=== PATIENT | female | born 1940 | race Caucasian/White ===

== ENCOUNTER → 2016-11-25 | Outpatient (CLI) | payer MEDICARE ==
--- NOTE | 2016-11-27 09:39 | MM ---
Reason for exam: screening (asymptomatic). Last mammogram was performed 2 years and 4 months ago. History: Patient is postmenopausal. Family history of breast cancer in aunt at age 72, premenopausal breast cancer in mother at age 48, and breast cancer in sister at age 67. Took hormonal contraceptives for 3 years beginning at age 22. Taking other hormone for 2 years. Physical Findings: A clinical breast exam by your physician is recommended on an annual basis and results should be correlated with mammographic findings. MG 3D Screening Mammo W/Cad Bilateral CC and MLO view(s) were taken. Prior study comparison: July 27, 2014, bilateral MG screening mammo w CAD. November 18, 2011, bilateral digital screening mammo w/CAD. There are scattered fibroglandular densities. There is no discrete abnormality. No significant changes when compared with prior studies. ASSESSMENT: Negative, BI-RAD 1 RECOMMENDATION: Routine screening mammogram of both breasts in 1 year.
== END | disposition home or self-care (01) ==
LOC: RADMAMWWP 15:08
PROVIDERS: ATTEND Internal Medicine
DX: Z12.31 Encounter for screening mammogram for malignant neoplasm of breast (principal)
CPT/HCPCS: 77063; G0202

== ENCOUNTER → 2018-04-30 | Outpatient (CLI) | payer MEDICARE ==
--- NOTE | 2018-05-04 09:00 | MM ---
Reason for exam: screening (asymptomatic). Last mammogram was performed 1 year and 5 months ago. History: Patient is postmenopausal and history of other cancer. Family history of breast cancer in aunt at age 72, premenopausal breast cancer in mother at age 48, and breast cancer in sister at age 67. Took hormonal contraceptives for 3 years beginning at age 22. Taking other hormone for 2 years. Physical Findings: A clinical breast exam by your physician is recommended on an annual basis and results should be correlated with mammographic findings. MG 3D Screening Mammo W/Cad Bilateral CC and MLO view(s) were taken. Prior study comparison: November 25, 2016, bilateral MG 3d screening mammo w/cad. July 27, 2014, bilateral MG screening mammo w CAD. There are scattered fibroglandular densities. No significant changes when compared with prior studies. ASSESSMENT: Negative, BI-RAD 1 RECOMMENDATION: Routine screening mammogram of both breasts in 1 year.
== END | disposition home or self-care (01) ==
LOC: RADMAMWWP 13:48
PROVIDERS: ATTEND Internal Medicine
DX: Z12.31 Encounter for screening mammogram for malignant neoplasm of breast (principal)
CPT/HCPCS: 77063; 77067

== ENCOUNTER 2018-05-03 08:42 | Emergency (ER) | payer MEDICARE ==
[2018-05-03 08:50] VITALS: RESP 18
[2018-05-03] MEDS ORDERED: SODIUM CHLORIDE 0.9% 1,000 ML IV STA (09:05)
--- NOTE | 2018-05-03 09:37 | ED ---
General Adult HPI <Javier Hobbs - Last Filed: 05/03/18 14:20> - General Source: patient, RN notes reviewed Mode of arrival: wheelchair Limitations: no limitations <Frank Casey - Last Filed: 05/03/18 14:34> - General Chief complaint: Weakness Stated complaint: Bladder infection Time Seen by Provider: 05/03/18 08:53 - History of Present Illness Initial comments: Patient 78-year-old female presents emergency room today with a chief complaint of urinary tract infection. She does admit that she's been battling a urinary tract infection for several months. States she was recently switched and started on antibiotics of ciprofloxacin for the past week. States symptoms have not improved. States she still having increased frequency and difficult time holding her urine. Patient doesn't that she's had symptoms similar in the past with urinary tract infections. She states she feels generally weak. She denies any other complaints. Patient denies any recent fever, chills, shortness of breath, chest pain, back pain, abdominal pain, nausea or vomiting, numbness or tingling, headaches or visual changes, or any other complaints. (Frank Casey) - Related Data Home Medications Medication Instructions Recorded Confirmed Atorvastatin [Lipitor] 20 mg PO HS 07/27/15 05/03/18 Gabapentin [Neurontin] 600 mg PO QAM 07/27/15 05/03/18 Lansoprazole [Prevacid] 30 mg PO BID 07/27/15 05/03/18 Meclizine [Antivert] 25 mg PO BID 07/27/15 05/03/18 Metoprolol Tartrate [Lopressor] 50 mg PO BID 07/27/15 05/03/18 Oxybutynin Chloride [Oxybutynin 10 mg PO DAILY 07/27/15 05/03/18 Chloride ER] RX: Biotin 5 mg PO DAILY 07/27/15 05/03/18 Venlafaxine HCl ER [Effexor Xr] 300 mg PO HS 07/27/15 05/03/18 Allopurinol [Zyloprim] 100 mg PO HS 05/03/18 05/03/18 Ciprofloxacin HCl [Cipro] 250 mg PO Q12HR 05/03/18 05/03/18 Cranberry Fruit Extract [Cranberry] 400 mg PO DAILY 05/03/18 05/03/18 Docusate [Colace] 300 mg PO HS 05/03/18 05/03/18 Ibuprofen [Motrin] 800 mg PO TID PRN 05/03/18 05/03/18 RX: Aspirin 81 mg PO DAILY 05/03/18 05/03/18 RX: Spironolactone 50 mg PO DAILY 05/03/18 05/03/18 buPROPion HCL [Wellbutrin SR] 150 mg PO BID 05/03/18 05/03/18 Previous Rx's Medication Instructions Recorded Hydrocodone/Acetaminophen [[place] 1 tab PO Q4HR PRN #30 tab 07/31/15 5-325] Allergies Allergy/AdvReac Type Severity Reaction Status Date / Time Sulfa (Sulfonamide Allergy Papo Verified 05/03/18 09:41 Antibiotics) syndrome Review of Systems ROS Other: All systems not noted in ROS Statement are negative. <Javier Hobbs - Last Filed: 05/03/18 14:20> ROS Other: All systems not noted in ROS Statement are negative. <Frank Casey - Last Filed: 05/03/18 14:34> ROS Statement: Those systems with pertinent positive or pertinent negative responses have been documented in the HPI. Past Medical History Past Medical History: Atrial Fibrillation, Heart Failure, CVA/TIA, Deep Vein Thrombosis (DVT), GERD/Reflux, Hyperlipidemia, Hypertension, Musculoskeletal Disorder, Sleep Apnea/CPAP/BIPAP, Thyroid Disorder Additional Past Medical History / Comment(s): pas hx. a-fib, has Lopez- Onel syndrome, post polio syndrome, hx. DVT years ago, not currently using CPAP, 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 left wrist earlier this week-currently in half cast, recently hospitalized for kidney/UTI infection? History of Any Multi-Drug Resistant Organisms: None Reported Past Surgical History: Cholecystectomy, Heart Catheterization With Stent, Hysterectomy Additional Past Surgical History / Comment(s): kidney surg. for malrotation Past Anesthesia/Blood Transfusion Reactions: No Reported Reaction Date of Last Stent Placement:: 2010 Past Psychological History: Anxiety, Depression Smoking Status: Former smoker - Past Family History Mother Sister(s) Family Medical History: Cancer <Frank Casey - Last Filed: 05/03/18 14:34> General Exam <Javier Hobbs - Last Filed: 05/03/18 14:20> Limitations: no limitations <Frank Casey - Last Filed: 05/03/18 14:34> - General Exam Comments Initial Comments: General: The patient is awake and alert, in no distress, and does not appear acutely ill. Eye: There is normal conjunctiva bilaterally. No signs of icterus. Ears, nose, mouth and throat: There are moist mucous membranes and no oral lesions. Neck: The neck is supple, there is no tenderness or JVD. Cardiovascular: There is a regular rate and rhythm. No murmur, rub or gallop is appreciated. Respiratory: Lungs are clear to auscultation, respirations are non-labored, breath sounds are equal. No wheezes, stridor, rales, or rhonchi. Gastrointestinal: Soft, non-distended, non-tender abdomen without masses or organomegaly noted. There is no rebound or guarding present. No CVA tenderness. Bowel sounds are unremarkable. Musculoskeletal: Normal ROM, no tenderness. Sensation intact. Strength 5/5. Pulses equal bilaterally 2+. Neurological: A&O x 3. CN II-XII intact, There are no obvious motor or sensory deficits. Coordination appears grossly intact. Speech is normal. Skin: Skin is warm and dry and no rashes or lesions are noted. Psychiatric: Cooperative, appropriate mood & affect, normal judgment. (Frank Casey) Vital Signs 05/03/18 05/03/18 08:44 09:04 Temperature 98.2 F Pulse Rate 65 Respiratory 18 Rate Blood Pressure 74/46 97/57 O2 Sat by Pulse 94 L Oximetry Medical Decision Making - Lab Data Result diagrams: 05/03/18 09:44 05/03/18 09:44 <Javier Hobbs - Last Filed: 05/03/18 14:20> - Lab Data Result diagrams: 05/03/18 09:44 05/03/18 09:44 <Frank Casey - Last Filed: 05/03/18 14:34> - Medical Decision Making Patient reevaluated by myself, Dr. Hobbs. Patient resting comfortably in bed. Patient does have bruising left posterior arm. Etiology of coagulopathy is unclear at this time. Case was discussed in detail with Dr. Gomez who is familiar with this patient. He does recommend vitamin K 5 mg by mouth 1 and will follow up with patient. (Javier Hobbs) - Lab Data Lab Results 05/03/18 05/03/18 05/03/18 Range/Units 09:44 09:44 09:44 WBC 8.1 (3.8-10.6) k/uL RBC 3.08 L (3.80-5.40) m/uL Hgb 9.6 L (11.4-16.0) gm/dL Hct 31.5 L (34.0-46.0) % MCV 102.3 H (80.0-100.0) fL MCH 31.2 (25.0-35.0) pg MCHC 30.5 L (31.0-37.0) g/dL RDW 15.4 (11.5-15.5) % Plt Count 262 (150-450) k/uL Neutrophils % 62 % Lymphocytes % 20 % Monocytes % 10 % Eosinophils % 3 % Basophils % 1 % Neutrophils # 5.0 (1.3-7.7) k/uL Lymphocytes # 1.6 (1.0-4.8) k/uL Monocytes # 0.8 (0-1.0) k/uL Eosinophils # 0.3 (0-0.7) k/uL Basophils # 0.1 (0-0.2) k/uL Hypochromasia Marked Macrocytosis Slight PT >130.0 H (9.0-12.0) sec INR >10.0 H* (<1.2) APTT 68.4 H (22.0-30.0) sec Sodium 139 (137-145) mmol/L Potassium 4.9 (3.5-5.1) mmol/L Chloride 110 H (98-107) mmol/L Carbon Dioxide 17 L (22-30) mmol/L Anion Gap 12 mmol/L BUN 31 H (7-17) mg/dL Creatinine 2.60 H (0.52-1.04) mg/dL Est GFR (CKD-EPI)AfAm 20 (>60 ml/min/1.73 sqM) Est GFR (CKD-EPI)NonAf 17 (>60 ml/min/1.73 sqM) Glucose 85 (74-99) mg/dL Plasma Lactic Acid Harshad (0.7-2.0) mmol/L Calcium 6.8 L (8.4-10.2) mg/dL Total Bilirubin 0.2 (0.2-1.3) mg/dL AST 22 (14-36) U/L ALT 20 (9-52) U/L Alkaline Phosphatase 230 H (38-126) U/L Total Creatine Kinase (30-135) U/L CK-MB (CK-2) (0.0-2.4) ng/mL CK-MB (CK-2) Rel Index Troponin I (0.000-0.034) ng/mL Total Protein 5.9 L (6.3-8.2) g/dL Albumin 3.1 L (3.5-5.0) g/dL Urine Color Urine Appearance (Clear) Urine pH (5.0-8.0) Ur Specific [place] (1.001-1.035) Urine Protein (Negative) Urine Glucose (UA) (Negative) Urine Ketones (Negative) Urine Blood (Negative) Urine Nitrite (Negative) Urine Bilirubin (Negative) Urine Urobilinogen (<2.0) mg/dL Ur Leukocyte Esterase (Negative) 05/03/18 05/03/18 05/03/18 Range/Units 09:44 09:44 10:15 WBC (3.8-10.6) k/uL RBC (3.80-5.40) m/uL Hgb (11.4-16.0) gm/dL Hct (34.0-46.0) % MCV (80.0-100.0) fL MCH (25.0-35.0) pg MCHC (31.0-37.0) g/dL RDW (11.5-15.5) % Plt Count (150-450) k/uL Neutrophils % % Lymphocytes % % Monocytes % % Eosinophils % % Basophils % % Neutrophils # (1.3-7.7) k/uL Lymphocytes # (1.0-4.8) k/uL Monocytes # (0-1.0) k/uL Eosinophils # (0-0.7) k/uL Basophils # (0-0.2) k/uL Hypochromasia Macrocytosis PT (9.0-12.0) sec INR (<1.2) APTT (22.0-30.0) sec Sodium (137-145) mmol/L Potassium (3.5-5.1) mmol/L Chloride (98-107) mmol/L Carbon Dioxide (22-30) mmol/L Anion Gap mmol/L BUN (7-17) mg/dL Creatinine (0.52-1.04) mg/dL Est GFR (CKD-EPI)AfAm (>60 ml/min/1.73 sqM) Est GFR (CKD-EPI)NonAf (>60 ml/min/1.73 sqM) Glucose (74-99) mg/dL Plasma Lactic Acid [place] 1.1 (0.7-2.0) mmol/L Calcium (8.4-10.2) mg/dL Total Bilirubin (0.2-1.3) mg/dL AST (14-36) U/L ALT (9-52) U/L Alkaline Phosphatase (38-126) U/L Total Creatine Kinase 224 H (30-135) U/L CK-MB (CK-2) 0.3 (0.0-2.4) ng/mL CK-MB (CK-2) Rel Index 0.1 Troponin I <0.012 (0.000-0.034) ng/mL Total Protein (6.3-8.2) g/dL Albumin (3.5-5.0) g/dL Urine Color Yellow Urine Appearance Clear (Clear) Urine pH 5.5 (5.0-8.0) Ur Specific [place] 1.012 (1.001-1.035) Urine Protein Negative (Negative) Urine Glucose (UA) Negative (Negative) Urine Ketones Negative (Negative) Urine Blood Negative (Negative) Urine Nitrite Negative (Negative) Urine Bilirubin Negative (Negative) Urine Urobilinogen <2.0 (<2.0) mg/dL Ur Leukocyte Esterase Negative (Negative) 05/03/18 Range/Units 11:34 WBC (3.8-10.6) k/uL RBC (3.80-5.40) m/uL Hgb (11.4-16.0) gm/dL Hct (34.0-46.0) % MCV (80.0-100.0) fL MCH (25.0-35.0) pg MCHC (31.0-37.0) g/dL RDW (11.5-15.5) % Plt Count (150-450) k/uL Neutrophils % % Lymphocytes % % Monocytes % % Eosinophils % % Basophils % % Neutrophils # (1.3-7.7) k/uL Lymphocytes # (1.0-4.8) k/uL Monocytes # (0-1.0) k/uL Eosinophils # (0-0.7) k/uL Basophils # (0-0.2) k/uL Hypochromasia Macrocytosis PT >130.0 H (9.0-12.0) sec INR >10.0 H* (<1.2) APTT 62.9 H (22.0-30.0) sec Sodium (137-145) mmol/L Potassium (3.5-5.1) mmol/L Chloride (98-107) mmol/L Carbon Dioxide (22-30) mmol/L Anion Gap mmol/L BUN (7-17) mg/dL Creatinine (0.52-1.04) mg/dL Est GFR (CKD-EPI)AfAm (>60 ml/min/1.73 sqM) Est GFR (CKD-EPI)NonAf (>60 ml/min/1.73 sqM) Glucose (74-99) mg/dL Plasma Lactic Acid [place] (0.7-2.0) mmol/L Calcium (8.4-10.2) mg/dL Total Bilirubin (0.2-1.3) mg/dL AST (14-36) U/L ALT (9-52) U/L Alkaline Phosphatase (38-126) U/L Total Creatine Kinase (30-135) U/L CK-MB (CK-2) (0.0-2.4) ng/mL CK-MB (CK-2) Rel Index Troponin I (0.000-0.034) ng/mL Total Protein (6.3-8.2) g/dL Albumin (3.5-5.0) g/dL Urine Color Urine Appearance (Clear) Urine pH (5.0-8.0) Ur Specific [place] (1.001-1.035) Urine Protein (Negative) Urine Glucose (UA) (Negative) Urine Ketones (Negative) Urine Blood (Negative) Urine Nitrite (Negative) Urine Bilirubin (Negative) Urine Urobilinogen (<2.0) mg/dL Ur Leukocyte Esterase (Negative) Disposition <Javier Hobbs - Last Filed: 05/03/18 14:20> Is patient prescribed a controlled substance at d/c from ED?: No Time of Disposition: 14:34 <JacintoFrank - Last Filed: 05/03/18 14:34> Clinical Impression: Elevated INR Disposition: HOME SELF-CARE Condition: Stable Instructions: Elevated INR (ED) Additional Instructions: Please follow-up with family physician tomorrow to have blood work rechecked. Please return to emergency room if the symptoms increase or worsen or for any other concerns. Referrals: Kenn Gomez MD [Primary Care Provider] - 1-2 days
[2018-05-03 10:22] LABS: Albumin 3.1 g/dL (3.5-5.0); Calcium 6.8 mg/dL (8.4-10.2); Potassium 4.9 mmol/L (3.5-5.1); Total Bilirubin 0.2 mg/dL (0.2-1.3); Total Protein 5.9 g/dL (6.3-8.2)
[2018-05-03 10:26] LABS: Basophils # (A) 0.1 k/uL (0-0.2); Basophils % (A) 1 %; Eosinophils # (A) 0.3 k/uL (0-0.7); Eosinophils % (A) 3 %; HCT 31.5 % (34.0-46.0); HGB 9.6 gm/dL (11.4-16.0); Hypochromasia Marked; Lymphocytes # (A) 1.6 k/uL (1.0-4.8); Lymphocytes % (A) 20 %; MCH 31.2 pg (25.0-35.0); MCHC 30.5 g/dL (31.0-37.0); MCV 102.3 fL (80.0-100.0); Macrocytosis Slight; Mean Platelet Volume 7.6; Monocytes # (A) 0.8 k/uL (0-1.0); Monocytes % (A) 10 %; Neutrophils % (A) 62 %; Platelet Count 262 k/uL (150-450); RBC 3.08 m/uL (3.80-5.40); RDW 15.4 % (11.5-15.5); WBC 8.1 k/uL (3.8-10.6)
[2018-05-03 10:33] LABS: Appearance,Urine Clear (Clear); Bilirubin,Urine Negative (Negative); Blood,Urine Negative (Negative); Color,Urine Yellow; Glucose,Urine (UA) Negative (Negative); Ketones,Urine Negative (Negative); Leukocyte Esterase,Urine Negative (Negative); Nitrite,Urine Negative (Negative); PH, Urine 5.5 (5.0-8.0); Protein,Urine Negative (Negative); Specific Gravity,Urine 1.012 (1.001-1.035); Urobilinogen,Urine <2.0 mg/dL (<2.0)
[2018-05-03 10:38] LABS: Creatine Kinase 224 U/L (30-135)
--- NOTE | 2018-05-03 10:43 | XR ---
EXAMINATION TYPE: XR chest 2V DATE OF EXAM: 05/03/2018 COMPARISON: NONE HISTORY: Shortness of breath TECHNIQUE: Frontal and lateral views of the chest are obtained. FINDINGS: Scattered senescent parenchymal changes noted. Hyperinflation compatible with COPD. No evidence for infiltrate. Right middle lobe linear atelectasis noted. Heart size is stable. Mediastinal structures are stable and grossly unremarkable. No evidence for hilar prominence. Degenerative changes dorsal spine. IMPRESSION: 1. Right middle lobe linear atelectasis noted.
[2018-05-03 10:50] LABS: Creatine Kinase MB 0.3 ng/mL (0.0-2.4); Troponin I <0.012 ng/mL (0.000-0.034)
[2018-05-03 11:03] LABS: Prothrombin Time >130.0 sec (9.0-12.0)
[2018-05-03 11:05] LABS: INR >10.0 (<1.2)
[2018-05-03 11:06] LABS: Partial Thromboplastin Time 68.4 sec (22.0-30.0)
[2018-05-03 12:34] LABS: Partial Thromboplastin Time 62.9 sec (22.0-30.0); Prothrombin Time >130.0 sec (9.0-12.0)
[2018-05-03 12:35] LABS: INR >10.0 (<1.2)
[2018-05-03] MEDS ORDERED: PHYTONADIONE ORAL 5 MG/5 ML ORAL.SYRG PO STA (14:24)
[2018-05-03 15:40] VITALS: BP 114/57; PULSE 69; TEMP 98
== END 2018-05-03 15:39 | disposition home or self-care (01) ==
LOC: EC 08:42
DX: R79.1 Abnormal coagulation profile (principal); S40.022A Contusion of left upper arm, initial encounter; R53.1 Weakness; R35.0 Frequency of micturition; R39.198 Other difficulties with micturition; I48.91 Unspecified atrial fibrillation; I11.0 Hypertensive heart disease with heart failure; I50.9 Heart failure, unspecified; K21.9 Gastro-esophageal reflux disease without esophagitis; E78.5 Hyperlipidemia, unspecified; F41.9 Anxiety disorder, unspecified; F32.9 Major depressive disorder, single episode, unspecified; G47.30 Sleep apnea, unspecified; Z99.89 Dependence on other enabling machines and devices; Z95.5 Presence of coronary angioplasty implant and graft; Z86.73 Personal history of transient ischemic attack (TIA), and cerebral infarction without residual deficits; Z98.890 Other specified postprocedural states; Z87.891 Personal history of nicotine dependence; Z79.82 Long term (current) use of aspirin; Z79.899 Other long term (current) drug therapy; Z88.2 Allergy status to sulfonamides; X58.XXXA Exposure to other specified factors, initial encounter
CPT/HCPCS: 36415; 71046; 80053; 81003; 82550; 82553; 83605; 84484; 85025; 85610; 85730; 87040; 87086; 93005; 96360; 99285

== ENCOUNTER 2018-05-24 08:29 | Day surgery (SDC) | payer MEDICARE ==
[2018-05-19 14:34] VITALS: BMI 25.2
[~2018-05-24 08:29] MED LIST: LACTATED RINGERS 1,000 ML IV SCH
[2018-05-24 09:09] VITALS: TEMP 97.3
[2018-05-24] MEDS ORDERED: LIDOCAINE 1% 20 ML VIAL (10MG/ML) FOR IV START INTRADERMA ONE (09:21)
[2018-05-24] MEDS ORDERED: LIDOCAINE 1% INJ 10MG/ML (20 ML MDV) ONE (10:04)
[2018-05-24] MEDS ORDERED: PROPOFOL 10 MG/ML 20 ML VIAL IV ONE (10:04)
[2018-05-24 10:29] VITALS: RESP 14
--- NOTE | 2018-05-24 10:30 | P.PCN ---
Date of Procedure: 05/24/18 Procedure(s) Performed: Procedure: Esophagogastroduodenoscopy and biopsy. Preoperative diagnosis: Dysphagia. Postoperative diagnosis: 1. Small sliding hiatal hernia with no obvious esophagitis or complicated reflux disease. 2. Mild antral gastritis. 3. Multiple biopsies obtained from the duodenum, antrum and esophagus. Preparation and sedation: Was provided by anesthesia. Brief clinical history: The patient is a 78-year-old female who is scheduled for this evaluation because of history of dysphagia for the last 4 years or so. Apparently, she was on life support around 4 years ago that went on for a month or so and since that time she has difficulty swallowing. There is no overt bleeding. She did lose weight last year. The patient, in addition, has chronic stomach issues. This evaluation is to assess for complicated reflux disease or other pathology. Procedure: With the patient on her left lateral decubitus position and after informed consent and adequate sedation the Olympus-GIF 160 video upper endoscope was used and was advanced under direct vision through the cricopharyngeus down the esophagus. GE junction was around 39 cm from the incisors and there was a small sliding hiatal hernia but no obvious esophagitis or complicated reflux disease. The endoscope was then passed into the stomach which was insufflated with air and inspected in detail including the retroflex view in the cardia. There was some mottling and erythema in the antrum but no ulcers or erosions. Pyloric channel did not show any ulcers. Duodenal bulb, post bulbar area and descending duodenum showed minimal erythema. I obtained multiple biopsies from the duodenum, antrum and esophagus then the endoscope was withdrawn. The patient tolerated the procedure well. Plan: The patient was reassured. She will follow-up with you as planned and I will be happy to see in the office if her symptoms persist, especially if there is nutritional compromise.
[2018-05-24 10:54] VITALS: BP 99/50; PULSE 66
== END 2018-05-24 10:54 | disposition home or self-care (01) ==
LOC: ORWHC2ENDO 08:29
DX: K20.0 Eosinophilic esophagitis (principal); K29.80 Duodenitis without bleeding; K29.50 Unspecified chronic gastritis without bleeding; R13.10 Dysphagia, unspecified; K44.9 Diaphragmatic hernia without obstruction or gangrene; E78.5 Hyperlipidemia, unspecified; G47.33 Obstructive sleep apnea (adult) (pediatric); I48.91 Unspecified atrial fibrillation; I25.10 Atherosclerotic heart disease of native coronary artery without angina pectoris; I11.0 Hypertensive heart disease with heart failure; I50.9 Heart failure, unspecified; Z87.891 Personal history of nicotine dependence; Z86.73 Personal history of transient ischemic attack (TIA), and cerebral infarction without residual deficits; Z86.718 Personal history of other venous thrombosis and embolism; K21.9 Gastro-esophageal reflux disease without esophagitis; E07.9 Disorder of thyroid, unspecified; H40.9 Unspecified glaucoma; G14 Postpolio syndrome; Z95.5 Presence of coronary angioplasty implant and graft; Z99.81 Dependence on supplemental oxygen; Z88.2 Allergy status to sulfonamides
CPT/HCPCS: 88305; 43239; J2001; J2704

== ENCOUNTER 2019-01-22 20:14 | Emergency (ER) | payer MEDICARE ==
[2019-01-22] MEDS ORDERED: KETOROLAC 30 MG/ML 1 ML VIAL IVP STA (21:20)
[2019-01-22] MEDS ORDERED: SODIUM CHLORIDE 0.9% 1,000 ML IV STA (21:20)
--- NOTE | 2019-01-22 21:36 | ED ---
Abdominal Pain HPI - General Chief Complaint: Abdominal Pain Stated Complaint: flank pain Time Seen by Provider: 01/22/19 20:52 Source: patient, family Mode of arrival: ambulatory Limitations: no limitations - History of Present Illness Initial Comments: Patient is a 78-year-old female presenting to the emergency Department with complaints of right-sided flank pain 3 days. Patient states the pain has been steadily increasing in severity. Patient states the pain does come and go but overall has been increasing in her pain medications are not helping. 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 Patient denies nausea, vomiting, fever, chills. Patient states she thought she felt a little feverish yesterday but did not have a thermometer. Patient states today she no longer feels that way. Patient does have a history of UTIs. Patient has history of cholecystectomy, left kidney malrotation surgery, and 2 hysterectomies. Patient has no other complaints at this time. - Related Data Home Medications Medication Instructions Recorded Confirmed Atorvastatin [Lipitor] 20 mg PO HS 07/27/15 05/19/18 Biotin 5 mg PO QAM 07/27/15 05/24/18 Gabapentin [Neurontin] 600 mg PO QAM 07/27/15 05/24/18 Lansoprazole [Prevacid] 30 mg PO BID 07/27/15 05/24/18 Meclizine [Antivert] 25 mg PO BID 07/27/15 05/19/18 Metoprolol Tartrate [Lopressor] 50 mg PO BID 07/27/15 05/19/18 Oxybutynin Chloride [Oxybutynin 10 mg PO QAM 07/27/15 05/24/18 Chloride ER] Venlafaxine HCl ER [Effexor Xr] 300 mg PO HS 07/27/15 05/19/18 Allopurinol [Zyloprim] 100 mg PO HS 05/03/18 05/19/18 Aspirin 81 mg PO QAM 05/03/18 05/19/18 Cranberry Fruit Extract [Cranberry] 400 mg PO DAILY 05/03/18 05/24/18 Docusate [Colace] 300 mg PO HS 05/03/18 05/19/18 Ibuprofen [Motrin] 800 mg PO TID PRN 05/03/18 05/24/18 Spironolactone 50 mg PO QAM 05/03/18 05/24/18 buPROPion HCL [Wellbutrin SR] 150 mg PO BID 05/03/18 05/19/18 Furosemide [Lasix] 40 mg PO DAILY PRN 05/19/18 05/24/18 Levothyroxine Sodium [Synthroid] 125 mcg PO QAM 05/19/18 05/19/18 Vitamin K 100 mcg PO DAILY 05/19/18 Previous Rx's Medication Instructions Recorded Hydrocodone/Acetaminophen [[place] 1 tab PO Q4HR PRN #30 tab 07/31/15 5-325] Allergies Allergy/AdvReac Type Severity Reaction Status Date / Time Sulfa (Sulfonamide Allergy Papo Verified 01/22/19 20:51 Antibiotics) syndrome Review of Systems ROS Statement: Those systems with pertinent positive or pertinent negative responses have been documented in the HPI. ROS Other: All systems not noted in ROS Statement are negative. 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 left wrist, hx of UTI's, hx of glaucoma, had several laser tx, states frequent headaches, uses walker, vertigo, hx of gout, History of Any Multi-Drug Resistant Organisms: None Reported Past Surgical History: Cholecystectomy, Heart Catheterization With Stent, Hysterectomy Additional Past Surgical History / Comment(s): kidney surg. for malrotation, chest tube, 2 stents Past Anesthesia/Blood Transfusion Reactions: No Reported Reaction Date of Last Stent Placement:: 2010 Past Psychological History: Anxiety, Depression Smoking Status: Former smoker Past Alcohol Use History: None Reported Past Drug Use History: None Reported - Past Family History Mother Sister(s) Family Medical History: Cancer General Exam - General Exam Comments Initial Comments: GENERAL: Well-appearing, well-nourished and in no acute distress. HEAD: Atraumatic, normocephalic. EYES: Pupils equal round and reactive to light, extraocular movements intact, sclera anicteric, conjunctiva are normal. ENT: TMs normal, nares patent, oropharynx clear without exudates. Moist mucous membranes. NECK: Normal range of motion, supple without lymphadenopathy or JVD. LUNGS: Breath sounds clear to auscultation bilaterally and equal. No wheezes rales or rhonchi. HEART: Regular rate and rhythm without murmurs, rubs or gallops. ABDOMEN: Tenderness of the right flank and right side. Soft, normoactive bowel sounds. No guarding, no rebound. No masses appreciated. : Deferred EXTREMITIES: Normal range of motion, no pitting or edema. No clubbing or cyanosis. NEUROLOGICAL: Cranial nerves II through XII grossly intact. Normal speech, normal gait. PSYCH: Normal mood, normal affect. SKIN: Warm, Dry, normal turgor, no rashes or lesions noted. Limitations: no limitations Course Vital Signs 01/22/19 20:45 Temperature 98.1 F Pulse Rate 70 Respiratory 20 Rate Blood Pressure 103/62 O2 Sat by Pulse 96 Oximetry Medical Decision Making - Medical Decision Making Patient is a 78-year-old female who presents with right flank pain 3 days. She states the pain has been steadily increasing over the 3 days and has been waxing and waning. Patient denies fever, chills, nausea, vomiting. Patient has history of cholecystectomy, 2 hysterectomies, and a surgery on the left kidney. On exam patient has tenderness of the right flank area and right side. Rest of exam is unremarkable. CBC, CMP, UA shows no signs of infection. CT of the abdomen reveals a nonobstructing renal calculi 1 mm in size. Everything else is unremarkable. There is some atelectasis of the right middle lobe. 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 Patient received Toradol and states she feels improvement in her pain and is wanting to go home. Vital signs remained stable throughout stay. Patient will continue with Motrin as needed for pain relief. Return parameters were discussed with the patient and her and they both verbalize understanding. Case discussed with Dr. Damon. - Lab Data Result diagrams: 01/22/19 21:41 01/22/19 21:41 Lab Results 01/22/19 01/22/19 01/22/19 Range/Units 21:41 21:41 21:41 WBC 7.2 (3.8-10.6) k/uL RBC 3.08 L (3.80-5.40) m/uL Hgb 9.6 L (11.4-16.0) gm/dL Hct 31.6 L (34.0-46.0) % MCV 102.5 H (80.0-100.0) fL MCH 31.2 (25.0-35.0) pg MCHC 30.4 L (31.0-37.0) g/dL RDW 15.8 H (11.5-15.5) % Plt Count 334 (150-450) k/uL Neutrophils % 53 % Lymphocytes % 28 % Monocytes % 8 % Eosinophils % 6 % Basophils % 1 % Neutrophils # 3.8 (1.3-7.7) k/uL Lymphocytes # 2.0 (1.0-4.8) k/uL Monocytes # 0.6 (0-1.0) k/uL Eosinophils # 0.4 (0-0.7) k/uL Basophils # 0.0 (0-0.2) k/uL Hypochromasia Marked Macrocytosis Slight Sodium 138 (137-145) mmol/L Potassium 5.2 H (3.5-5.1) mmol/L Chloride 113 H (98-107) mmol/L Carbon Dioxide 18 L (22-30) mmol/L Anion Gap 7 mmol/L BUN 28 H (7-17) mg/dL Creatinine 1.92 H (0.52-1.04) mg/dL Est GFR (CKD-EPI)AfAm 29 (>60 ml/min/1.73 sqM) Est GFR (CKD-EPI)NonAf 25 (>60 ml/min/1.73 sqM) Glucose 109 H (74-99) mg/dL Calcium 7.8 L (8.4-10.2) mg/dL Total Bilirubin 0.2 (0.2-1.3) mg/dL AST 15 (14-36) U/L ALT 14 (9-52) U/L Alkaline Phosphatase 244 H (38-126) U/L Total Protein 5.8 L (6.3-8.2) g/dL Albumin 3.3 L (3.5-5.0) g/dL Lipase 55 (23-300) U/L Urine Color Yellow Urine Appearance Clear (Clear) Urine pH 5.5 (5.0-8.0) Ur Specific [place] 1.014 (1.001-1.035) Urine Protein Negative (Negative) Urine Glucose (UA) Negative (Negative) Urine Ketones Negative (Negative) Urine Blood Negative (Negative) Urine Nitrite Negative (Negative) Urine Bilirubin Negative (Negative) Urine Urobilinogen <2.0 (<2.0) mg/dL Ur Leukocyte Esterase Trace H (Negative) Urine RBC 1 (0-5) /hpf Urine WBC 2 (0-5) /hpf Ur Squamous Epith Cells 1 (0-4) /hpf Hyaline Casts 16 H (0-2) /lpf Urine Mucus Rare H (None) /hpf Disposition Clinical Impression: Abdominal pain Disposition: HOME SELF-CARE Condition: Stable Instructions (If sedation given, give patient instructions): Abdominal Pain (ED) Additional Instructions: Please return to the Emergency Department if symptoms worsen or any other concerns. Follow-up with PCP in 2-3 days. Is patient prescribed a controlled substance at d/c from ED?: No Referrals: Kenn Gomez MD [Primary Care Provider] - 1-2 days
[2019-01-22 21:53] LABS: Basophils % (A) 1 %; Eosinophils # (A) 0.4 k/uL (0-0.7); Eosinophils % (A) 6 %; HCT 31.6 % (34.0-46.0); HGB 9.6 gm/dL (11.4-16.0); Hypochromasia Marked; Lymphocytes % (A) 28 %; MCH 31.2 pg (25.0-35.0); MCHC 30.4 g/dL (31.0-37.0); MCV 102.5 fL (80.0-100.0); Macrocytosis Slight; Mean Platelet Volume 8.7; Monocytes # (A) 0.6 k/uL (0-1.0); Monocytes % (A) 8 %; Neutrophils # (A) 3.8 k/uL (1.3-7.7); Neutrophils % (A) 53 %; Platelet Count 334 k/uL (150-450); RBC 3.08 m/uL (3.80-5.40); RDW 15.8 % (11.5-15.5); WBC 7.2 k/uL (3.8-10.6)
[2019-01-22 22:04] LABS: Albumin 3.3 g/dL (3.5-5.0); Calcium 7.8 mg/dL (8.4-10.2); Potassium 5.2 mmol/L (3.5-5.1); Total Bilirubin 0.2 mg/dL (0.2-1.3); Total Protein 5.8 g/dL (6.3-8.2)
[2019-01-22 22:08] LABS: Appearance,Urine Clear (Clear); Bilirubin,Urine Negative (Negative); Blood,Urine Negative (Negative); Color,Urine Yellow; Glucose,Urine (UA) Negative (Negative); Hyaline Casts,Urine 16 /lpf (0-2); Ketones,Urine Negative (Negative); Leukocyte Esterase,Urine Trace (Negative); Mucus,Urine Rare /hpf; Nitrite,Urine Negative (Negative); PH, Urine 5.5 (5.0-8.0); Protein,Urine Negative (Negative); RBC,Urine 1 /hpf (0-5); Specific Gravity,Urine 1.014 (1.001-1.035); Squamous Epithelial Cell,Urine 1 /hpf (0-4); Urobilinogen,Urine <2.0 mg/dL (<2.0)
--- NOTE | 2019-01-22 22:09 | CT ---
EXAMINATION TYPE: CT abdomen pelvis wo con DATE OF EXAM: 01/22/2019 COMPARISON: None HISTORY: Right flank pain. CT DLP: 453.3 mGycm Automated exposure control for dose reduction was used. TECHNIQUE: Helical acquisition of images was performed from the lung bases through the pelvis. FINDINGS: Multiple axial sections were obtained from the diaphragm to the floor the pelvis with no contrast. Lung bases are clear of consolidation. There is some atelectasis right middle lobe.. There is small h iatal hernia. There is no pericardial effusion. There is coronary artery calcification. There are cli ps from cholecystectomy. Bile ducts are not dilated. Spleen appears normal. There is no evidence of p ancreatic mass. There is no adrenal mass. There are tiny 1 mm calculi in the right kidney. There is no hydronephrosis . Ureters are not dilated. Bladder distends smoothly. There is no inguinal hernia. There is no eviden ce of a pelvic mass. There is no mesenteric edema. There is no sign of ascites or free air. There is no evidence of a bowel obstruction. There is multilevel spondylotic changes in the thoracic and lumbar spine. Abdominal aorta is atheroma tous. Appendix is not seen. There is no evidence of thickened appendix. IMPRESSION: NONOBSTRUCTING TINY RIGHT RENAL CALCULI. Atherosclerotic vascular disease. I do not see a cause for r ight flank pain. Patchy atelectasis right middle lobe.
[2019-01-22 22:45] VITALS: BP 108/60; PULSE 69; RESP 18; TEMP 97.4
== END 2019-01-22 22:45 | disposition home or self-care (01) ==
LOC: EC 20:14
DX: R10.9 Unspecified abdominal pain (principal); I48.91 Unspecified atrial fibrillation; I11.0 Hypertensive heart disease with heart failure; I50.9 Heart failure, unspecified; E78.5 Hyperlipidemia, unspecified; K21.9 Gastro-esophageal reflux disease without esophagitis; M10.9 Gout, unspecified; E07.9 Disorder of thyroid, unspecified; G47.30 Sleep apnea, unspecified; Z99.89 Dependence on other enabling machines and devices; F32.9 Major depressive disorder, single episode, unspecified; F41.9 Anxiety disorder, unspecified; Z86.73 Personal history of transient ischemic attack (TIA), and cerebral infarction without residual deficits; Z86.718 Personal history of other venous thrombosis and embolism; Z87.891 Personal history of nicotine dependence; Z79.82 Long term (current) use of aspirin; Z79.890 Hormone replacement therapy; Z79.899 Other long term (current) drug therapy; Z88.2 Allergy status to sulfonamides; Z90.49 Acquired absence of other specified parts of digestive tract; Z95.1 Presence of aortocoronary bypass graft
CPT/HCPCS: 36415; 80053; 83690; 85025; 81001; 74176; 99284; 96374; 96361; J1885

== ENCOUNTER → 2019-05-27 | Outpatient (CLI) | payer MEDICARE ==
--- NOTE | 2019-05-30 11:15 | MM ---
Reason for exam: screening (asymptomatic). Last mammogram was performed 1 year and 1 month ago. History: Patient is postmenopausal and has history of other cancer at age 72. Family history of breast cancer in aunt at age 72, premenopausal breast cancer in mother at age 48, and breast cancer in sister at age 67. Took hormonal contraceptives for 3 years beginning at age 22. Taking other hormone for 2 years. Physical Findings: A clinical breast exam by your physician is recommended on an annual basis and results should be correlated with mammographic findings. MG 3D Screening Mammo W/Cad Bilateral CC and MLO view(s) were taken. Prior study comparison: April 30, 2018, bilateral MG 3d screening mammo w/cad. November 25, 2016, bilateral MG 3d screening mammo w/cad. The breast tissue is heterogeneously dense. This may lower the sensitivity of mammography. There is no discrete abnormality. No significant changes when compared with prior studies. ASSESSMENT: Negative, BI-RAD 1 RECOMMENDATION: Routine screening mammogram of both breasts in 1 year.
== END | disposition home or self-care (01) ==
LOC: RADMAMWWP 16:26
PROVIDERS: ATTEND Nurse Practitioner Family
DX: Z12.31 Encounter for screening mammogram for malignant neoplasm of breast (principal)
CPT/HCPCS: 77063; 77067

== ENCOUNTER → 2019-08-04 | Outpatient (CLI) | payer MEDICARE ==
--- NOTE | 2019-08-04 14:31 | US ---
EXAMINATION TYPE: US kidneys/renal and bladder DATE OF EXAM: 08/04/2019 COMPARISON: CT 01/22/2019 CLINICAL HISTORY: N18.4 Chronic kidney disease stage 4. Patient states surgery to left kidney years a go for malrotation EXAM MEASUREMENTS: Right Kidney: 8.5 x 4.4 x 4.2 cm Left Kidney: 6.3 x 2.7 x 3.2 cm Right Kidney: No hydronephrosis. Cyst laterally measuring 0.7 cm Left Kidney: Mild hydronephrosis. Cyst laterally measuring 0.8 cm Bladder: wnl as visualized Bilateral Jets seen: Only right jet visualized No nephrolithiasis is seen. The urinary bladder is anechoic. Right ureteral jet seen. IMPRESSION: Small cortical renal cysts. No hydronephrosis or nephrolithiasis of either kidney. Urinary bladder is anechoic.
== END | disposition home or self-care (01) ==
LOC: RADUSWWP 12:36
PROVIDERS: ATTEND Family Medicine
DX: N28.1 Cyst of kidney, acquired (principal); N18.4 Chronic kidney disease, stage 4 (severe)
CPT/HCPCS: 76770

== ENCOUNTER → 2020-01-05 | Outpatient (CLI) | payer MEDICARE ==
--- NOTE | 2020-01-05 19:26 | US ---
EXAMINATION TYPE: US venous doppler duplex LE BI DATE OF EXAM: 01/05/2020 7:15 PM COMPARISON: NONE CLINICAL HISTORY: M79.662 R2242, M79.661 R2241. Pain and swelling bilateral lower extremities x coupl e months. Hx DVT left leg. Patient not taking blood thinners. SIDE PERFORMED: Bilateral TECHNIQUE: The lower extremity deep venous system is examined utilizing real time linear array sonog dax with graded compression, doppler sonography and color-flow sonography. VESSELS IMAGED: External Iliac Vein (EIV) Common Femoral Vein Deep Femoral Vein Greater Saphenous Vein * Femoral Vein Popliteal Vein Small Saphenous Vein * Proximal Calf Veins (* superficial vessels) Right Leg: No evidence of DVT in veins imaged at this time from prox calf veins to EIV. Left Leg: No evidence of DVT in veins imaged at this time from prox calf veins to EIV. IMPRESSION: No evidence for DVT.
== END | disposition home or self-care (01) ==
LOC: RADUSWWP 18:35
PROVIDERS: ATTEND Family Medicine
DX: M79.662 Pain in left lower leg (principal); M79.661 Pain in right lower leg
CPT/HCPCS: 93970

== ENCOUNTER → 2020-01-11 | Outpatient (CLI) | payer MEDICARE ==
--- NOTE | 2020-01-11 12:55 | FL ---
EXAMINATION TYPE: FL barium swallow w video DATE OF EXAM: 01/11/2020 COMPARISON: NONE HISTORY: Dysphasia TECHNIQUE: Fluoroscopy. FINDINGS: Fluoroscopic guidance was provided for the procedure performed in conjunction with the [facility] pathology department. Please see complete report forthcoming from the Speech Pathology departmen t. Various consistencies from thin liquid to solids were administered. Fluoroscopy time 1 minute 28 seconds. Number of images: 0. No aspiration or penetration was evident. No significant pooling was observed in the vallecula. There was normal propulsion of the bolus. IMPRESSION: 1. Normal modified barium swallow.
== END | disposition home or self-care (01) ==
LOC: RADFLMAIN 12:37
PROVIDERS: ATTEND Family Medicine
DX: R13.10 Dysphagia, unspecified (principal); Z86.12 Personal history of poliomyelitis
CPT/HCPCS: 74230

== ENCOUNTER → 2020-01-20 | Outpatient (CLI) | payer MEDICARE ==
--- NOTE | 2020-01-20 10:32 | FL ---
EXAMINATION TYPE: FL UGI air DATE OF EXAM: 01/20/2020 9:38 AM COMPARISON: NONE CLINICAL HISTORY: Dysphagia Preliminary view of the abdomen reveals a normal bowel gas pattern. Severe degenerative changes are n oted of the thoracolumbar spine. Upper GI examination was performed according to the single contrast technique. Barium was swallowed w ithout difficulty or delay. Tertiary contractions are noted compatible with presbyesophagus. There is no evidence for esophagitis, intraluminal mass, hiatal hernia or gastroesophageal reflux. The stoma ch has a normal appearance in terms of its size, shape and location. No gastric filling defects or u lcer craters are seen. The duodenal bulb and sweep are also free of intraluminal lesion or ulcer heat and vent aircraft mechanic ter. IMPRESSION: Presbyesophagus. Otherwise unremarkable study.
== END | disposition home or self-care (01) ==
LOC: RADUSWWP 08:39
PROVIDERS: ATTEND Family Medicine
DX: K22.8 Other specified diseases of esophagus (principal); Z86.12 Personal history of poliomyelitis
CPT/HCPCS: 74246

== ENCOUNTER 2023-02-27 15:24 | Inpatient (IN) | payer MEDICARE ==
[2023-02-27 16:39] LABS: Basophils % (A) 0 %; Eosinophils # (A) 0.2 k/uL (0-0.7); Eosinophils % (A) 2 %; HCT 30.7 % (34.0-46.0); HGB 9.9 gm/dL (11.4-16.0); Lymphocytes # (A) 0.8 k/uL (1.0-4.8); Lymphocytes % (A) 9 %; MCH 33.5 pg (25.0-35.0); MCHC 32.3 g/dL (31.0-37.0); MCV 103.7 fL (80.0-100.0); Macrocytosis Slight; Mean Platelet Volume 8.1; Monocytes # (A) 0.5 k/uL (0-1.0); Monocytes % (A) 6 %; Neutrophils % (A) 80 %; Platelet Count 335 k/uL (150-450); RBC 2.96 m/uL (3.80-5.40); RDW 13.2 % (11.5-15.5); WBC 8.8 k/uL (3.8-10.6)
[2023-02-27 16:55] LABS: ALT 24 U/L (4-34); AST 30 U/L (14-36); African American GFR (CKD) 34 (>60 ml/min/1.73 sqM); Albumin 3.4 g/dL (3.5-5.0); Alkaline Phosphatase 70 U/L (38-126); Anion Gap 6 mmol/L; Blood Urea Nitrogen 16 mg/dL (7-17); Calcium 8.7 mg/dL (8.4-10.2); Carbon Dioxide 26 mmol/L (22-30); Chloride 101 mmol/L (98-107); Glucose 100 mg/dL (74-99); Magnesium 2.2 mg/dL (1.6-2.3); Non-African American GFR(CKD) 30 (>60 ml/min/1.73 sqM); Potassium 5.4 mmol/L (3.5-5.1); Sodium 133 mmol/L (137-145); Total Bilirubin 0.4 mg/dL (0.2-1.3); Total Protein 6.3 g/dL (6.3-8.2)
--- NOTE | 2023-02-27 17:20 | XR ---
EXAMINATION TYPE: XR chest 2V DATE OF EXAM: 02/27/2023 5:11 PM COMPARISON: Chest radiographs from 08/12/2019 TECHNIQUE: XR chest 2V Frontal and lateral views of the chest. CLINICAL INDICATION:Female, 82 years old with history of shortness of breath; FINDINGS: Lungs/Pleura: No evidence of focal consolidation or pneumothorax. Blunting of the costophrenic angles is present. Pulmonary vascularity: Mild pulmonary vascular congestion. Heart/mediastinum: Cardiomediastinal silhouette is enlarged and stable. Musculoskeletal: No acute osseous pathology. IMPRESSION: Cardiomegaly, pulmonary vascular congestion and bilateral pleural effusions. Correlate with BNP for c ongestive heart failure.
[2023-02-27] MEDS ORDERED: IPRATROPIUM-ALBUTEROL 3 ML NEB INHALATION STA (17:59)
[2023-02-27] MEDS ORDERED: FUROSEMIDE 10 MG/ML 4 ML VIAL IV STA (18:00)
[2023-02-27] MEDS ORDERED: NALOXONE 0.4 MG/ML 1 ML VIAL IV PRN (19:08)
--- NOTE | 2023-02-27 19:36 | ED ---
General Adult HPI - General Chief complaint: Shortness of Breath Stated complaint: SOB AFIB Time Seen by Provider: 02/27/23 16:58 Source: patient, RN notes reviewed, old records reviewed Mode of arrival: ambulatory Limitations: no limitations, physical limitation - History of Present Illness Initial comments: Patient is an 82-year-old female who presents emergency Department playing shortness of breath. Was admitted to the outside hospital last week and since that time as he had worsening exertional shortness of breath at home. Also endorsing worsening exertional dyspnea, orthopnea, PND. Has a history of CHF, COPD, atrial fibrillation. Is chronically on oxygen 2-1/2-3 L at home. Presents for further evaluation. Does endorse worsening lower extremity edema. Denies abdominal pain, nausea, vomiting, chest pain. No fevers, chills, cough. Presents for further evaluation at this time. - Related Data Home Medications Medication Instructions Recorded Confirmed Gabapentin [Neurontin] 600 mg PO TID 07/27/15 02/27/23 Meclizine [Antivert] 25 mg PO BID 07/27/15 02/27/23 Metoprolol Tartrate [Lopressor] 50 mg PO BID 07/27/15 02/27/23 Venlafaxine HCl ER [Effexor XR] 300 mg PO HS 07/27/15 02/27/23 allopurinoL [Zyloprim] 200 mg PO DAILY 05/03/18 02/27/23 buPROPion HCL [Wellbutrin SR] 150 mg PO BID 05/03/18 02/27/23 Baclofen 10 mg PO BID PRN 08/12/19 02/27/23 HYDROcodone/APAP 10-325MG [[place] 1 tab PO QID PRN 08/12/19 02/27/23 10-325] Acetaminophen Tab [Tylenol Tab] 1,000 mg PO Q6HR PRN 02/27/23 02/27/23 Albuterol Inhaler [Ventolin Hfa 2 puff INHALATION RT-QID PRN 02/27/23 02/27/23 Inhaler] Apixaban [Eliquis] 2.5 mg PO BID 02/27/23 02/27/23 Atorvastatin [Lipitor] 40 mg PO DAILY 02/27/23 02/27/23 Budesonide/Formoterol Fumarate 2 puff INHALATION RT-BID 02/27/23 02/27/23 [Symbicort 160-4.5 Mcg Inhaler] Calcium Acetate [Phoslo] 667 mg PO DAILY 02/27/23 02/27/23 Cyanocobalamin [Vitamin B-12] 500 mcg PO DAILY 02/27/23 02/27/23 Ergocalciferol [Vitamin D2 (1250 1,250 mcg PO Q30D 02/27/23 02/27/23 Mcg = 72093 Iu)] Folic Acid 0.4 mg PO DAILY 02/27/23 02/27/23 Furosemide [Lasix] 20 mg PO Q48H 02/27/23 02/27/23 Levothyroxine Sodium 200 mcg PO DAILY 02/27/23 02/27/23 Magnesium Oxide [Mag-Ox] 400 mg PO BID 02/27/23 02/27/23 Melatonin [Melatonin ER] 10 mg PO HS 02/27/23 02/27/23 Mupirocin 2% Oint [Bactroban 2% 1 applic TOPICAL DAILY PRN 02/27/23 02/27/23 Oint] Ondansetron [Zofran] 4 mg PO TID PRN 02/27/23 02/27/23 Primidone 25 mg PO HS 02/27/23 02/27/23 Sennosides/Docusate Sodium [Senna 1 tab PO DAILY 02/27/23 02/27/23 Plus 8.6-50 mg Tablet] calcitrioL [Calcitriol] 0.25 mcg PO DAILY 02/27/23 02/27/23 Allergies Allergy/AdvReac Type Severity Reaction Status Date / Time nitrofurantoin Allergy Unknown Verified 02/27/23 22:01 [From Macrobid] Sulfa (Sulfonamide Allergy StevensJohnson Verified 02/27/23 22:01 Antibiotics) syndrome Review of Systems ROS Statement: Those systems with pertinent positive or pertinent negative responses have been documented in the HPI. Review of Systems: CONST: Denies fever EYES: Denies blurry vision ENT: Denies nasal congestion C/V: Denies Chest pain RESP: Endorses Shortness of breath GI: Denies abdominal pain : Denies dysuria SKIN: Denies rash. MSK: Denies joint pain. NEURO: Denies headache ROS Other: All systems not noted in ROS Statement are negative. 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 left wrist, hx of UTI's, hx of glaucoma, had several laser tx, states frequent headaches, uses walker, vertigo, hx of gout, History of Any Multi-Drug Resistant Organisms: None Reported Past Surgical History: Cholecystectomy, Heart Catheterization With Stent, Hysterectomy Additional Past Surgical History / Comment(s): kidney surg. for malrotation, chest tube, 2 stents Past Anesthesia/Blood Transfusion Reactions: No Reported Reaction Date of Last Stent Placement:: 2010 Past Psychological History: Anxiety, Depression Smoking Status: Former smoker Past Alcohol Use History: None Reported Past Drug Use History: None Reported - Past Family History Mother Sister(s) Family Medical History: Cancer General Exam - General Exam Comments Initial Comments: General: Appears in no acute distress. HEAD: Normal with no signs of head trauma. EYES: PERRLA, EOMI, conjunctiva normal, no discharge. ENT: Hearing grossly intact, normal oropharynx. RESPIRATORY: Mild bilateral end expiratory wheezing. No significant increased work of breathing. No hypoxia on baseline 2.5-3 L nasal cannula. C/V: Regular rate and rhythm. S1 and S2 auscultated, mild bilateral symmetrical pitting edema, peripheral pulses 2+ and intact throughout ABD: Abd is soft, nontender, nondistended EXT: Normal range of motion, no obvious deformity SKIN: No rashes or lesions observed on exposed skin. NEURO: Alert and oriented 4. Limitations: no limitations, physical limitation Course Vital Signs 02/27/23 02/27/23 02/27/23 15:55 17:02 17:13 Temperature 98.9 F 98.2 F Pulse Rate 79 74 Respiratory 24 26 H 26 H Rate Blood Pressure 126/81 140/77 O2 Sat by Pulse 92 L 94 L Oximetry 02/27/23 02/27/23 02/27/23 18:38 18:43 18:51 Temperature 98.4 F Pulse Rate 73 74 76 Respiratory 24 Rate Blood Pressure 157/96 O2 Sat by Pulse Oximetry 02/27/23 02/27/23 19:35 21:00 Temperature Pulse Rate 77 83 Respiratory 22 22 Rate Blood Pressure 155/88 146/91 O2 Sat by Pulse 95 96 Oximetry Medical Decision Making - Medical Decision Making Was pt. sent in by a medical professional or institution (, PA, SENIOR PRODUCER, urgent care, hospital, or senior care...) When possible be specific @ -No Did you speak to anyone other than the patient for history (EMS, parent, family, police, friend...)? What history was obtained from this source @ -No Did you review nursing and triage notes (agree or disagree)? Why? @ -I reviewed and agree with nursing and triage notes Were old charts reviewed (outside hosp., previous admission, EMS record, old EKG, old radiological studies, urgent care reports/EKG's, senior care records)? Report findings @ -Old charts reviewed Differential Diagnosis (chest pain, altered mental status, abdominal pain women, abdominal pain men, vaginal bleeding, weakness, fever, dyspnea, syncope, headache, dizziness, GI bleed, back pain, seizure, CVA, palpatations, mental health, musculoskeletal)? @ -Differential Dyspnea: Coronary syndrome, arrhythmia, tamponade, asthma, COPD, pulmonary embolism, pneumonia, pneumothorax, pulmonary effusion, anaphylaxis, diabetic ketoacidosis, flailed chest, pulmonary contusion, diaphragmatic rupture, anemia, neuromuscular, this is not meant to be an all-inclusive list. EKG interpreted by me (3pts min.). @ -As above X-rays interpreted by me (1pt min.). @ -Chest x-ray Reveals bilateral pulmonary vascular congestion. Also has bilateral pleural effusions. Suspect CHF. CT interpreted by me (1pt min.). @ -None done U/S interpreted by me (1pt. min.). @ -None done What testing was considered but not performed or refused? (CT, X-rays, U/S, labs)? Why? @ -None What meds were considered but not given or refused? Why? @ -None Did you discuss the management of the patient with other professionals (professionals i.e. , NATALIA, SENIOR PRODUCER, lab, RT, psych nurse, clinical social worker, j2ee application developer, teacher, bank compliance officer, family service caseworker)? Give summary @ -No Was smoking cessation discussed for >3mins.? @ -No Was critical care preformed (if so, how long)? @ -No Were there social determinants of health that impacted care today? How? (Homelessness, low income, unemployed, alcoholism, drug addiction, transportation, low edu. Level, literacy, decrease access to med. care, skilled nursing, rehab)? @ -No Was there de-escalation of care discussed even if they declined (Discuss DNR or withdrawal of care, Hospice)? DNR status @ -No What co-morbidities impacted this encounter? (DM, HTN, Smoking, COPD, CAD, Cancer, CVA, ARF, Chemo, Hep., AIDS, mental health diagnosis, sleep apnea, morbid obesity)? @ -None Was patient admitted / discharged? Hospital course, mention meds given and route, prescriptions, significant lab abnormalities, going to OR and other pertinent info. @ -Based on the patient's presentation and physical exam, I'm concerned for CHF exacerbation. Patient is requiring baseline oxygen at this time but appears to be having significant exertional dyspnea at home. We will obtain cardiopulmonary labs. She was in agreement this plan. She'll be given a DuoNeb breathing treatment at this time. Vital signs within acceptable limits. Chest x-ray shows findings concerning for CHF. EKG shows no signs of acute ischemia. Labs show a chronic anemia with a hemoglobin of 9.9 which is stable. Patient also has mild hyper kalemia 5.4 with no EKG changes. BNP is 7400. Troponin is undetectable. I discussed the workup with the patient. I believe she is likely experiencing a CHF exacerbation. She'll be admitted to the hospital for IV diuresis and evaluation by cardiology. She was in agreement this plan. She states she believe she had a recent echo and therefore I will not order one at this time. Cardiology consult. I spoke with the admitting team, SHANON Young of [facility] ac cepted the admission. Patient sees Dr. Simon who admits Dr. Crenshaw who admits to [facility]. Undiagnosed new problem with uncertain prognosis? @ -No Drug Therapy requiring intensive monitoring for toxicity (Heparin, Nitro, Insulin, Cardizem)? @ -No Were any procedures done? @ -No Diagnosis/symptom? @ -CHF exacerbation Acute, or Chronic, or Acute on Chronic? @ -Acute Uncomplicated (without systemic symptoms) or Complicated (systemic symptoms)? @ -Complicated Side effects of treatment? @ -No Exacerbation, Progression, or Severe Exacerbation? @ -Exacerbation Poses a threat to life or bodily function? How? (Chest pain, [place], [place], pneumonia, PE, COPD, DKA, ARF, appy, cholecystitis, CVA, Diverticulitis, Homicidal, Suicidal, threat to staff... and all critical care pts) @ -Potentially, yes - Lab Data Result diagrams: 02/27/23 16:17 02/27/23 16:17 Lab Results 02/27/23 02/27/23 02/27/23 Range/Units 16:17 16:17 16:17 WBC 8.8 (3.8-10.6) k/uL RBC 2.96 L (3.80-5.40) m/uL Hgb 9.9 L (11.4-16.0) gm/dL Hct 30.7 L (34.0-46.0) % MCV 103.7 H (80.0-100.0) fL MCH 33.5 (25.0-35.0) pg MCHC 32.3 (31.0-37.0) g/dL RDW 13.2 (11.5-15.5) % Plt Count 335 (150-450) k/uL MPV 8.1 Neutrophils % 80 % Lymphocytes % 9 % Monocytes % 6 % Eosinophils % 2 % Basophils % 0 % Neutrophils # 7.0 (1.3-7.7) k/uL Lymphocytes # 0.8 L (1.0-4.8) k/uL Monocytes # 0.5 (0-1.0) k/uL Eosinophils # 0.2 (0-0.7) k/uL Basophils # 0.0 (0-0.2) k/uL Macrocytosis Slight Sodium 133 L (137-145) mmol/L Potassium 5.4 H (3.5-5.1) mmol/L Chloride 101 (98-107) mmol/L Carbon Dioxide 26 (22-30) mmol/L Anion Gap 6 mmol/L BUN 16 (7-17) mg/dL Creatinine 1.62 H (0.52-1.04) mg/dL Est GFR (CKD-EPI)AfAm 34 (>60 ml/min/1.73 sqM) Est GFR (CKD-EPI)NonAf 30 (>60 ml/min/1.73 sqM) Glucose 100 H (74-99) mg/dL Plasma Lactic Acid Harshad 0.9 (0.7-2.0) mmol/L Calcium 8.7 (8.4-10.2) mg/dL Magnesium 2.2 (1.6-2.3) mg/dL Total Bilirubin 0.4 (0.2-1.3) mg/dL AST 30 (14-36) U/L ALT 24 (4-34) U/L Alkaline Phosphatase 70 (38-126) U/L Troponin I (0.000-0.034) ng/mL NT-Pro-B Natriuret Pep pg/mL Total Protein 6.3 (6.3-8.2) g/dL Albumin 3.4 L (3.5-5.0) g/dL Influenza Type A (PCR) (Not Detectd) Influenza Type B (PCR) (Not Detectd) RSV (PCR) (Not Detectd) SARS-CoV-2 (PCR) (Not Detectd) 02/27/23 02/27/23 02/27/23 Range/Units 16:17 16:17 17:49 WBC (3.8-10.6) k/uL RBC (3.80-5.40) m/uL Hgb (11.4-16.0) gm/dL Hct (34.0-46.0) % MCV (80.0-100.0) fL MCH (25.0-35.0) pg MCHC (31.0-37.0) g/dL RDW (11.5-15.5) % Plt Count (150-450) k/uL MPV Neutrophils % % Lymphocytes % % Monocytes % % Eosinophils % % Basophils % % Neutrophils # (1.3-7.7) k/uL Lymphocytes # (1.0-4.8) k/uL Monocytes # (0-1.0) k/uL Eosinophils # (0-0.7) k/uL Basophils # (0-0.2) k/uL Macrocytosis Sodium (137-145) mmol/L Potassium (3.5-5.1) mmol/L Chloride (98-107) mmol/L Carbon Dioxide (22-30) mmol/L Anion Gap mmol/L BUN (7-17) mg/dL Creatinine (0.52-1.04) mg/dL Est GFR (CKD-EPI)AfAm (>60 ml/min/1.73 sqM) Est GFR (CKD-EPI)NonAf (>60 ml/min/1.73 sqM) Glucose (74-99) mg/dL Plasma Lactic Acid Harhsad (0.7-2.0) mmol/L Calcium (8.4-10.2) mg/dL Magnesium (1.6-2.3) mg/dL Total Bilirubin (0.2-1.3) mg/dL AST (14-36) U/L ALT (4-34) U/L Alkaline Phosphatase (38-126) U/L Troponin I 0.013 (0.000-0.034) ng/mL NT-Pro-B Natriuret Pep 7470 pg/mL Total Protein (6.3-8.2) g/dL Albumin (3.5-5.0) g/dL Influenza Type A (PCR) Not Detected (Not Detectd) Influenza Type B (PCR) Not Detected (Not Detectd) RSV (PCR) Not Detected (Not Detectd) SARS-CoV-2 (PCR) Not Detected (Not Detectd) - EKG Data -: EKG Interpreted by Me EKG Comments: 12-lead Electrocardiogram Interpretation Note EKG was reviewed and interpreted by myself. 12-lead ECG performed at 1610 is interpreted by me as revealing normal sinus rhythm at a rate of 78 beats per minute. Taberg is normal. SD interval is 191 ms, QRS duration 78 ms, QTc is 393 ms.. There were no ST or T wave abnormalities to suggest myocardial ischemia or injury. R wave progression across the precordium was satisfactory. By my int erpretation this EKG is non-diagnostic for acute ischemia. Disposition Clinical Impression: Congestive heart failure Disposition: ADMITTED IP TO THIS HOSP Condition: Stable Time of Disposition: 18:59
[2023-02-27] MEDS: HYDROcodone/APAP 10-325MG 1 EACH TAB PO PRN (21:02)
[2023-02-27] MEDS ORDERED: BACLOFEN 10 MG TAB PO PRN (22:22)
[2023-02-27] MEDS ORDERED: PRIMIDONE 50 MG TAB PO SCH (22:30)
[2023-02-27] MEDS ORDERED: VENLAFAXINE HCL ER 150 MG CAP PO SCH (22:30)
[2023-02-27] MEDS: MAGNESIUM OXIDE 400 MG TAB PO SCH (23:38)
[2023-02-27] MEDS: METOPROLOL TARTRATE 50 MG TAB PO SCH (23:38)
[2023-02-27] MEDS: buPROPion SR 150 MG TABLET.ER PO SCH (23:38)
[2023-02-27] MEDS: APIXABAN 2.5 MG TABLET PO SCH (23:38)
[2023-02-28] MEDS: LEVOTHYROXINE 100 MCG TAB PO SCH (06:10)
[2023-02-28 06:55] LABS: African American GFR (CKD) 34 (>60 ml/min/1.73 sqM); Anion Gap 5 mmol/L; Blood Urea Nitrogen 15 mg/dL (7-17); Calcium 8.6 mg/dL (8.4-10.2); Carbon Dioxide 28 mmol/L (22-30); Chloride 100 mmol/L (98-107); Glucose 77 mg/dL (74-99); Magnesium 2.1 mg/dL (1.6-2.3); Non-African American GFR(CKD) 30 (>60 ml/min/1.73 sqM); Potassium 4.6 mmol/L (3.5-5.1); Sodium 133 mmol/L (137-145)
[2023-02-28] MEDS: APIXABAN 2.5 MG TABLET PO SCH ×2 (08:12→20:18)
[2023-02-28] MEDS: buPROPion SR 150 MG TABLET.ER PO SCH ×2 (08:12→20:18)
[2023-02-28] MEDS: MAGNESIUM OXIDE 400 MG TAB PO SCH ×2 (08:12→20:18)
[2023-02-28] MEDS: CALCIUM ACETATE 667 MG TAB PO SCH (08:12)
[2023-02-28] MEDS: MECLIZINE 25 MG TAB PO SCH ×2 (08:12→20:18)
[2023-02-28] MEDS: ATORVASTATIN 40 MG TAB PO SCH (08:12)
[2023-02-28] MEDS: CYANOCOBALAMIN 500 MCG TAB PO SCH (08:13)
[2023-02-28] MEDS: allopurinoL 100 MG TAB PO SCH (08:13)
[2023-02-28] MEDS: METOPROLOL TARTRATE 50 MG TAB PO SCH ×2 (08:13→20:18)
[2023-02-28] MEDS: FUROSEMIDE 10 MG/ML 4 ML VIAL IV SCH ×2 (08:14→20:27)
[2023-02-28] MEDS ORDERED: GABAPENTIN 300 MG CAP PO SCH (09:00)
[2023-02-28] MEDS: ALBUTEROL NEBULIZED 2.5 MG/3 ML INHALATION PRN ×3 (09:07→21:50)
[2023-02-28] MEDS: SYMBICORT 160-4.5 MCG INHALER INHALATION SCH ×2 (09:07→21:51)
--- NOTE | 2023-02-28 10:12 | P.CRDCN ---
History of Present Illness Consult date: 02/28/23 History of present illness: HISTORY OF PRESENTING ILLNESS 82-year-old female with past medical history of coronary artery disease status post PCI [place] [address] Jordan at [facility]. She is known to Dr. Che. She also has history of afib, congestive heart failure. Ejection fraction is unknown as I'm not able to obtain prior medical records. She also has history of hypertension, CKD. Patient was recently leak the [facility] last week for abdominal discomfort and nausea and vomiting. She was discharged there 5 days ago and thereafter presented to the hospital with worsening shortness of breath. Patient reported that she has not necessarily being compliant to low-salt diet and is not watching her blood pressure and fluid intake. On admission to the ER she was noticed to be mildly fluid overloaded with her chest x-ray showing pulmonary congestion in bilateral lung mckeon. Her EKG shows sinus rhythm with no significant ST-T wave changes. Her troponins are negative, her BNP is elevated at 7000. I don't have any prior baseline to compare with. Her creatinine is 1.6. I don't have prior baseline to compare with Hemoglobin is 9.9. Home cardiac medications include Eliquis atorvastatin metoprolol and Lasix every other day. REVIEW OF SYSTEMS 14 point review of system is negative except what is mentioned above in HPI. PHYSICAL EXAMINATION Vital signs reviewed. Head: Normocephalic. Basically Eyes: Sclerae nonicteric. Neck: Brisk carotid upstroke, JVP is difficult to assess due to thick neck Lungs: Poor inspiratory effort with crackles in bilateral lower lung mckeon Heart: Regular rate and rhythm, S1-S2, no S3, no murmur or rub. Abdomen: Soft nontender, positive bowel sounds no organomegaly. Extremities: No edema, intact distal pulses. Neurological exam is nonfocal ASSESSMENT [id number] congestive heart failure. EF unknown. 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 Once okay to transition to by mouth, I would recommend daily by mouth Bumex 1 mg daily instead of every other day Continue metoprolol 50 mg twice a day, atorvastatin and Eliquis 92.5 mg twice a day Obtain medical records from [facility] including recent echocardiogram Past Medical History Past Medical History: Atrial Fibrillation, Heart Failure, COPD, CVA/TIA, Deep Vein Thrombosis (DVT), GERD/Reflux, Hyperlipidemia, Hypertension, Musculoskeletal Disorder, Pneumonia, Sleep Apnea/CPAP/BIPAP, Thyroid Disorder Additional Past Medical History / Comment(s): difficulty swallowing, choking, "feels like things get stuck in throat" was on "life support 11/2013-12/2013, past hx.a-fib, had Lopez-Onel syndrome, post polio syndrome, 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 left wrist, hx of UTI's, hx of glaucoma, had several laser tx, states frequent headaches, uses walker, vertigo, hx of gout, History of Any Multi-Drug Resistant Organisms: None Reported Past Surgical History: Cholecystectomy, Heart Catheterization With Stent, Hys terectomy Additional Past Surgical History / Comment(s): kidney surg. for malrotation, chest tube, 2 stents Past Anesthesia/Blood Transfusion Reactions: No Reported Reaction Date of Last Stent Placement:: 2010 Past Psychological History: Anxiety, Depression Smoking Status: Former smoker Past Alcohol Use History: None Reported Past Drug Use History: None Reported - Past Family History Mother Sister(s) Family Medical History: Cancer Medications and Allergies Home Medications Medication Instructions Recorded Confirmed Type Gabapentin [Neurontin] 600 mg PO TID 07/27/15 02/27/23 History Meclizine [Antivert] 25 mg PO BID 07/27/15 02/27/23 History Metoprolol Tartrate [Lopressor] 50 mg PO BID 07/27/15 02/27/23 History Venlafaxine HCl ER [Effexor XR] 300 mg PO HS 07/27/15 02/27/23 History allopurinoL [Zyloprim] 200 mg PO DAILY 05/03/18 02/27/23 History buPROPion HCL [Wellbutrin SR] 150 mg PO BID 05/03/18 02/27/23 History Baclofen 10 mg PO BID PRN 08/12/19 02/27/23 History HYDROcodone/APAP 10-325MG [[place] 1 tab PO QID PRN 08/12/19 02/27/23 History 10-325] Acetaminophen Tab [Tylenol Tab] 1,000 mg PO Q6HR PRN 02/27/23 02/27/23 History Albuterol Inhaler [Ventolin Hfa 2 puff INHALATION RT-QID PRN 02/27/23 02/27/23 History Inhaler] Apixaban [Eliquis] 2.5 mg PO BID 02/27/23 02/27/23 History Atorvastatin [Lipitor] 40 mg PO DAILY 02/27/23 02/27/23 History Budesonide/Formoterol Fumarate 2 puff INHALATION RT-BID 02/27/23 02/27/23 History [Symbicort 160-4.5 Mcg Inhaler] Calcium Acetate [Phoslo] 667 mg PO DAILY 02/27/23 02/27/23 History Cyanocobalamin [Vitamin B-12] 500 mcg PO DAILY 02/27/23 02/27/23 History Ergocalciferol [Vitamin D2 (1250 1,250 mcg PO Q30D 02/27/23 02/27/23 History Mcg = 14635 Iu)] Folic Acid 0.4 mg PO DAILY 02/27/23 02/27/23 History Furosemide [Lasix] 20 mg PO Q48H 02/27/23 02/27/23 History Levothyroxine Sodium 200 mcg PO DAILY 02/27/23 02/27/23 History Magnesium Oxide [Mag-Ox] 400 mg PO BID 02/27/23 02/27/23 History Melatonin [Melatonin ER] 10 mg PO HS 02/27/23 02/27/23 History Mupirocin 2% Oint [Bactroban 2% 1 applic TOPICAL DAILY PRN 02/27/23 02/27/23 History Oint] Ondansetron [Zofran] 4 mg PO TID PRN 02/27/23 02/27/23 History Primidone 25 mg PO HS 02/27/23 02/27/23 History Sennosides/Docusate Sodium [Senna 1 tab PO DAILY 02/27/23 02/27/23 History Plus 8.6-50 mg Tablet] calcitrioL [Calcitriol] 0.25 mcg PO DAILY 02/27/23 02/27/23 History Allergies Allergy/AdvReac Type Severity Reaction Status Date / Time nitrofurantoin Allergy Unknown Verified 02/27/23 22:01 [From Macrobid] Sulfa (Sulfonamide Allergy StevensJohnson Verified 02/27/23 22:01 Antibiotics) syndrome Physical Exam Vitals: Vital Signs Temp Pulse Pulse Resp BP BP Pulse Ox 02/28/23 09:23 82 02/28/23 09:08 82 02/28/23 08:12 16 02/28/23 07:00 98.0 F 83 16 149/71 95 02/28/23 02:18 98.4 F 82 15 134/66 96 02/27/23 22:30 98.0 F 84 18 156/82 96 02/27/23 22:00 98.3 F 78 22 154/80 95 02/27/23 21:00 83 22 146/91 96 02/27/23 19:35 77 22 155/88 95 02/27/23 18:51 76 02/27/23 18:43 74 02/27/23 18:38 98.4 F 73 24 157/96 02/27/23 17:13 98.2 F 74 26 H 140/77 94 L 02/27/23 17:02 26 H 02/27/23 15:55 98.9 F 79 24 126/81 92 L Intake and Output 02/27/23 02/28/23 02/28/23 22:59 06:59 14:59 Other: Voiding Method Bedside Commode # Voids 2 5 Weight 90.718 kg Results 02/27/23 16:17 02/28/23 06:19 Cardiac Enzymes 02/27/23 02/27/23 Range/Units 16:17 16:17 AST 30 (14-36) U/L Troponin I 0.013 (0.000-0.034) ng/mL CBC 02/27/23 Range/Units 16:17 WBC 8.8 (3.8-10.6) k/uL RBC 2.96 L (3.80-5.40) m/uL Hgb 9.9 L (11.4-16.0) gm/dL Hct 30.7 L (34.0-46.0) % Plt Count 335 (150-450) k/uL Comprehensive Metabolic Panel 02/27/23 02/28/23 Range/Units 16:17 06:19 Sodium 133 L 133 L (137-145) mmol/L Potassium 5.4 H 4.6 (3.5-5.1) mmol/L Chloride 101 100 (98-107) mmol/L Carbon Dioxide 26 28 (22-30) mmol/L BUN 16 15 (7-17) mg/dL Creatinine 1.62 H 1.63 H (0.52-1.04) mg/dL Glucose 100 H 77 (74-99) mg/dL Calcium 8.7 8.6 (8.4-10.2) mg/dL AST 30 (14-36) U/L ALT 24 (4-34) U/L Alkaline Phosphatase 70 (38-126) U/L Total Protein 6.3 (6.3-8.2) g/dL Albumin 3.4 L (3.5-5.0) g/dL Current Medications Generic Name Dose Route Start Last Admin Trade Name Freq PRN Reason Stop Dose Admin Hydrocodone Bitart/Acetaminophen 1 each 02/27/23 20:44 02/27/23 21:02 Hydrocodone/Apap 10-325mg 1 Each Tab PO 1 each TID PRN Administration Pain Albuterol Sulfate 2.5 mg 02/27/23 22:22 02/28/23 09:07 Albuterol Nebulized 2.5 Mg/3 Ml INHALATION 2.5 mg RT-QID PRN Administration Shortness Of Breath Allopurinol 200 mg 02/28/23 09:00 02/28/23 08:13 Allopurinol 100 Mg Tab PO 200 mg DAILY MIAN Administration Apixaban 2.5 mg 02/27/23 22:30 02/28/23 08:12 Apixaban 2.5 Mg Tablet PO 2.5 mg BID MIAN Administration Protocol Atorvastatin Calcium 40 mg 02/28/23 09:00 02/28/23 08:12 Atorvastatin 40 Mg Tab PO 40 mg DAILY MIAN Administration Budesonide/Formoterol Fumarate 2 puff 02/28/23 08:00 02/28/23 09:07 Symbicort 160-4.5 Mcg Inhaler INHALATION 2 puff RT-BID MIAN Administration Bupropion HCl 150 mg 02/27/23 22:30 02/28/23 08:12 Bupropion Sr 150 Mg Tablet.Er PO 150 mg BID MIAN Administration Calcitriol 0.25 mcg 02/28/23 09:00 02/28/23 08:12 Calcitriol 0.25 Mcg Cap PO 0.25 mcg DAILY MIAN Administration Calcium Acetate 667 mg 02/28/23 09:00 02/28/23 08:12 Calcium Acetate 667 Mg Tab PO 667 mg DAILY MIAN Administration Cyanocobalamin 500 mcg 02/28/23 09:00 02/28/23 08:13 Cyanocobalamin 500 Mcg Tab PO 500 mcg DAILY MIAN Administration Furosemide 40 mg 02/28/23 09:00 02/28/23 08:14 Furosemide 10 Mg/Ml 4 Ml Vial IV 40 mg Q12HR MIAN Administration Levothyroxine Sodium 200 mcg 02/28/23 06:30 02/28/23 06:10 Levothyroxine 100 Mcg Tab PO 200 mcg DAILY@0630 MIAN Administration Magnesium Oxide 400 mg 02/27/23 22:30 02/28/23 08:12 Magnesium Oxide 400 Mg Tab PO 400 mg BID MIAN Administration Meclizine HCl 25 mg 02/28/23 09:00 02/28/23 08:12 Meclizine 25 Mg Tab PO 25 mg BID MIAN Administration Metoprolol Tartrate 50 mg 02/27/23 22:30 02/28/23 08:13 Metoprolol Tartrate 50 Mg Tab PO 50 mg BID MIAN Administration Naloxone HCl 0.2 mg 02/27/23 19:08 Naloxone 0.4 Mg/Ml 1 Ml Vial IV Q2M PRN Opioid Reversal Intake and Output 02/27/23 02/28/23 02/28/23 22:59 06:59 14:59 Other: Voiding Method Bedside Commode # Voids 2 5 Weight 90.718 kg 02/27/23 16:17 02/28/23 06:19
--- NOTE | 2023-02-28 12:11 | P.HPIM ---
History of Present Illness 82-year-old pleasant female came in with compensative shortness of breath, paroxysmal nocturnal dyspnea and orthopnea going on for about the 3-4 days. Patient had history of coronary artery disease with the stenting in 2010. Patient does have history of heart failure unknown whether systolic or diastolic. Patient does take Bumex an alternate day basis. Patient denied any fever chills. Patient was also comparing of increased swelling in bilateral lower extremities and able to walk. Patient as follows up with his progressive. Patient is found to have BNP of around 7000 with pulmonary edema changes on the chest x-ray was started on IV Lasix 40 mg twice a day. Patient is feeling much better able to urinate patient was also weaned hyponatremic patient's serum creatinine is around 1.63 with baseline around 1.2. Patient does have history of the atrial fibrillation for which patient is on anticoagulation. REVIEW OF SYSTEMS: CONSTITUTIONAL: No fever, no malaise, no fatigue. HEENT: No recent visual problems or hearing problems. Denied any sore throat. CARDIOVASCULAR: No chest pain, no palpitations, no syncope. PULMONARY: no hemoptysis. GASTROINTESTINAL: No diarrhea, no nausea, no vomiting, no abdominal pain. NEUROLOGICAL: No headaches, no weakness, no numbness. HEMATOLOGICAL: Denies any bleeding or petechiae. GENITOURINARY: Denies any burning micturition, frequency, or urgency. MUSCULOSKELETAL/RHEUMATOLOGICAL: Denies any joint pain, swelling, or any muscle pain. ENDOCRINE: Denies any polyuria or polydipsia. The rest of the 14-point review of systems is negative. PHYSICAL EXAMINATION: GENERAL: The patient is alert and oriented x3, not in any acute distress. Well developed, well nourished. Obese HEENT: Pupils are round and equally reacting to light. EOMI. No scleral icterus. No conjunctival pallor. Normocephalic, atraumatic. No pharyngeal erythema. No thyromegaly. CARDIOVASCULAR: S1 and S2 present. No murmurs, patient does have elevated JVD PULMONARY: Chest is clear to auscultation, no wheezing or crackles. ABDOMEN: Soft, nontender, nondistended, normoactive bowel sounds. No palpable organomegaly. MUSCULOSKELETAL: No joint swelling or deformity. EXTREMITIES: No cyanosis, clubbing, does have bilateral lower extremity pedal edema extending up to bilateral knee area NEUROLOGICAL: Gross neurological examination did not reveal any focal deficits. SKIN: No rashes. Assessment and plan -Congestive heart failure unknown whether patient is started dysfunction or diastolic dysfunction, patient is in heart failure exacerbation patient will be started on IV Lasix with the input and output monitoring. Obtain medical records from [facility] -History of proximal atrial fibrillation presently sinus rhythm rate controlled patient was resumed on her rate control medications anticoagulation -Acute renal failure prerenal azotemia due to congestive heart failure exace rbation expected to improve with IV Lasix -Hypovolemic hyponatremia: IV Lasix -History of DVT in the past on anticoagulation which will be continued -COPD without any acute exacerbation -Chronic kidney disease stage IIIB, possibly secondary to hypertensive nephrosclerosis Essential hypertension -Obesity DVT prophylaxis: On anti-correlation as mentioned above Past Medical History Past Medical History: Atrial Fibrillation, Heart Failure, COPD, CVA/TIA, Deep Vein Thrombosis (DVT), GERD/Reflux, Hyperlipidemia, Hypertension, Musculoskeletal Disorder, Pneumonia, Sleep Apnea/CPAP/BIPAP, Thyroid Disorder Additional Past Medical History / Comment(s): difficulty swallowing, choking, "feels like things get stuck in throat" was on "life support 11/2013-12/2013, past hx.a-fib, had Lopez-Onel syndrome, post polio syndrome, 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 left wrist, hx of UTI's, hx of glaucoma, had several laser tx, states frequent headaches, uses walker, vertigo, hx of gout, History of Any Multi-Drug Resistant Organisms: None Reported Past Surgical History: Cholecystectomy, Heart Catheterization With Stent, Hysterectomy Additional Past Surgical History / Comment(s): kidney surg. for malrotation, chest tube, 2 stents Past Anesthesia/Blood Transfusion Reactions: No Reported Reaction Date of Last Stent Placement:: 2010 Past Psychological History: Anxiety, Depression Smoking Status: Former smoker Past Alcohol Use History: None Reported Past Drug Use History: None Reported - Past Family History Mother Sister(s) Family Medical History: Cancer Medications and Allergies Home Medications Medication Instructions Recorded Confirmed Type Gabapentin [Neurontin] 600 mg PO TID 07/27/15 02/27/23 History Meclizine [Antivert] 25 mg PO BID 07/27/15 02/27/23 History Metoprolol Tartrate [Lopressor] 50 mg PO BID 07/27/15 02/27/23 History Venlafaxine HCl ER [Effexor XR] 300 mg PO HS 07/27/15 02/27/23 History allopurinoL [Zyloprim] 200 mg PO DAILY 05/03/18 02/27/23 History buPROPion HCL [Wellbutrin SR] 150 mg PO BID 05/03/18 02/27/23 History Baclofen 10 mg PO BID PRN 08/12/19 02/27/23 History HYDROcodone/APAP 10-325MG [[place] 1 tab PO QID PRN 08/12/19 02/27/23 History 10-325] Acetaminophen Tab [Tylenol Tab] 1,000 mg PO Q6HR PRN 02/27/23 02/27/23 History Albuterol Inhaler [Ventolin Hfa 2 puff INHALATION RT-QID PRN 02/27/23 02/27/23 History Inhaler] Apixaban [Eliquis] 2.5 mg PO BID 02/27/23 02/27/23 History Atorvastatin [Lipitor] 40 mg PO DAILY 02/27/23 02/27/23 History Budesonide/Formoterol Fumarate 2 puff INHALATION RT-BID 02/27/23 02/27/23 History [Symbicort 160-4.5 Mcg Inhaler] Calcium Acetate [Phoslo] 667 mg PO DAILY 02/27/23 02/27/23 History Cyanocobalamin [Vitamin B-12] 500 mcg PO DAILY 02/27/23 02/27/23 History Ergocalciferol [Vitamin D2 (1250 1,250 mcg PO Q30D 02/27/23 02/27/23 History Mcg = 26286 Iu)] Folic Acid 0.4 mg PO DAILY 02/27/23 02/27/23 History Furosemide [Lasix] 20 mg PO Q48H 02/27/23 02/27/23 History Levothyroxine Sodium 200 mcg PO DAILY 02/27/23 02/27/23 History Magnesium Oxide [Mag-Ox] 400 mg PO BID 02/27/23 02/27/23 History Melatonin [Melatonin ER] 10 mg PO HS 02/27/23 02/27/23 History Mupirocin 2% Oint [Bactroban 2% 1 applic TOPICAL DAILY PRN 02/27/23 02/27/23 History Oint] Ondansetron [Zofran] 4 mg PO TID PRN 02/27/23 02/27/23 History Primidone 25 mg PO HS 02/27/23 02/27/23 History Sennosides/Docusate Sodium [Senna 1 tab PO DAILY 02/27/23 02/27/23 History Plus 8.6-50 mg Tablet] calcitrioL [Calcitriol] 0.25 mcg PO DAILY 02/27/23 02/27/23 History Allergies Allergy/AdvReac Type Severity Reaction Status Date / Time nitrofurantoin Allergy Unknown Verified 02/27/23 22:01 [From Macrobid] Sulfa (Sulfonamide Allergy StevensJohnson Verified 02/27/23 22:01 Antibiotics) syndrome Physical Exam Vitals: Vital Signs Temp Pulse Pulse Resp BP BP Pulse Ox 02/28/23 09:23 82 02/28/23 09:08 82 02/28/23 08:12 16 02/28/23 07:00 98.0 F 83 16 149/71 95 02/28/23 02:18 98.4 F 82 15 134/66 96 02/27/23 22:30 98.0 F 84 18 156/82 96 02/27/23 22:00 98.3 F 78 22 154/80 95 02/27/23 21:00 83 22 146/91 96 02/27/23 19:35 77 22 155/88 95 02/27/23 18:51 76 02/27/23 18:43 74 02/27/23 18:38 98.4 F 73 24 157/96 02/27/23 17:13 98.2 F 74 26 H 140/77 94 L 02/27/23 17:02 26 H 02/27/23 15:55 98.9 F 79 24 126/81 92 L Intake and Output 02/27/23 02/28/23 02/28/23 22:59 06:59 14:59 Other: Voiding Method Bedside Commode # Voids 2 5 Weight 90.718 kg Results CBC & Chem 7: 02/27/23 16:17 02/28/23 06:19 Labs: Abnormal Lab Results - Last 24 Hours (Table) 02/27/23 02/27/23 02/28/23 Range/Units 16:17 16:17 06:19 RBC 2.96 L (3.80-5.40) m/uL Hgb 9.9 L (11.4-16.0) gm/dL Hct 30.7 L (34.0-46.0) % MCV 103.7 H (80.0-100.0) fL Lymphocytes # 0.8 L (1.0-4.8) k/uL Sodium 133 L 133 L (137-145) mmol/L Potassium 5.4 H (3.5-5.1) mmol/L Creatinine 1.62 H 1.63 H (0.52-1.04) mg/dL Glucose 100 H (74-99) mg/dL Albumin 3.4 L (3.5-5.0) g/dL Thrombosis Risk Factor Assmnt - Choose All That Apply Each Factor Represents 1 point: Abnormal pulmonary function (COPD), Obesity (BMI >25), Swollen legs (current) Other Risk Factors: Yes Each Risk Factor Represents 3 Points: Age 75 years or older, History of DVT/PE Other congenital or acquired thrombophilia - If yes, enter type in comment: No Thrombosis Risk Factor Assessment Total Risk Factor Score: 9 Thrombosis Risk Factor Assessment Level: High Risk
[2023-02-28] MEDS: HYDROcodone/APAP 10-325MG 1 EACH TAB PO PRN ×2 (12:38→20:17)
[2023-02-28] MEDS ORDERED: ACETAMINOPHEN IV (For NPO) 1,000 MG in EMPTY BAG 1 BAG IVPB STA (17:45)
[2023-03-01] MEDS: LEVOTHYROXINE 100 MCG TAB PO SCH (05:51)
[2023-03-01 06:08] LABS: HGB 10.8 gm/dL (11.4-16.0); MCH 33.9 pg (25.0-35.0); MCHC 32.7 g/dL (31.0-37.0); MCV 103.7 fL (80.0-100.0); Macrocytosis Slight; Mean Platelet Volume 8.2; Platelet Count 383 k/uL (150-450); RBC 3.18 m/uL (3.80-5.40); RDW 13.2 % (11.5-15.5); WBC 7.3 k/uL (3.8-10.6)
[2023-03-01 06:10] LABS: African American GFR (CKD) 36 (>60 ml/min/1.73 sqM); Anion Gap 8 mmol/L; Blood Urea Nitrogen 13 mg/dL (7-17); Calcium 8.9 mg/dL (8.4-10.2); Carbon Dioxide 29 mmol/L (22-30); Chloride 98 mmol/L (98-107); Glucose 92 mg/dL (74-99); Magnesium 1.8 mg/dL (1.6-2.3); Non-African American GFR(CKD) 32 (>60 ml/min/1.73 sqM); Potassium 4.2 mmol/L (3.5-5.1); Sodium 135 mmol/L (137-145)
[2023-03-01] MEDS: HYDROcodone/APAP 10-325MG 1 EACH TAB PO PRN ×3 (08:23→20:57)
[2023-03-01] MEDS: ATORVASTATIN 40 MG TAB PO SCH (08:24)
[2023-03-01] MEDS: MAGNESIUM OXIDE 400 MG TAB PO SCH ×2 (08:24→20:56)
[2023-03-01] MEDS: APIXABAN 2.5 MG TABLET PO SCH ×2 (08:24→20:57)
[2023-03-01] MEDS: MECLIZINE 25 MG TAB PO SCH ×2 (08:24→20:56)
[2023-03-01] MEDS: METOPROLOL TARTRATE 50 MG TAB PO SCH ×2 (08:24→20:57)
[2023-03-01] MEDS: CYANOCOBALAMIN 500 MCG TAB PO SCH (08:24)
[2023-03-01] MEDS: buPROPion SR 150 MG TABLET.ER PO SCH ×2 (08:25→22:07)
[2023-03-01] MEDS: CALCIUM ACETATE 667 MG TAB PO SCH (08:25)
[2023-03-01] MEDS: allopurinoL 100 MG TAB PO SCH (08:25)
[2023-03-01] MEDS: SYMBICORT 160-4.5 MCG INHALER INHALATION SCH ×2 (08:26→21:17)
[2023-03-01] MEDS ORDERED: BUMETANIDE 1 MG TAB PO SCH ×3 (09:00→16:00)
--- NOTE | 2023-03-01 09:41 | P.PN ---
Subjective Progress Note Date: 03/01/23 Subjective: Patient is doing much better as compared to yesterday in terms of her shortness of breath. Her lower extremities are still swollen but less as compared to yesterday. She has responded appropriately to IV diuretics. Her blood pressure is slightly elevated with systolic blood pressure around 140s to 160s. Heart heart rate is around 75 to 80s. PHYSICAL EXAMINATION Vital signs reviewed. Head: Normocephalic. Basically Eyes: Sclerae nonicteric. Neck: Brisk carotid upstroke, JVP is elevated Lungs: Poor inspiratory effort with crackles in bilateral lower lung mckeon Heart: Regular rate and rhythm, S1-S2, no S3, no murmur or rub. Abdomen: Soft nontender, positive bowel sounds no organomegaly. Extremities: No edema, intact distal pulses. Neurological exam is nonfocal ASSESSMENT [id number] congestive heart failure. EF unknown. History of proximal atrial fibrillation, currently in sinus rhythm Essential hypertension History of DVT COPD Obesity CKD states IIIB, baseline creatinine unknown PLAN Continue IV Lasix 40 mg 2 times a day today. Transition to Bumex 1 mg daily tomorrow Continue metoprolol 50 mg twice a day, atorvastatin and Eliquis 2.5 mg twice a day (AGE, [employer]) Obtain medical records from [facility] including recent echocardiogram If not able to obtain medical records, obtain an echocardiogram in our hospital I anticipate patient should be related to go home tomorrow HISTORY OF PRESENTING ILLNESS 82-year-old female with past medical history of coronary artery disease status post PCI in [address] Jordan at [facility]. She is known to Dr. Che. She also has history of afib, congestive heart failure. Ejection fraction is unknown as I'm not able to obtain prior medical records. She also has history of hypertension, CKD. Patient was recently leak [facility] last week for abdominal discomfort and nausea and vomiting. She was discharged there 5 days ago and thereafter presented to the hospital with worsening shortness of breath. Patient reported that she has not necessarily being compliant to low-salt diet and is not watching her blood pressure and fluid intake. On admission to the ER she was noticed to be mildly fluid overloaded with her chest x-ray showing pulmonary congestion in bilateral lung mckeon. Her EKG shows sinus rhythm with no significant ST-T wave changes. Her troponins are negative, her BNP is elevated at 7000. I don't have any prior baseline to compare with. Her creatinine is 1.6. I don't have prior baseline to compare with Hemoglobin is 9.9. Home cardiac medications include Eliquis atorvastatin metoprolol and Lasix every other day. REVIEW OF SYSTEMS 14 point review of system is negative except what is mentioned above in HPI. Objective - Vital Signs Vital signs: Vital Signs Temp 98.2 F 03/01/23 07:00 Pulse 79 03/01/23 07:00 Resp 16 03/01/23 07:00 BP 165/81 03/01/23 07:00 Pulse Ox 96 03/01/23 07:00 FiO2 Intake & Output 02/28/23 03/01/23 03/01/23 18:59 06:59 18:59 Intake Total 118 Balance 118 Intake: Oral 118 Other: Voiding Method Bedside Commode Bedside Commode # Voids 1 2 1 # Bowel Movements 2 1 - Labs CBC & Chem 7: 03/01/23 05:17 03/01/23 05:17 Labs: Abnormal Lab Results - Last 24 Hours (Table) 03/01/23 03/01/23 Range/Units 05:17 05:17 RBC 3.18 L (3.80-5.40) m/uL Hgb 10.8 L (11.4-16.0) gm/dL Hct 33.0 L (34.0-46.0) % MCV 103.7 H (80.0-100.0) fL Sodium 135 L (137-145) mmol/L Creatinine 1.54 H (0.52-1.04) mg/dL
[2023-03-01] MEDS: ONDANSETRON 4 MG/2 ML VIAL IVP PRN ×2 (11:18→18:37)
[2023-03-01] MEDS ORDERED: DILTIAZEM 125 MG in SODIUM CHLORIDE 0.9% 100 ML IV SCH (13:00)
[2023-03-01] MEDS: DILTIAZEM 125 MG in SODIUM CHLORIDE 0.9% 100 ML IV SCH (13:50)
--- NOTE | 2023-03-01 15:05 | P.PN ---
Subjective Progress Note Date: 03/01/23 82-year-old pleasant female came in with compensative shortness of breath, paroxysmal nocturnal dyspnea and orthopnea going on for about the 3-4 days. Patient had history of coronary artery disease with the stenting in 2010. Patient does have history of heart failure unknown whether systolic or diastolic . Patient does take Bumex an alternate day basis. Patient denied any fever chills. Patient was also comparing of increased swelling in bilateral lower extremities and able to walk. Patient as follows up with his progressive. Patient is found to have BNP of around 7000 with pulmonary edema changes on the chest x-ray was started on IV Lasix 40 mg twice a day. Patient is feeling much better able to urinate patient was also weaned hyponatremic patient's serum creatinine is around 1.63 with baseline around 1.2. Patient does have history of the atrial fibrillation for which patient is on anticoagulation. 03/01/2023 Was evaluated in the medical floor. She is not quite back to baseline yet and reports increased weakness and will like to be evaluated by physical therapy and this will need to be completed tomorrow on Thursday. 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 Additionally she remains on a 2000 mgs sodium restricted diet. She does her oxygen chronically outpatient and she is on her home oxygen at 2 L nasal cannula. Review of Systems Constitutional: Denied any fatigue denied any fever. Cardio vascular: denied any chest pain, palpitations Gastrointestinal: denied any nausea, vomiting, diarrhea Pulmonary: Denied any shortness of breath cough Neurologic denied any new focal deficits All inpatient medications were reviewed and appropriate changes in these medications as dictated in the interval history and assessment and plan. PHYSICAL EXAMINATION: GENERAL: The patient is alert and oriented x3, not in any acute distress. Well developed, well nourished. Obese HEENT: Pupils are round and equally reacting to light. EOMI. No scleral icterus. No conjunctival pallor. Normocephalic, atraumatic. No pharyngeal erythema. No thyromegaly. CARDIOVASCULAR: S1 and S2 present. No murmurs, patient does have elevated JVD PULMONARY: Chest is clear to auscultation, no wheezing or crackles. ABDOMEN: Soft, nontender, nondistended, normoactive bowel sounds. No palpable organomegaly. MUSCULOSKELETAL: No joint swelling or deformity. EXTREMITIES: No cyanosis, clubbing, does have bilateral lower extremity pedal edema extending up to bilateral knee area NEUROLOGICAL: Gross neurological examination did not reveal any focal deficits. SKIN: No rashes. Assessment and plan -Congestive heart failure unknown whether patient is started dysfunction or diastolic dysfunction, patient is in heart failure exacerbation patient will be started on IV Lasix with the input and output monitoring. Obtain medical records from [facility] -History of paroxysmal atrial fibrillation currently normal sinus rhythm. -Acute renal failure prerenal azotemia due to congestive heart failure exacerbation expected to improve with IV Lasix -Hypovolemic hyponatremia: IV Lasix -History of DVT in the past on anticoagulation which will be continued -COPD without any acute exacerbation -Chronic kidney disease stage IIIB, possibly secondary to hypertensive nephrosclerosis -Essential hypertension -Obesity- DVT prophylaxis: On anti-coagulation GI prophylaxis Full Code Plan Echocardiogram pending continue on IV lasix and patient will be evaluated by PT/OT tomorrow. The impression and plan of care has been dictated by Malini Vang, Nurse Practitioner as directed. Dr. Ryan MD I have performed a history and physical examination and medical decision making of this patient, discussed the same with the dictator, and agree with the dictators assessment and plan as written, documented as a scribe. Based on total visit time, I have performed more than 50% of this visit. Objective - Vital Signs Vital signs: Vital Signs Temp 98.2 F 03/01/23 07:00 Pulse 79 03/01/23 07:00 Resp 16 03/01/23 07:00 BP 165/81 03/01/23 07:00 Pulse Ox 96 03/01/23 07:00 FiO2 Intake & Output 02/28/23 03/01/23 03/01/23 18:59 06:59 18:59 Intake Total 118 Balance 118 Intake: Oral 118 Other: Voiding Method Bedside Commode Bedside Commode # Voids 1 2 1 # Bowel Movements 2 1 - Labs CBC & Chem 7: 03/01/23 05:17 03/01/23 05:17 Labs: Abnormal Lab Results - Last 24 Hours (Table) 03/01/23 03/01/23 Range/Units 05:17 05:17 RBC 3.18 L (3.80-5.40) m/uL Hgb 10.8 L (11.4-16.0) gm/dL Hct 33.0 L (34.0-46.0) % MCV 103.7 H (80.0-100.0) fL Sodium 135 L (137-145) mmol/L Creatinine 1.54 H (0.52-1.04) mg/dL Assessment and Plan Time with Patient: Less than 30
[2023-03-02] MEDS: DILTIAZEM 125 MG in SODIUM CHLORIDE 0.9% 100 ML IV SCH (02:06)
[2023-03-02] MEDS: LEVOTHYROXINE 100 MCG TAB PO SCH (06:43)
[2023-03-02] MEDS: HYDROcodone/APAP 10-325MG 1 EACH TAB PO PRN ×3 (06:47→18:56)
[2023-03-02] MEDS: MAGNESIUM OXIDE 400 MG TAB PO SCH ×2 (08:47→21:07)
[2023-03-02] MEDS: buPROPion SR 150 MG TABLET.ER PO SCH ×2 (08:47→21:06)
[2023-03-02] MEDS: allopurinoL 100 MG TAB PO SCH (08:47)
[2023-03-02] MEDS: METOPROLOL TARTRATE 50 MG TAB PO SCH ×2 (08:48→21:06)
[2023-03-02] MEDS: CYANOCOBALAMIN 500 MCG TAB PO SCH (08:48)
[2023-03-02] MEDS: BUMETANIDE 1 MG TAB PO SCH (08:48)
[2023-03-02] MEDS: APIXABAN 2.5 MG TABLET PO SCH ×2 (08:48→21:07)
[2023-03-02] MEDS: CALCIUM ACETATE 667 MG TAB PO SCH (08:48)
[2023-03-02] MEDS: ATORVASTATIN 40 MG TAB PO SCH (08:49)
[2023-03-02] MEDS: MECLIZINE 25 MG TAB PO SCH ×2 (08:49→21:07)
[2023-03-02] MEDS: SYMBICORT 160-4.5 MCG INHALER INHALATION SCH ×2 (09:24→21:40)
[2023-03-02 09:58] LABS: African American GFR (CKD) 42 (>60 ml/min/1.73 sqM); Anion Gap 9 mmol/L; Blood Urea Nitrogen 13 mg/dL (7-17); Calcium 9.3 mg/dL (8.4-10.2); Carbon Dioxide 26 mmol/L (22-30); Chloride 102 mmol/L (98-107); Glucose 116 mg/dL (74-99); Non-African American GFR(CKD) 37 (>60 ml/min/1.73 sqM); Potassium 4.2 mmol/L (3.5-5.1); Sodium 137 mmol/L (137-145)
--- NOTE | 2023-03-02 10:41 | P.PN ---
Subjective Progress Note Date: 03/02/23 PROGRESS NOTE The patient is an 82-year-old female with a known history of paroxysmal atrial fibrillation, CAD who presented with worsening dyspnea. She had paroxysmal atrial fibrillation and peripheral edema. She is feeling better, her breathing is better and her edema has improved. She denies any chest discomfort, dizziness or palpitations. She is in atrial fibrillation with controlled ventricular response. She was admitted at [facility] recently and had an echocardiogram Medications: Lipitor 40 mg daily, Bumex 1 mg daily, IV Cardizem, levothyroxine, meclizine, metoprolol 50 mg twice a day, levothyroxine, Eliquis 2.5 mg twice a day PHYSICAL EXAMINATION: Blood pressure 120/70 heart rate 90 LUNGS: Clear to auscultation HEART: Irregular rate and rhythm, S1, S2. No S3. No systolic murmur ABDOMEN: Soft, nontender, no organomegaly, obese EXTREMETIES: No edema, chronic skin changes LAB: Potassium 4.2, creatinine 1.37, BUN 13. IMPRESSION: 1. Paroxysmal atrial fibrillation, anticoagulated 2. CHF with probable preserved systolic function 3. History of CAD 4. History of hyperlipidemia PLAN: 1. Stop IV Cardizem and change to oral 2. Add Farxiga 10 mg daily 3. Obtain the echocardiogram done during her last admission 4. Increase physical activity and if stable probable discharge in 24-48 hours Objective - Vital Signs Vital signs: Vital Signs Temp 98.3 F 03/02/23 08:41 Pulse 102 H 03/02/23 08:41 Resp 16 03/02/23 08:41 BP 121/73 03/02/23 08:41 Pulse Ox 97 03/02/23 09:24 FiO2 Intake & Output 03/01/23 03/02/23 03/02/23 18:59 06:59 18:59 Intake Total 122.667 180 Balance 122.667 180 Weight 92 kg Intake: Intake, IV Titration 122.667 Amount Diltiazem 125 mg In 122.667 Sodium Chloride 0.9% 100 ml @ 10 MG/HR 10 mls/hr IV .[id number] MIAN Rx#: [id number] Oral 180 Other: Voiding Method Bedside Commode Bedside Commode # Voids 2 1 # Bowel Movements 1 - Labs CBC & Chem 7: 03/01/23 05:17 03/02/23 08:35 Labs: Abnormal Lab Results - Last 24 Hours (Table) 03/02/23 Range/Units 08:35 Creatinine 1.37 H (0.52-1.04) mg/dL Glucose 116 H (74-99) mg/dL
[2023-03-02] MEDS: ONDANSETRON 4 MG/2 ML VIAL IVP PRN ×2 (10:52→17:19)
[2023-03-02] MEDS: DILTIAZEM ORAL 30 MG TAB PO SCH ×3 (10:59→21:08)
[2023-03-02] MEDS: DAPAGLIFLOZIN PROPANEDIOL 10 MG TABLET PO SCH (12:08)
--- NOTE | 2023-03-02 15:25 | P.PN ---
Subjective Progress Note Date: 03/02/23 82-year-old pleasant female came in with compensative shortness of breath, paroxysmal nocturnal dyspnea and orthopnea going on for about the 3-4 days. Patient had history of coronary artery disease with the stenting in 2010. Patient does have history of heart failure unknown whether systolic or diastolic . Patient does take Bumex an alternate day basis. Patient denied any fever chills. Patient was also comparing of increased swelling in bilateral lower extremities and able to walk. Patient as follows up with his progressive. Patient is found to have BNP of around 7000 with pulmonary edema changes on the chest x-ray was started on IV Lasix 40 mg twice a day. Patient is feeling much better able to urinate patient was also weaned hyponatremic patient's serum creatinine is around 1.63 with baseline around 1.2. Patient does have history of the atrial fibrillation for which patient is on anticoagulation. 03/01/2023 Was evaluated in the medical floor. She is not quite back to baseline yet and reports increased weakness and will like to be evaluated by physical therapy and this will need to be completed tomorrow on Thursday. 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 Additionally she remains on a 2000 mgs sodium restricted diet. She does her oxygen chronically outpatient and she is on her home oxygen at 2 L nasal cannula. 03/02/2023 Patient is evaluated today on the cardiac stepdown unit. Patient went into atrial fibrillation with rapid ventricular rate yesterday evening and was transferred to the cardiac floor on an IV Cardizem drip. Patient will be transitioned to PO cardizem today. Remains on oral bumex daily. Sodium improved to 137 and creatinine to 1.37. Remains on 3L of oxygen with saturation of 95% patient does wear oxygen at home. Review of Systems Constitutional: Denied any fatigue denied any fever. Cardio vascular: denied any chest pain, palpitations Gastrointestinal: denied any nausea, vomiting, diarrhea Pulmonary: Denied any shortness of breath cough Neurologic denied any new focal deficits All inpatient medications were reviewed and appropriate changes in these medications as dictated in the interval history and assessment and plan. PHYSICAL EXAMINATION: GENERAL: The patient is alert and oriented x3, not in any acute distress. Well developed, well nourished. Obese HEENT: Pupils are round and equally reacting to light. EOMI. No scleral icterus. No conjunctival pallor. Normocephalic, atraumatic. No pharyngeal erythema. No thyromegaly. CARDIOVASCULAR: S1 and S2 present. No murmurs, patient does have elevated JVD PULMONARY: Chest is clear to auscultation, no wheezing or crackles. ABDOMEN: Soft, nontender, nondistended, normoactive bowel sounds. No palpable organomegaly. MUSCULOSKELETAL: No joint swelling or deformity. EXTREMITIES: No cyanosis, clubbing, does have bilateral lower extremity pedal edema extending up to bilateral knee area improving and nonpitting. NEUROLOGICAL: Gross neurological examination did not reveal any focal deficits. SKIN: No rashes. Assessment and plan -Congestive heart failure diastolic dysfunction with preserved EF. -History of paroxysmal atrial fibrillation currently afib with rapid ventricular rate no transitioned to oral cardizem. -Acute renal failure prerenal azotemia due to congestive heart failure exacerbation, improved with lasix. -Hypervolemic hyponatremia normalized with diuretics. -History of DVT in the past on anticoagulation which will be continued -COPD without any acute exacerbation -Chronic hypoxemic respiratory failure on home oxygen due to advanced COPD -Chronic kidney disease stage IIIB, possibly secondary to hypertensive nephros clerosis -Essential hypertension -Obesity- DVT prophylaxis: On anti-coagulation GI prophylaxis Full Code Plan Echocardiogram report from [facility] reviewed. Patient has been transitioned to oral bumex. Remains on oxygen nasal cannula at 2-3L which patient wears at home. Cardiology has transitioned patient to oral cardizem. PT/OT consulted for DC planning. The impression and plan of care has been dictated by Malini Vang, Nurse Practitioner as directed. Dr. Ryan MD I have performed a history and physical examination and medical decision making of this patient, discussed the same with the dictator, and agree with the dictators assessment and plan as written, documented as a scribe. Based on total visit time, I have performed more than 50% of this visit. Objective - Vital Signs Vital signs: Vital Signs Temp 98.3 F 03/02/23 08:41 Pulse 100 03/02/23 12:00 Resp 16 03/02/23 12:00 BP 124/78 03/02/23 12:00 Pulse Ox 95 03/02/23 12:00 FiO2 Intake & Output 03/01/23 03/02/23 03/02/23 18:59 06:59 18:59 Intake Total 122.667 360 Balance 122.667 360 Weight 92 kg Intake: Intake, IV Titration 122.667 Amount Diltiazem 125 mg In 122.667 Sodium Chloride 0.9% 100 ml @ 10 MG/HR 10 mls/hr IV .[id number] [facility] Rx#: [id number] Oral 360 Other: Voiding Method Bedside Commode Bedside Commode # Voids 2 1 # Bowel Movements 1 - Labs CBC & Chem 7: 03/01/23 05:17 03/02/23 08:35 Labs: Abnormal Lab Results - Last 24 Hours (Table) 03/02/23 Range/Units 08:35 Creatinine 1.37 H (0.52-1.04) mg/dL Glucose 116 H (74-99) mg/dL Assessment and Plan Time with Patient: Less than 30
[2023-03-03] MEDS: HYDROcodone/APAP 10-325MG 1 EACH TAB PO PRN ×2 (06:25→16:24)
[2023-03-03] MEDS: LEVOTHYROXINE 100 MCG TAB PO SCH (06:26)
[2023-03-03 08:45] LABS: Basophils % (A) 0 %; Eosinophils # (A) 0.7 k/uL (0-0.7); Eosinophils % (A) 7 %; HCT 38.1 % (34.0-46.0); Lymphocytes # (A) 1.7 k/uL (1.0-4.8); Lymphocytes % (A) 16 %; MCH 33.1 pg (25.0-35.0); MCHC 31.6 g/dL (31.0-37.0); MCV 104.8 fL (80.0-100.0); Macrocytosis Slight; Mean Platelet Volume 7.9; Monocytes % (A) 9 %; Neutrophils # (A) 6.8 k/uL (1.3-7.7); Neutrophils % (A) 64 %; Platelet Count 426 k/uL (150-450); RBC 3.64 m/uL (3.80-5.40); RDW 13.6 % (11.5-15.5); WBC 10.7 k/uL (3.8-10.6)
[2023-03-03] MEDS: buPROPion SR 150 MG TABLET.ER PO SCH ×2 (08:53→20:46)
[2023-03-03 08:54] LABS: African American GFR (CKD) 37 (>60 ml/min/1.73 sqM); Blood Urea Nitrogen 15 mg/dL (7-17); Calcium 9.6 mg/dL (8.4-10.2); Carbon Dioxide 26 mmol/L (22-30); Glucose 132 mg/dL (74-99); Non-African American GFR(CKD) 32 (>60 ml/min/1.73 sqM)
[2023-03-03] MEDS: APIXABAN 2.5 MG TABLET PO SCH ×2 (08:54→20:46)
[2023-03-03] MEDS: CYANOCOBALAMIN 500 MCG TAB PO SCH (08:54)
[2023-03-03] MEDS: METOPROLOL TARTRATE 50 MG TAB PO SCH ×3 (08:54→20:47)
[2023-03-03] MEDS: BUMETANIDE 1 MG TAB PO SCH (08:54)
[2023-03-03] MEDS: MECLIZINE 25 MG TAB PO SCH ×2 (08:54→20:47)
[2023-03-03] MEDS: allopurinoL 100 MG TAB PO SCH (08:54)
[2023-03-03] MEDS: CALCIUM ACETATE 667 MG TAB PO SCH (08:54)
[2023-03-03] MEDS: ATORVASTATIN 40 MG TAB PO SCH (08:54)
[2023-03-03] MEDS: diphenhydrAMINE 25 MG CAP PO PRN ×3 (09:00→20:46)
[2023-03-03] MEDS: SYMBICORT 160-4.5 MCG INHALER INHALATION SCH ×2 (09:07→20:47)
[2023-03-03] MEDS ORDERED: FUROSEMIDE 10 MG/ML 4 ML VIAL IV STA (09:21)
[2023-03-03 09:42] LABS: Anion Gap 8 mmol/L; Chloride 103 mmol/L (98-107); Potassium 4.3 mmol/L (3.5-5.1); Sodium 137 mmol/L (137-145)
[2023-03-03] MEDS: ONDANSETRON 4 MG/2 ML VIAL IVP PRN ×2 (11:42→20:47)
--- NOTE | 2023-03-03 12:25 | P.PN ---
Subjective Progress Note Date: 03/03/23 PROGRESS NOTE The patient is an 82-year-old female with a known history of paroxysmal atrial fibrillation, CAD who presented with worsening dyspnea. She had paroxysmal atrial fibrillation and peripheral edema. She is feeling better, her breathing is better and her edema has improved. She denies any chest discomfort, dizziness or palpitations. She is in atrial fibrillation with controlled ventricular response. She was admitted at [facility] recently and had an echocardiogram Medications: Lipitor 40 mg daily, Bumex 1 mg daily, IV Cardizem, levothyroxine, meclizine, metoprolol 50 mg twice a day, levothyroxine, Eliquis 2.5 mg twice a day LAB: Potassium 4.2, creatinine 1.37, BUN 13. 03/03 Patient is seen today in follow-up. Yesterday she was transitioned from IV Cardizem to oral and Farxiga was added. Patient had developed a rash and refusing to take both of these for now. After discussion with Dr. Parra, patient is agreeable to continue for CPAP. Cardizem will be discontinued and metoprolol increased. She does complain of some nausea this morning intermittently. No chest pain, no palpitations. Echocardiogram performed on 02/16 at [facility] revealed EF 55-60%, mild MR and TR, RVSP 41. Echocardiogram has been obtained and report is pending. PHYSICAL EXAMINATION: Blood pressure 143/84 heart rate 102 LUNGS: Clear to auscultation HEART: Irregular rate and rhythm, S1, S2. No S3. No systolic murmur ABDOMEN: Soft, nontender, no organomegaly, obese EXTREMETIES: No edema, chronic skin changes IMPRESSION: 1. Paroxysmal atrial fibrillation, anticoagulated 2. Acute on chronic heart failure with preserved systolic function 3. History of CAD 4. History of hyperlipidemia 5. Possible ALLERGIC reaction to Cardizem PLAN: 1. Stop Cardizem, increase metoprolol to 50 mg 3 times daily 2. Continue Farxiga 10 mg daily 3. Obtain the echocardiogram report 4. Increase physical activity and if stable probable discharge in 24-48 hours Nurse practitioner note has been reviewed, I agree with the documented findings and plan of care. Patient was seen and examined. Objective - Vital Signs Vital signs: Vital Signs Temp 98.2 F 03/03/23 08:00 Pulse 102 H 03/03/23 08:00 Resp 18 08/29/23 08:00 BP 143/84 03/03/23 08:00 Pulse Ox 98 03/03/23 09:07 FiO2 Intake & Output 03/02/23 03/03/23 03/03/23 18:59 06:59 18:59 Intake Total 360 300 Output Total 800 Balance 360 -500 Weight 92.6 kg Intake: Oral 360 300 Output: Urine 800 Other: Voiding Method Bedside Commode Bedside Commode # Voids 3 - Labs CBC & Chem 7: 03/03/23 08:21 03/03/23 08:21 Labs: Abnormal Lab Results - Last 24 Hours (Table) 03/03/23 03/03/23 Range/Units 08:21 08:21 WBC 10.7 H (3.8-10.6) k/uL RBC 3.64 L (3.80-5.40) m/uL MCV 104.8 H (80.0-100.0) fL Creatinine 1.53 H (0.52-1.04) mg/dL Glucose 132 H (74-99) mg/dL
[2023-03-03] MEDS: MAGNESIUM OXIDE 400 MG TAB PO SCH ×2 (13:05→20:47)
[2023-03-03] MEDS: DAPAGLIFLOZIN PROPANEDIOL 10 MG TABLET PO SCH (13:06)
--- NOTE | 2023-03-03 15:11 | P.PN ---
Subjective Progress Note Date: 03/03/23 82-year-old pleasant female came in with compensative shortness of breath, paroxysmal nocturnal dyspnea and orthopnea going on for about the 3-4 days. Patient had history of coronary artery disease with the stenting in 2010. Patient does have history of heart failure unknown whether systolic or diastolic . Patient does take Bumex an alternate day basis. Patient denied any fever chills. Patient was also comparing of increased swelling in bilateral lower extremities and able to walk. Patient as follows up with his progressive. Patient is found to have BNP of around 7000 with pulmonary edema changes on the chest x-ray was started on IV Lasix 40 mg twice a day. Patient is feeling much better able to urinate patient was also weaned hyponatremic patient's serum creatinine is around 1.63 with baseline around 1.2. Patient does have history of the atrial fibrillation for which patient is on anticoagulation. 03/01/2023 Was evaluated in the medical floor. She is not quite back to baseline yet and reports increased weakness and will like to be evaluated by physical therapy and this will need to be completed tomorrow on Thursday. She has been transitioned to oral Bumex mother baby rn creatinine today was 1.54. Additionally she remains on a 2000 mgs sodium restricted diet. She does her oxygen chronically outpatient and she is on her home oxygen at 2 L nasal cannula. 03/02/2023 Patient is evaluated today on the cardiac stepdown unit. Patient went into atrial fibrillation with rapid ventricular rate yesterday evening and was transferred to the cardiac floor on an IV Cardizem drip. Patient will be transitioned to PO cardizem today. Remains on oral bumex daily. Sodium improved to 137 and creatinine to 1.37. Remains on 3L of oxygen with saturation of 95% patient does wear oxygen at home. 03/03/2023 Patient is evaluated today in the cardiac stepdown unit patient remains nature fibrillation rate is now controlled in the 90s to 100. Patient was having increased itchiness with a rash across her back. Patient felt this was related to either the Farxiga or the Cardizem and was refusing both medications this morning. Will reevaluate oxygen at 2 L nasal cannula patient worsens at home. Creatinine was increased back up to 153 today and a proBNP level of 7650. Because of this to oral Bumex was discontinued and patient was resumed back on IV Lasix every 12. Patient will remain on Lasix overnight and possibly be discharged home tomorrow. Additionally patient continues with some nausea she did have a food poisoning last week and has been on Zofran outpatient as well. Review of Systems Constitutional: Denied any fatigue denied any fever. Cardio vascular: denied any chest pain, palpitations Gastrointestinal: denied any diarrhea does report nausea. Pulmonary: Denied any shortness of breath cough Neurologic denied any new focal deficits All inpatient medications were reviewed and appropriate changes in these medications as dictated in the interval history and assessment and plan. PHYSICAL EXAMINATION: GENERAL: The patient is alert and oriented x3, not in any acute distress. Well developed, well nourished. Obese HEENT: Pupils are round and equally reacting to light. EOMI. No scleral icterus. No conjunctival pallor. Normocephalic, atraumatic. No pharyngeal erythema. No thyromegaly. CARDIOVASCULAR: S1 and S2 present. No murmurs, patient does have elevated JVD PULMONARY: Chest is clear to auscultation, no wheezing or crackles. ABDOMEN: Soft, nontender, nondistended, normoactive bowel sounds. No palpable organomegaly. MUSCULOSKELETAL: No joint swelling or deformity. EXTREMITIES: No cyanosis, clubbing, does have bilateral lower extremity pedal edema extending up to bilateral knee area improving and nonpitting. NEUROLOGICAL: Gross neurological examination did not reveal any focal deficits. SKIN: No rashes. Assessment and plan -Congestive heart failure diastolic dysfunction with preserved EF. -History of paroxysmal atrial fibrillation currently afib with controlled rate transitioned to oral Cardizem -Acute renal failure prerenal azotemia due to congestive heart failure exacerbation, improved with lasix. -Hypervolemic hyponatremia normalized with diuretics. -History of DVT in the past on anticoagulation which will be continued -COPD without any acute exacerbation -Chronic hypoxemic respiratory failure on home oxygen due to advanced COPD -Chronic kidney disease stage IIIB, possibly secondary to hypertensive nephrosclerosis -Essential hypertension -Obesity- DVT prophylaxis: On anti-coagulation GI prophylaxis Full Code Plan Echocardiogram report from [facility] reviewed. F/U echocardiogram pending. Patient has been transitioned to IV lasix Q12 and will remain on lasix overnight. If patient clinically improves possible DC home in the next 24 hours. Remains on oxygen nasal cannula at 2-3L which patient wears at home. Cardiology has transitioned patient to oral cardizem. PT/OT consulted for DC planning. The impression and plan of care has been dictated by Malini Vang, Nurse Practitioner as directed. Dr. Ryan MD I have performed a history and physical examination and medical decision making of this patient, discussed the same with the dictator, and agree with the dictators assessment and plan as written, documented as a scribe. Based on total visit time, I have performed more than 50% of this visit. Objective - Vital Signs Vital signs: Vital Signs Temp 98.2 F 03/03/23 08:00 Pulse 100 03/03/23 14:00 Resp 18 03/03/23 14:00 BP 128/85 03/03/23 12:00 Pulse Ox 96 03/03/23 12:00 FiO2 Intake & Output 03/02/23 03/03/23 03/03/23 18:59 06:59 18:59 Intake Total 360 300 Output Total 800 Balance 360 -500 Weight 92.6 kg Intake: Oral 360 300 Output: Urine 800 Other: Voiding Method Bedside Commode Bedside Commode # Voids 3 2 - Labs CBC & Chem 7: 03/03/23 08:21 03/03/23 08:21 Labs: Abnormal Lab Results - Last 24 Hours (Table) 03/03/23 03/03/23 Range/Units 08:21 08:21 WBC 10.7 H (3.8-10.6) k/uL RBC 3.64 L (3.80-5.40) m/uL MCV 104.8 H (80.0-100.0) fL Creatinine 1.53 H (0.52-1.04) mg/dL Glucose 132 H (74-99) mg/dL Assessment and Plan Time with Patient: Less than 30
[2023-03-03] MEDS: DILTIAZEM ORAL 30 MG TAB PO SCH (16:56)
[2023-03-03] MEDS: FUROSEMIDE 10 MG/ML 4 ML VIAL IV SCH (20:47)
[2023-03-04] MEDS: ONDANSETRON 4 MG/2 ML VIAL IVP PRN ×3 (01:05→12:48)
[2023-03-04] MEDS: diphenhydrAMINE 25 MG CAP PO PRN ×4 (01:06→23:22)
[2023-03-04] MEDS: HYDROcodone/APAP 10-325MG 1 EACH TAB PO PRN ×4 (04:48→23:22)
[2023-03-04] MEDS: LEVOTHYROXINE 100 MCG TAB PO SCH (06:43)
--- NOTE | 2023-03-04 06:51 | CA ---
Transthoracic Echo Report Name: Denise Kumar Age: 82 Gender: F : 1940 Exam Date: 03/03/2023 07:41 Exam Location: [facility] Ht (in): 61 Wt (lb): 200 Ordering Physician: Stan Sims MD ([id number]) Attending/Referring Phys: Inbound Ingredient Logistics Specialist Iraida Austin [facility] Procedure CPT: Indications: chf Cardiac Hx: Technical Quality: Fair Contrast 1: Total Dose (mL): Contrast 2: Total Dose (mL): MEASUREMENTS (Male / Female) Normal Values 2D ECHO LV Diastolic Diameter PLAX 3.9 cm 4.2 - 5.9 / 3.9 - 5.3 cm LV Systolic Diameter PLAX 2.8 cm IVS Diastolic Thickness 1.3 cm 0.6 - 1.0 / 0.6 - 0.9 cm LVPW Diastolic Thickness 1.3 cm 0.6 - 1.0 / 0.6 - 0.9 cm LV Relative Wall Thickness 0.7 LVOT Diameter 2.0 cm Ascending Aorta Diameter 3.4 cm M-MODE Aortic Root Diameter MM 2.5 cm LA Systolic Diameter MM 4.3 cm LA Ao Ratio MM 1.7 AV Cusp Separation MM 2.1 cm DOPPLER AV Peak Velocity 111.6 cm/s AV Peak Gradient 5.0 mmHg AV Mean Velocity 80.1 cm/s AV Mean Gradient 2.8 mmHg AV Velocity Time Integral 18.4 cm LVOT Peak Velocity 90.7 cm/s LVOT Peak Gradient 3.3 mmHg LVOT Velocity Time Integral 14.9 cm LVOT Stroke Volume 47.5 cm??? LVOT Stroke Volume Index 25.2 ml/m??? LVOT Cardiac Index 2537.2 cm???/min???m??? AV Area Cont Eq vti 2.6 cm??? AV Area Cont Eq pk 2.6 cm??? Mitral E Point Velocity 108.7 cm/s MV Deceleration Time 177.4 ms LV E' Lateral Velocity 6.0 cm/s Mitral E to LV E' Lateral Ratio 18.0 LV E' Septal Velocity 7.7 cm/s Mitral E to LV E' Septal Ratio 14.1 TR Peak Velocity 230.7 cm/s TR Peak Gradient 21.3 mmHg Right Atrial Pressure 3.0 mmHg Pulmonary Artery Systolic Pressu 24.3 mmHg Right Ventricular Systolic Press 24.3 mmHg FINDINGS Left Ventricle Moderately increased septal wall thickness. Moderately increased posterior wall thickness. Left ventricular cavity size normal. Low normal left ventricular systolic function with no obvious regional wall motion abnormalities. Left ventricular ejection fraction is estimated at 50-55%. Right Ventricle Mild right ventricular dilatation. Right Atrium Mild right atrial dilatation. Left Atrium Moderate left atrial dilatation. Mitral Valve Structurally normal mitral valve. Trace mitral regurgitation. Aortic Valve Trileaflet aortic valve. Aortic valve sclerosis. No aortic regurgitation. Tricuspid Valve Structurally normal tricuspid valve. Trace tricuspid regurgitation. Pulmonic Valve Pulmonic valve not well visualized. Mild pulmonic regurgitation. Pericardium Minimal pericardial effusion (normal variant). Echo free space anterior to the right ventricle likely represents a fat pad. Aorta Normal size aortic root and proximal ascending aorta. CONCLUSIONS Technically difficult study Normal LV systolic function Poorly visualized intracardiac valves but no significant abnormalities seen No evidence of pericardial effusion Previewed by: Dr. Mumtaz Haider MD (Electronically Signed) Final Date: 04 March 2023 06:50
[2023-03-04 08:26] LABS: African American GFR (CKD) 26 (>60 ml/min/1.73 sqM); Anion Gap 10 mmol/L; Blood Urea Nitrogen 23 mg/dL (7-17); Calcium 10.7 mg/dL (8.4-10.2); Carbon Dioxide 32 mmol/L (22-30); Chloride 96 mmol/L (98-107); Glucose 147 mg/dL (74-99); Non-African American GFR(CKD) 22 (>60 ml/min/1.73 sqM); Potassium 3.9 mmol/L (3.5-5.1); Sodium 138 mmol/L (137-145)
[2023-03-04] MEDS: MAGNESIUM OXIDE 400 MG TAB PO SCH ×2 (09:08→20:32)
[2023-03-04] MEDS: buPROPion SR 150 MG TABLET.ER PO SCH ×2 (09:08→20:33)
[2023-03-04] MEDS: CYANOCOBALAMIN 500 MCG TAB PO SCH (09:08)
[2023-03-04] MEDS: METOPROLOL TARTRATE 50 MG TAB PO SCH (09:08)
[2023-03-04] MEDS: APIXABAN 2.5 MG TABLET PO SCH ×2 (09:08→20:33)
[2023-03-04] MEDS: ATORVASTATIN 40 MG TAB PO SCH (09:09)
[2023-03-04] MEDS: DAPAGLIFLOZIN PROPANEDIOL 10 MG TABLET PO SCH ×2 (09:09→14:32)
[2023-03-04] MEDS: FUROSEMIDE 10 MG/ML 4 ML VIAL IV SCH (09:09)
[2023-03-04] MEDS: allopurinoL 100 MG TAB PO SCH (09:09)
[2023-03-04] MEDS: MECLIZINE 25 MG TAB PO SCH ×2 (09:09→20:33)
[2023-03-04] MEDS: CALCIUM ACETATE 667 MG TAB PO SCH (09:09)
[2023-03-04] MEDS: SYMBICORT 160-4.5 MCG INHALER INHALATION SCH ×2 (09:11→21:47)
[2023-03-04] MEDS ORDERED: METOPROLOL TARTRATE 25 MG TAB PO STA (09:30)
--- NOTE | 2023-03-04 12:55 | P.PN ---
Subjective Progress Note Date: 03/04/23 PROGRESS NOTE The patient is an 82-year-old female with a known history of paroxysmal atrial fibrillation, CAD who presented with worsening dyspnea. She had paroxysmal atrial fibrillation and peripheral edema. She is feeling better, her breathing is better and her edema has improved. She denies any chest discomfort, dizziness or palpitations. She is in atrial fibrillation with controlled ventricular response. She was admitted at [facility] recently and had an echocardiogram Medications: Lipitor 40 mg daily, Bumex 1 mg daily, IV Cardizem, levothyroxine, meclizine, metoprolol 50 mg twice a day, levothyroxine, Eliquis 2.5 mg twice a day LAB: Potassium 4.2, creatinine 1.37, BUN 13. 03/03 Patient is seen today in follow-up. Yesterday she was transitioned from IV Cardizem to oral and Farxiga was added. Patient had developed a rash and refusing to take both of these for now. After discussion with Dr. Parra, patient is agreeable to continue for CPAP. Cardizem will be discontinued and metoprolol increased. She does complain of some nausea this morning intermittently. No chest pain, no palpitations. Echocardiogram performed on 02/16 at [facility] revealed EF 55-60%, mild MR and TR, RVSP 41. Echocardiogram has been obtained and report is pending. 03/04 Yesterday, Cardizem was discontinued and metoprolol was increased as patient was concern that Cardizem was causing an ALLERGIC reaction and she was complaining of itching to her face and back. She has been on Benadryl [id number] for this. Today, she feels that she still has itching sensation and that she is having ALLERGIC reaction to Farxiga versus Cardizem. Yesterday she was placed back on IV Lasix as IV access was obtained. She states she has been urinating well overnight. She has continued dyspnea with exertion but none at rest. Her dyspnea on exertion has been chronic. Her heart rate today is a 114 1220, blood pressure 103/69. Echocardiogram reveals Normal LV systolic function. Poorly v isualized valves but no significant abnormalities seen. No pericardial effusion. PHYSICAL EXAMINATION: Blood pressure 103/69 heart rate 115 pulse ox 90% on 2 L nasal cannula LUNGS: Clear to auscultation HEART: Irregular rate and rhythm, S1, S2. No S3. No systolic murmur ABDOMEN: Soft, nontender, no organomegaly, obese EXTREMETIES: No edema, chronic skin changes IMPRESSION: 1. Paroxysmal atrial fibrillation, anticoagulated with eliquis 2. Acute on chronic heart failure with preserved systolic function 3. History of CAD 4. History of hyperlipidemia 5. Possible ALLERGIC reaction to Cardizem PLAN: 1. Increase metoprolol to 75 mg 3 times daily 2. Continue Farxiga 10 mg daily 3. Increase physical activity and if stable probable discharge in 24hours. Nurse practitioner note has been reviewed, I agree with the documented findings and plan of care. Patient was seen and examined. Objective - Vital Signs Vital signs: Vital Signs Temp 97.5 F L 03/04/23 04:00 Pulse 115 H 03/04/23 04:00 Resp 17 03/04/23 04:00 BP 103/69 03/04/23 04:00 Pulse Ox 98 03/04/23 04:00 FiO2 Intake & Output 03/03/23 03/04/23 03/04/23 18:59 06:59 18:59 Output Total 300 1900 Balance -300 -1900 Weight 89.8 kg Output: Urine 300 1900 Other: Voiding Method Bedside Commode Bedside Commode # Voids 2 1 - Labs CBC & Chem 7: 03/03/23 08:21 03/04/23 07:28 Labs: Abnormal Lab Results - Last 24 Hours (Table) 03/04/23 Range/Units 07:28 Chloride 96 L (98-107) mmol/L Carbon Dioxide 32 H (22-30) mmol/L BUN 23 H (7-17) mg/dL Creatinine 2.05 H (0.52-1.04) mg/dL Glucose 147 H (74-99) mg/dL Calcium 10.7 H (8.4-10.2) mg/dL
--- NOTE | 2023-03-04 15:13 | P.PN ---
Subjective Progress Note Date: 03/04/23 82-year-old pleasant female came in with compensative shortness of breath, paroxysmal nocturnal dyspnea and orthopnea going on for about the 3-4 days. Patient had history of coronary artery disease with the stenting in 2010. Patient does have history of heart failure unknown whether systolic or diastolic . Patient does take Bumex an alternate day basis. Patient denied any fever chills. Patient was also comparing of increased swelling in bilateral lower extremities and able to walk. Patient as follows up with his progressive. Patient is found to have BNP of around 7000 with pulmonary edema changes on the chest x-ray was started on IV Lasix 40 mg twice a day. Patient is feeling much better able to urinate patient was also weaned hyponatremic patient's serum creatinine is around 1.63 with baseline around 1.2. Patient does have history of the atrial fibrillation for which patient is on anticoagulation. 03/01/2023 Was evaluated in the medical floor. She is not quite back to baseline yet and reports increased weakness and will like to be evaluated by physical therapy and this will need to be completed tomorrow on Thursday. She has been transitioned to oral Bumex visual and stock associate creatinine today was 1.54. Additionally she remains on a 2000 mgs sodium restricted diet. She does her oxygen chronically outpatient and she is on her home oxygen at 2 L nasal cannula. 03/02/2023 Patient is evaluated today on the cardiac stepdown unit. Patient went into atrial fibrillation with rapid ventricular rate yesterday evening and was transferred to the cardiac floor on an IV Cardizem drip. Patient will be transitioned to PO cardizem today. Remains on oral bumex daily. Sodium improved to 137 and creatinine to 1.37. Remains on 3L of oxygen with saturation of 95% patient does wear oxygen at home. 03/03/2023 Patient is evaluated today in the cardiac stepdown unit patient remains nature fibrillation rate is now controlled in the 90s to 100. Patient was having increased itchiness with a rash across her back. Patient felt this was related to either the Farxiga or the Cardizem and was refusing both medications this morning. Will reevaluate oxygen at 2 L nasal cannula patient worsens at home. Creatinine was increased back up to 153 today and a proBNP level of 7650. Because of this to oral Bumex was discontinued and patient was resumed back on IV Lasix every 12. Patient will remain on Lasix overnight and possibly be discharged home tomorrow. Additionally patient continues with some nausea she did have a food poisoning last week and has been on Zofran outpatient as well. 03/04/2023 Patient is evaluated today in the medical floor. She remains on 2 L nasal cannula with oxygen saturations of 96%. She denies shortness of breath and her lungs are clear. She does have some chronic changes in the right base related to a bleb per the patient. Creatinine is up to 2.0 today recommending to hold lasix for a day and f/u labs in the AM. Patient remains having intermittent epis odes of nausea but tolerating diet. She had small BM a few days ago. portable abdominal xray has been ordered. Heart rate 115 this AM and metoprolol has been increased cardiology would like to continue cardiac monitoring for another 24 hours and possible DC home tomorrow. Review of Systems Constitutional: Denied any fatigue denied any fever. Cardio vascular: denied any chest pain, palpitations Gastrointestinal: denied any diarrhea does report nausea. Pulmonary: Denied any shortness of breath cough Neurologic: denied any new focal deficits All inpatient medications were reviewed and appropriate changes in these medications as dictated in the interval history and assessment and plan. PHYSICAL EXAMINATION: GENERAL: The patient is alert and oriented x3, not in any acute distress. Well d eveloped, well nourished. Obese HEENT: Pupils are round and equally reacting to light. EOMI. No scleral icterus. No conjunctival pallor. Normocephalic, atraumatic. No pharyngeal erythema. No thyromegaly. CARDIOVASCULAR: S1 and S2 present. No murmurs, patient does have elevated JVD PULMONARY: Chest is clear to auscultation, no wheezing or crackles. ABDOMEN: Soft, nontender, nondistended, normoactive bowel sounds. No palpable organomegaly. MUSCULOSKELETAL: No joint swelling or deformity. EXTREMITIES: No cyanosis, clubbing, nonpitting peripheral edema, improved. NEUROLOGICAL: Gross neurological examination did not reveal any focal deficits. SKIN: No rashes. Assessment and plan -Congestive heart failure diastolic dysfunction with preserved EF. -History of paroxysmal atrial fibrillation currently afib with controlled rate transitioned to oral Cardizem -Acute renal failure prerenal azotemia due to congestive heart failure exacerbation, improved with lasix and worsened again due to diuresis -Hypervolemic hyponatremia normalized with diuretics -Nausea, had food poisening last week, this is improving -History of DVT in the past on anticoagulation which will be continued -COPD without any acute exacerbation -Chronic hypoxemic respiratory failure on home oxygen due to advanced COPD -Chronic kidney disease stage IIIB, possibly secondary to hypertensive nephrosclerosis -Essential hypertension -Obesity- DVT prophylaxis: On anti-coagulation GI prophylaxis Full Code Plan Patient evaluated today and creatinine is up to 2.0 would recommend to hold IV Lasix today and tomorrow. Would recommend repeating labs outpatient. Metoprolol has been increased up to 75 twice a day from cardiology and patient was monitored overnight on the lunchroom monitor. If heart rate has improved pat ient be considered stable for discharge home tomorrow. Portable abdominal x-ray has been ordered for complaints of nausea and no bowel movement last 3 days. Repeat labs in the morning. The impression and plan of care has been dictated by Malini Vang, Nurse Practitioner as directed. Dr. Ryan MD I have performed a history and physical examination and medical decision making of this patient, discussed the same with the dictator, and agree with the d ictators assessment and plan as written, documented as a scribe. Based on total visit time, I have performed more than 50% of this visit. Objective - Vital Signs Vital signs: Vital Signs Temp 98.4 F 03/04/23 08:00 Pulse 72 03/04/23 14:00 Resp 16 03/04/23 14:00 BP 114/66 03/04/23 12:00 Pulse Ox 93 L 03/04/23 12:00 FiO2 Intake & Output 03/03/23 03/04/23 03/04/23 18:59 06:59 18:59 Intake Total 600 Output Total 300 1900 Balance -300 -1900 600 Weight 89.8 kg Intake: Oral 600 Output: Urine 300 1900 Other: Voiding Method Bedside Commode Bedside Commode Bedside Commode # Voids 2 1 - Labs CBC & Chem 7: 03/03/23 08:21 03/04/23 07:28 Labs: Abnormal Lab Results - Last 24 Hours (Table) 03/04/23 Range/Units 07:28 Chloride 96 L (98-107) mmol/L Carbon Dioxide 32 H (22-30) mmol/L BUN 23 H (7-17) mg/dL Creatinine 2.05 H (0.52-1.04) mg/dL Glucose 147 H (74-99) mg/dL Calcium 10.7 H (8.4-10.2) mg/dL Assessment and Plan Time with Patient: Less than 30
--- NOTE | 2023-03-04 15:43 | XR ---
EXAMINATION TYPE: XR abdomen 1V DATE OF EXAM: 03/04/2023 COMPARISON: NONE HISTORY: Pain TECHNIQUE: One view abdominal series FINDINGS: The osseous structures are intact. The bowel gas pattern is nonspecific. Severe degenerative disc di sease. Surgical clips are noted right upper quadrant. Gastric bubble is distended and there are a few prominent small bowel loops. Air is seen to the level of the rectum in a nonspecific pattern. Diffuse osteopenia throughout the hips. No definite suspicious calcifications. IMPRESSION: 1. Gastric bubble is distended and there are air-filled small and large bowel loops to the level of t he rectum. Ileus would BE favored over an obstruction. Correlate clinically
[2023-03-04] MEDS: METOPROLOL TARTRATE 25 MG TAB PO SCH ×2 (16:21→20:32)
[2023-03-05] MEDS: LEVOTHYROXINE 100 MCG TAB PO SCH (05:43)
[2023-03-05] MEDS: HYDROcodone/APAP 10-325MG 1 EACH TAB PO PRN ×4 (05:48→23:57)
[2023-03-05] MEDS: METOPROLOL TARTRATE 25 MG TAB PO SCH ×3 (08:18→20:55)
[2023-03-05] MEDS: MAGNESIUM OXIDE 400 MG TAB PO SCH ×2 (08:18→20:55)
[2023-03-05] MEDS: buPROPion SR 150 MG TABLET.ER PO SCH ×2 (08:18→20:56)
[2023-03-05] MEDS: CALCIUM ACETATE 667 MG TAB PO SCH (08:18)
[2023-03-05] MEDS: APIXABAN 2.5 MG TABLET PO SCH ×2 (08:18→20:55)
[2023-03-05] MEDS: MECLIZINE 25 MG TAB PO SCH ×2 (08:19→20:55)
[2023-03-05] MEDS: CYANOCOBALAMIN 500 MCG TAB PO SCH (08:19)
[2023-03-05] MEDS: DAPAGLIFLOZIN PROPANEDIOL 10 MG TABLET PO SCH (08:19)
[2023-03-05] MEDS: allopurinoL 100 MG TAB PO SCH (08:19)
[2023-03-05] MEDS: ATORVASTATIN 40 MG TAB PO SCH (08:19)
[2023-03-05] MEDS: SYMBICORT 160-4.5 MCG INHALER INHALATION SCH ×2 (09:05→20:32)
[2023-03-05] MEDS: ONDANSETRON 4 MG/2 ML VIAL IVP PRN ×2 (09:08→20:55)
[2023-03-05] MEDS: diphenhydrAMINE 25 MG CAP PO PRN ×2 (09:08→20:55)
[2023-03-05] MEDS ORDERED: bisacodyL 10 MG SUPP RECTAL STA (09:25)
[2023-03-05 11:57] LABS: African American GFR (CKD) 16 (>60 ml/min/1.73 sqM); Anion Gap 15 mmol/L; Blood Urea Nitrogen 34 mg/dL (7-17); Calcium 10.7 mg/dL (8.4-10.2); Carbon Dioxide 24 mmol/L (22-30); Chloride 99 mmol/L (98-107); Glucose 157 mg/dL (74-99); Non-African American GFR(CKD) 14 (>60 ml/min/1.73 sqM); Potassium 4.5 mmol/L (3.5-5.1); Sodium 138 mmol/L (137-145)
--- NOTE | 2023-03-05 11:57 | P.PN ---
Subjective Progress Note Date: 03/05/23 PROGRESS NOTE The patient is an 82-year-old female with a known history of paroxysmal atrial fibrillation, CAD who presented with worsening dyspnea. She had paroxysmal atrial fibrillation and peripheral edema. She is feeling better, her breathing is better and her edema has improved. She denies any chest discomfort, dizziness or palpitations. She is in atrial fibrillation with controlled ventricular response. She was admitted at [facility] recently and had an echocardiogram Medications: Lipitor 40 mg daily, Bumex 1 mg daily, IV Cardizem, levothyroxine, meclizine, metoprolol 50 mg twice a day, levothyroxine, Eliquis 2.5 mg twice a day LAB: Potassium 4.2, creatinine 1.37, BUN 13. 03/03 Patient is seen today in follow-up. Yesterday she was transitioned from IV Cardizem to oral and Farxiga was added. Patient had developed a rash and refusing to take both of these for now. After discussion with Dr. Parra, patient is agreeable to continue for CPAP. Cardizem will be discontinued and metoprolol increased. She does complain of some nausea this morning intermittently. No chest pain, no palpitations. Echocardiogram performed on 02/16 at [facility] revealed EF 55-60%, mild MR and TR, RVSP 41. Echocardiogram has been obtained and report is pending. 03/04 Yesterday, Cardizem was discontinued and metoprolol was increased as patient was concern that Cardizem was causing an ALLERGIC reaction and she was complaining of itching to her face and back. She has been on Benadryl [id number] for this. Today, she feels that she still has itching sensation and that she is having ALLERGIC reaction to Farxiga versus Cardizem. Yesterday she was placed back on IV Lasix as IV access was obtained. She states she has been urinating well overnight. She has continued dyspnea with exertion but none at rest. Her dyspnea on exertion has been chronic. Her heart rate today is a 114 1220, blood pressure 103/69. Echocardiogram reveals Normal LV systolic function. Poorly v isualized valves but no significant abnormalities seen. No pericardial effusion. 03/05 Patient's breathing status is improved and she has no lower extremity edema. She has been continued on IV Lasix and transitioned to oral tomorrow. She is continues to be concerned about itching thought to be related to Farxiga itching started prior to her being initiated on Farxiga so this does not appear to be the culprit. Blood pressure 112/64, heart rate 85, pulse ox 92% on 2 L nasal cannula PHYSICAL EXAMINATION: Blood pressure 103/69 heart rate 115 pulse ox 90% on 2 L nasal cannula LUNGS: Clear to auscultation HEART: Irregular rate and rhythm, S1, S2. No S3. No systolic murmur ABDOMEN: Soft, nontender, no organomegaly, obese EXTREMETIES: No edema, chronic skin changes IMPRESSION: 1. Paroxysmal atrial fibrillation, anticoagulated with eliquis 2. Acute on chronic heart failure with preserved systolic function 3. History of CAD 4. History of hyperlipidemia 5. Possible ALLERGIC reaction to Cardizem PLAN: 1. Continue patient's current cardiac medications 2. Continue Farxiga 10 mg daily 3. Patient is clear from cardiology for discharge home and may follow up with Dr. Che in 1-2 weeks. Nurse practitioner note has been reviewed, I agree with the documented findings and plan of care. Patient was seen and examined. Objective - Vital Signs Vital signs: Vital Signs Temp 97.7 F 03/05/23 08:16 Pulse 85 03/05/23 08:16 Resp 16 03/05/23 08:16 BP 112/64 03/05/23 08:16 Pulse Ox 92 L 03/05/23 08:16 FiO2 Intake & Output 03/04/23 03/05/23 03/05/23 18:59 06:59 18:59 Intake Total 840 320 Output Total 200 Balance 640 320 Weight 90 kg Intake: Oral 840 320 Output: Urine 200 Other: Voiding Method Bedside Commode Bedside Commode - Labs CBC & Chem 7: 03/03/23 08:21 03/04/23 07:28
--- NOTE | 2023-03-05 14:26 | P.PN ---
Subjective Progress Note Date: 03/05/23 82-year-old pleasant female came in with compensative shortness of breath, paroxysmal nocturnal dyspnea and orthopnea going on for about the 3-4 days. Patient had history of coronary artery disease with the stenting in 2010. Patient does have history of heart failure unknown whether systolic or diastolic . Patient does take Bumex an alternate day basis. Patient denied any fever chills. Patient was also comparing of increased swelling in bilateral lower extremities and able to walk. Patient as follows up with his progressive. Patient is found to have BNP of around 7000 with pulmonary edema changes on the chest x-ray was started on IV Lasix 40 mg twice a day. Patient is feeling much better able to urinate patient was also weaned hyponatremic patient's serum creatinine is around 1.63 with baseline around 1.2. Patient does have history of the atrial fibrillation for which patient is on anticoagulation. 03/01/2023 Was evaluated in the medical floor. She is not quite back to baseline yet and reports increased weakness and will like to be evaluated by physical therapy and this will need to be completed tomorrow on Thursday. She has been transitioned to oral Bumex engine assembler creatinine today was 1.54. Additionally she remains on a 2000 mgs sodium restricted diet. She does her oxygen chronically outpatient and she is on her home oxygen at 2 L nasal cannula. 03/02/2023 Patient is evaluated today on the cardiac stepdown unit. Patient went into atrial fibrillation with rapid ventricular rate yesterday evening and was transferred to the cardiac floor on an IV Cardizem drip. Patient will be transitioned to PO cardizem today. Remains on oral bumex daily. Sodium improved to 137 and creatinine to 1.37. Remains on 3L of oxygen with saturation of 95% patient does wear oxygen at home. 03/03/2023 Patient is evaluated today in the cardiac stepdown unit patient remains nature fibrillation rate is now controlled in the 90s to 100. Patient was having increased itchiness with a rash across her back. Patient felt this was related to either the Farxiga or the Cardizem and was refusing both medications this morning. Will reevaluate oxygen at 2 L nasal cannula patient worsens at home. Creatinine was increased back up to 153 today and a proBNP level of 7650. Because of this to oral Bumex was discontinued and patient was resumed back on IV Lasix every 12. Patient will remain on Lasix overnight and possibly be discharged home tomorrow. Additionally patient continues with some nausea she did have a food poisoning last week and has been on Zofran outpatient as well. 03/04/2023 Patient is evaluated today in the medical floor. She remains on 2 L nasal cannula with oxygen saturations of 96%. She denies shortness of breath and her lungs are clear. She does have some chronic changes in the right base related to a bleb per the patient. Creatinine is up to 2.0 today recommending to hold lasix for a day and f/u labs in the AM. Patient remains having intermittent epis odes of nausea but tolerating diet. She had small BM a few days ago. portable abdominal xray has been ordered. Heart rate 115 this AM and metoprolol has been increased cardiology would like to continue cardiac monitoring for another 24 hours and possible DC home tomorrow. 03/05/2023 Patient evaluated today wanting to discharge home. Per cardiology she is cleared for DC on oral lasix 40 BID additionally patient is on oral lopressor and heart rate is now controlled in the 80s. Transitioned off the IV lasix and resumed on oral today however creatinine is now up to 3.06. Would recommend renal ul trasound and nephrology consultation. Patient continues to report nausea, has been tolerating diet. Has not had bowel movement. Abdominal xray completed shows gastric bubble is distended and there is air filled small and large bowel loops to the level of the rectum. Ileus would be favored over bowel obstruction. Review of Systems Constitutional: Denied any fatigue denied any fever. Cardio vascular: denied any chest pain, palpitations Gastrointestinal: denied any diarrhea does report nausea. Pulmonary: Denied any shortness of breath cough Neurologic: denied any new focal deficits All inpatient medications were reviewed and appropriate changes in these medications as dictated in the interval history and assessment and plan. PHYSICAL EXAMINATION: GENERAL: The patient is alert and oriented x3, not in any acute distress. Well developed, well nourished. Obese HEENT: Pupils are round and equally reacting to light. EOMI. No scleral icterus. No conjunctival pallor. Normocephalic, atraumatic. No pharyngeal erythema. No thyromegaly. CARDIOVASCULAR: S1 and S2 present. No murmurs, patient does have elevated JVD PULMONARY: Chest is clear to auscultation, no wheezing or crackles. ABDOMEN: Soft, nontender, nondistended, Hypoactive bowel sounds. No palpable organomegaly. MUSCULOSKELETAL: No joint swelling or deformity. EXTREMITIES: No cyanosis, clubbing, nonpitting peripheral edema, improved. NEUROLOGICAL: Gross neurological examination did not reveal any focal deficits. SKIN: No rashes. Assessment and plan -Congestive heart failure diastolic dysfunction with preserved EF. -History of paroxysmal atrial fibrillation currently afib with controlled rate transitioned to oral Cardizem -Acute renal failure prerenal azotemia due to congestive heart failure exacerbation, improved with lasix and worsened again due to diuresis rule out urinary retention -Hypervolemic hyponatremia normalized with diuretics -Nausea, had food poisening last week, -Constipation abdominal xray showing ileus vs. bowel obstruction -History of DVT in the past on anticoagulation -COPD without any acute exacerbation -Chronic hypoxemic respiratory failure on home oxygen due to advanced COPD -Chronic kidney disease stage IIIB, possibly secondary to hypertensive nephrosclerosis -Essential hypertension -Obesity DVT prophylaxis: On anti-coagulation GI prophylaxis Full Code Plan Patient has worsening kidney function today, for this nephrology is consulted for evaluation and renal ultrasound has been ordered. Abdominal xray showing likely ileus patient will be NPO and given dulcolax has not had BM. Did have food poisening last week will some residual nausea. Patient was transitioned to oral lasix and cardiology has cleared the patient for outpatient f/u. Recommend bladder scan screening for urinary retention monitor I and O. Repeat labs in AM. The impression and plan of care has been dictated by Malini Vang, Nurse Practitioner as directed. Dr. Ryan MD I have performed a history and physical examination and medical decision making of this patient, discussed the same with the dictator, and agree with the dictators assessment and plan as written, documented as a scribe. Based on total visit time, I have performed more than 50% of this visit. Objective - Vital Signs Vital signs: Vital Signs Temp 97.7 F 03/05/23 08:16 Pulse 85 03/05/23 08:16 Resp 16 03/05/23 08:16 BP 112/64 03/05/23 08:16 Pulse Ox 92 L 03/05/23 08:16 FiO2 Intake & Output 03/04/23 03/05/23 03/05/23 18:59 06:59 18:59 Intake Total 840 320 830 Output Total 200 Balance 640 320 830 Weight 90 kg Intake: IV 10 Invasive Line 3 10 Oral 840 320 820 Output: Urine 200 Other: Voiding Method Bedside Commode Bedside Commode Bedside Commode # Bowel Movements 1 - Labs CBC & Chem 7: 03/03/23 08:21 03/05/23 07:42 Labs: Abnormal Lab Results - Last 24 Hours (Table) 03/05/23 Range/Units 07:42 BUN 34 H (7-17) mg/dL Creatinine 3.06 H (0.52-1.04) mg/dL Glucose 157 H (74-99) mg/dL Calcium 10.7 H (8.4-10.2) mg/dL Assessment and Plan Time with Patient: Less than 30
[2023-03-05 14:43] VITALS: RESP 18
[2023-03-05] MEDS ORDERED: LACTULOSE 20 GM/30 ML CUP PO ONE (14:52)
--- NOTE | 2023-03-05 16:36 | US ---
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 EXAM MEASUREMENTS: Right Kidney: 6.7 x 4.6 x 4.0 cm Left Kidney: 9.3. x 3.5 x 3.4 cm Right Kidney: No hydronephrosis or masses seen atrophic Left Kidney: No hydronephrosis or masses seen Bladder: not fully distended. Bilateral Jets seen: no There is no evidence for hydronephrosis at this point in time. Atrophy of the right kidney. No nephro lithiasis is seen. Left renal cyst identified measuring up to 1 cm. The urinary bladder is underdiste nded limiting evaluation. Both ureteral jets are not identified. IMPRESSION: No hydronephrosis or nephrolithiasis.
[2023-03-06 05:41] VITALS: PULSE 90
[2023-03-06] MEDS: HYDROcodone/APAP 10-325MG 1 EACH TAB PO PRN (06:27)
[2023-03-06] MEDS: LEVOTHYROXINE 100 MCG TAB PO SCH (06:27)
[2023-03-06 08:39] VITALS: BP 108/56; TEMP 97.8
[2023-03-06] MEDS: APIXABAN 2.5 MG TABLET PO SCH (08:39)
[2023-03-06] MEDS: CYANOCOBALAMIN 500 MCG TAB PO SCH (08:39)
[2023-03-06] MEDS: diphenhydrAMINE 25 MG CAP PO PRN (08:39)
[2023-03-06] MEDS: ATORVASTATIN 40 MG TAB PO SCH (08:39)
[2023-03-06] MEDS: CALCIUM ACETATE 667 MG TAB PO SCH (08:40)
[2023-03-06] MEDS: MAGNESIUM OXIDE 400 MG TAB PO SCH (08:40)
[2023-03-06] MEDS: MECLIZINE 25 MG TAB PO SCH (08:40)
[2023-03-06] MEDS: METOPROLOL TARTRATE 25 MG TAB PO SCH (08:40)
[2023-03-06] MEDS: DAPAGLIFLOZIN PROPANEDIOL 10 MG TABLET PO SCH (08:42)
[2023-03-06 08:57] LABS: Basophils # (A) 0.1 k/uL (0-0.2); Basophils % (A) 1 %; Eosinophils # (A) 0.8 k/uL (0-0.7); Eosinophils % (A) 8 %; HCT 40.7 % (34.0-46.0); Hypochromasia Slight; Lymphocytes # (A) 2.2 k/uL (1.0-4.8); Lymphocytes % (A) 22 %; MCH 33.9 pg (25.0-35.0); MCHC 31.9 g/dL (31.0-37.0); MCV 106.3 fL (80.0-100.0); Macrocytosis Moderate; Mean Platelet Volume 8.3; Monocytes # (A) 1.6 k/uL (0-1.0); Monocytes % (A) 17 %; Neutrophils # (A) 4.7 k/uL (1.3-7.7); Neutrophils % (A) 49 %; Platelet Count 387 k/uL (150-450); RBC 3.83 m/uL (3.80-5.40); RDW 13.2 % (11.5-15.5); WBC 9.7 k/uL (3.8-10.6)
[2023-03-06] MEDS ORDERED: FUROSEMIDE 40 MG TAB PO SCH (09:00)
[2023-03-06 09:18] LABS: African American GFR (CKD) 16 (>60 ml/min/1.73 sqM); Anion Gap 9 mmol/L; Blood Urea Nitrogen 39 mg/dL (7-17); Carbon Dioxide 29 mmol/L (22-30); Chloride 97 mmol/L (98-107); Glucose 125 mg/dL (74-99); Non-African American GFR(CKD) 14 (>60 ml/min/1.73 sqM); Potassium 4.5 mmol/L (3.5-5.1); Sodium 135 mmol/L (137-145)
[2023-03-06] MEDS: SYMBICORT 160-4.5 MCG INHALER INHALATION SCH (09:31)
--- NOTE | 2023-03-06 11:03 | P.NPCON ---
History of Present Illness - Reason for Consult acute renal failure - History of Present Illness Patient is an 82-year-old female with history of coronary artery disease and CHF, diastolic with EF of 50-55% who was admitted to the hospital with complaints of shortness of breath and increased lower extremity swelling. Patient has underlying CK D NKF stage IIIB with baseline creatinine around 1.5- 1.7 mg/dL Patient has been diuresed. Patient developed A. fib with RVR which is now controlled. Episodes of hypotension noted with systolic at 99 mmHg on 03/04/2023. Patient has been voiding on her own. Ultrasound shows no evidence of obstruction Serum creatinine was 1.6 on admission and decreased to 1.37 on 03/02/2023. Subsequently it increased again to 3.0 and it is at 3.1 today. Lasix has been changed to oral. Patient states she feels well and wants to go home. Review of Systems As per HPI Past Medical History Past Medical History: Atrial Fibrillation, Heart Failure, COPD, CVA/TIA, Deep Vein Thrombosis (DVT), GERD/Reflux, Hyperlipidemia, Hypertension, Musculoskeletal Disorder, Pneumonia, Sleep Apnea/CPAP/BIPAP, Thyroid Disorder Additional Past Medical History / Comment(s): difficulty swallowing, choking, "feels like things get stuck in throat" was on "life support 11/2013-12/2013, past hx.a-fib, had Lopez-Onel syndrome, post polio syndrome, 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 left wrist, hx of UTI's, hx of glaucoma, had several laser tx, states frequent headaches, uses walker, vertigo, hx of gout, History of Any Multi-Drug Resistant Organisms: None Reported Past Surgical History: Cholecystectomy, Heart Catheterization With Stent, Hysterectomy Additional Past Surgical History / Comment(s): kidney surg. for malrotation, chest tube, 2 stents Past Anesthesia/Blood Transfusion Reactions: No Reported Reaction Date of Last Stent Placement:: 2010 Past Psychological History: Anxiety, Depression Smoking Status: Former smoker Past Alcohol Use History: None Reported Past Drug Use History: None Reported - Past Family History Mother Sister(s) Family Medical History: Cancer Medications and Allergies Home Medications Medication Instructions Recorded Confirmed Type Gabapentin [Neurontin] 600 mg PO TID 07/27/15 02/27/23 History Meclizine [Antivert] 25 mg PO BID 07/27/15 02/27/23 History Metoprolol Tartrate [Lopressor] 50 mg PO BID 07/27/15 02/27/23 History Venlafaxine HCl ER [Effexor XR] 300 mg PO HS 07/27/15 02/27/23 History allopurinoL [Zyloprim] 200 mg PO DAILY 05/03/18 02/27/23 History buPROPion HCL [Wellbutrin SR] 150 mg PO BID 05/03/18 02/27/23 History Baclofen 10 mg PO BID PRN 08/12/19 02/27/23 History HYDROcodone/APAP 10-325MG [[place] 1 tab PO QID PRN 08/12/19 02/27/23 History 10-325] Acetaminophen Tab [Tylenol Tab] 1,000 mg PO Q6HR PRN 02/27/23 02/27/23 History Albuterol Inhaler [Ventolin Hfa 2 puff INHALATION RT-QID PRN 02/27/23 02/27/23 History Inhaler] Apixaban [Eliquis] 2.5 mg PO BID 02/27/23 02/27/23 History Atorvastatin [Lipitor] 40 mg PO DAILY 02/27/23 02/27/23 History Budesonide/Formoterol Fumarate 2 puff INHALATION RT-BID 02/27/23 02/27/23 History [Symbicort 160-4.5 Mcg Inhaler] Calcium Acetate [Phoslo] 667 mg PO DAILY 02/27/23 02/27/23 History Cyanocobalamin [Vitamin B-12] 500 mcg PO DAILY 02/27/23 02/27/23 History Ergocalciferol [Vitamin D2 (1250 1,250 mcg PO Q30D 02/27/23 02/27/23 History Mcg = 68631 Iu)] Folic Acid 0.4 mg PO DAILY 02/27/23 02/27/23 History Furosemide [Lasix] 20 mg PO Q48H 02/27/23 02/27/23 History Levothyroxine Sodium 200 mcg PO DAILY 02/27/23 02/27/23 History Magnesium Oxide [Mag-Ox] 400 mg PO BID 02/27/23 02/27/23 History Melatonin [Melatonin ER] 10 mg PO HS 02/27/23 02/27/23 History Mupirocin 2% Oint [Bactroban 2% 1 applic TOPICAL DAILY PRN 02/27/23 02/27/23 History Oint] Ondansetron [Zofran] 4 mg PO TID PRN 02/27/23 02/27/23 History Primidone 25 mg PO HS 02/27/23 02/27/23 History Sennosides/Docusate Sodium [Senna 1 tab PO DAILY 02/27/23 02/27/23 History Plus 8.6-50 mg Tablet] calcitrioL [Calcitriol] 0.25 mcg PO DAILY 02/27/23 02/27/23 History Allergies Allergy/AdvReac Type Severity Reaction Status Date / Time nitrofurantoin Allergy Unknown Verified 02/27/23 22:01 [From Macrobid] Sulfa (Sulfonamide Allergy StevensJohnson Verified 02/27/23 22:01 Antibiotics) syndrome Physical Exam Vitals: Vital Signs Temp Pulse Resp BP Pulse Ox 03/06/23 09:37 99 03/06/23 08:38 97.8 F 90 18 108/56 95 03/06/23 04:00 90 18 100/70 90 L 03/06/23 00:00 108 H 18 104/67 94 L 03/05/23 20:00 97.7 F 99 18 130/70 97 03/05/23 16:39 68 18 125/68 94 L 03/05/23 12:00 74 18 116/66 95 Intake and Output 03/05/23 03/06/23 03/06/23 22:59 06:59 14:59 Other: Voiding Method Bedside Commode Bedside Commode Bedside Commode # Voids 1 # Bowel Movements 2 1 Weight 87 kg Patient is awake, comfortable, no acute distress Examination of the heart S1 and S2 Examination of the lungs bilateral breath sounds are heard Abdomen is soft nontender Examination of lower extremities shows 1+ edema [employer] exam grossly intact Results - Lab Results Most recent lab results Calcium 10.0 mg/dL (8.4-10.2) 03/06/23 08:00 Magnesium 1.8 mg/dL (1.6-2.3) 03/01/23 05:17 03/06/23 08:00 03/06/23 08:00 Assessment and Plan Assessment: 1. Acute kidney injury, nonoliguric secondary to hemodynamic instability with A. fib with RVR and recent diuresis. Serum creatinine seems to have stabilized. Diuretics have been changed to oral. Patient appears hemodynamically stable. There is no evidence of obstruction on ultrasound. UA will be ordered. 2. Chronic kidney disease NKF stage IIIB with baseline creatinine 1.5-1.7 mg/dL secondary to nephrosclerosis 3. 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 Volume overload currently improved 5. Acute on chronic diastolic CHF Plan: Okay to continue with current dose of oral Lasix Avoid hypotension Patient can be likely discharged tomorrow if there is no further increase in the creatinine. Check post void residual Consider holding SGL T2 inhibitors temporarily if serum creatinine is further increased tomorrow Hold Rocaltrol as calcium was slightly elevated. Thank you for the consultation. We will continue to follow the patient with you during her hospitalization.
--- NOTE | 2023-03-06 14:07 | P.PN ---
Subjective Progress Note Date: 03/06/23 PROGRESS NOTE The patient is an 82-year-old female with a known history of paroxysmal atrial fibrillation, CAD who presented with worsening dyspnea. She had paroxysmal atrial fibrillation and peripheral edema. She is feeling better, her breathing is better and her edema has improved. She denies any chest discomfort, dizziness or palpitations. She is in atrial fibrillation with controlled ventricular response. She was admitted at [facility] recently and had an echocardiogram Medications: Lipitor 40 mg daily, Bumex 1 mg daily, IV Cardizem, levothyroxine, meclizine, metoprolol 50 mg twice a day, levothyroxine, Eliquis 2.5 mg twice a day LAB: Potassium 4.2, creatinine 1.37, BUN 13. 03/03 Patient is seen today in follow-up. Yesterday she was transitioned from IV Cardizem to oral and Farxiga was added. Patient had developed a rash and refusing to take both of these for now. After discussion with Dr. Parra, patient is agreeable to continue for CPAP. Cardizem will be discontinued and metoprolol increased. She does complain of some nausea this morning intermittently. No chest pain, no palpitations. Echocardiogram performed on 02/16 at [facility] revealed EF 55-60%, mild MR and TR, RVSP 41. Echocardiogram has been obtained and report is pending. 03/04 Yesterday, Cardizem was discontinued and metoprolol was increased as patient was concern that Cardizem was causing an ALLERGIC reaction and she was complaining of itching to her face and back. She has been on Benadryl [id number] for this. Today, she feels that she still has itching sensation and that she is having ALLERGIC reaction to Farxiga versus Cardizem. Yesterday she was placed back on IV Lasix as IV access was obtained. She states she has been urinating well overnight. She has continued dyspnea with exertion but none at rest. Her dyspnea on exertion has been chronic. Her heart rate today is a 114 1220, blood pressure 103/69. Echocardiogram reveals Normal LV systolic function. Poorly v isualized valves but no significant abnormalities seen. No pericardial effusion. 03/05 Patient's breathing status is improved and she has no lower extremity edema. She has been continued on IV Lasix and transitioned to oral tomorrow. She is continues to be concerned about itching thought to be related to Farxiga itching started prior to her being initiated on Farxiga so this does not appear to be the culprit. Blood pressure 112/64, heart rate 85, pulse ox 92% on 2 L nasal cannula 03/06 Patient's discharge was held yesterday due to acute kidney injury and possible ileus on x-ray. Patient is currently on oral diuretics. Heart rate is 90, blood pressure 108/56, pulse ox 95% on 2 L. Repeat blood work reveals potassium 4.5, BUN 39 creatinine 3.1. PHYSICAL EXAMINATION: LUNGS: Clear to auscultation HEART: Irregular rate and rhythm, S1, S2. No S3. No systolic murmur ABDOMEN: Soft, nontender, no organomegaly, obese EXTREMETIES: No edema, chronic skin changes IMPRESSION: 1. Paroxysmal atrial fibrillation, anticoagulated with eliquis 2. Acute on chronic heart failure with preserved systolic function 3. History of CAD 4. History of hyperlipidemia 5. Possible ALLERGIC reaction to Cardizem PLAN: 1. Continue patient's current cardiac medications 2. Continue Farxiga 10 mg daily 3. Patient is clear from cardiology for discharge home and may follow up with Dr. Che in 1-2 weeks. Cardiology will sign off and follow on an as-needed basis. Nurse practitioner note has been reviewed, I agree with the documented findings and plan of care. Patient was seen and examined. Objective - Vital Signs Vital signs: Vital Signs Temp 97.8 F 03/06/23 08:38 Pulse 90 03/06/23 08:38 Resp 18 03/06/23 08:38 BP 108/56 03/06/23 08:38 Pulse Ox 99 03/06/23 09:37 FiO2 Intake & Output 03/05/23 03/06/23 03/06/23 18:59 06:59 18:59 Intake Total 840 Balance 840 Weight 87 kg Intake: IV 20 Invasive Line 3 20 Oral 820 Other: Voiding Method Bedside Commode Bedside Commode Bedside Commode # Voids 1 # Bowel Movements 1 1 - Labs CBC & Chem 7: 03/06/23 08:00 03/06/23 08:00 Labs: Abnormal Lab Results - Last 24 Hours (Table) 08/31/23 09/01/23 09/01/23 Range/Units 07:42 08:00 08:00 MCV 106.3 H (80.0-100.0) fL Monocytes # 1.6 H (0-1.0) k/uL Eosinophils # 0.8 H (0-0.7) k/uL Sodium 135 L (137-145) mmol/L Chloride 97 L (98-107) mmol/L BUN 34 H 39 H (7-17) mg/dL Creatinine 3.06 H 3.10 H (0.52-1.04) mg/dL Glucose 157 H 125 H (74-99) mg/dL Calcium 10.7 H (8.4-10.2) mg/dL
[2023-03-06] MEDS: allopurinoL 100 MG TAB PO SCH (14:14)
[2023-03-06] MEDS: buPROPion SR 150 MG TABLET.ER PO SCH (14:15)
[2023-03-06 15:43] VITALS: BMI 36.2
--- NOTE | 2023-03-08 10:31 | P.DS ---
Providers Date of admission: 02/28/23 12:06 Expected date of discharge: 03/06/23 Attending physician: Edward Reyes MD Consults: 02/27/23 19:16 Consult Physician Routine Consulting Provider: [facility] Consult Reason/Comments: chf exac Do you want consulting provider notified?: Yes 03/05/23 14:17 Consult Physician Routine Consulting Provider: Nimco Melton Consult Reason/Comments: VAN Do you want consulting provider notified?: Yes Primary care physician: Melecio Santoro Hospital Course: Final diagnosis -Congestive heart failure diastolic dysfunction with preserved EF. -History of paroxysmal atrial fibrillation currently afib with controlled rate transitioned to oral Cardizem -Acute renal failure prerenal azotemia due to congestive heart failure exace rbation, improved with lasix and worsened again due to diuresis rule out urinary retention -Hypervolemic hyponatremia normalized with diuretics -Nausea, had food poisening last week, resolved -Constipation abdominal xray showing ileus vs. bowel obstruction, improving patient having multiple bowel movements and denies abdominal pain -History of DVT in the past on anticoagulation -COPD without any acute exacerbation -Chronic hypoxemic respiratory failure on home oxygen due to advanced COPD -Chronic kidney disease stage IIIB, possibly secondary to hypertensive nephrosclerosis -Essential hypertension -Obesity DVT prophylaxis: On anti-coagulation GI prophylaxis Full Code Discharge disposition Patient is being discharged in a stable condition with guarded prognosis to home. Patient will follow-up with Dr. santoro in the outpatient setting upon discharge. Patient is to continue with current medications as prescribed below and close outpatient follow-up with cardiology along with nephrology as scheduled. Prescription provided for repeat labs in the next few days to monitor kidney functions. While Total time taken is greater than 35 minutes. Hospital course This is a 82-year-old female who was recently admitted with shortness of breath CHF exacerbation being closely monitored. Patient had also developed some nausea and abdominal pain having food poisoning one week prior. Patient started developing constipation and had not had bowel movements with concerns of possible ileus noted on x-ray and patient was given a dose of lactulose and having multiple bowel movements and reports feeling much better with no further abdominal pain requesting food and would like to go home. Patient has been cleared by cardiology and will maintain on medications as mentioned below. Patient evaluated by nephrology as patient's kidney functions elevated to 3 creatinine which is multifactorial. Patient continues to have voiding with no difficulties and underwent renal ultrasound which was within normal limits. Patient to follow-up with repeat labs next few days and close outpatient follow- up with nephrology and cardiology. Patient extremely anxious and adamant about going home and has been cleared by consultations today. Guarded prognosis and risk for readmission given her significant comorbidities. Currently no reports of chest pain, shortness of breath, or palpitations. Patient is afebrile. Please refer to other consultation notes for further HPI. No reports of nausea or vomiting and patient is tolerating diet. Patient will be discharged home today. Physical exam: Gen: This is a 82-year-old female who is awake, alert and oriented 3, well- developed, well-nourished, obese. HEENT: Head is atraumatic, normocephalic. Pupils equal, round. Sclerae is anicteric. NECK: Supple. No JVD. No lymphadenopathy. No thyromegaly. LUNGS: Clear to auscultation. No wheezes or rhonchi. No intercostal retractions. HEART: Regular rate and rhythm. No murmur. ABDOMEN: Soft. Obese Bowel sounds are present. No masses. No tenderness. EXTREMITIES: No pedal edema. No calf tenderness. NEUROLOGICAL: Patient is awake, alert and oriented x3. Cranial nerves 2 through 12 are grossly intact. Please refer to medication reconciliation sheet for a list of medications. The impression and plan of care has been dictated by Hannah Hyman, Nurse Practitioner as directed. Dr. Prateek MD I have performed a history and examination and MDM of this patient, discussed the same with the dictator, and agree with the dictator's assessment and plan as written ,documented as a scribe. Based on total visit time, I have performed more than 50% of the visit. Patient Condition at Discharge: Fair Plan - Discharge Summary Discharge Rx Participant: No New Discharge Prescriptions: New Dapagliflozin Propanediol [Farxiga] 10 mg PO DAILY #30 tab Furosemide [Lasix] 40 mg PO BID@0900,1600 #60 tab Continue Gabapentin [Neurontin] 600 mg PO TID Meclizine [Antivert] 25 mg PO BID Metoprolol Tartrate [Lopressor] 50 mg PO BID buPROPion HCL [Wellbutrin SR] 150 mg PO BID allopurinoL [Zyloprim] 200 mg PO DAILY HYDROcodone/APAP 10-325MG [[place] 10-325] 1 tab PO QID PRN PRN Reason: Pain Baclofen 10 mg PO BID PRN PRN Reason: Muscle SPASMS Albuterol Inhaler [Ventolin Hfa Inhaler] 2 puff INHALATION RT-QID PRN PRN Reason: Shortness Of Breath Ondansetron [Zofran] 4 mg PO TID PRN PRN Reason: Nausea Acetaminophen Tab [Tylenol] 1,000 mg PO Q6HR PRN PRN Reason: Fever And/ Or Pain calcitrioL [Calcitriol] 0.25 mcg PO DAILY Mupirocin 2% Oint [Bactroban 2% Oint] 1 applic TOPICAL DAILY PRN PRN Reason: abdominal folds Ergocalciferol [Vitamin D2 (1250 Mcg = 22984 Iu)] 1,250 mcg PO Q30D Folic Acid 0.4 mg PO DAILY Cyanocobalamin [Vitamin B-12] 500 mcg PO DAILY Calcium Acetate [PhosLo] 667 mg PO DAILY Melatonin [Melatonin ER] 10 mg PO HS Magnesium Oxide [Mag-Ox] 400 mg PO BID Levothyroxine Sodium 200 mcg PO DAILY Atorvastatin [Lipitor] 40 mg PO DAILY Sennosides/Docusate Sodium [Senna Plus 8.6-50 mg Tablet] 1 tab PO DAILY Budesonide/Formoterol Fumarate [Symbicort 160-4.5 Mcg Inhaler] 2 puff INHALATION RT-BID Apixaban [Eliquis] 2.5 mg PO BID Discontinued Venlafaxine HCl ER [Effexor XR] 300 mg PO HS Primidone 25 mg PO HS Furosemide [Lasix] 20 mg PO Q48H Discharge Medication List Gabapentin [Neurontin] 600 mg PO TID 07/27/15 [History] Meclizine [Antivert] 25 mg PO BID 07/27/15 [History] Metoprolol Tartrate [Lopressor] 50 mg PO BID 07/27/15 [History] allopurinoL [Zyloprim] 200 mg PO DAILY 05/03/18 [History] buPROPion HCL [Wellbutrin SR] 150 mg PO BID 05/03/18 [History] Baclofen 10 mg PO BID PRN 08/12/19 [History] HYDROcodone/APAP 10-325MG [[place] 10-325] 1 tab PO QID PRN 08/12/19 [History] Acetaminophen Tab [Tylenol] 1,000 mg PO Q6HR PRN 02/27/23 [History] Albuterol Inhaler [Ventolin Hfa Inhaler] 2 puff INHALATION RT-QID PRN 02/27/23 [History] Apixaban [Eliquis] 2.5 mg PO BID 02/27/23 [History] Atorvastatin [Lipitor] 40 mg PO DAILY 02/27/23 [History] Budesonide/Formoterol Fumarate [Symbicort 160-4.5 Mcg Inhaler] 2 puff INHALATION RT-BID 02/27/23 [History] Calcium Acetate [PhosLo] 667 mg PO DAILY 02/27/23 [History] Cyanocobalamin [Vitamin B-12] 500 mcg PO DAILY 02/27/23 [History] Ergocalciferol [Vitamin D2 (1250 Mcg = 82679 Iu)] 1,250 mcg PO Q30D 02/27/23 [History] Folic Acid 0.4 mg PO DAILY 02/27/23 [History] Levothyroxine Sodium 200 mcg PO DAILY 02/27/23 [History] Magnesium Oxide [Mag-Ox] 400 mg PO BID 02/27/23 [History] Melatonin [Melatonin ER] 10 mg PO HS 02/27/23 [History] Mupirocin 2% Oint [Bactroban 2% Oint] 1 applic TOPICAL DAILY PRN 02/27/23 [History] Ondansetron [Zofran] 4 mg PO TID PRN 02/27/23 [History] Sennosides/Docusate Sodium [Senna Plus 8.6-50 mg Tablet] 1 tab PO DAILY 02/27/23 [History] calcitrioL [Calcitriol] 0.25 mcg PO DAILY 02/27/23 [History] Dapagliflozin Propanediol [Farxiga] 10 mg PO DAILY #30 tab 03/06/23 [Rx] Furosemide [Lasix] 40 mg PO BID@0900,1600 #60 tab 03/06/23 [Rx] Follow up Appointment(s)/Referral(s): Nimco Melton MD [STAFF PHYSICIAN] - 04/08/23 9:20 am [facility] [NON-STAFF] - As Needed (Please call [facility] for housekeeping services) Du Che DO [STAFF PHYSICIAN] - 03/13/23 10:00 am Melecio Santoro [Primary Care Provider] - 1-2 days (Office is closed. Please call Thursday to schedule follow up.) [facility] Visiting Nurse, [NON-STAFF] - Ambulatory/Diagnostic Orders: Basic Metabolic Panel [LAB.AMB] Time Frame: 3 Days, Location: None Selected Patient Instructions/Handouts: Heart Failure (IP), Seasoning Without Salt (GEN), Low-Sodium Diet (GEN) Activity/Diet/Wound Care/Special Instructions: Activity Limited until follow-up Follow-up primary care provider on discharge Follow-up with cardiology outpatient Follow-up nephrology in 1-2 weeks Repeat labs in the next 2-3 days Discharge/Stand Alone Forms: Who Do I Call? Discharge Disposition: HOME WITH HOME HEALTH SERVICES
== END 2023-03-06 15:54 | disposition home health service (06) | DRG 291 ==
LOC: EC 15:24 → 6NMEDSUR 19:10 → OBSVTOIN 02-28 12:06 → 3SCARD 03-01 13:57
PROVIDERS: ADMIT Internal Medicine; ATTEND Internal Medicine
DX: I13.0 Hypertensive heart and chronic kidney disease with heart failure and stage 1 through stage 4 chronic kidney disease, or unspecified chronic kidney disease (principal); I50.33 Acute on chronic diastolic (congestive) heart failure; N17.9 Acute kidney failure, unspecified; E87.1 Hypo-osmolality and hyponatremia; Z20.822 Contact with and (suspected) exposure to COVID-19; J96.11 Chronic respiratory failure with hypoxia; K56.7 Ileus, unspecified; J44.9 Chronic obstructive pulmonary disease, unspecified; N18.32 Chronic kidney disease, stage 3b; R79.89 Other specified abnormal findings of blood chemistry; E66.9 Obesity, unspecified; Z68.38 Body mass index [BMI] 38.0-38.9, adult; Z99.81 Dependence on supplemental oxygen; I48.0 Paroxysmal atrial fibrillation; Z79.01 Long term (current) use of anticoagulants; E11.22 Type 2 diabetes mellitus with diabetic chronic kidney disease; E78.5 Hyperlipidemia, unspecified; E86.1 Hypovolemia; E87.5 Hyperkalemia; F32.A Depression, unspecified; F41.9 Anxiety disorder, unspecified; I25.10 Atherosclerotic heart disease of native coronary artery without angina pectoris; Z87.01 Personal history of pneumonia (recurrent); M89.8X9 Other specified disorders of bone, unspecified site; I08.1 Rheumatic disorders of both mitral and tricuspid valves; T50.2X5A Adverse effect of carbonic-anhydrase inhibitors, benzothiadiazides and other diuretics, initial encounter; X58.XXXA Exposure to other specified factors, initial encounter; Z79.899 Other long term (current) drug therapy; Z79.890 Hormone replacement therapy; Z79.51 Long term (current) use of inhaled steroids; Z86.718 Personal history of other venous thrombosis and embolism; Z87.891 Personal history of nicotine dependence; Z90.710 Acquired absence of both cervix and uterus; Z95.5 Presence of coronary angioplasty implant and graft; Z88.8 Allergy status to other drugs, medicaments and biological substances; Z88.2 Allergy status to sulfonamides; Z90.49 Acquired absence of other specified parts of digestive tract; Z87.440 Personal history of urinary (tract) infections
CPT/HCPCS: 36415; 71046; 74018; 76770; 80048; 80053; 83605; 83735; 83880; 84484; 85025; 85027; 87636; 93005; 93306; 94640; 94760; 96374; 99285

== ENCOUNTER → 2023-05-14 | Outpatient (CLI) | payer MEDICARE ==
--- NOTE | 2023-05-14 21:17 | CT ---
EXAMINATION TYPE: CT chest wo con DATE OF EXAM: 05/14/2023 COMPARISON: 11/26/2011 HISTORY: COPD and heart failure CT DLP: 495.90 mGycm, Automated exposure control for dose reduction was used. CONTRAST: Performed injected with 0 mL of Isovue 300. TECHNIQUE: Axial images were obtained at 5 mm thick sections. Reconstructed images are reviewed on [employer] computer in the coronal plane. FINDINGS: Portion of the thyroid visualized is normal. There is some mild thickening along the superior portion major fissure on the right. Right middle lobe infiltrate is present with multiple air bronchograms. There is some shift to the ma nannette fissure suggesting atelectasis. Follow-up is recommended. There is a 1.4 cm irregular nodule posterior right costophrenic angle. Series 4 image 49 Atelectasis and mass are within the differential. Consider PET CT for additional evaluation. This is a new findin g from 2011. There is a new 0.6 cm nodule right lateral costophrenic angle, series 4 image 38. No enlarged mediastinal or hilar adenopathy is evident. The ascending aorta diameter at the level o f the main pulmonary artery is 3.6 cm. The main pulmonary artery diameter at the bifurcation is 2.9 cm. Mild coronary artery calcification is present. Limited CT sections are obtained through the upper abdomen. Abdomen is essentially unremarkable. IMPRESSION: 1. Couple of small nodules right costophrenic angles discussed above. Consider PET CT for additional evaluation.
== END | disposition home or self-care (01) ==
LOC: RADCTMAIN 12:42
PROVIDERS: ATTEND Internal Medicine Critical Care Medicine
DX: J44.9 Chronic obstructive pulmonary disease, unspecified (principal); I50.9 Heart failure, unspecified; R91.8 Other nonspecific abnormal finding of lung field
CPT/HCPCS: 71250

== ENCOUNTER 2023-07-16 11:55 | Observation (INO) | payer MEDICARE, BC ==
--- NOTE | 2023-07-16 13:14 | ED ---
General Adult HPI - General Source: patient, family, RN notes reviewed, old records reviewed Mode of arrival: wheelchair Limitations: no limitations <Phi Muñoz - Last Filed: 07/16/23 15:10> <Jerrod Alberts - Last Filed: 07/16/23 16:33> - General Chief complaint: Fall Stated complaint: TIA/Fall Time Seen by Provider: 07/16/23 12:25 - History of Present Illness Initial comments: This is an 83-year-old female presents to the emergency room complaining of hitting her head after a fall yesterday. Patient states she tripped and fell back and hit her back and then hit her head. Patient states she did not lose consciousness patient complains of a little right sided neck pain. Patient denies any chest pain. Patient does have bruising all over her back according to family. Patient denies any chest pain palpitations or shortness of breath. Family states that she was a little confused earlier today and seemed to be weak all over there. Patient had no focal deficits. (Phi Muñoz) Upon further discussion, patient does relate that she's been more short of breath over the last several days. She denies any actual cough. She does have a history of congestive heart failure as well as COPD and atrial fibrillation. She follows up with Dr. Che from cardiology. There is no leg pain or swelling. (Jerrod Alberts) - Related Data Home Medications Medication Instructions Recorded Confirmed Gabapentin [Neurontin] 600 mg PO BID 07/27/15 07/16/23 allopurinoL [Zyloprim] 200 mg PO HS 05/03/18 07/16/23 buPROPion HCL [Wellbutrin SR] 150 mg PO BID 05/03/18 07/16/23 HYDROcodone/APAP 10-325MG [[place] 1 tab PO QID PRN 08/12/19 07/16/23 10-325] Albuterol Inhaler [Ventolin Hfa 2 puff INHALATION RT-QID PRN 02/27/23 07/16/23 Inhaler] Apixaban [Eliquis] 2.5 mg PO BID 02/27/23 07/16/23 Budesonide/Formoterol Fumarate 2 puff INHALATION RT-BID 02/27/23 07/16/23 [Symbicort 160-4.5 Mcg Inhaler] Calcium Acetate [PhosLo] 667 mg PO DAILY 02/27/23 07/16/23 Cyanocobalamin [Vitamin B-12] 1,000 mcg PO DAILY 02/27/23 07/16/23 Ergocalciferol [Vitamin D2 (1250 1,250 mcg PO Q30D 02/27/23 07/16/23 Mcg = 63253 Iu)] Levothyroxine Sodium 200 mcg PO DAILY 02/27/23 07/16/23 Magnesium Oxide [Mag-Ox] 400 mg PO BID 02/27/23 07/16/23 Sennosides/Docusate Sodium [[place]enna 3 tab PO HS 02/27/23 07/16/23 Plus 8.6-50 mg Tablet] Atorvastatin [Lipitor] 20 mg PO HS 07/16/23 07/16/23 Empagliflozin [Jardiance] 10 mg PO DAILY 07/16/23 07/16/23 Folic Acid 0.8 mg PO DAILY 07/16/23 07/16/23 Furosemide [Lasix] 20 mg PO BID@0900,1400 07/16/23 07/16/23 Meclizine [Antivert] 12.5 mg PO TID PRN 07/16/23 07/16/23 Metoprolol Tartrate [Lopressor] 100 mg PO BID 07/16/23 07/16/23 Venlafaxine HCl [Effexor XR] 300 mg PO HS 07/16/23 07/16/23 calcitrioL [Calcitriol] 0.5 mcg PO DAILY 07/16/23 07/16/23 Allergies Allergy/AdvReac Type Severity Reaction Status Date / Time nitrofurantoin Allergy Unknown Verified 07/16/23 15:14 [From Macrobid] Sulfa (Sulfonamide Allergy CjensAbrahanson Verified 07/16/23 15:14 Antibiotics) syndrome Review of Systems ROS Other: All systems not noted in ROS Statement are negative. <Phi Muñoz - Last Filed: 07/16/23 15:10> ROS Other: All systems not noted in ROS Statement are negative. <Jerrod Alberts - Last Filed: 07/16/23 16:33> ROS Statement: Those systems with pertinent positive or pertinent negative responses have been documented in the HPI. 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 left wrist, hx of UTI's, hx of glaucoma, had several laser tx, states frequent headaches, uses walker, vertigo, hx of gout, History of Any Multi-Drug Resistant Organisms: None Reported Past Surgical History: Cholecystectomy, Heart Catheterization With Stent, Hysterectomy Additional Past Surgical History / Comment(s): kidney surg. for malrotation, chest tube, 2 stents Past Anesthesia/Blood Transfusion Reactions: No Reported Reaction Date of Last Stent Placement:: 2010 Past Psychological History: Anxiety, Depression Smoking Status: Former smoker Past Alcohol Use History: None Reported Past Drug Use History: None Reported - Past Family History Mother Sister(s) Family Medical History: Cancer <Phi Muñoz - Last Filed: 07/16/23 15:10> General Exam Limitations: no limitations <Phi Muñoz - Last Filed: 07/16/23 15:10> Course Vital Signs 07/16/23 07/16/23 07/16/23 12:10 13:10 15:14 Temperature 98 F 97.8 F Pulse Rate 120 H 98 76 Respiratory 20 18 18 Rate Blood Pressure 101/63 116/81 117/77 O2 Sat by Pulse 96 95 97 Oximetry Medical Decision Making - Lab Data Result diagrams: 07/16/23 14:05 07/16/23 14:05 <Phi Muñoz - Last Filed: 07/16/23 15:10> - Lab Data Result diagrams: 07/16/23 14:05 07/16/23 14:05 <Jerrod Alberts - Last Filed: 07/16/23 16:33> - Medical Decision Making EKG is interpreted by myself. EKG shows A. fib with rapid ventricular response at 116 bpm QRS is 97 QT interval 310 QTC is 379. Patient's EKG shows no ST segment elevation or depression. Was pt. sent in by a medical professional or institution ([facility], [facility], urgent care, hospital, or shelter...) When possible be specific @ -No Did you speak to anyone other than the patient for history (EMS, parent, family, police, friend...)? What history was obtained from this source @ -No Did you review nursing and triage notes (agree or disagree)? Why? @ -I reviewed and agree with nursing and triage notes Were old charts reviewed (outside hosp., previous admission, EMS record, old EKG, old radiological studies, urgent care reports/EKG's, shelter records)? Report findings @ -Review prior charts in prior laboratory comes patient Differential Diagnosis (chest pain, altered mental status, abdominal pain women, abdominal pain men, vaginal bleeding, weakness, fever, dyspnea, syncope, headache, dizziness, GI bleed, back pain, seizure, CVA, palpatations, mental health, musculoskeletal)? @ -Differential Dyspnea: Coronary syndrome, arrhythmia, tamponade, asthma, COPD, pulmonary embolism, pneumonia, pneumothorax, pulmonary effusion, anaphylaxis, diabetic ketoacidosis, flailed chest, pulmonary contusion, diaphragmatic rupture, anemia, neuromuscular, this is not meant to be an all-inclusive list. Cervical spine fracture, intraparenchymal bleed, skull fracture, subdural, subarachnoid bleed this is not all inclusive list EKG interpreted by me (3pts min.). @ -As above X-rays interpreted by me (1pt min.). @ -None done CT interpreted by me (1pt min.). @ -None done U/S interpreted by me (1pt. min.). @ -None done What testing was considered but not performed or refused? (CT, X-rays, U/S, labs)? Why? @ -None What meds were considered but not given or refused? Why? @ -None Did you discuss the management of the patient with other professionals (professionals i.e. NATAL[facility] Ryan, [facility] [employer], lab, RT, psych nurse, pediatric social worker, cut pressman, teacher, loan workout officer, porter sample case)? Give summary @ -No Was smoking cessation discussed for >3mins.? @ -No Was critical care preformed (if so, how long)? @ -No Were there social determinants of health that impacted care today? How? (Homelessness, low income, unemployed, alcoholism, drug addiction, transportation, low edu. Level, literacy, decrease access to med. care, intermediate, rehab)? @ -No Was there de-escalation of care discussed even if they declined (Discuss DNR or withdrawal of care, Hospice)? DNR status @ -No What co-morbidities impacted this encounter? (DM, HTN, Smoking, COPD, CAD, Cancer, CVA, ARF, Chemo, Hep., AIDS, mental health diagnosis, sleep apnea, morbid obesity)? @ -None Was patient admitted / discharged? Hospital course, mention meds given and route, prescriptions, significant lab abnormalities, going to OR and other pertinent info. @ -Patient had lab work and radiological studies ordered Dr. Alberts taking over the care of this patient at 3 PM (Phi Muñoz) The patient was seen and examined and all diagnostics are reviewed. The x-rays of the back do not show any acute processes per my interpretation. Computed tomography scan of the brain as well as cervical spine also does not show any acute processes per my interpretation. The EKG does show atrial fibrillation with some mild rapid ventricular response. The patient also had a chest x-ray which does show evidence of congestive heart failure. The laboratory does show significant elevation of the BNP at 7910. Patient has a transaminitis. She has chronic renal disease which appears to be stable. She receives aspirin, Nitropaste, and Lasix intravenously. It is felt as though she would benefit from addition to the hospital for further workup and treatment of her congestive heart failure as well as atrial fibrillation. The patient is agreeable with this plan. Case is discussed with internal medicine and they're agreeable as well. Cardiology will be consulted. (Jerrod Alberts) - Lab Data Lab Results 07/16/23 07/16/23 07/16/23 Range/Units 14:05 14:05 14:05 WBC 7.5 (3.8-10.6) k/uL RBC 3.62 L (3.80-5.40) m/uL Hgb 12.4 (11.4-16.0) gm/dL Hct 38.2 (34.0-46.0) % MCV 105.6 H (80.0-100.0) fL MCH 34.2 (25.0-35.0) pg MCHC 32.4 (31.0-37.0) g/dL RDW 14.3 (11.5-15.5) % Plt Count 259 (150-450) k/uL MPV 9.0 Neutrophils % 73 % Lymphocytes % 15 % Monocytes % 8 % Eosinophils % 2 % Basophils % 0 % Neutrophils # 5.5 (1.3-7.7) k/uL Lymphocytes # 1.1 (1.0-4.8) k/uL Monocytes # 0.6 (0-1.0) k/uL Eosinophils # 0.2 (0-0.7) k/uL Basophils # 0.0 (0-0.2) k/uL Hypochromasia Slight Macrocytosis Moderate PT 16.5 H (10.0-12.5) sec INR 1.6 H (<1.2) APTT 24.7 (22.0-30.0) sec Sodium 134 L (137-145) mmol/L Potassium 4.2 (3.5-5.1) mmol/L Chloride 99 (98-107) mmol/L Carbon Dioxide 24 (22-30) mmol/L Anion Gap 11 mmol/L BUN 29 H (7-17) mg/dL Creatinine 1.91 H (0.52-1.04) mg/dL Est GFR (CKD-EPI)AfAm 28 (>60 ml/min/1.73 sqM) Est GFR (CKD-EPI)NonAf 24 (>60 ml/min/1.73 sqM) Glucose 102 H (74-99) mg/dL Calcium 8.7 (8.4-10.2) mg/dL Total Bilirubin 0.8 (0.2-1.3) mg/dL AST 425 H (14-36) U/L ALT 286 H (4-34) U/L Alkaline Phosphatase 121 (38-126) U/L Creatine Kinase 83 (30-135) U/L Troponin I (0.000-0.034) ng/mL NT-Pro-B Natriuret Pep pg/mL Total Protein 6.5 (6.3-8.2) g/dL Albumin 3.5 (3.5-5.0) g/dL 07/16/23 07/16/23 Range/Units 14:05 14:56 WBC (3.8-10.6) k/uL RBC (3.80-5.40) m/uL Hgb (11.4-16.0) gm/dL Hct (34.0-46.0) % MCV (80.0-100.0) fL MCH (25.0-35.0) pg MCHC (31.0-37.0) g/dL RDW (11.5-15.5) % Plt Count (150-450) k/uL MPV Neutrophils % % Lymphocytes % % Monocytes % % Eosinophils % % Basophils % % Neutrophils # (1.3-7.7) k/uL Lymphocytes # (1.0-4.8) k/uL Monocytes # (0-1.0) k/uL Eosinophils # (0-0.7) k/uL Basophils # (0-0.2) k/uL Hypochromasia Macrocytosis PT (10.0-12.5) sec INR (<1.2) APTT (22.0-30.0) sec Sodium (137-145) mmol/L Potassium (3.5-5.1) mmol/L Chloride (98-107) mmol/L Carbon Dioxide (22-30) mmol/L Anion Gap mmol/L BUN (7-17) mg/dL Creatinine (0.52-1.04) mg/dL Est GFR (CKD-EPI)AfAm (>60 ml/min/1.73 sqM) Est GFR (CKD-EPI)NonAf (>60 ml/min/1.73 sqM) Glucose (74-99) mg/dL Calcium (8.4-10.2) mg/dL Total Bilirubin (0.2-1.3) mg/dL AST (14-36) U/L ALT (4-34) U/L Alkaline Phosphatase (38-126) U/L Creatine Kinase (30-135) U/L Troponin I 0.032 (0.000-0.034) ng/mL NT-Pro-B Natriuret Pep 7910 pg/mL Total Protein (6.3-8.2) g/dL Albumin (3.5-5.0) g/dL Disposition <Phi Muñoz - Last Filed: 07/16/23 15:10> Is patient prescribed a controlled substance at d/c from ED?: No Time of Disposition: 16:32 Decision Date: 07/16/23 Decision Time: 16:32 <Jerrod Alberts - Last Filed: 07/16/23 16:33> Clinical Impression: Fall, CHF (congestive heart failure), Chronic renal disease, Head injury, Back contusion, Dyspnea, Transaminitis, Weakness, Atrial fibrillation with rapid ventricular response Disposition: ADMITTED IP TO THIS [facility] Condition: Fair Referrals: Melecio Simon [Primary Care Provider] - 1-2 days
[2023-07-16 13:27] VITALS: TEMP 97.8
[2023-07-16 14:33] LABS: Basophils % (A) 0 %; Eosinophils # (A) 0.2 k/uL (0-0.7); Eosinophils % (A) 2 %; HCT 38.2 % (34.0-46.0); HGB 12.4 gm/dL (11.4-16.0); Hypochromasia Slight; Lymphocytes # (A) 1.1 k/uL (1.0-4.8); Lymphocytes % (A) 15 %; MCH 34.2 pg (25.0-35.0); MCHC 32.4 g/dL (31.0-37.0); MCV 105.6 fL (80.0-100.0); Macrocytosis Moderate; Monocytes # (A) 0.6 k/uL (0-1.0); Monocytes % (A) 8 %; Neutrophils # (A) 5.5 k/uL (1.3-7.7); Neutrophils % (A) 73 %; Platelet Count 259 k/uL (150-450); RBC 3.62 m/uL (3.80-5.40); RDW 14.3 % (11.5-15.5); WBC 7.5 k/uL (3.8-10.6)
--- NOTE | 2023-07-16 14:37 | XR ---
EXAMINATION TYPE: XR chest 2V DATE OF EXAM: 07/16/2023 COMPARISON: 02/27/2023 HISTORY: 83-year-old female confusion, altered mental status, shortness of breath TECHNIQUE: AP and lateral views FINDINGS: Heart borderline to mildly enlarged. Mild interstitial density. Some patchy opacity is present at the right base. No significant pleural effusion on the lateral view. IMPRESSION: Borderline to mild cardiomegaly with interstitial density. Consider mild CHF. There is some patchy op acity at the right base that could represent some developing patchy pulmonary edema, scarring/atelect asis, or developing infiltrate.
--- NOTE | 2023-07-16 14:38 | XR ---
EXAMINATION TYPE: XR thoraco lumbar junction DATE OF EXAM: 07/16/2023 COMPARISON: NONE HISTORY: 83-year-old female fall, pain TECHNIQUE: AP and lateral views FINDINGS: Moderate distention by degenerative change throughout the visualized mid to lower thoracic spine and right upper to mid lumbar spine. Vertebral body heights are preserved and alignment is maintained. Th ere is a degenerated dextroconvex scoliosis of the lumbar spine. Cholecystectomy clips. IMPRESSION: Moderate spondylotic change around the thoracolumbar junction. No vertebral compression collapse or m alalignment seen.
[2023-07-16 14:50] LABS: ALT 286 U/L (4-34); AST 425 U/L (14-36); African American GFR (CKD) 28 (>60 ml/min/1.73 sqM); Albumin 3.5 g/dL (3.5-5.0); Alkaline Phosphatase 121 U/L (38-126); Anion Gap 11 mmol/L; Blood Urea Nitrogen 29 mg/dL (7-17); Calcium 8.7 mg/dL (8.4-10.2); Carbon Dioxide 24 mmol/L (22-30); Chloride 99 mmol/L (98-107); Creatine Kinase 83 U/L (30-135); Glucose 102 mg/dL (74-99); INR 1.6 (<1.2); Non-African American GFR(CKD) 24 (>60 ml/min/1.73 sqM); Partial Thromboplastin Time 24.7 sec (22.0-30.0); Prothrombin Time 16.5 sec (10.0-12.5); Sodium 134 mmol/L (137-145); Total Bilirubin 0.8 mg/dL (0.2-1.3); Total Protein 6.5 g/dL (6.3-8.2)
[2023-07-16 14:55] LABS: Potassium 4.2 mmol/L (3.5-5.1)
--- NOTE | 2023-07-16 15:36 | CT ---
EXAMINATION TYPE: CT brain cspine wo con CT DLP: 1556.7 mGycm, Automated exposure control for dose reduction was used. DATE OF EXAM: 07/16/2023 2:03 PM COMPARISON: None. CLINICAL INDICATION:Female, 83 years old with history of Trauma; fall TECHNIQUE: Brain: Multiple axial CT images of the brain were obtained without IV contrast. Cspine: Axial CT images from the skull base to the inferior aspect of T2 we obtained without intraven ous contrast. Coronal and sagittal reformatted images were also reviewed. FINDINGS: Brain: Extra-axial spaces: No abnormal extra-axial fluid collections. Ventricular system: Appear dilated in proportion to the degree of cerebral atrophy. Cerebral parenchyma: No increased attenuation to suggest acute intraparenchymal hemorrhage. The gra y-white matter interface appears maintained. Moderate to severe generalized brain atrophy. Scattere d hypoattenuating areas are seen within the cerebral white matter, nonspecific but most often seen wi th chronic microvascular ischemic changes; moderate in degree. Cerebellum: No acute abnormality. Mass effect: No evidence of mass effect or midline shift. Intracranial vasculature: Atherosclerotic calcifications of the larger arteries near the skull base. Soft tissues: No acute abnormality. Radiodensity seen along the skin surface of the right forehead co uld relate to foreign body or calcification, correlate clinically. Visualized orbits: Appear intact. Calvarium/osseous structures: No evidence of calvarial fracture. Paranasal sinuses and mastoid air cells: Clear mild nasal septal deviation to the right. MRI is more sensitive for detecting acute processes such as infarct, and may be considered if clinica lly warranted. Cervical spine: Fracture: None seen. Osseous structures, spinal canal/neural foramina: Mild generalized osteopenia. The craniocervical varsha ction appears intact with mild degenerative changes. Mild degenerative changes of anterior C1-C2 gerda culation without predental widening. There is generally mild to moderate degenerative disc changes an d facet arthrosis throughout the cervical spine with mild to moderate stenoses at several levels but no critical canal stenosis suggested. Vertebral alignment: No traumatic malalignment. Preserved normal cervical lordosis. There is about 3 mm degenerative anterolisthesis of C6 on C7. Slight degenerative anterolisthesis C7 on T1. Neck soft tissues: No acute finding.. Other: Lung apices show mild chronic changes without evidence of acute infiltrate or pneumothorax. IMPRESSION: CT head: 1. No acute intracranial CT abnormality. 2. Moderate to severe generalized brain atrophy and moderate chronic microvascular ischemic changes. CT cervical spine: 1. No evidence of cervical spine fracture or traumatic malalignment. 2. Mild/moderate cervical spondylosis.
[2023-07-16] MEDS ORDERED: NITROGLYCERIN OINT 1 INCH/GM PACKET TOPICAL STA (16:22)
[2023-07-16] MEDS ORDERED: ASPIRIN 81 MG PO STA (16:22)
[2023-07-16] MEDS ORDERED: FUROSEMIDE 10 MG/ML 10 ML VIAL IV STA (16:24)
[2023-07-16] MEDS ORDERED: ALBUTEROL NEBULIZED 2.5 MG/3 ML INHALATION PRN (16:36)
[2023-07-16] MEDS ORDERED: MECLIZINE 12.5 MG TAB PO PRN (16:36)
[2023-07-16] MEDS ORDERED: HYDROcodone/APAP 10-325MG 1 EACH TAB PO PRN (16:36)
[2023-07-16] MEDS: NITROGLYCERIN OINT 1 INCH/GM PACKET TOPICAL SCH ×2 (18:48→23:51)
[2023-07-16] MEDS: SYMBICORT 160-4.5 MCG INHALER INHALATION SCH (20:26)
[2023-07-16] MEDS: METOPROLOL TARTRATE 50 MG TAB PO SCH (20:56)
[2023-07-16] MEDS: buPROPion SR 150 MG TABLET.ER PO SCH (20:57)
[2023-07-16] MEDS: MAGNESIUM OXIDE 400 MG TAB PO SCH (20:57)
[2023-07-16] MEDS: APIXABAN 2.5 MG TABLET PO SCH (20:57)
[2023-07-16] MEDS ORDERED: allopurinoL 100 MG TAB PO SCH (21:00)
[2023-07-16] MEDS ORDERED: SENNOSIDES-DOCUSATE SODIUM 1 EACH TAB PO SCH (21:00)
[2023-07-16] MEDS ORDERED: VENLAFAXINE HCL ER 150 MG CAP PO SCH (21:00)
[2023-07-16] MEDS ORDERED: ATORVASTATIN 20 MG TAB PO SCH (21:00)
[2023-07-16] MEDS: GABAPENTIN 300 MG CAP PO SCH (21:06)
[2023-07-16] MEDS ORDERED: MELATONIN 5 MG TABLET PO SCH (21:45)
[2023-07-17] MEDS ORDERED: FUROSEMIDE 10 MG/ML 4 ML VIAL IV SCH (06:00)
[2023-07-17] MEDS ORDERED: LEVOTHYROXINE 100 MCG TAB PO SCH (06:30)
[2023-07-17] MEDS: SYMBICORT 160-4.5 MCG INHALER INHALATION SCH (08:00)
[2023-07-17] MEDS: NITROGLYCERIN OINT 1 INCH/GM PACKET TOPICAL SCH (08:55)
[2023-07-17] MEDS: MAGNESIUM OXIDE 400 MG TAB PO SCH (08:57)
[2023-07-17] MEDS: buPROPion SR 150 MG TABLET.ER PO SCH (08:57)
[2023-07-17] MEDS: METOPROLOL TARTRATE 50 MG TAB PO SCH (08:58)
[2023-07-17] MEDS: APIXABAN 2.5 MG TABLET PO SCH (08:59)
[2023-07-17] MEDS ORDERED: CALCIUM ACETATE 667 MG TAB PO SCH (09:00)
[2023-07-17] MEDS ORDERED: DAPAGLIFLOZIN PROPANEDIOL 5 MG TABLET PO SCH (09:00)
[2023-07-17] MEDS ORDERED: FOLIC ACID 1 MG TAB PO SCH (09:00)
[2023-07-17] MEDS ORDERED: CYANOCOBALAMIN 500 MCG TAB PO SCH (09:00)
[2023-07-17 09:27] VITALS: PULSE 102
[2023-07-17] MEDS: GABAPENTIN 300 MG CAP PO SCH (10:06)
--- NOTE | 2023-07-17 10:25 | P.HPIM ---
History of Present Illness 83-year-old pleasant female came in after a mechanical fall and hit her head patient says she slipped and fell. Patient is a nulliparous for atrial fibrillation patient does have history of congestive heart failure chronic diastolic dysfunction presently in mild acute exacerbation chest x-ray showing mild pulmonary edema. Patient was started on IV Lasix subsequently admitted will obtain physical therapy and patient to be constipation patient had a CT of the head which showed some chronic microvascular ischemic changes without any evidence of acute bleed. Patient has chronic atrial fibrillation presently in A. fib. Thoracolumbar spine x-ray didn't show any significant abnormality. Patient is chronic kidney disease patient's serum creatinine is always of both children presently around 1.9. REVIEW OF SYSTEMS: CONSTITUTIONAL: No fever, no malaise, no fatigue. HEENT: No recent visual problems or hearing problems. Denied any sore throat. CARDIOVASCULAR: No chest pain, orthopnea, PND, no palpitations, no syncope. PULMONARY: No shortness of breath, no cough, no hemoptysis. GASTROINTESTINAL: No diarrhea, no nausea, no vomiting, no abdominal pain. NEUROLOGICAL: No headaches, no weakness, no numbness. HEMATOLOGICAL: Denies any bleeding or petechiae. GENITOURINARY: Denies any burning micturition, frequency, or urgency. MUSCULOSKELETAL/RHEUMATOLOGICAL: Denies any joint pain, swelling, or any muscle pain. ENDOCRINE: Denies any polyuria or polydipsia. The rest of the 14-point review of systems is negative. PHYSICAL EXAMINATION: GENERAL: The patient is alert and oriented x3, not in any acute distress. Well developed, well nourished. HEENT: Pupils are round and equally reacting to light. EOMI. No scleral icterus. No conjunctival pallor. Normocephalic, atraumatic. No pharyngeal erythema. No thyromegaly. CARDIOVASCULAR: S1 and S2 present. No murmurs, rubs, or gallops. Very minimally elevated JVD and irregularly irregular rhythm PULMONARY: Chest is clear to auscultation, no wheezing or crackles. ABDOMEN: Soft, nontender, nondistended, normoactive bowel sounds. No palpable organomegaly. MUSCULOSKELETAL: No joint swelling or deformity. EXTREMITIES: No cyanosis, clubbing, mild bilateral pedal edema NEUROLOGICAL: Gross neurological examination did not reveal any focal deficits. SKIN: No rashes. Assessment and plan -Mechanical fall: Physical therapy and outpatient therapy evaluation home station evaluation and if cleared by physical therapy patient will be discharged today. Congestive heart failure chronic diastolic dysfunction with acute exacerbation: Continue with IV Lasix today. Will repeat basic metabolic profile today patient is closely equally me at this time patient can be discharged today -Chronic atrial fibrillation patient is was later controlled continue with ant icoagulation -Chronic kidney disease stage IV secondary to diabetic nephropathy -COPD and chronic respiratory failure is a student dysfunction at home. -Essential hypertension -Obesity -Hypervolemic hyponatremia expected to improve with the Lasix. DVT prophylaxis: On anti-correlation as mentioned above Past Medical History Past Medical History: Atrial Fibrillation, Heart Failure, COPD, CVA/TIA, Deep Vein Thrombosis (DVT), GERD/Reflux, Hyperlipidemia, Hypertension, Musculoskeletal Disorder, Pneumonia, Sleep Apnea/CPAP/BIPAP, Thyroid Disorder Additional Past Medical History / Comment(s): difficulty swallowing, choking, "feels like things get stuck in throat" was on "life support 11/2013-12/2013, past hx.a-fib, had Lopez-Onel syndrome, post polio syndrome, 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 left wrist, hx of UTI's, hx of glaucoma, had several laser tx, states frequent headaches, uses walker, vertigo, hx of gout, History of Any Multi-Drug Resistant Organisms: None Reported Past Surgical History: Cholecystectomy, Heart Catheterization With Stent, Hysterectomy Additional Past Surgical History / Comment(s): kidney surg. for malrotation, chest tube, 2 stents Past Anesthesia/Blood Transfusion Reactions: No Reported Reaction Date of Last Stent Placement:: 2010 Past Psychological History: Anxiety, Depression Smoking Status: Former smoker Past Alcohol Use History: None Reported Past Drug Use History: None Reported - Past Family History Mother Sister(s) Family Medical History: Cancer Medications and Allergies Home Medications Medication Instructions Recorded Confirmed Type Gabapentin [Neurontin] 600 mg PO BID 07/27/15 07/16/23 History allopurinoL [Zyloprim] 200 mg PO HS 05/03/18 07/16/23 History buPROPion HCL [Wellbutrin SR] 150 mg PO BID 05/03/18 07/16/23 History HYDROcodone/APAP 10-325MG [[place] 1 tab PO QID PRN 08/12/19 07/16/23 History 10-325] Albuterol Inhaler [Ventolin Hfa 2 puff INHALATION RT-QID PRN 02/27/23 07/16/23 History Inhaler] Apixaban [Eliquis] 2.5 mg PO BID 02/27/23 07/16/23 History Budesonide/Formoterol Fumarate 2 puff INHALATION RT-BID 02/27/23 07/16/23 History [Symbicort 160-4.5 Mcg Inhaler] Calcium Acetate [PhosLo] 667 mg PO DAILY 02/27/23 07/16/23 History Cyanocobalamin [Vitamin B-12] 1,000 mcg PO DAILY 02/27/23 07/16/23 History Ergocalciferol [Vitamin D2 (1250 1,250 mcg PO Q30D 02/27/23 07/16/23 History Mcg = 19940 Iu)] Levothyroxine Sodium 200 mcg PO DAILY 02/27/23 07/16/23 History Magnesium Oxide [Mag-Ox] 400 mg PO BID 02/27/23 07/16/23 History Sennosides/Docusate Sodium [[place] 3 tab PO HS 02/27/23 07/16/23 History Plus 8.6-50 mg Tablet] Atorvastatin [Lipitor] 20 mg PO HS 07/16/23 07/16/23 History Empagliflozin [Jardiance] 10 mg PO DAILY 07/16/23 07/16/23 History Folic Acid 0.8 mg PO DAILY 07/16/23 07/16/23 History Meclizine [Antivert] 12.5 mg PO TID PRN 07/16/23 07/16/23 History Metoprolol Tartrate [Lopressor] 100 mg PO BID 07/16/23 07/16/23 History Venlafaxine HCl [Effexor XR] 300 mg PO HS 07/16/23 07/16/23 History calcitrioL [Calcitriol] 0.5 mcg PO DAILY 07/16/23 07/16/23 History Furosemide [Lasix] 20 mg PO DAILY #30 tab 07/17/23 Rx Furosemide [Lasix] 40 mg PO DAILY #0 07/17/23 07/16/23 Rx Allergies Allergy/AdvReac Type Severity Reaction Status Date / Time nitrofurantoin Allergy Unknown Verified 07/16/23 15:14 [From Macrobid] Sulfa (Sulfonamide Allergy StevensJohnson Verified 07/16/23 15:14 Antibiotics) syndrome Physical Exam Vitals: Vital Signs Temp Pulse Resp BP Pulse Ox 07/17/23 09:03 102 H 22 114/75 100 07/17/23 08:08 98 07/17/23 07:00 91 20 126/100 100 07/17/23 06:00 105 H 10 L 126/100 100 07/17/23 01:00 86 20 127/90 98 07/17/23 00:00 103 H 20 115/68 98 07/16/23 23:00 112 H 20 113/82 100 07/16/23 22:41 102 H 20 107/75 100 07/16/23 22:22 81/69 07/16/23 22:11 103 H 20 107/75 100 07/16/23 21:26 103 H 18 121/85 100 07/16/23 19:45 97.8 F 98 22 117/82 95 07/16/23 19:44 89 L 07/16/23 15:14 76 18 117/77 97 07/16/23 13:10 97.8 F 98 18 116/81 95 07/16/23 12:10 98 F 120 H 20 101/63 96 Results CBC & Chem 7: 07/16/23 14:05 07/16/23 14:05 Labs: Abnormal Lab Results - Last 24 Hours (Table) 07/16/23 07/16/23 07/16/23 Range/Units 14:05 14:05 14:05 RBC 3.62 L (3.80-5.40) m/uL MCV 105.6 H (80.0-100.0) fL PT 16.5 H (10.0-12.5) sec INR 1.6 H (<1.2) Sodium 134 L (137-145) mmol/L BUN 29 H (7-17) mg/dL Creatinine 1.91 H (0.52-1.04) mg/dL Glucose 102 H (74-99) mg/dL AST 425 H (14-36) U/L ALT 286 H (4-34) U/L
--- NOTE | 2023-07-17 10:41 | P.CRDCN ---
History of Present Illness History of present illness: HISTORY OF PRESENT ILLNESS: This is a 83-year-old female with a past medical history significant for chronic hypoxic respiratory failure on oxygen, congestive heart failure, coronary artery disease, hypertension, hyperlipidemia, chronic kidney disease, persistent atrial fibrillation, and former nicotine dependence. Patient follows in the office with Dr. Che. We have been asked to see the patient in consultation for congestive heart failure and atrial fibrillation. Patient examined at the bedside in the emergency room. Patient states she presented to the hospital after sustaining a fall at home. She believes that the fall was caused because she tripped. She is unsure if she lost consciousness. However she states that there is a possibility she does not remember exactly what happened after she fell. The patient currently denies chest pain or pressure. She denies shortness of breath. Bedside telemetry reveals atrial fibrillation with a heart rate around 110. * EKG reveals atrial fibrillation with mild RVR * Chest xray borderline to mild cardiomegaly with interstitial density. Consider mild CHF. There is some patchy opacity at the right base that could represent some developing patchy pulmonary edema, scarring/atelectasis, or developing infiltrate * Laboratory data: Troponin negative 3. ProBNP 7910. BUN 29. Creatinine 1.91. * Most recent echocardiogram obtained in February 2023 revealing ejection fraction 50-55% with no significant valvular abnormalities noted REVIEW OF SYSTEMS: At the time of my exam: CONSTITUTIONAL: Denies fever or chills. HEENT: Denies blurred vision, vision changes, or eye pain. Denies hemoptysis CARDIOVASCULAR: Denies chest pain. Denies orthopnea. Denies PND. Denies palpi tations RESPIRATORY: Denies shortness of breath. GASTROINTESTINAL: Denies abdominal pain. Denies nausea or vomiting. HEMATOLOGIC: Denies bleeding disorders. GENITOURINARY: Denies any blood in urine. SKIN: Denies pruitis. Denies rash. PHYSICAL EXAM: VITAL SIGNS: Reviewed. GENERAL: Well-developed in no acute distress. HEENT: Head is normocephalic. Pupils are equal, round. Sclerae anicteric. Mucous membranes of the mouth are moist. Neck supple. No JVD or thyromegaly LUNGS: Respirations even and unlabored. Lungs essentially clear to auscultation bilaterally. HEART: Mildly tachycardic. Irregular rate and rhythm. S1 and S2 heard. ABDOMEN: Soft. Nondistended. Nontender. EXTREMITIES: Normal range of motion. No clubbing or cyanosis. Peripheral pulses intact. Trace bilateral lower extremity edema NEUROLOGIC: Awake and alert. Oriented x 3. ASSESSMENT: Status post fall, unknown if loss of consciousness, possible syncope Persistent atrial fibrillation with mild RVR Mild exacerbation of congestive heart failure with preserved EF, 50-55% Coronary artery disease with previous PCI, most recently in 2013 Hypertension Hyperlipidemia Chronic kidney disease Chronic hypoxic respiratory failure on home oxygen Former nicotine dependence PLAN: Obtain 2-D echo to assess cardiac structure and function Continue telemetry monitoring. Continue with current rate controlling medications Continue IV Lasix 40 mg every 12 hours. Anticipate transition to oral dosing tomorrow Daily weights, daily weights, and monitoring of kidney function Further recommendations pending patient's course Nurse practitioner note has been reviewed by physician. Signing provider agrees with the documented findings, assessment, and plan of care. 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 left wrist, hx of UTI's, hx of glaucoma, had several laser tx, states frequent headaches, uses walker, vertigo, hx of gout, History of Any Multi-Drug Resistant Organisms: None Reported Past Surgical History: Cholecystectomy, Heart Catheterization With Stent, Hysterectomy Additional Past Surgical History / Comment(s): kidney surg. for malrotation, chest tube, 2 stents Past Anesthesia/Blood Transfusion Reactions: No Reported Reaction Date of Last Stent Placement:: 2010 Past Psychological History: Anxiety, Depression Smoking Status: Former smoker Past Alcohol Use History: None Reported Past Drug Use History: None Reported - Past Family History Mother Sister(s) Family Medical History: Cancer Medications and Allergies Home Medications Medication Instructions Recorded Confirmed Type Gabapentin [Neurontin] 600 mg PO BID 07/27/15 07/16/23 History allopurinoL [Zyloprim] 200 mg PO HS 05/03/18 07/16/23 History buPROPion HCL [Wellbutrin SR] 150 mg PO BID 05/03/18 07/16/23 History HYDROcodone/APAP 10-325MG [[place] 1 tab PO QID PRN 08/12/19 07/16/23 History 10-325] Albuterol Inhaler [Ventolin Hfa 2 puff INHALATION RT-QID PRN 02/27/23 07/16/23 History Inhaler] Apixaban [Eliquis] 2.5 mg PO BID 02/27/23 07/16/23 History Budesonide/Formoterol Fumarate 2 puff INHALATION RT-BID 02/27/23 07/16/23 History [Symbicort 160-4.5 Mcg Inhaler] Calcium Acetate [PhosLo] 667 mg PO DAILY 02/27/23 07/16/23 History Cyanocobalamin [Vitamin B-12] 1,000 mcg PO DAILY 02/27/23 07/16/23 History Ergocalciferol [Vitamin D2 (1250 1,250 mcg PO Q30D 02/27/23 07/16/23 History Mcg = 98937 Iu)] Levothyroxine Sodium 200 mcg PO DAILY 02/27/23 07/16/23 History Magnesium Oxide [Mag-Ox] 400 mg PO BID 02/27/23 07/16/23 History Sennosides/Docusate Sodium [Senna 3 tab PO HS 02/27/23 07/16/23 History Plus 8.6-50 mg Tablet] Atorvastatin [Lipitor] 20 mg PO HS 07/16/23 07/16/23 History Empagliflozin [Jardiance] 10 mg PO DAILY 07/16/23 07/16/23 History Folic Acid 0.8 mg PO DAILY 07/16/23 07/16/23 History Meclizine [Antivert] 12.5 mg PO TID PRN 07/16/23 07/16/23 History Metoprolol Tartrate [Lopressor] 100 mg PO BID 07/16/23 07/16/23 History Venlafaxine HCl [Effexor XR] 300 mg PO HS 07/16/23 07/16/23 History calcitrioL [Calcitriol] 0.5 mcg PO DAILY 07/16/23 07/16/23 History Furosemide [Lasix] 20 mg PO DAILY #30 tab 07/17/23 Rx Furosemide [Lasix] 40 mg PO DAILY #0 07/17/23 07/16/23 Rx Allergies Allergy/AdvReac Type Severity Reaction Status Date / Time nitrofurantoin Allergy Unknown Verified 07/16/23 15:14 [From Macrobid] Sulfa (Sulfonamide Allergy Theason Verified 07/16/23 15:14 Antibiotics) syndrome Physical Exam Vitals: Vital Signs Temp Pulse Resp BP Pulse Ox 07/17/23 09:03 102 H 22 114/75 100 07/17/23 08:08 98 07/17/23 07:00 91 20 126/100 100 07/17/23 06:00 105 H 10 L 126/100 100 07/17/23 01:00 86 20 127/90 98 07/17/23 00:00 103 H 20 115/68 98 07/16/23 23:00 112 H 20 113/82 100 07/16/23 22:41 102 H 20 107/75 100 07/16/23 22:22 81/69 07/16/23 22:11 103 H 20 107/75 100 07/16/23 21:26 103 H 18 121/85 100 07/16/23 19:45 97.8 F 98 22 117/82 95 07/16/23 19:44 89 L 07/16/23 15:14 76 18 117/77 97 07/16/23 13:10 97.8 F 98 18 116/81 95 07/16/23 12:10 98 F 120 H 20 101/63 96 Results 07/16/23 14:05 07/16/23 14:05 Cardiac Enzymes 07/16/23 07/16/23 07/16/23 Range/Units 14:05 14:05 17:02 AST 425 H (14-36) U/L Troponin I 0.032 0.030 (0.000-0.034) ng/mL 07/16/23 Range/Units 19:28 AST (14-36) U/L Troponin I 0.028 (0.000-0.034) ng/mL Coagulation 07/16/23 Range/Units 14:05 PT 16.5 H (10.0-12.5) sec APTT 24.7 (22.0-30.0) sec CBC 07/16/23 Range/Units 14:05 WBC 7.5 (3.8-10.6) k/uL RBC 3.62 L (3.80-5.40) m/uL Hgb 12.4 (11.4-16.0) gm/dL Hct 38.2 (34.0-46.0) % Plt Count 259 (150-450) k/uL Comprehensive Metabolic Panel 07/16/23 Range/Units 14:05 Sodium 134 L (137-145) mmol/L Potassium 4.2 (3.5-5.1) mmol/L Chloride 99 (98-107) mmol/L Carbon Dioxide 24 (22-30) mmol/L BUN 29 H (7-17) mg/dL Creatinine 1.91 H (0.52-1.04) mg/dL Glucose 102 H (74-99) mg/dL Calcium 8.7 (8.4-10.2) mg/dL AST 425 H (14-36) U/L ALT 286 H (4-34) U/L Alkaline Phosphatase 121 (38-126) U/L Total Protein 6.5 (6.3-8.2) g/dL Albumin 3.5 (3.5-5.0) g/dL Current Medications Generic Name Dose Route Start Last Admin Trade Name Freq PRN Reason Stop Dose Admin Hydrocodone Bitart/Acetaminophen 1 each 07/16/23 16:36 Hydrocodone/Apap 10-325mg 1 Each Tab PO QID PRN Pain Albuterol Sulfate 2.5 mg 07/16/23 16:36 Albuterol Nebulized 2.5 Mg/3 Ml INHALATION RT-QID PRN Shortness Of Breath Allopurinol 200 mg 07/16/23 21:00 07/16/23 21:06 Allopurinol 100 Mg Tab PO 200 mg HS MIAN Administration Apixaban 2.5 mg 07/16/23 21:00 07/17/23 08:59 Apixaban 2.5 Mg Tablet PO 2.5 mg BID MIAN Administration Protocol Atorvastatin Calcium 20 mg 07/16/23 21:00 07/16/23 20:57 Atorvastatin 20 Mg Tab PO 20 mg HS MIAN Administration Budesonide/Formoterol Fumarate 2 puff 07/16/23 20:00 07/17/23 08:00 Symbicort 160-4.5 Mcg Inhaler INHALATION 2 puff RT-BID MIAN Administration Bupropion HCl 150 mg 07/16/23 21:00 07/17/23 08:57 Bupropion Sr 150 Mg Tablet.Er PO 150 mg BID MIAN Administration Calcitriol 0.5 mcg 07/17/23 09:00 07/17/23 08:58 Calcitriol 0.25 Mcg Cap PO 0.5 mcg DAILY MIAN Administration Calcium Acetate 667 mg 07/17/23 09:00 07/17/23 08:58 Calcium Acetate 667 Mg Tab PO 667 mg DAILY MIAN Administration Cyanocobalamin 1,000 mcg 07/17/23 09:00 07/17/23 08:57 Cyanocobalamin 500 Mcg Tab PO 1,000 mcg DAILY MIAN Administration Dapagliflozin 5 mg 07/17/23 09:00 07/17/23 10:06 Dapagliflozin Propanediol 5 Mg Tablet PO 5 mg DAILY MIAN Administration Ergocalciferol 1,250 mcg 07/23/23 09:00 Ergocalciferol 1,250 Mcg (50,000 Iu) Capsule PO Q30D MIAN Folic Acid 1 mg 07/17/23 09:00 07/17/23 08:59 Folic Acid 1 Mg Tab PO 1 mg DAILY MIAN Administration Furosemide 40 mg 07/17/23 06:00 07/17/23 08:54 Furosemide 10 Mg/Ml 4 Ml Vial IV 40 mg Q12H MIAN Administration Gabapentin 600 mg 07/16/23 21:00 07/17/23 10:06 Gabapentin 300 Mg Cap PO 600 mg BID MIAN Administration Levothyroxine Sodium 200 mcg 07/17/23 06:30 07/17/23 08:58 Levothyroxine 100 Mcg Tab PO 200 mcg 0630 MIAN Administration Magnesium Oxide 400 mg 07/16/23 21:00 07/17/23 08:57 Magnesium Oxide 400 Mg Tab PO 400 mg BID MIAN Administration Meclizine HCl 12.5 mg 07/16/23 16:36 Meclizine 12.5 Mg Tab PO TID PRN Vertigo Melatonin 5 mg 07/16/23 21:45 07/16/23 22:43 Melatonin 5 Mg Tablet PO 5 mg HS MIAN Administration Metoprolol Tartrate 100 mg 07/16/23 21:00 07/17/23 08:58 Metoprolol Tartrate 50 Mg Tab PO 100 mg BID MIAN Administration Senna/Docusate Sodium 3 each 07/16/23 21:00 07/16/23 21:06 Sennosides-Docusate Sodium 1 Each Tab PO 3 each HS MIAN Administration Venlafaxine HCl 300 mg 07/16/23 21:00 07/16/23 20:58 Venlafaxine Hcl Er 150 Mg Cap PO 300 mg HS MIAN Administration 07/16/23 14:05 07/16/23 14:05
--- NOTE | 2023-07-17 11:39 | CT ---
EXAMINATION TYPE: CT brain wo con DATE OF EXAM: 07/17/2023 COMPARISON: 07/16/2023 HISTORY: 83-year-old female Intracranial bleed TECHNIQUE: Examination was done in axial plane without intravenous contrast. Coronal and sagittal r econstructions performed. CT DLP: 1144.3 mGycm Automated exposure control for dose reduction was used. FINDINGS: There is no evidence of acute intracranial hemorrhage, acute ischemic changes, mass, mass-effect, or extra-axial fluid collection. There is no effacement of cerebral sulci or basal subarachnoid cister ns. There is no hydrocephalus. There is no midline shift. Hartmann-white matter distinction is preserv ed. There is marked generalized supratentorial volume loss especially along the cerebral convexities. Ath erosclerotic calcifications in the carotid siphons.. Mild patchy white matter hypodensities both cere bral hemispheres especially in the subinsular regions. Mild mucosal thickening ethmoid air cells. Mastoid air cells well pneumatized. Orbits and globes are intact. IMPRESSION: Similar moderate to severe generalized cerebral atrophy. No acute intracranial abnormality seen.
[2023-07-17 11:44] LABS: African American GFR (CKD) 27 (>60 ml/min/1.73 sqM); Anion Gap 10 mmol/L; Blood Urea Nitrogen 27 mg/dL (7-17); Calcium 8.7 mg/dL (8.4-10.2); Carbon Dioxide 29 mmol/L (22-30); Chloride 97 mmol/L (98-107); Glucose 78 mg/dL (74-99); Non-African American GFR(CKD) 24 (>60 ml/min/1.73 sqM); Potassium 3.8 mmol/L (3.5-5.1); Sodium 136 mmol/L (137-145)
[2023-07-17 15:29] VITALS: BP 134/84; RESP 18
--- NOTE | 2023-07-17 16:54 | CA ---
Transthoracic Echo Report Name: Denise Kumar Age: 83 Gender: F : 1940 Exam Date: 07/17/2023 15:01 Exam Location: [facility] Ht (in): 61 Wt (lb): 185 Ordering Physician: Jerrod Alberts DO Attending/Referring Phys: [id number], Aristeo Strainer Tender Jose A Brito Procedure CPT: Indications: Heart failure Cardiac Hx: Technical Quality: Technically difficult study Contrast 1: Definity Total Dose (mL): 2 Contrast 2: Total Dose (mL): MEASUREMENTS (Male / Female) Normal Values 2D ECHO LV Diastolic Diameter PLAX 3.8 cm 4.2 - 5.9 / 3.9 - 5.3 cm LV Systolic Diameter PLAX 2.9 cm IVS Diastolic Thickness 1.0 cm 0.6 - 1.0 / 0.6 - 0.9 cm LVPW Diastolic Thickness 1.1 cm 0.6 - 1.0 / 0.6 - 0.9 cm LV Relative Wall Thickness 0.6 RV Internal Dim ED PLAX 2.9 cm LVOT Diameter 1.9 cm Aortic Root Diameter 2.7 cm LA Systolic Diameter LX 3.3 cm 3.0 - 4.0 / 2.7 - 3.8 cm LV Diastolic Volume MOD 4C 28.7 cm??? LV Systolic Volume MOD 4C 21.2 cm??? LV Ejection Fraction MOD 4C 26.0 % LV Cardiac Index MOD 4C 388.4 cm???/min???m??? LV Diastolic Length 4C 6.0 cm LV Systolic Length 4C 5.3 cm LA Volume 45.6 cm??? 18 - 58 / 22 - 52 cm??? LA Volume Index 23.5 cm???/m??? 16 - 28 cm???/m??? DOPPLER AV Peak Velocity 78.4 cm/s AV Peak Gradient 2.5 mmHg LVOT Peak Velocity 64.5 cm/s LVOT Peak Gradient 1.7 mmHg LVOT Velocity Time Integral 10.8 cm LVOT Stroke Volume 30.5 cm??? LVOT Stroke Volume Index 16.7 ml/m??? LVOT Cardiac Index 1588.5 cm???/min???m??? AV Area Cont Eq pk 2.3 cm??? MV Peak Velocity 130.7 cm/s MV Peak Gradient 6.8 mmHg MV Mean Velocity 61.2 cm/s MV Mean Gradient 2.0 mmHg MV Velocity Time Integral 21.6 cm MR Peak Velocity 251.4 cm/s MR Peak Gradient 25.3 mmHg TR Peak Velocity 283.4 cm/s TR Peak Gradient 32.1 mmHg Right Ventricular Systolic Press 37.1 mmHg PV Peak Velocity 78.8 cm/s PV Peak Gradient 2.5 mmHg FINDINGS Left Ventricle Normal LV size. Mild concentric LVH. Left ventricular ejection fraction is estimated at 35 %. Right Ventricle Mild to moderate right ventricular dilatation. RVSP= 37mmHg. Right Atrium Normal right atrial size. Left Atrium Mild left atrial dilatation. LA volume index= 25ml/m2 Mitral Valve Structurally normal mitral valve. No mitral stenosis. No mitral regurgitation. Aortic Valve Trileaflet aortic valve. No aortic stenosis. No aortic regurgitation. Tricuspid Valve Structurally normal tricuspid valve. Moderate to severe TR. Pulmonic Valve Structurally normal pulmonic valve. No pulmonic regurgitation. Pericardium Normal pericardium. Aorta Normal size aortic root. CONCLUSIONS Technically very difficult and limited views. Moderate LV dysfunction with an ejection fraction of 35% RV dilated dictation Moderate to severe tricuspid regurgitation Previewed by: Dr. Ron Reece MD (Electronically Signed) Final Date: 17 July 2023 16:53
--- NOTE | 2023-07-20 06:10 | P.DS ---
Providers Date of admission: 07/16/23 16:37 Expected date of discharge: 07/17/23 Attending physician: Teresita Martinez Consults: 07/16/23 16:34 Consult Physician Routine Consulting Provider: Du Che Consult Reason/Comments: chf Do you want consulting provider notified?: Yes Primary care physician: Melecio Simon Hospital Course: Final diagnosis -Mechanical fall with no LOC. CT brain negative -Congestive heart failure chronic diastolic dysfunction with acute exacerbation -Chronic atrial fibrillation -Chronic kidney disease stage IV secondary to diabetic nephropathy -COPD and chronic respiratory failure, not in exacerbation -Essential hypertension -Obesity -Hypervolemic hyponatremia -Obesity with a bmi of 35 -GI prophylaxis -DVT prophylaxis Discharge disposition Patient is being discharged in a stable condition with guarded prognosis to home. Patient will follow-up with Dr. Simon in the outpatient setting upon discharge. Patient is to continue with current medications and outpatient labs to monitor kidney functions. Total time taken is greater than 35 minutes. Hospital course This is a 83-year-old female who was recently admitted with fall and CHF ex acerbation. Patient was continued on IV lasix and improved and will continue oral lasix 40mg daily and 20 mg in the evening with repeat labs in the next few days. Patient was seen by PT/OT therapy and at her baseline and will be going home today. Patient would like to go home. Patient instructed to follow up with pcp this week. Currently no reports of chest pain, shortness of breath, or palpitations. Patient is afebrile. No reports of nausea or vomiting and patient is tolerating diet. Patient will be discharged home today. Physical exam: Gen: This is a 83 year old female who is awake, alert and oriented x3. well developed, well nourished, obese HEENT: Head is atraumatic, normocephalic. Pupils equal, round. Sclerae is anicteric. NECK: Supple. No JVD. No lymphadenopathy. No thyromegaly. LUNGS: Clear to auscultation. No wheezes or rhonchi. No intercostal retractions. HEART: S1, S2 muffled ABDOMEN: Soft. Bowel sounds are present. No masses. No tenderness. EXTREMITIES: No pedal edema. No calf tenderness. NEUROLOGICAL: Patient is awake, alert and oriented x3. Cranial nerves 2 through 12 are grossly intact. diffusely weak Please refer to medication reconciliation sheet for a list of medications. The impression and plan of care has been dictated by Hannah Hyman, Nurse Practitioner as directed. Dr. Ryan MD I have performed a history and examination and MDM of this patient, discussed the same with the dictator, and agree with the dictator's assessment and plan as written ,documented as a scribe. Based on total visit time, I have performed more than 50% of the visit. Patient Condition at Discharge: Fair Plan - Discharge Summary New Discharge Prescriptions: New Furosemide [Lasix] 20 mg PO DAILY #30 tab Continue Gabapentin [Neurontin] 600 mg PO BID buPROPion HCL [Wellbutrin SR] 150 mg PO BID allopurinoL [Zyloprim] 200 mg PO HS HYDROcodone/APAP 10-325MG [[place] 10-325] 1 tab PO QID PRN PRN Reason: Pain Albuterol Inhaler [Ventolin Hfa Inhaler] 2 puff INHALATION RT-QID PRN PRN Reason: Shortness Of Breath Empagliflozin [Jardiance] 10 mg PO DAILY Folic Acid 0.8 mg PO DAILY Meclizine [Antivert] 12.5 mg PO TID PRN PRN Reason: Vertigo Ergocalciferol [Vitamin D2 (1250 Mcg = 79960 Iu)] 1,250 mcg PO Q30D Cyanocobalamin [Vitamin B-12] 1,000 mcg PO DAILY Calcium Acetate [PhosLo] 667 mg PO DAILY Magnesium Oxide [Mag-Ox] 400 mg PO BID Levothyroxine Sodium 200 mcg PO DAILY Sennosides/Docusate Sodium [Senna Plus 8.6-50 mg Tablet] 3 tab PO HS Budesonide/Formoterol Fumarate [Symbicort 160-4.5 Mcg Inhaler] 2 puff INHALATION RT-BID Apixaban [Eliquis] 2.5 mg PO BID Atorvastatin [Lipitor] 20 mg PO HS calcitrioL [Calcitriol] 0.5 mcg PO DAILY Metoprolol Tartrate [Lopressor] 100 mg PO BID Venlafaxine HCl [Effexor XR] 300 mg PO HS Changed Furosemide [Lasix] 40 mg PO DAILY #0 Discharge Medication List Gabapentin [Neurontin] 600 mg PO BID 07/27/15 [History] allopurinoL [Zyloprim] 200 mg PO HS 05/03/18 [History] buPROPion HCL [Wellbutrin SR] 150 mg PO BID 05/03/18 [History] HYDROcodone/APAP 10-325MG [[place] 10-325] 1 tab PO QID PRN 08/12/19 [History] Albuterol Inhaler [Ventolin Hfa Inhaler] 2 puff INHALATION RT-QID PRN 02/27/23 [History] Apixaban [Eliquis] 2.5 mg PO BID 02/27/23 [History] Budesonide/Formoterol Fumarate [Symbicort 160-4.5 Mcg Inhaler] 2 puff INHALATION RT-BID 02/27/23 [History] Calcium Acetate [PhosLo] 667 mg PO DAILY 02/27/23 [History] Cyanocobalamin [Vitamin B-12] 1,000 mcg PO DAILY 02/27/23 [History] Ergocalciferol [Vitamin D2 (1250 Mcg = 12277 Iu)] 1,250 mcg PO Q30D 02/27/23 [History] Levothyroxine Sodium 200 mcg PO DAILY 02/27/23 [History] Magnesium Oxide [Mag-Ox] 400 mg PO BID 02/27/23 [History] Sennosides/Docusate Sodium [Senna Plus 8.6-50 mg Tablet] 3 tab PO HS 02/27/23 [History] Atorvastatin [Lipitor] 20 mg PO HS 07/16/23 [History] Empagliflozin [Jardiance] 10 mg PO DAILY 07/16/23 [History] Folic Acid 0.8 mg PO DAILY 07/16/23 [History] Meclizine [Antivert] 12.5 mg PO TID PRN 07/16/23 [History] Metoprolol Tartrate [Lopressor] 100 mg PO BID 07/16/23 [History] Venlafaxine HCl [Effexor XR] 300 mg PO HS 07/16/23 [History] calcitrioL [Calcitriol] 0.5 mcg PO DAILY 07/16/23 [History] Furosemide [Lasix] 20 mg PO DAILY #30 tab 07/17/23 [Rx] Furosemide [Lasix] 40 mg PO DAILY #0 07/17/23 [Rx] Follow up Appointment(s)/Referral(s): Melecio Simon [Primary Care Provider] - 3 Days Ambulatory/Diagnostic Orders: Basic Metabolic Panel [LAB.AMB] Time Frame: 3 Days, Location: None Selected Activity/Diet/Wound Care/Special Instructions: Activity Limited until follow-up Follow-up with primary care provider on discharge patient to continue taking 40 mg of Lasix during the day and 20 mg in the evening Repeat labs in 2-3 days to monitor kidney functions and electrolytes Discharge Disposition: HOME SELF-CARE
[2023-07-23] MEDS ORDERED: ERGOCALCIFEROL 1,250 MCG (50,000 IU) CAPSULE PO SCH (09:00)
== END 2023-07-17 15:22 | disposition home or self-care (01) ==
LOC: EC 11:55 → 3SCARD 16:37
PROVIDERS: ADMIT Hospitalist; ATTEND Hospitalist
DX: S20.229A Contusion of unspecified back wall of thorax, initial encounter (principal); S09.90XA Unspecified injury of head, initial encounter; W01.0XXA Fall on same level from slipping, tripping and stumbling without subsequent striking against object, initial encounter; Y92.009 Unspecified place in unspecified non-institutional (private) residence as the place of occurrence of the external cause; I13.0 Hypertensive heart and chronic kidney disease with heart failure and stage 1 through stage 4 chronic kidney disease, or unspecified chronic kidney disease; N18.4 Chronic kidney disease, stage 4 (severe); I50.32 Chronic diastolic (congestive) heart failure; I48.19 Other persistent atrial fibrillation; J44.9 Chronic obstructive pulmonary disease, unspecified; K21.9 Gastro-esophageal reflux disease without esophagitis; E78.5 Hyperlipidemia, unspecified; G47.30 Sleep apnea, unspecified; F41.9 Anxiety disorder, unspecified; F32.A Depression, unspecified; R74.01 Elevation of levels of liver transaminase levels; J96.11 Chronic respiratory failure with hypoxia; I25.10 Atherosclerotic heart disease of native coronary artery without angina pectoris; E87.1 Hypo-osmolality and hyponatremia; E11.22 Type 2 diabetes mellitus with diabetic chronic kidney disease; E66.9 Obesity, unspecified; Z68.35 Body mass index [BMI] 35.0-35.9, adult; Z86.718 Personal history of other venous thrombosis and embolism; Z86.73 Personal history of transient ischemic attack (TIA), and cerebral infarction without residual deficits; Z87.891 Personal history of nicotine dependence; Z95.5 Presence of coronary angioplasty implant and graft; Z99.81 Dependence on supplemental oxygen; Z79.01 Long term (current) use of anticoagulants; Z79.51 Long term (current) use of inhaled steroids; Z79.890 Hormone replacement therapy; Z79.84 Long term (current) use of oral hypoglycemic drugs; Z79.899 Other long term (current) drug therapy; Z88.2 Allergy status to sulfonamides; Z88.3 Allergy status to other anti-infective agents
CPT/HCPCS: 96376; 96374; 99285; 36415; 94640 ×2; 94760; 93005; 97162; 83880; 80053; 80048; 82550; 84484; 85025; 85610; 85730; 72080; 71046; 72125; 70450 ×2; G0378 ×2; C8929; J1940 ×2; S0106 ×2; Q9957; 93306

== ENCOUNTER 2023-09-11 22:57 | Inpatient (IN) | payer MEDICARE, BC ==
--- NOTE | 2023-09-11 23:36 | ED ---
Head Injury HPI - General Chief complaint: Head Injury Stated complaint: Follow up on blood thinners Time Seen by Provider: 09/11/23 23:10 Source: EMS Mode of arrival: EMS - History of Present Illness Initial comments: Denise is an 83-year-old female brought to the ER today for evaluation of head injury. Patient has a history of polio as a child has some weakness in her legs, she states that before dinner tonight she tripped over her 's shoe but did not sustain an injury. After dinner they were walking to the bathroom when patient's legs just got weak and gave out below her and she fell striking the right forehead. She did not lose consciousness however she is on blood thinners so she came to the ER for evaluation. Patient does note she has not been feeling well today she had a nonproductive cough she took some Robitussin this morning she been running a low-grade fever and just feeling general malaise. Family member at bedside states that she recently had a viral URI was not tested for influenza or COVID but was around the patient with symptoms. - Related Data Home Medications Medication Instructions Recorded Confirmed Gabapentin [Neurontin] 600 mg PO BID 07/27/15 07/16/23 allopurinoL [Zyloprim] 200 mg PO HS 05/03/18 07/16/23 buPROPion HCL [Wellbutrin SR] 150 mg PO BID 05/03/18 07/16/23 HYDROcodone/APAP 10-325MG [[place] 1 tab PO QID PRN 08/12/19 07/16/23 10-325] Albuterol Inhaler [Ventolin Hfa 2 puff INHALATION RT-QID PRN 02/27/23 07/16/23 Inhaler] Apixaban [Eliquis] 2.5 mg PO BID 02/27/23 07/16/23 Budesonide/Formoterol Fumarate 2 puff INHALATION RT-BID 02/27/23 07/16/23 [Symbicort 160-4.5 Mcg Inhaler] Calcium Acetate [PhosLo] 667 mg PO DAILY 02/27/23 07/16/23 Cyanocobalamin [Vitamin B-12] 1,000 mcg PO DAILY 02/27/23 07/16/23 Ergocalciferol [Vitamin D2 (1250 1,250 mcg PO Q30D 02/27/23 07/16/23 Mcg = 88900 Iu)] Levothyroxine Sodium 200 mcg PO DAILY 02/27/23 07/16/23 Magnesium Oxide [Mag-Ox] 400 mg PO BID 02/27/23 07/16/23 Sennosides/Docusate Sodium [Senna 3 tab PO HS 02/27/23 07/16/23 Plus 8.6-50 mg Tablet] Atorvastatin [Lipitor] 20 mg PO HS 07/16/23 07/16/23 Empagliflozin [Jardiance] 10 mg PO DAILY 07/16/23 07/16/23 Folic Acid 0.8 mg PO DAILY 07/16/23 07/16/23 Meclizine [Antivert] 12.5 mg PO TID PRN 07/16/23 07/16/23 Metoprolol Tartrate [Lopressor] 100 mg PO BID 07/16/23 07/16/23 Venlafaxine HCl [Effexor XR] 300 mg PO HS 07/16/23 07/16/23 calcitrioL 0.5 mcg PO DAILY 07/16/23 07/16/23 Previous Rx's Medication Instructions Recorded Furosemide [Lasix] 20 mg PO DAILY #30 tab 07/17/23 Furosemide [Lasix] 40 mg PO DAILY #0 07/17/23 Allergies/Adverse reactions: Allergies Allergy/AdvReac Type Severity Reaction Status Date / Time nitrofurantoin Allergy Unknown Verified 09/11/23 23:04 [From Macrobid] Sulfa (Sulfonamide Allergy [place] Verified 09/11/23 23:04 Antibiotics) syndrome Review of Systems ROS Statement: Those systems with pertinent positive or pertinent negative responses have been documented in the HPI. ROS Other: All systems not noted in ROS Statement are negative. 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 left wrist, hx of UTI's, hx of glaucoma, had several laser tx, states frequent headaches, uses walker, vertigo, hx of gout, History of Any Multi-Drug Resistant Organisms: None Reported Past Surgical History: Cholecystectomy, Heart Catheterization With Stent, Hysterectomy Additional Past Surgical History / Comment(s): kidney surg. for malrotation, chest tube, 2 stents Past Anesthesia/Blood Transfusion Reactions: No Reported Reaction Date of Last Stent Placement:: 2010 Past Psychological History: Anxiety, Depression Smoking Status: Former smoker Past Alcohol Use History: None Reported Past Drug Use History: None Reported - Past Family History Mother Sister(s) Family Medical History: Cancer General Exam - General Exam Comments Initial Comments: Physical Exam GENERAL: Patient is well-developed and well-nourished. Patient is nontoxic and well-hydrated and is in no distress. HENT: Contusion and hematoma over the right forehead EYES: PERRL, EOMI PULMONARY: Unlabored respirations. CARDIOVASCULAR: RRR Warm and well perfused extremities ABDOMEN: Non-distended SKIN: No rashes or bruising : Deferred NEUROLOGIC: Alert and oriented Normal speech Normal gait MUSCULOSKELETAL: Bilateral lower extremity edema PSYCHIATRIC: No SI/HI Course Vital Signs 09/11/23 09/12/23 22:58 00:57 Temperature 99.7 F H Pulse Rate 130 H 114 H Respiratory 20 18 Rate Blood Pressure 121/90 141/96 O2 Sat by Pulse 95 96 Oximetry Medical Decision Making - Medical Decision Making Was pt. sent in by a medical professional or institution (, PA, CIVIL ESTIMATOR, urgent care, hospital, or jail...) When possible be specific @ -No Did you speak to anyone other than the patient for history (EMS, parent, family, police, friend...)? What history was obtained from this source @ -Yes family at bedside Did you review nursing and triage notes (agree or disagree)? Why? @ -I reviewed and agree with nursing and triage notes Were old charts reviewed (outside hosp., previous admission, EMS record, old EKG, old radiological studies, urgent care reports/EKG's, jail records)? Report findings @ -Previous admissions were reviewed, patient has multiple previous admissions for falls, COPD and A-fib RVR Differential Diagnosis (chest pain, altered mental status, abdominal pain women, abdominal pain men, vaginal bleeding, weakness, fever, dyspnea, syncope, hea dache, dizziness, GI bleed, back pain, seizure, CVA, palpatations, mental health)? @ -Not applicable EKG interpreted by me (3pts min.). @ -As above X-rays interpreted by me (1pt min.). @ -CHF CT interpreted by me (1pt min.). @ -No skull fractures no intracranial bleeding U/S interpreted by me (1pt. min.). @ -None done What testing was considered but not performed or refused? (CT, X-rays, U/S, labs)? Why? @ -None What meds were considered but not given or refused? Why? @ -None Did you discuss the management of the patient with other professionals (professionals i.e. , PA, CIVIL ESTIMATOR, lab, RT, psych nurse, social science instructor, cooker casing, teacher, police officer booking, case therapist)? Give summary @ -[facility] hospitalist group Was smoking cessation discussed for >3mins.? @ -No Was critical care preformed (if so, how long)? @ -No Were there social determinants of health that impacted care today? How? (Homelessness, low income, unemployed, alcoholism, drug addiction, transportation, low edu. Level, literacy, decrease access to med. care, [place] [facility], rehab)? @ -No Was there de-escalation of care discussed even if they declined (Discuss DNR or withdrawal of care, Hospice)? DNR status @ -No What co-morbidities impacted this encounter? (DM, HTN, Smoking, COPD, CAD, Cancer, CVA, ARF, Chemo, Hep., AIDS, mental health diagnosis, sleep apnea, morbid obesity)? @ -CHF, COPD, A-fib Was patient admitted / discharged? Hospital course, mention meds given and route, prescriptions, significant lab abnormalities, going to OR and other pertinent info. @ -Admit Patient was noted to be tachycardic on arrival A-fib with RVR Patient was seen and evaluated history is obtained from patient and family at bedside. Trauma workup was unremarkable however patient remained tachycardic with little bit of shortness of breath and generalized weakness. Family did not feel she was stable for discharge home. Chest x-ray shows some CHF - lasix ordered, patients home meds for afib ordered Patient will be admitted for afib with RVR, CHF, fall at home Undiagnosed new problem with uncertain prognosis? @ -No Drug Therapy requiring intensive monitoring for toxicity (Heparin, Nitro, Insulin, Cardizem)? @ -No Were any procedures done? @ -No Diagnosis/symptom? @ -Fall at home, A-fib RVR, CHF Acute, or Chronic, or Acute on Chronic? @ -Chronic Uncomplicated (without systemic symptoms) or Complicated (systemic symptoms)? @ -Complicated Side effects of treatment? @ -No Exacerbation, Progression, or Severe Exacerbation? @ -No Poses a threat to life or bodily function? How? (Chest pain, [place], SD, pneumonia, PE, COPD, DKA, ARF, appy, cholecystitis, CVA, Diverticulitis, Homicidal, Suicidal, threat to staff... and all critical care pts) @ -No - Lab Data Result diagrams: 09/11/23 23:03 09/11/23 23:03 Lab Results 09/11/23 09/11/23 09/11/23 Range/Units 23:03 23:03 23:40 WBC 7.8 (3.8-10.6) k/uL RBC 3.43 L (3.80-5.40) m/uL Hgb 11.8 (11.4-16.0) gm/dL Hct 36.7 (34.0-46.0) % MCV 107.0 H (80.0-100.0) fL MCH 34.4 (25.0-35.0) pg MCHC 32.2 (31.0-37.0) g/dL RDW 13.2 (11.5-15.5) % Plt Count 240 (150-450) k/uL MPV 8.7 Neutrophils % 80 % Lymphocytes % 8 % Monocytes % 8 % Eosinophils % 2 % Basophils % 1 % Neutrophils # 6.3 (1.3-7.7) k/uL Lymphocytes # 0.6 L (1.0-4.8) k/uL Monocytes # 0.6 (0-1.0) k/uL Eosinophils # 0.1 (0-0.7) k/uL Basophils # 0.1 (0-0.2) k/uL Hypochromasia Slight Macrocytosis Moderate Sodium 133 L (137-145) mmol/L Potassium 4.3 (3.5-5.1) mmol/L Chloride 99 (98-107) mmol/L Carbon Dioxide 28 (22-30) mmol/L Anion Gap 6 mmol/L BUN 21 H (7-17) mg/dL Creatinine 1.44 H (0.52-1.04) mg/dL Est GFR (CKD-EPI)AfAm 39 (>60 ml/min/1.73 sqM) Est GFR (CKD-EPI)NonAf 34 (>60 ml/min/1.73 sqM) Glucose 128 H (74-99) mg/dL Calcium 8.6 (8.4-10.2) mg/dL Total Bilirubin 0.5 (0.2-1.3) mg/dL AST 35 (14-36) U/L ALT 22 (4-34) U/L Alkaline Phosphatase 112 (38-126) U/L Total Protein 6.1 L (6.3-8.2) g/dL Albumin 3.3 L (3.5-5.0) g/dL Influenza Type A (PCR) Not Detected (Not Detectd) Influenza Type B (PCR) Not Detected (Not Detectd) RSV (PCR) Not Detected (Not Detectd) SARS-CoV-2 (PCR) Not Detected (Not Detectd) - EKG Data -: EKG Interpreted by Me EKG Comments: EKG obtained due to fall and tachycardia, EKG obtained at 2309, rate is 127 rhythm is a narrow complex irregularly irregular rhythm consistent with A-fib with RVR there are no acute ST elevations no evidence of acute infarction. Atrial fibrillation is not a new rhythm for this patient. Disposition Clinical Impression: Atrial fibrillation with rapid ventricular response, Fall Disposition: ADMITTED IP TO THIS HOSP Condition: Serious Is patient prescribed a controlled substance at d/c from ED?: No
[2023-09-11 23:46] LABS: Basophils # (A) 0.1 k/uL (0-0.2); Basophils % (A) 1 %; Eosinophils # (A) 0.1 k/uL (0-0.7); Eosinophils % (A) 2 %; HCT 36.7 % (34.0-46.0); HGB 11.8 gm/dL (11.4-16.0); Hypochromasia Slight; Lymphocytes # (A) 0.6 k/uL (1.0-4.8); Lymphocytes % (A) 8 %; MCH 34.4 pg (25.0-35.0); MCHC 32.2 g/dL (31.0-37.0); Macrocytosis Moderate; Mean Platelet Volume 8.7; Monocytes # (A) 0.6 k/uL (0-1.0); Monocytes % (A) 8 %; Neutrophils # (A) 6.3 k/uL (1.3-7.7); Neutrophils % (A) 80 %; Platelet Count 240 k/uL (150-450); RBC 3.43 m/uL (3.80-5.40); RDW 13.2 % (11.5-15.5); WBC 7.8 k/uL (3.8-10.6)
[2023-09-11 23:51] LABS: ALT 22 U/L (4-34); AST 35 U/L (14-36); African American GFR (CKD) 39 (>60 ml/min/1.73 sqM); Albumin 3.3 g/dL (3.5-5.0); Alkaline Phosphatase 112 U/L (38-126); Anion Gap 6 mmol/L; Blood Urea Nitrogen 21 mg/dL (7-17); Calcium 8.6 mg/dL (8.4-10.2); Carbon Dioxide 28 mmol/L (22-30); Chloride 99 mmol/L (98-107); Glucose 128 mg/dL (74-99); Non-African American GFR(CKD) 34 (>60 ml/min/1.73 sqM); Potassium 4.3 mmol/L (3.5-5.1); Sodium 133 mmol/L (137-145); Total Bilirubin 0.5 mg/dL (0.2-1.3); Total Protein 6.1 g/dL (6.3-8.2)
--- NOTE | 2023-09-12 00:42 | CT ---
EXAM: CT Head Without Intravenous Contrast CLINICAL HISTORY: ITS.REASON CT Reason: fall TECHNIQUE: Axial computed tomography images of the head/brain without intravenous contrast. CTDI is 45.2 mGy and DLP is 1115.5 mGy-cm. This CT exam was performed using one or more of the following dose reduction techniques: automated exposure control, adjustment of the mA and/or kV according to patient size, and/or use of iterative reconstruction technique. COMPARISON: No relevant prior studies available. FINDINGS: No acute intracranial hemorrhage. No midline shift or mass effect. The [place]-white matter differentiation is maintained throughout. Age-related cerebral volume loss. Periventricular and subcortical white matter hypoattenuation, consistent with chronic microangiopathy. The visualized orbits appear grossly unremarkable. The calvarium is intact. RIGHT frontal scalp soft tissue swelling. The visualized paranasal sinuses and mastoid air cells are grossly clear. IMPRESSION: No acute intracranial hemorrhage, midline shift, or mass effect. RIGHT frontal scalp soft tissue swelling. EXAM: CT Cervical Spine Without Intravenous Contrast CLINICAL HISTORY: ITS.REASON CT Reason: fall TECHNIQUE: Axial computed tomography images of the cervical spine without intravenous contrast. CTDI is 16.1 mGy and DLP is 471.6 mGy-cm. This CT exam was performed using one or more of the following dose reduction techniques: automated exposure control, adjustment of the mA and/or kV according to patient size, and/or use of iterative reconstruction technique. COMPARISON: No relevant prior studies available. FINDINGS: The vertebral body heights are maintained. The craniocervical junction is intact. The atlanto-dens interval is maintained. The dens is intact. There is no spondylolisthesis. Multilevel cervical spondylosis and degenerative disc disease. Straightening of the cervical lordosis. The unenhanced neck soft tissues are grossly unremarkable. The visualized lung apices are grossly clear. IMPRESSION: No acute fracture or subluxation of the cervical spine.
[2023-09-12] MEDS ORDERED: NALOXONE 0.4 MG/ML 1 ML VIAL IV PRN (01:27)
[2023-09-12] MEDS: ACETAMINOPHEN TAB 500 MG TAB PO STA (01:46)
[2023-09-12] MEDS: ACETAMINOPHEN TAB 325 MG TAB PO PRN (01:46)
--- NOTE | 2023-09-12 02:13 | XR ---
EXAM: XR Chest, 1 View CLINICAL HISTORY: ITS.REASON XR Reason: cough TECHNIQUE: Frontal view of the chest. COMPARISON: No relevant prior studies available. IMPRESSION: Cardiomegaly. Mild vascular congestion
[2023-09-12] MEDS: FUROSEMIDE 10 MG/ML 2 ML VIAL IV SCH (02:59)
[2023-09-12] MEDS: LEVOTHYROXINE 100 MCG TAB PO SCH (06:20)
[2023-09-12] MEDS: APIXABAN 2.5 MG TABLET PO SCH (10:39)
[2023-09-12] MEDS: METOPROLOL TARTRATE 50 MG TAB PO SCH (10:39)
--- NOTE | 2023-09-12 11:22 | P.HPIM ---
History of Present Illness Patient pleasant 83-year-old female came in after mechanical fall and injury to the head CT of the head did not show any intracranial bleed patient tripped and fell. Patient was complaining of generalized weakness. Patient has good family support at home usually her grandkids takes care of her patient is complaining of nonproductive cough at this time patient has occasional productive cough of whitish sputum production patient does have history of congestive heart failure EF of around 35%. Chest x-ray showing pulm edema I do not have any BNP available. Patient takes 20 mg of Lasix at home 3 times a day. Patient any fever chills there is no evidence of pneumonia on the x-ray. Patient baseline creatinine is around 1.94. Patient denies any significant shortness of breath orthopnea proximal nocturnal dyspnea REVIEW OF SYSTEMS: CONSTITUTIONAL: No fever, no malaise, no fatigue. HEENT: No recent visual problems or hearing problems. Denied any sore throat. CARDIOVASCULAR: No chest pain, no palpitations, no syncope. PULMONARY: No shortness of breath, no cough, no hemoptysis. GASTROINTESTINAL: No diarrhea, no nausea, no vomiting, no abdominal pain. NEUROLOGICAL: No headaches, no weakness, no numbness. HEMATOLOGICAL: Denies any bleeding or petechiae. GENITOURINARY: Denies any burning micturition, frequency, or urgency. MUSCULOSKELETAL/RHEUMATOLOGICAL: Denies any joint pain, swelling, or any muscle pain. ENDOCRINE: Denies any polyuria or polydipsia. The rest of the 14-point review of systems is negative. PHYSICAL EXAMINATION: GENERAL: The patient is alert and oriented x3, not in any acute distress. Well developed, well nourished. Obesity HEENT: Pupils are round and equally reacting to light. EOMI. No scleral icterus. No conjunctival pallor. Normocephalic, atraumatic. No pharyngeal erythema. No thyromegaly. CARDIOVASCULAR: S1 and S2 present. No murmurs, rubs, or gallops. PULMONARY: Chest is clear to auscultation, no wheezing or crackles. ABDOMEN: Soft, nontender, nondistended, normoactive bowel sounds. No palpable organomegaly. MUSCULOSKELETAL: No joint swelling or deformity. EXTREMITIES: No cyanosis, clubbing, or pedal edema. NEUROLOGICAL: Gross neurological examination did not reveal any focal deficits. SKIN: No rashes. Assessment and plan -Generalized weakness and mechanical fall: Physical therapy occupational therapy evaluation secondary to age-related muscle atrophy and her chronic medical problems -Congestive heart failure chronic systolic dysfunction with mild acute exacerbation patient will be started on IV Lasix today monitor kidney function input and output will order BNP. Possibly can be switched to oral diuretics tomorrow. Patient had EF of around 35% -Paroxysmal atrial fibrillation patient will be resumed on anticoagulation and her home rate control medications -Chronic kidney disease stage IV patient serum creatinine is actually better than her baseline but expected to slightly get worse. -History of DVT in the past -Hyperlipidemia -Hypertension -Obesity/sleep apnea uses CPAP machine -Hypothyroidism -Depression For above-mentioned chronic medical problems patient to be resumed on appropriate home medications DVT prophylaxis: On anticoagulation with Eliquis Past Medical History Past Medical History: Atrial Fibrillation, Heart Failure, COPD, CVA/TIA, Deep Vein Thrombosis (DVT), GERD/Reflux, Hyperlipidemia, Hypertension, Musculoskeletal Disorder, Pneumonia, Sleep Apnea/CPAP/BIPAP, Thyroid Disorder Additional Past Medical History / Comment(s): difficulty swallowing, choking, "feels like things get stuck in throat" was on "life support 11/2013-12/2013, past hx.a-fib, had Lopez-Onel syndrome, post polio syndrome, 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 left wrist, hx of UTI's, hx of glaucoma, had several laser tx, states frequent headaches, uses walker, vertigo, hx of gout, History of Any Multi-Drug Resistant Organisms: None Reported Past Surgical History: Cholecystectomy, Heart Catheterization With Stent, Hysterectomy Additional Past Surgical History / Comment(s): kidney surg. for malrotation, chest tube, 2 stents Past Anesthesia/Blood Transfusion Reactions: No Reported Reaction Date of Last Stent Placement:: 2010 Past Psychological History: Anxiety, Depression Smoking Status: Former smoker Past Alcohol Use History: None Reported Past Drug Use History: None Reported - Past Family History Mother Sister(s) Family Medical History: Cancer Medications and Allergies Home Medications Medication Instructions Recorded Confirmed Type Gabapentin [Neurontin] 600 mg PO BID 07/27/15 07/16/23 History allopurinoL [Zyloprim] 200 mg PO HS 05/03/18 07/16/23 History buPROPion HCL [Wellbutrin SR] 150 mg PO BID 05/03/18 07/16/23 History HYDROcodone/APAP 10-325MG [[place] 1 tab PO QID PRN 08/12/19 07/16/23 History 10-325] Albuterol Inhaler [Ventolin Hfa 2 puff INHALATION RT-QID PRN 02/27/23 07/16/23 History Inhaler] Apixaban [Eliquis] 2.5 mg PO BID 02/27/23 07/16/23 History Budesonide/Formoterol Fumarate 2 puff INHALATION RT-BID 02/27/23 07/16/23 History [Symbicort 160-4.5 Mcg Inhaler] Calcium Acetate [PhosLo] 667 mg PO DAILY 02/27/23 07/16/23 History Cyanocobalamin [Vitamin B-12] 1,000 mcg PO DAILY 02/27/23 07/16/23 History Ergocalciferol [Vitamin D2 (1250 1,250 mcg PO Q30D 02/27/23 07/16/23 History Mcg = 20050 Iu)] Levothyroxine Sodium 200 mcg PO DAILY 02/27/23 07/16/23 History Magnesium Oxide [Mag-Ox] 400 mg PO BID 02/27/23 07/16/23 History Sennosides/Docusate Sodium [Senna 3 tab PO HS 02/27/23 07/16/23 History Plus 8.6-50 mg Tablet] Atorvastatin [Lipitor] 20 mg PO HS 07/16/23 07/16/23 History Empagliflozin [Jardiance] 10 mg PO DAILY 07/16/23 07/16/23 History Folic Acid 0.8 mg PO DAILY 07/16/23 07/16/23 History Meclizine [Antivert] 12.5 mg PO TID PRN 07/16/23 07/16/23 History Metoprolol Tartrate [Lopressor] 100 mg PO BID 07/16/23 07/16/23 History Venlafaxine HCl [Effexor XR] 300 mg PO HS 07/16/23 07/16/23 History calcitrioL 0.5 mcg PO DAILY 07/16/23 07/16/23 History Furosemide [Lasix] 20 mg PO DAILY #30 tab 07/17/23 Rx Furosemide [Lasix] 40 mg PO DAILY #0 07/17/23 07/16/23 Rx Allergies Allergy/AdvReac Type Severity Reaction Status Date / Time nitrofurantoin Allergy Unknown Verified 09/11/23 23:04 [From Macrobid] Sulfa (Sulfonamide Allergy [place] Verified 09/11/23 23:04 Antibiotics) syndrome Physical Exam Vitals: Vital Signs Temp Pulse Pulse Resp BP BP Pulse Ox 09/12/23 07:00 97.8 F 54 L 18 126/69 100 09/12/23 02:55 98.7 F 87 16 130/86 99 09/12/23 00:57 114 H 18 141/96 96 09/11/23 22:58 99.7 F H 130 H 20 121/90 95 Intake and Output 09/11/23 09/12/23 09/12/23 22:59 06:59 14:59 Output Total 1100 Balance -1100 Output: Urine 1100 Other: Voiding Method External Catheter Weight 77.111 kg 77.111 kg Results CBC & Chem 7: 09/11/23 23:03 09/11/23 23:03 Labs: Abnormal Lab Results - Last 24 Hours (Table) 09/11/23 09/11/23 Range/Units 23:03 23:03 RBC 3.43 L (3.80-5.40) m/uL MCV 107.0 H (80.0-100.0) fL Lymphocytes # 0.6 L (1.0-4.8) k/uL Sodium 133 L (137-145) mmol/L BUN 21 H (7-17) mg/dL Creatinine 1.44 H (0.52-1.04) mg/dL Glucose 128 H (74-99) mg/dL Total Protein 6.1 L (6.3-8.2) g/dL Albumin 3.3 L (3.5-5.0) g/dL
[2023-09-12] MEDS: HYDROcodone/APAP 10-325MG 1 EACH TAB PO PRN (17:23)
[2023-09-12] MEDS: FUROSEMIDE 10 MG/ML 4 ML VIAL IV SCH (20:35)
[2023-09-13 11:21] LABS: BUN/Creat Ratio 11.92 Ratio (12.00-20.00); Blood Urea Nitrogen 15.5 mg/dL (9.0-27.0); Calcium 9.3 mg/dL (8.7-10.3); Carbon Dioxide 28.7 mmol/L (21.6-31.8); Chloride 97 mmol/L (96-109); Glucose 113 mg/dL (70-110); Magnesium 1.9 mg/dL (1.5-2.4); Potassium 3.7 mmol/L (3.5-5.5); Sodium 139 mmol/L (135-145)
[2023-09-13] MEDS ORDERED: MECLIZINE 12.5 MG TAB PO PRN (12:14)
[2023-09-13] MEDS: CALCIUM ACETATE 667 MG TAB PO SCH (13:31)
[2023-09-13] MEDS: DIGOXIN 125 MCG TAB PO SCH (13:31)
[2023-09-13] MEDS: DAPAGLIFLOZIN PROPANEDIOL 5 MG TABLET PO SCH (13:31)
[2023-09-13] MEDS: AMIODARONE 200 MG TAB PO SCH (13:31)
[2023-09-13] MEDS: PRIMIDONE 50 MG TAB PO SCH (13:31)
[2023-09-13] MEDS: FOLIC ACID 1 MG TAB PO SCH (13:32)
[2023-09-13] MEDS: CYANOCOBALAMIN 500 MCG TAB PO SCH (13:32)
[2023-09-13] MEDS: ALBUTEROL NEBULIZED 2.5 MG/3 ML INHALATION PRN (14:16)
[2023-09-13] MEDS: SYMBICORT 160-4.5 MCG INHALER INHALATION SCH (19:37)
[2023-09-13] MEDS: buPROPion SR 150 MG TABLET.ER PO SCH (21:21)
[2023-09-13] MEDS: GABAPENTIN 300 MG CAP PO SCH (21:21)
[2023-09-13] MEDS: ATORVASTATIN 20 MG TAB PO SCH (21:21)
[2023-09-13] MEDS: VENLAFAXINE HCL ER 150 MG CAP PO SCH (21:21)
--- NOTE | 2023-09-13 21:36 | P.PN ---
Subjective Progress Note Date: 09/13/23 Patient pleasant 83-year-old female came in after mechanical fall and injury to the head CT of the head did not show any intracranial bleed patient tripped and fell. Patient was complaining of generalized weakness. Patient has good family support at home usually her grandkids takes care of her patient is complaining of nonproductive cough at this time patient has occasional productive cough of whitish sputum production patient does have history of congestive heart failure EF of around 35%. Chest x-ray showing pulm edema I do not have any BNP available. Patient takes 20 mg of Lasix at home 3 times a day. Patient any fever chills there is no evidence of pneumonia on the x-ray. Patient baseline creatinine is around 1.94. Patient denies any significant shortness of breath orthopnea proximal nocturnal dyspnea 03/15/2024 Patient is evaluated today resting in bed. Patient continues on IV Lasix 40 mg every 12 hours. BNP was elevated at 9280. Creatinine down to 1.3. Review of Systems Constitutional: Denied any fatigue denied any fever. Cardio vascular: denied any chest pain, palpitations Gastrointestinal: denied any nausea, vomiting, diarrhea Pulmonary: Denied any shortness of breath cough Neurologic denied any new focal deficits All inpatient medications were reviewed and appropriate changes in these medications as dictated in the interval history and assessment and plan. PHYSICAL EXAMINATION: GENERAL: The patient is alert and oriented x3, not in any acute distress. Well developed, well nourished. Obesity HEENT: Pupils are round and equally reacting to light. EOMI. No scleral icterus. No conjunctival pallor. Normocephalic, atraumatic. No pharyngeal erythema. No thyromegaly. CARDIOVASCULAR: S1 and S2 present. No murmurs, rubs, or gallops. PULMONARY: Chest is clear to auscultation, no wheezing or crackles. ABDOMEN: Soft, nontender, nondistended, normoactive bowel sounds. No palpable organomegaly. MUSCULOSKELETAL: No joint swelling or deformity. EXTREMITIES: No cyanosis, clubbing, or pedal edema. NEUROLOGICAL: Gross neurological examination did not reveal any focal deficits. SKIN: No rashes. Assessment and plan -Generalized weakness and mechanical fall: Physical therapy occupational therapy evaluation secondary to age-related muscle atrophy and her chronic medical problems -Congestive heart failure chronic systolic dysfunction with mild acute exacerba tion, EF 35% in the past, patient will be transitioned to oral lasix. -Paroxysmal atrial fibrillation patient will be resumed on anticoagulation and her home rate control medications -Chronic kidney disease stage IV patient serum creatinine 1.3 improving with IV lasix. -History of DVT in the past -Hyperlipidemia -Hypertension -Obesity/sleep apnea uses CPAP machine -Hypothyroidism -Depression For above-mentioned chronic medical problems patient to be resumed on appropriate home medications DVT prophylaxis: On anticoagulation with Eliquis The impression and plan of care has been dictated by Malini Vang, Nurse Practitioner as directed. Dr. Ryan MD I have performed a history and physical examination and medical decision making of this patient, discussed the same with the dictator, and agree with the dictators assessment and plan as written, documented as a scribe. Based on total visit time, I have performed more than 50% of this visit. Objective - Vital Signs Vital signs: Vital Signs Temp 98.0 F 09/13/23 14:13 Pulse 103 H 09/13/23 14:30 Resp 17 09/13/23 14:13 BP 122/81 09/13/23 14:13 Pulse Ox 98 09/13/23 14:13 FiO2 Intake & Output 09/13/23 09/13/23 09/14/23 06:59 18:59 06:59 Intake Total 118 Output Total Balance 118 Intake: Oral 118 Output: Urine Other: Voiding Method External Catheter - Labs CBC & Chem 7: 09/11/23 23:03 09/13/23 05:54 Labs: Abnormal Lab Results - Last 24 Hours (Table) 09/13/23 Range/Units 05:54 Anion Gap 13.30 H (4.00-12.00) mmol/L Est GFR (CKD-EPI) 41 L (>=60) BUN/Creatinine Ratio 11.92 L (12.00-20.00) Ratio Glucose 113 H (70-110) mg/dL Assessment and Plan Time with Patient: Less than 30
[2023-09-14] MEDS: LEVOTHYROXINE 125 MCG TAB PO SCH (06:31)
[2023-09-14] MEDS: FUROSEMIDE 40 MG TAB PO SCH (10:09)
[2023-09-14 10:54] LABS: African American GFR (CKD) 38 (>60 ml/min/1.73 sqM); Anion Gap 9 mmol/L; Blood Urea Nitrogen 24 mg/dL (7-17); Calcium 8.9 mg/dL (8.4-10.2); Carbon Dioxide 31 mmol/L (22-30); Chloride 96 mmol/L (98-107); Glucose 110 mg/dL (74-99); Magnesium 1.7 mg/dL (1.6-2.3); Non-African American GFR(CKD) 33 (>60 ml/min/1.73 sqM); Potassium 3.9 mmol/L (3.5-5.1); Sodium 136 mmol/L (137-145)
[2023-09-14 15:15] VITALS: TEMP 98.1
[2023-09-14 16:21] VITALS: BP 119/70; PULSE 90; RESP 16
--- NOTE | 2023-09-16 22:15 | P.DS ---
Providers Date of admission: 09/12/23 01:27 Attending physician: Teresita Martinez Primary care physician: Melecio Simon Hospital Course: Final Diagnosis -Generalized weakness and mechanical fall: Physical therapy occupational therapy evaluation secondary to age-related muscle atrophy and her chronic medical problems -Congestive heart failure chronic systolic dysfunction with mild acute exacerbation, EF 35% in the past -Paroxysmal atrial fibrillation patient will be resumed on anticoagulation and her home rate control medications -Chronic kidney disease stage IV patient serum creatinine 1.3 improving with IV lasix. -History of DVT in the past -Hyperlipidemia -Hypertension -Obesity/sleep apnea uses CPAP machine -Hypothyroidism -Depression Discharge Disposition. Patient is stable for discharge home. Patient states that she does not take digoxin any longer this has been discontinued on discharge. Patient is recommended to discharge on Lasix 40 mg twice a day for the next week and then will continue on 40 mg daily. Patient to continue 3 more days of oral azithromycin at 5 mg daily. Patient to continue all of her same home medications.recommended to follow-up with her PCP Dr. Melecio Simon 1 to 2 days. Additionally patient to follow-up with cardiology and pulmonary services and has an appointment scheduled for both of these. patient will be discharged home with [facility]. Patient is given information for [facility] for follow-up for additional resources. Hospital Course Patient pleasant 83-year-old female came in after mechanical fall and injury to the head CT of the head did not show any intracranial bleed patient tripped and fell. Patient was complaining of generalized weakness. Patient has good family support at home usually her grandkids takes care of her patient is complaining of nonproductive cough at this time patient has occasional productive cough of whitish sputum production patient does have history of congestive heart failure EF of around 35%. Chest x-ray showing pulmonary edema and proBNP elevated to 9280. Patient takes 20 mg of Lasix at home 3 times a day. Patient any fever chills there is no evidence of pneumonia on the x-ray. Patient baseline creatinine is around 1.94. Patient denies any significant shortness of breath orthopnea proximal nocturnal dyspnea. Was admitted to the hospital under medicine. Patient was started on IV Lasix 40 mg every 12 hours and continued overnight. She had improvement in the symptoms and was transition back to oral Lasix. Creatinine stable at 1.3. Viral panel was negative for COVID influenza and RSV. Hemodynamically she is stable. Her lungs are clear. She will be discharged home. Please see medication reconciliation for a list of current medications. Thank you for allowing us to participate in the care of this patient. The impression and plan of care has been dictated by Malini Vang, Nurse Practitioner as directed. Dr. Ryan MD I have performed a history and physical examination and medical decision making of this patient, discussed the same with the dictator, and agree with the dictators assessment and plan as written, documented as a scribe. Based on total visit time, I have performed more than 50% of this visit. Patient Condition at Discharge: Stable Plan - Discharge Summary New Discharge Prescriptions: New Azithromycin [Zithromax] 500 mg PO DAILY 3 Days #3 tab Continue Gabapentin [Neurontin] 600 mg PO BID buPROPion HCL [Wellbutrin SR] 150 mg PO BID HYDROcodone/APAP 10-325MG [[place] 10-325] 1 tab PO QID PRN PRN Reason: Pain Albuterol Inhaler [Ventolin Hfa Inhaler] 2 puff INHALATION RT-QID PRN PRN Reason: Shortness Of Breath Empagliflozin [Jardiance] 10 mg PO DAILY Folic Acid 0.8 mg PO DAILY Meclizine [Antivert] 12.5 mg PO TID PRN PRN Reason: Vertigo Budesonide/Formoterol Fumarate [Breyna 160-4.5 Mcg Inhaler] 2 puff INHALATION RT-BID Levothyroxine Sodium [Synthroid] 250 mcg PO DAILY Amiodarone [Cordarone] 200 mg PO DAILY Cyanocobalamin [Vitamin B-12] 1,000 mcg PO DAILY Calcium Acetate [PhosLo] 667 mg PO DAILY Magnesium Oxide [Mag-Ox] 400 mg PO BID Sennosides/Docusate Sodium [Senna Plus 8.6-50 mg Tablet] 3 tab PO HS Apixaban [Eliquis] 2.5 mg PO BID Atorvastatin [Lipitor] 20 mg PO HS calcitrioL 0.5 mcg PO DAILY Metoprolol Tartrate [Lopressor] 100 mg PO BID Venlafaxine HCl [Effexor XR] 300 mg PO HS Primidone [Mysoline] 50 mg PO DAILY Changed Furosemide [Lasix] 40 mg PO DIRECTED #90 tab Discontinued Digoxin [Lanoxin] 125 mcg PO DAILY Discharge Medication List Gabapentin [Neurontin] 600 mg PO BID 01/22/16 [History] buPROPion HCL [Wellbutrin SR] 150 mg PO BID 05/03/18 [History] HYDROcodone/APAP 10-325MG [[place] 10-325] 1 tab PO QID PRN 08/12/19 [History] Albuterol Inhaler [Ventolin Hfa Inhaler] 2 puff INHALATION RT-QID PRN 02/27/23 [History] Apixaban [Eliquis] 2.5 mg PO BID 02/27/23 [History] Calcium Acetate [PhosLo] 667 mg PO DAILY 02/27/23 [History] Cyanocobalamin [Vitamin B-12] 1,000 mcg PO DAILY 02/27/23 [History] Magnesium Oxide [Mag-Ox] 400 mg PO BID 02/27/23 [History] Sennosides/Docusate Sodium [Senna Plus 8.6-50 mg Tablet] 3 tab PO HS 02/27/23 [History] Atorvastatin [Lipitor] 20 mg PO HS 07/16/23 [History] Empagliflozin [Jardiance] 10 mg PO DAILY 07/16/23 [History] Folic Acid 0.8 mg PO DAILY 07/16/23 [History] Meclizine [Antivert] 12.5 mg PO TID PRN 07/16/23 [History] Metoprolol Tartrate [Lopressor] 100 mg PO BID 07/16/23 [History] Venlafaxine HCl [Effexor XR] 300 mg PO HS 07/16/23 [History] calcitrioL 0.5 mcg PO DAILY 07/16/23 [History] Amiodarone [Cordarone] 200 mg PO DAILY 09/12/23 [History] Budesonide/Formoterol Fumarate [Breyna 160-4.5 Mcg Inhaler] 2 puff INHALATION RT-BID 09/12/23 [History] Levothyroxine Sodium [Synthroid] 250 mcg PO DAILY 09/12/23 [History] Primidone [Mysoline] 50 mg PO DAILY 09/12/23 [History] Azithromycin [Zithromax] 500 mg PO DAILY 3 Days #3 tab 09/14/23 [Rx] Furosemide [Lasix] 40 mg PO DIRECTED #90 tab 09/14/23 [Rx] Follow up Appointment(s)/Referral(s): Du Che DO [STAFF PHYSICIAN] - 09/23/23 3:00 pm Melecio Simon [Primary Care Provider] - 1-2 days (Please call and make follow up appt.) Sue Sanders MD [STAFF PHYSICIAN] - 09/30/23 2:15 pm () [facility] Vis[facility] Nurse, [NON-STAFF] - 1-2 Days Ambulatory/Diagnostic Orders: Basic Metabolic Panel [LAB.AMB] Time Frame: 3 Days, Location: None Selected Patient Instructions/Handouts: Heart Failure (DC), COPD (Chronic Obstructive Pulmonary Disease) (DC) Activity/Diet/Wound Care/Special Instructions: [facility] [phone] [facility] will call you to set up initial visit and follow ups. Repeat labs in 2 to 3 days. Discharge/Stand Alone Forms: Who Do I Call?, Community Resources Discharge Disposition: HOME SELF-CARE
== END 2023-09-14 16:57 | disposition home or self-care (01) | DRG 291 ==
LOC: EC 22:57 → 6NMEDSUR 09-12 01:27 → OBSVTOIN 09-13 11:58
PROVIDERS: ADMIT Hospitalist; ATTEND Hospitalist
DX: I13.0 Hypertensive heart and chronic kidney disease with heart failure and stage 1 through stage 4 chronic kidney disease, or unspecified chronic kidney disease (principal); I50.23 Acute on chronic systolic (congestive) heart failure; N18.4 Chronic kidney disease, stage 4 (severe); I48.0 Paroxysmal atrial fibrillation; E03.9 Hypothyroidism, unspecified; E11.22 Type 2 diabetes mellitus with diabetic chronic kidney disease; G14 Postpolio syndrome; E66.9 Obesity, unspecified; Z68.29 Body mass index [BMI] 29.0-29.9, adult; F32.A Depression, unspecified; F41.9 Anxiety disorder, unspecified; G47.30 Sleep apnea, unspecified; M62.50 Muscle wasting and atrophy, not elsewhere classified, unspecified site; E78.5 Hyperlipidemia, unspecified; W18.30XA Fall on same level, unspecified, initial encounter; R40.2142 Coma scale, eyes open, spontaneous, at arrival to emergency department; R40.2252 Coma scale, best verbal response, oriented, at arrival to emergency department; Y92.009 Unspecified place in unspecified non-institutional (private) residence as the place of occurrence of the external cause; S09.90XA Unspecified injury of head, initial encounter; Z86.718 Personal history of other venous thrombosis and embolism; Z79.01 Long term (current) use of anticoagulants; Z79.51 Long term (current) use of inhaled steroids; Z79.84 Long term (current) use of oral hypoglycemic drugs; Z79.890 Hormone replacement therapy; Z79.899 Other long term (current) drug therapy; Z90.710 Acquired absence of both cervix and uterus
CPT/HCPCS: 36415; 70450; 71045; 72125; 80048; 80053; 83735; 83880; 85025; 87636; 94640; 94760; 99285

== ENCOUNTER 2023-10-22 10:21 | Inpatient (IN) | payer MEDICARE, BC ==
--- NOTE | 2023-10-22 10:48 | ED ---
General Adult HPI - General Chief complaint: Altered Mental Status Stated complaint: AMS Time Seen by Provider: 10/22/23 10:35 Source: patient, EMS, RN notes reviewed, old records reviewed Mode of arrival: EMS Limitations: no limitations - History of Present Illness Initial comments: This is an 83-year-old female who presents [facility] emergency department [facility] for altered mental status patient is also weaker and was unable to stand today which she normally can do. Patient is getting over a urinary tract infection recently. Patient self denies any pain she denies headache she denies chest pain she denies any shortness of breath or difficulty breathing. Patient denies any abdominal pain. Patient states she does have dysuria when she urinates. Patient denies any back pain. Patient denies any recent fall. No history of any fever chills or cough - Related Data Home Medications Medication Instructions Recorded Confirmed Gabapentin [Neurontin] 600 mg PO BID 07/27/15 10/22/23 buPROPion HCL [Wellbutrin SR] 150 mg PO BID 05/03/18 10/22/23 HYDROcodone/APAP 10-325MG [[place] 1 tab PO QID PRN 08/12/19 10/22/23 10-325] Albuterol Inhaler [Ventolin Hfa 2 puff INHALATION RT-QID PRN 02/27/23 10/22/23 Inhaler] Apixaban [Eliquis] 2.5 mg PO BID 02/27/23 10/22/23 Calcium Acetate [PhosLo] 667 mg PO DAILY 02/27/23 10/22/23 Cyanocobalamin [Vitamin B-12] 1,000 mcg PO DAILY 02/27/23 10/22/23 Magnesium Oxide [Mag-Ox] 400 mg PO BID 02/27/23 10/22/23 Sennosides/Docusate Sodium [Senna 3 tab PO HS 02/27/23 10/22/23 Plus 8.6-50 mg Tablet] Atorvastatin [Lipitor] 20 mg PO HS 07/16/23 10/22/23 Empagliflozin [Jardiance] 10 mg PO DAILY 07/16/23 10/22/23 Folic Acid 0.8 mg PO DAILY 07/16/23 10/22/23 Meclizine [Antivert] 12.5 mg PO TID PRN 07/16/23 10/22/23 Metoprolol Tartrate [Lopressor] 200 mg PO BID 07/16/23 10/22/23 Venlafaxine HCl [Effexor XR] 300 mg PO HS 07/16/23 10/22/23 calcitrioL 0.5 mcg PO DAILY 07/16/23 10/22/23 Amiodarone [Cordarone] 200 mg PO DAILY 09/12/23 10/22/23 Budesonide/Formoterol Fumarate 2 puff INHALATION RT-BID 09/12/23 10/22/23 [Breyna 160-4.5 Mcg Inhaler] Levothyroxine Sodium [Synthroid] 250 mcg PO DAILY 09/12/23 10/22/23 Primidone [Mysoline] 50 mg PO DAILY 09/12/23 10/22/23 Furosemide [Lasix] 20 mg PO DAILY@1600 10/22/23 10/22/23 Furosemide [Lasix] 40 mg PO DAILY@0900 10/22/23 10/22/23 Allergies Allergy/AdvReac Type Severity Reaction Status Date / Time nitrofurantoin Allergy Unknown Verified 10/22/23 12:13 [From Macrobid] Sulfa (Sulfonamide Allergy StevensJohnson Verified 10/22/23 12:13 Antibiotics) syndrome Review of Systems ROS Statement: Those systems with pertinent positive or pertinent negative responses have been documented in the HPI. ROS Other: All systems not noted in ROS Statement are negative. 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 left wrist, hx of UTI's, hx of glaucoma, had several laser tx, states frequent headaches, uses walker, vertigo, hx of gout, History of Any Multi-Drug Resistant Organisms: None Reported Past Surgical History: Cholecystectomy, Heart Catheterization With Stent, Hysterectomy Additional Past Surgical History / Comment(s): kidney surg. for malrotation, chest tube, 2 stents Past Anesthesia/Blood Transfusion Reactions: No Reported Reaction Date of Last Stent Placement:: 2010 Past Psychological History: Anxiety, Depression Smoking Status: Former smoker Past Alcohol Use History: None Reported Past Drug Use History: None Reported - Past Family History Mother Sister(s) Family Medical History: Cancer General Exam - General Exam Comments Initial Comments: GENERAL: Patient is well-developed and well-nourished. Patient is nontoxic and well- hydrated and is in mild distress. ENT: Neck is soft and supple. No significant lymphadenopathy is noted. Oropharynx is clear. Moist mucous membranes. Neck has full range of motion without eliciting any pain. EYES: The sclera were anicteric and conjunctiva were pink and moist. Extraocular movements were intact and pupils were equal round and reactive to light. Eyelids were unremarkable. PULMONARY: Unlabored respirations. Good breath sounds bilaterally. No audible rales rhonchi or wheezing was noted. CARDIOVASCULAR: There is a regular rate and rhythm without any murmurs gallops or rubs. ABDOMEN: Soft and nontender with normal bowel sounds. SKIN: Skin is clear with no lesions or rashes and otherwise unremarkable. NEUROLOGIC: Patient is alert and oriented x 2. Cranial nerves II through XII are grossly intact. Motor and sensory are also intact. Normal speech, volume and content. Symmetrical smile. MUSCULOSKELETAL: Normal extremities with adequate strength and full range of motion. LYMPHATICS: No significant lymphadenopathy is noted PSYCHIATRIC: Normal psychiatric evaluation. Limitations: no limitations Course Vital Signs 10/22/23 10/22/23 10:32 12:47 Temperature 97.7 F Pulse Rate 120 H 106 H Respiratory 16 18 Rate Blood Pressure 110/90 141/119 O2 Sat by Pulse 99 98 Oximetry Medical Decision Making - Medical Decision Making EKG is interpreted by myself but EKG shows atrial fibrillation with rapid ventricular response at 115 bpm QRS is 105 QT interval 341 QTc is 409. Patient's EKG shows no ST segment ovation or depression. Was pt. sent in by a medical professional or institution (, PA, CAUSTIC LOADER, urgent care, hospital, or [facility]...) When possible be specific @ -long term sent the patient in for altered mental status Did you speak to anyone other than the patient for history (EMS, parent, family, police, friend...)? What history was obtained from this source @ -No Did you review nursing and triage notes (agree or disagree)? Why? @ -I reviewed and agree with nursing and triage notes Were old charts reviewed (outside hosp., previous admission, EMS record, old EKG, old radiological studies, urgent care reports/EKG's, [facility] records)? Report findings @ -I compared today's lab work with previous lab work she did show a urinary tract infection today. Patient's chest x-ray showed no abnormality when compared to the previous chest x-ray. Differential Diagnosis (chest pain, altered mental status, abdominal pain women, abdominal pain men, vaginal bleeding, weakness, fever, dyspnea, syncope, headache, dizziness, GI bleed, back pain, seizure, CVA, palpatations, mental health, musculoskeletal)? @ -Differential Altered Mental Status: Hypoglycemia, DKA, hypercapnia, ETOH, overdose, CO poisoning, trauma, myxedema c johana, HTN encephalopathy, infection, encephalitis, psychosis, intercranial hemorrhage, hepatic encephalopathy, meningitis, CVA, this is not meant to be an all-inclusive list EKG interpreted by me (3pts min.). @ -As above X-rays interpreted by me (1pt min.). @ -Chest x-ray shows no acute abnormality CT interpreted by me (1pt min.). @ -None done U/S interpreted by me (1pt. min.). @ -None done What testing was considered but not performed or refused? (CT, X-rays, U/S, labs)? Why? @ -None What meds were considered but not given or refused? Why? @ -None Did you discuss the management of the patient with other professionals (professionals i.e. , PA, CAUSTIC LOADER, lab, RT, psych nurse, social welfare administrator, centrifuge separator operator, teacher, electronic warfare officer, case finisher)? Give summary @ -I spoke with Dr. Mason he agreed to admit the patient admitted the patient Was smoking cessation discussed for >3mins.? @ -No Was critical care preformed (if so, how long)? @ -No Were there social determinants of health that impacted care today? How? (Homelessness, low income, unemployed, alcoholism, drug addiction, transportation, low edu. Level, literacy, decrease access to med. care, long-term, rehab)? @ -No Was there de-escalation of care discussed even if they declined (Discuss DNR or withdrawal of care, Hospice)? DNR status @ -No What co-morbidities impacted this encounter? (DM, HTN, Smoking, COPD, CAD, Cancer, CVA, ARF, Chemo, Hep., AIDS, mental health diagnosis, sleep apnea, morbid obesity)? @ -None Was patient admitted / discharged? Hospital course, mention meds given and route, prescriptions, significant lab abnormalities, going to OR and other pertinent info. @ -Patient had a urinary tract infection so I gave the patient 2 g of Rocephin I did blood cultures and I ordered lactic acid. I spoke with Dr. Pittman he agreed to admit the patient admit the patient wrote admitting orders Undiagnosed new problem with uncertain prognosis? @ -No Drug Therapy requiring intensive monitoring for toxicity (Heparin, Nitro, Insulin, Cardizem)? @ -No Were any procedures done? @ -No Diagnosis/symptom? @ -Urinary tract infection Acute, or Chronic, or Acute on Chronic? @ -Acute Uncomplicated (without systemic symptoms) or Complicated (systemic symptoms)? @ -Complicated Side effects of treatment? @ -No Exacerbation, Progression, or Severe Exacerbation? @ -No Poses a threat to life or bodily function? How? (Chest pain, USA, MS, pneumonia, PE, COPD, DKA, ARF, appy, cholecystitis, CVA, Diverticulitis, Homicidal, Suicidal, threat to staff... and all critical care pts) @ -Yes this can lead to sepsis and endorgan dysfunction Diagnosis/symptom? @ -Altered mental status Acute, or Chronic, or Acute on Chronic? @ -Acute Uncomplicated (without systemic symptoms) or Complicated (systemic symptoms)? @ -Complicated Side effects of treatment? @ -None Exacerbation, Progression, or Severe Exacerbation] @ -No Poses a threat to life or bodily function? @ -No - Lab Data Result diagrams: 10/22/23 10:55 10/22/23 10:55 Lab Results 10/22/23 10/22/23 10/22/23 Range/Units 10:51 10:55 10:55 WBC 8.4 (3.8-10.6) k/uL RBC 3.14 L (3.80-5.40) m/uL Hgb 10.8 L (11.4-16.0) gm/dL Hct 33.8 L (34.0-46.0) % MCV 107.5 H (80.0-100.0) fL MCH 34.4 (25.0-35.0) pg MCHC 32.0 (31.0-37.0) g/dL RDW 14.8 (11.5-15.5) % Plt Count 228 (150-450) k/uL MPV 9.1 Neutrophils % 73 % Lymphocytes % 14 % Monocytes % 10 % Eosinophils % 2 % Basophils % 0 % Neutrophils # 6.1 (1.3-7.7) k/uL Lymphocytes # 1.2 (1.0-4.8) k/uL Monocytes # 0.8 (0-1.0) k/uL Eosinophils # 0.1 (0-0.7) k/uL Basophils # 0.0 (0-0.2) k/uL Manual Slide Review Performed Macrocytosis Marked A PT 12.7 H (10.0-12.5) sec INR 1.2 H (<1.2) APTT 25.8 (22.0-30.0) sec Sodium (137-145) mmol/L Potassium (3.5-5.1) mmol/L Chloride (98-107) mmol/L Carbon Dioxide (22-30) mmol/L Anion Gap mmol/L BUN (7-17) mg/dL Creatinine (0.52-1.04) mg/dL Est GFR (CKD-EPI)AfAm (>60 ml/min/1.73 sqM) Est GFR (CKD-EPI)NonAf (>60 ml/min/1.73 sqM) Glucose (74-99) mg/dL POC Glucose (mg/dL) 87 (70-110) mg/dL POC Glu [employer] ID Dandre Holman Calcium (8.4-10.2) mg/dL Total Bilirubin (0.2-1.3) mg/dL AST (14-36) U/L ALT (4-34) U/L Alkaline Phosphatase (38-126) U/L Troponin I (0.000-0.034) ng/mL Total Protein (6.3-8.2) g/dL Albumin (3.5-5.0) g/dL Urine Color Urine Appearance (Clear) Urine pH (5.0-8.0) Ur Specific [place] (1.001-1.035) Urine Protein (Negative) Urine Glucose (UA) (Negative) Urine Ketones (Negative) Urine Blood (Negative) Urine Nitrite (Negative) Urine Bilirubin (Negative) Urine Urobilinogen (<2.0) mg/dL Ur Leukocyte Esterase (Negative) Urine RBC (0-5) /hpf Urine WBC (0-5) /hpf Urine WBC Clumps (None) /hpf Ur Squamous Epith Cells (0-4) /hpf Urine Bacteria (None) /hpf Urine Mucus (None) /hpf Urine Opiates Screen (NotDetected) Ur Oxycodone Screen (NotDetected) Urine Methadone Screen (NotDetected) Ur Barbiturates Screen (NotDetected) U Tricyclic Antidepress (NotDetected) Ur Phencyclidine Scrn (NotDetected) Ur Amphetamines Screen (NotDetected) U Methamphetamines Scrn (NotDetected) U Benzodiazepines Scrn (NotDetected) Urine Cocaine Screen (NotDetected) U Marijuana (THC) Screen (NotDetected) Influenza Type A (PCR) (Not Detectd) Influenza Type B (PCR) (Not Detectd) RSV (PCR) (Not Detectd) SARS-CoV-2 (PCR) (Not Detectd) 10/22/23 10/22/23 10/22/23 Range/Units 10:55 10:55 11:13 WBC (3.8-10.6) k/uL RBC (3.80-5.40) m/uL Hgb (11.4-16.0) gm/dL Hct (34.0-46.0) % MCV (80.0-100.0) fL MCH (25.0-35.0) pg MCHC (31.0-37.0) g/dL RDW (11.5-15.5) % Plt Count (150-450) k/uL MPV Neutrophils % % Lymphocytes % % Monocytes % % Eosinophils % % Basophils % % Neutrophils # (1.3-7.7) k/uL Lymphocytes # (1.0-4.8) k/uL Monocytes # (0-1.0) k/uL Eosinophils # (0-0.7) k/uL Basophils # (0-0.2) k/uL Manual Slide Review Macrocytosis PT (10.0-12.5) sec INR (<1.2) APTT (22.0-30.0) sec Sodium 133 L (137-145) mmol/L Potassium 3.9 (3.5-5.1) mmol/L Chloride 98 (98-107) mmol/L Carbon Dioxide 28 (22-30) mmol/L Anion Gap 7 mmol/L BUN 33 H (7-17) mg/dL Creatinine 1.56 H (0.52-1.04) mg/dL Est GFR (CKD-EPI)AfAm 36 (>60 ml/min/1.73 sqM) Est GFR (CKD-EPI)NonAf 31 (>60 ml/min/1.73 sqM) Glucose 79 (74-99) mg/dL POC Glucose (mg/dL) (70-110) mg/dL POC Glu [employer] ID Calcium 8.9 (8.4-10.2) mg/dL Total Bilirubin 0.7 (0.2-1.3) mg/dL AST 106 H (14-36) U/L ALT 132 H (4-34) U/L Alkaline Phosphatase 106 (38-126) U/L Troponin I 0.018 (0.000-0.034) ng/mL Total Protein 6.1 L (6.3-8.2) g/dL Albumin 3.3 L (3.5-5.0) g/dL Urine Color Yellow Urine Appearance Cloudy H (Clear) Urine pH 6.5 (5.0-8.0) Ur Specific [place] 1.019 (1.001-1.035) Urine Protein 1+ H (Negative) Urine Glucose (UA) 2+ H (Negative) Urine Ketones Negative (Negative) Urine Blood Small H (Negative) Urine Nitrite Negative (Negative) Urine Bilirubin Negative (Negative) Urine Urobilinogen <2.0 (<2.0) mg/dL Ur Leukocyte Esterase Large H (Negative) Urine RBC 7 H (0-5) /hpf Urine WBC >182 H (0-5) /hpf Urine WBC Clumps Many H (None) /hpf Ur Squamous Epith Cells <1 (0-4) /hpf Urine Bacteria Many H (None) /hpf Urine Mucus Rare H (None) /hpf Urine Opiates Screen Detected H (NotDetected) Ur Oxycodone Screen Not Detected (NotDetected) Urine Methadone Screen Not Detected (NotDetected) Ur Barbiturates Screen Detected H (NotDetected) U Tricyclic Antidepress Not Detected (NotDetected) Ur Phencyclidine Scrn Not Detected (NotDetected) Ur Amphetamines Screen Not Detected (NotDetected) U Methamphetamines Scrn Not Detected (NotDetected) U Benzodiazepines Scrn Not Detected (NotDetected) Urine Cocaine Screen Not Detected (NotDetected) U Marijuana (THC) Screen Not Detected (NotDetected) Influenza Type A (PCR) (Not Detectd) Influenza Type B (PCR) (Not Detectd) RSV (PCR) (Not Detectd) SARS-CoV-2 (PCR) (Not Detectd) 10/22/23 Range/Units 11:43 WBC (3.8-10.6) k/uL RBC (3.80-5.40) m/uL Hgb (11.4-16.0) gm/dL Hct (34.0-46.0) % MCV (80.0-100.0) fL MCH (25.0-35.0) pg MCHC (31.0-37.0) g/dL RDW (11.5-15.5) % Plt Count (150-450) k/uL MPV Neutrophils % % Lymphocytes % % Monocytes % % Eosinophils % % Basophils % % Neutrophils # (1.3-7.7) k/uL Lymphocytes # (1.0-4.8) k/uL Monocytes # (0-1.0) k/uL Eosinophils # (0-0.7) k/uL Basophils # (0-0.2) k/uL Manual Slide Review Macrocytosis PT (10.0-12.5) sec INR (<1.2) APTT (22.0-30.0) sec Sodium (137-145) mmol/L Potassium (3.5-5.1) mmol/L Chloride (98-107) mmol/L Carbon Dioxide (22-30) mmol/L Anion Gap mmol/L BUN (7-17) mg/dL Creatinine (0.52-1.04) mg/dL Est GFR (CKD-EPI)AfAm (>60 ml/min/1.73 sqM) Est GFR (CKD-EPI)NonAf (>60 ml/min/1.73 sqM) Glucose (74-99) mg/dL POC Glucose (mg/dL) (70-110) mg/dL POC Glu [employer] ID Calcium (8.4-10.2) mg/dL Total Bilirubin (0.2-1.3) mg/dL AST (14-36) U/L ALT (4-34) U/L Alkaline Phosphatase (38-126) U/L Troponin I (0.000-0.034) ng/mL Total Protein (6.3-8.2) g/dL Albumin (3.5-5.0) g/dL Urine Color Urine Appearance (Clear) Urine pH (5.0-8.0) Ur Specific [place] (1.001-1.035) Urine Protein (Negative) Urine Glucose (UA) (Negative) Urine Ketones (Negative) Urine Blood (Negative) Urine Nitrite (Negative) Urine Bilirubin (Negative) Urine Urobilinogen (<2.0) mg/dL Ur Leukocyte Esterase (Negative) Urine RBC (0-5) /hpf Urine WBC (0-5) /hpf Urine WBC Clumps (None) /hpf Ur Squamous Epith Cells (0-4) /hpf Urine Bacteria (None) /hpf Urine Mucus (None) /hpf Urine Opiates Screen (NotDetected) Ur Oxycodone Screen (NotDetected) Urine Methadone Screen (NotDetected) Ur Barbiturates Screen (NotDetected) U Tricyclic Antidepress (NotDetected) Ur Phencyclidine Scrn (NotDetected) Ur Amphetamines Screen (NotDetected) U Methamphetamines Scrn (NotDetected) U Benzodiazepines Scrn (NotDetected) Urine Cocaine Screen (NotDetected) U Marijuana (THC) Screen (NotDetected) Influenza Type A (PCR) Not Detected (Not Detectd) Influenza Type B (PCR) Not Detected (Not Detectd) RSV (PCR) Not Detected (Not Detectd) SARS-CoV-2 (PCR) Not Detected (Not Detectd) Disposition Clinical Impression: Urinary tract infection, Altered mental status Disposition: ADMITTED IP TO THIS [facility] Time of Disposition: 13:45
[2023-10-22 10:53] LABS: Glucose,Whole Blood 87 mg/dL (70-110)
[2023-10-22 11:08] LABS: Basophils % (A) 0 %; Eosinophils # (A) 0.1 k/uL (0-0.7); Eosinophils % (A) 2 %; HCT 33.8 % (34.0-46.0); HGB 10.8 gm/dL (11.4-16.0); Lymphocytes # (A) 1.2 k/uL (1.0-4.8); Lymphocytes % (A) 14 %; MCH 34.4 pg (25.0-35.0); MCV 107.5 fL (80.0-100.0); Macrocytosis Marked; Mean Platelet Volume 9.1; Monocytes # (A) 0.8 k/uL (0-1.0); Monocytes % (A) 10 %; Neutrophils # (A) 6.1 k/uL (1.3-7.7); Neutrophils % (A) 73 %; Platelet Count 228 k/uL (150-450); RBC 3.14 m/uL (3.80-5.40); RDW 14.8 % (11.5-15.5); WBC 8.4 k/uL (3.8-10.6)
[2023-10-22 11:16] LABS: INR 1.2 (<1.2); Partial Thromboplastin Time 25.8 sec (22.0-30.0); Prothrombin Time 12.7 sec (10.0-12.5)
[2023-10-22 11:38] LABS: Appearance,Urine Cloudy (Clear); Bacteria,Urine Many /hpf; Bilirubin,Urine Negative (Negative); Blood,Urine Small (Negative); Color,Urine Yellow; Glucose,Urine (UA) 2+ (Negative); Ketones,Urine Negative (Negative); Leukocyte Esterase,Urine Large (Negative); Mucus,Urine Rare /hpf; Nitrite,Urine Negative (Negative); PH, Urine 6.5 (5.0-8.0); Protein,Urine 1+ (Negative); RBC,Urine 7 /hpf (0-5); Specific Gravity,Urine 1.019 (1.001-1.035); Squamous Epithelial Cell,Urine <1 /hpf (0-4); Urobilinogen,Urine <2.0 mg/dL (<2.0); WBC,Urine >182 /hpf (0-5)
[2023-10-22 11:39] LABS: ALT 132 U/L (4-34); AST 106 U/L (14-36); African American GFR (CKD) 36 (>60 ml/min/1.73 sqM); Albumin 3.3 g/dL (3.5-5.0); Alkaline Phosphatase 106 U/L (38-126); Anion Gap 7 mmol/L; Blood Urea Nitrogen 33 mg/dL (7-17); Calcium 8.9 mg/dL (8.4-10.2); Carbon Dioxide 28 mmol/L (22-30); Chloride 98 mmol/L (98-107); Glucose 79 mg/dL (74-99); Non-African American GFR(CKD) 31 (>60 ml/min/1.73 sqM); Potassium 3.9 mmol/L (3.5-5.1); Sodium 133 mmol/L (137-145); Total Bilirubin 0.7 mg/dL (0.2-1.3); Total Protein 6.1 g/dL (6.3-8.2)
[2023-10-22 11:39] LABS: Cocaine Screen,Urine Not Detected (NotDetected); Phencyclidine Screen,Urine Not Detected (NotDetected); Urn Cannabinoid Scrn Not Detected (NotDetected)
[2023-10-22] MEDS: SODIUM CHLORIDE 0.9% 1,000 ML IV ONE ×2 (11:39→14:50)
[2023-10-22 11:40] LABS: Amphetamine Screen,Urine Not Detected (NotDetected); Barbiturate Screen,Urine Detected (NotDetected); Benzodiazepines Screen,Urine Not Detected (NotDetected); Methadone Screen, Urine Not Detected (NotDetected); Opiate Screen,Urine Detected (NotDetected); Oxycodone Screen, Urine Not Detected (NotDetected); Tricyclic Antidepressant,Urine Not Detected (NotDetected)
--- NOTE | 2023-10-22 14:47 | XR ---
EXAMINATION TYPE: XR chest 2V DATE OF EXAM: 10/22/2023 1:54 PM CLINICAL INDICATION:Female, 83 years old with history of altered mental status; [facility] COMPARISON: Chest radiographs from 09/12/2023 TECHNIQUE: XR chest 2V Frontal and lateral views of the chest. FINDINGS: Lungs/Pleura: Prominent interstitial lung markings are seen scattered throughout the lungs. No eviden ce of focal consolidation, pneumothorax or pleural effusion. Pulmonary vascularity: Unremarkable. Heart/mediastinum: Cardiomediastinal silhouette is unremarkable. Atherosclerotic calcifications are seen in the aorta. Musculoskeletal: No acute osseous pathology. IMPRESSION: Chronic changes without acute pulmonary process. No significant change from prior.
[2023-10-22] MEDS: cefTRIAXone IN SWFI 1,000 MG/10 ML SYRINGE IVP STA (14:54)
--- NOTE | 2023-10-22 16:17 | CT ---
EXAMINATION TYPE: CT brain wo con DATE OF EXAM: 10/22/2023 COMPARISON: 09/12/2023 INDICATION: altered mental status DLP: 1197.4 mGycm, Automated exposure control for dose reduction was used. CONTRAST: None CT of the brain is performed utilizing 3 mm thick sections through the posterior fossa and 3 mm thick sections through the remaining calvarium. Study is performed within 24 hours of arrival to the hosp [place]. No abnormal hyperdensity is present to suggest an acute intracranial hemorrhage. No mass lesion is evident. No acute infarcts are evident. Ventricles and sulci are somewhat prominent for the patient age. Paranasal sinuses and mastoid air cells within the [id number] are clear. IMPRESSION: 1. No acute intracranial process. Follow-up MRI can be performed as clinically indicated.
[2023-10-22] MEDS: FUROSEMIDE 20 MG TAB PO SCH (17:01)
[2023-10-22] MEDS: SYMBICORT 160-4.5 MCG INHALER INHALATION SCH (19:52)
[2023-10-22] MEDS: buPROPion SR 150 MG TABLET.ER PO SCH (22:08)
[2023-10-22] MEDS: MAGNESIUM OXIDE 400 MG TAB PO SCH (22:09)
[2023-10-22] MEDS: VENLAFAXINE HCL ER 150 MG CAP PO SCH (22:09)
[2023-10-22] MEDS: METOPROLOL TARTRATE 50 MG TAB PO SCH (22:10)
[2023-10-22] MEDS: ATORVASTATIN 20 MG TAB PO SCH (22:11)
[2023-10-22] MEDS: SENNOSIDES-DOCUSATE SODIUM 1 EACH TAB PO SCH (22:11)
[2023-10-22] MEDS: GABAPENTIN 300 MG CAP PO SCH (22:14)
[2023-10-22] MEDS: APIXABAN 2.5 MG TABLET PO SCH (22:54)
[2023-10-23] MEDS: HYDROcodone/APAP 10-325MG 1 EACH TAB PO PRN (00:02)
[2023-10-23] MEDS: MECLIZINE 12.5 MG TAB PO PRN (00:04)
--- NOTE | 2023-10-23 01:24 | HP ---
HISTORY AND PHYSICAL CHIEF COMPLAINT: Change in mental status. HISTORY OF PRESENT ILLNESS: This is an 83-year-old woman with a past medical history of multiple medical problems, was noted to have change in mental status and weakness. The patient apparently lost power last night and spent the night with the family. There is no history of any fever, rigors, or chills. The patient was found to have a UTI. Patient was admitted for further evaluation and treatment. There is no history of any fever, rigors, or chills. PAST MEDICAL HISTORY: Reviewed include CHF, atrial fibrillation, rest of the history and rest of the chart is also reviewed. HOME MEDICATIONS: Reviewed include calcitriol, dose and rest of medications noted. ALLERGIES: Nitrofurantoin. FAMILY HISTORY: History of cancer in the family. SOCIAL HISTORY: History of smoking. REVIEW OF SYSTEMS: A 14-point review is negative except as mentioned earlier. PHYSICAL EXAMINATION: VITAL SIGNS: Pulse is 106, blood pressure 141/118, and respirations 18. HEENT: Conjunctivae normal. NECK: No jugular venous distention. CARDIOVASCULAR: S1, S2. RESPIRATIONS: Diminished at the bases, few scattered rhonchi and crackles. ABDOMEN: Soft, nontender. LEGS: No edema, no swelling. NEUROLOGIC: Diffusely weak. SKIN: No ulcer, rash, bleeding. JOINTS: No active deforming arthropathy. LABORATORY DATA: Noted. ASSESSMENT: 1. Acute UTI for evaluation. 2. Rule out pneumonia. 3. Weakness and change in mental status, metabolic encephalopathy. 4. History of COPD. 5. History of CHF. 6. Atrial fibrillation. 7. History of DVT. 8. Hypertension. 9. Hyperlipidemia. 10.Multiple complex medical issues. RECOMMENDATIONS: Recommended to continue current management, continue symptomatic treatment. Otherwise at this time, I would recommend empiric antibiotics PT OT evaluation. Monitor closely and chest x-ray also showed shadows on the right side indicative of pneumonia. Would also recommend CT scan of the brain and complete neurologic evaluation also. Prognosis overall is guarded. Patient requires more than 24 hours for inpatient stay because of above-mentioned multiple complex medical issues. Further recommendations to follow. See orders for details. MMODL / IJN: [id number] /
[2023-10-23] MEDS: ALBUTEROL NEBULIZED 2.5 MG/3 ML INHALATION PRN (02:44)
--- NOTE | 2023-10-23 08:34 | XR ---
EXAMINATION TYPE: XR chest 1V portable DATE OF EXAM: 10/23/2023 5:34 AM CLINICAL INDICATION:Female, 83 years old with history of chf; COMPARISON: Chest radiographs from 10/22/2023 TECHNIQUE: XR chest 1V portable Frontal view of the chest. FINDINGS: Lungs/Pleura: There is no evidence of pleural effusion, focal consolidation, or pneumothorax. Pulmonary vascularity: Pulmonary vascular congestion. Heart/mediastinum: Cardiomediastinal silhouette is enlarged and stable. Musculoskeletal: No acute osseous pathology. IMPRESSION: Similar, Cardiomegaly and mild pulmonary vascular congestion. Correlate with BNP for congestive heart failure.
[2023-10-23] MEDS: LEVOTHYROXINE 125 MCG TAB PO SCH (09:29)
[2023-10-23] MEDS: CYANOCOBALAMIN 500 MCG TAB PO SCH (09:31)
[2023-10-23] MEDS: FOLIC ACID 1 MG TAB PO SCH (09:31)
[2023-10-23] MEDS: CALCIUM ACETATE 667 MG TAB PO SCH (09:32)
[2023-10-23] MEDS: PRIMIDONE 50 MG TAB PO SCH (09:32)
[2023-10-23] MEDS: DAPAGLIFLOZIN PROPANEDIOL 5 MG TABLET PO SCH (09:32)
[2023-10-23] MEDS: AMIODARONE 200 MG TAB PO SCH (09:32)
[2023-10-23] MEDS: FUROSEMIDE 40 MG TAB PO SCH (09:34)
--- NOTE | 2023-10-23 14:12 | CT ---
EXAMINATION TYPE: CT chest wo con DATE OF EXAM: 10/23/2023 COMPARISON: 05/14/2023 HISTORY: Nodules , pneumonia CT DLP: 433.6 mGycm. Automated Exposure Control for Dose Reduction was Utilized. TECHNIQUE: CT scan of the thorax is performed without IV contrast. FINDINGS: Exam is limited by involuntary motion/breathing There is marked cardiomegaly and small bilateral pleural effusions. There is loculated fluid in the s uperior aspect of the major fissure on the right. There are a few small scattered areas of partially consolidative/airspace density in the left lung ba se posteriorly which could represent atelectasis or acute pneumonia. Similar findings are seen in the right lower lobe posteriorly but to a lesser extent. There is a band of interstitial density in the right lower lobe anteriorly which was seen previously and is stable and most likely reflects chronic interstitial changes. The great vessels the chest are normal there is no mediastinal, hilar or axillary adenopathy. Limited scanning through the upper abdomen reveals cholecystectomy and renal atrophy. No focal osseous lesions are seen. IMPRESSION: 1. Cardiomegaly, small bilateral pleural effusions and loculated pleural fluid in the right major fis sure. 2. Bibasilar infiltrates consistent with pneumonia or atelectasis 3. focal chronic interstitial changes in the right lower lobe.
[2023-10-23] MEDS: FUROSEMIDE 10 MG/ML 4 ML VIAL IV SCH (14:14)
--- NOTE | 2023-10-23 14:14 | PN ---
PROGRESS NOTE DATE OF SERVICE: 10/23/2023 SUBJECTIVE: This 83-year-old woman was admitted after having loss of power at home, had some confusion yesterday, the sensorium is slightly improving at this time. Patient was initially thought to have UTI, pneumonia was also suspected. The patient also had low ejection fraction, CHF, and other possibility. The patient is mildly hypoxic at this time. The patient is being closely monitored. PAST MEDICAL HISTORY: Reviewed. REVIEW OF SYSTEMS: A 14-point review is negative except as mentioned earlier. CURRENT MEDICATIONS: Reviewed include Rocephin, dose and rest of medications noted. PHYSICAL EXAMINATION: VITAL SIGNS: Pulse is 115, blood pressure 130/90, respirations 18. HEENT: Conjunctivae normal. NECK: No jugular venous distention. CARDIOVASCULAR: S1, S2. RESPIRATIONS: Diminished at the bases, few scattered rhonchi and crackles. ABDOMEN: Soft. NERVOUS SYSTEM: Diffusely weak. LABORATORY DATA: Creatinine 1.56, chest x-ray reviewed. ASSESSMENT: 1. Acute UTI, present on admission. 2. Possible CHF acute exacerbation, acute on chronic systolic dysfunction, ejection fraction about 35%. 3. Rule out right-sided pneumonia. 4. Chronic obstructive pulmonary disease. 5. Weakness and change in mental status. 6. Acute metabolic encephalopathy. 7. History of CHF. 8. Atrial fibrillation. 9. History of DVT. 10.Hypertension. 11.Hyperlipidemia. 12.Multiple complex medical issues. RECOMMENDATIONS: Recommended to continue current management, continue symptomatic treatment. I would recommend to continue the diuretics and monitor fluid balance closely and fluid restriction 100 cc/hours and closely monitor and I would also recommend consultation with Dr. Montana and Cardiology as well. A 2D echo will be ordered for reevaluation, otherwise overall prognosis remains extremely guarded because of multiple complex medical issues. See orders for further details. Further recommendations to follow. DVT prophylaxis. We will also obtain BNP and serum procalcitonin also. The chest x- ray from 08/07/2022, also was reviewed, showed some changes. In May 2023, the patient had a CT scan of the chest, which showed some small nodules. I would recommend repeat CAT scan and continue to followup also. Prognosis guarded. MMODL / IJN: [id number] /
[2023-10-23 16:33] LABS: HCT 34.8 % (37.2-46.3); HGB 10.7 g/dL (12.0-15.0); MCH 33.3 pg (27.0-32.0); MCHC 30.7 g/dL (32.0-37.0); MCV 108.4 FL (80.0-97.0); Mean Platelet Volume 11.1 FL (9.5-12.2); NRBC Per 100 WBC 0.03 X 10*3/uL (0.00-0.01); Platelet Count 247 X 10*3/uL (140-440); RBC 3.21 X 10*6/uL (4.10-5.20); RDW 15.5 % (11.5-14.5); WBC 8.89 X 10*3/uL (4.50-10.00)
[2023-10-23 16:43] LABS: BUN/Creat Ratio 17.07 Ratio (12.00-20.00)
[2023-10-23 17:03] LABS: Basophils # (A) 0.04 X 10*3/uL (0.00-0.10); Basophils % (A) 0.4 %; Eosinophils # (A) 0.09 X 10*3/uL (0.04-0.35); Lymphocytes # (A) 0.91 X 10*3/uL (0.90-5.00); Lymphocytes % (A) 10.2 %; Monocytes # (A) 1.11 X 10*3/uL (0.20-1.00); Monocytes % (A) 12.5 %; Neutrophils % (A) 75.5 %
[2023-10-23 19:04] LABS: African American GFR (CKD) 42 (>60 ml/min/1.73 sqM); Anion Gap 17 mmol/L; Blood Urea Nitrogen 28 mg/dL (7-17); Calcium 9.4 mg/dL (8.4-10.2); Carbon Dioxide 12 mmol/L (22-30); Chloride 104 mmol/L (98-107); Glucose 116 mg/dL (74-99); Non-African American GFR(CKD) 37 (>60 ml/min/1.73 sqM); Sodium 133 mmol/L (137-145)
--- NOTE | 2023-10-23 19:05 | P.CNNES ---
History of Present Illness Consult date: 10/23/23 Requesting physician: Teresita Martinez Reason for Consult: Weakness History of Present Illness: Patient is a 83-year-old right-handed female with history of CHF, COPD, history of recurrent UTI, came to the hospital by ambulance yesterday at 10:21 AM for altered mental status. Patient's and patient's granddaughter were present, who provided with a history. For the last 2 to 3 days prior to arrival, patient has been confused, not able to talk, starts talking something and after 1-2 words, she will stop and stare. She also had some bladder incontinence. Patient's granddaughter also noticed that she has been having some myoclonic jerks in the arms and legs. It always does, but was worse lately. She drops dishes, or cans from her hands. The jerks sometimes can lead to fall because of the jerk. 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 Family thought it was a UTI, as she has previous hospitalizations for UTI with similar presentations and she asked same way. When she is on the ground, patient's cannot lift her up. Patient had visited ER on 09/11/2023 and also in July 2023 for falls. With one of the falls, she bruised her right side of the face. She was checked out with CT head and everything was normal. Patient tells me that she came because she could not walk, she was staggering all over the place. There is no report of facial droop, slurred speech, focal numbness tingling or weakness. She is just generalized weak. Last night she was hallucinating, talking to people, as if people are attacking with knives. As per EMS flowsheet, when they arrived, patient's spouse and daughter were present. Patient was laying supine in the bed and is alert when verbally stimulated but continues to doze off frequently when not stimulated. Patient has history of chronic back pain, CHF, COPD and TIA and more recently about 3 weeks ago had a UTI. Patient is able to answer questions but is often slow to respond or needs to be asked multiple times. Blood sugar was 100 mg/dL. Patient was warm, pink and dry with temperature 97 degree. Patient had good gri p strength and no arm drift and equal smile. She has some urinary frequency but no dysuria and no foul order. Patient was complaining of headache off and on for a few days. Patient's blood pressure was 143/87 pulse rate 120 respiration 14 saturation 96%, blood glucose 100 mg/dL. Vital signs on arrival blood pressure 110/90, pulse rate 120 temperature 97.7. Blood test shows normal WBC hemoglobin 10.8 platelets are normal. INR 1.2, sodium 133 potassium normal, BUN 33 creatinine 1.56. AST 106, ALT 132, troponin normal. UA shows large amount of leukocyte esterase and more than 182 WBC. Urine drug screen positive for opiate and barbiturate. Influenza, RSV and co ronavirus PCR negative. EKG showed atrial fibrillation with rapid ventricular response. Chest x-ray showed chronic changes without acute pulmonary process. CT head showed no acute intracranial process. I personally reviewed CT head, agree with the findings. There is bifrontal atrophy noted. Repeat chest x-ray showed cardiomegaly and mild pulmonary vascular congestion. CT of the chest showed cardiomegaly, small bilateral pleural effusions and loculated pleural effusion in the right major fissure. Bibasilar infiltrates, consistent with pneumonia or atelectasis. Focal chronic interstitial changes in the right lower lobe. Patient denies diabetes. She has smoked 1 pack/day for 20 years, quit age 42. Denies any alcohol use. Patient takes Eliquis 2.5 mg twice daily, B12, Wellbutrin, gabapentin 600 mg twice daily, Lipitor 20 mg, primidone 50 mg daily, amiodarone, Effexor, folic acid, B12 1000 mcg orally daily. Review of Systems Constitutional: Denies chills, Denies fever Eyes: bilateral blurred vision, bilateral diplopia (Long time, not new issue), denies pain Ears: bilateral: decreased hearing, deny: earache Ears, nose, mouth and throat: Reports headache (All the time, has migraines too), Denies sore throat Cardiovascular: Reports chest pain, Reports shortness of breath Respiratory: Reports cough, Reports excessive sputum Gastrointestinal: Reports diarrhea, Reports nausea, Denies abdominal pain, Denies vomiting Musculoskeletal: Reports low back pain, Reports neck pain Integumentary: Denies pruritus, Denies rash Neurological: Reports as per HPI, Denies numbness Psychiatric: Reports anxiety, Reports depression Endocrine: Reports fatigue, Reports weight change (up and down) Hematologic/Lymphatic: Reports easy bruising, Denies easy bleeding Past Medical History Past Medical History: Atrial Fibrillation, Heart Failure, COPD, CVA/TIA, Deep Vein Thrombosis (DVT), GERD/Reflux, Hyperlipidemia, Hypertension, Musculoskeletal Disorder, Pneumonia, Sleep Apnea/CPAP/BIPAP, Thyroid Disorder Additional Past Medical History / Comment(s): difficulty swallowing, choking, "feels like things get stuck in throat" was on "life support 11/2013-12/2013, past hx.a-fib, had Lopez-Onel syndrome, post polio syndrome, 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 left wrist, hx of UTI's, hx of glaucoma, had several laser tx, states frequent headaches, uses walker, vertigo, hx of gout, History of Any Multi-Drug Resistant Organisms: None Reported Past Surgical History: Cholecystectomy, Heart Catheterization With Stent, Hysterectomy Additional Past Surgical History / Comment(s): kidney surg. for malrotation, chest tube, 2 stents Past Anesthesia/Blood Transfusion Reactions: No Reported Reaction Date of Last Stent Placement:: 2010 Past Psychological History: Anxiety, Depression Smoking Status: Former smoker Past Alcohol Use History: None Reported Past Drug Use History: None Reported - Past Family History Mother Sister(s) Family Medical History: Cancer Medications and Allergies Home Medications Medication Instructions Recorded Confirmed Type Gabapentin [Neurontin] 600 mg PO BID 07/27/15 10/22/23 History buPROPion HCL [Wellbutrin SR] 150 mg PO BID 05/03/18 10/22/23 History HYDROcodone/APAP 10-325MG [[place] 1 tab PO QID PRN 08/12/19 10/22/23 History 10-325] Albuterol Inhaler [Ventolin Hfa 2 puff INHALATION RT-QID PRN 02/27/23 10/22/23 History Inhaler] Apixaban [Eliquis] 2.5 mg PO BID 02/27/23 10/22/23 History Calcium Acetate [PhosLo] 667 mg PO DAILY 02/27/23 10/22/23 History Cyanocobalamin [Vitamin B-12] 1,000 mcg PO DAILY 02/27/23 10/22/23 History Magnesium Oxide [Mag-Ox] 400 mg PO BID 02/27/23 10/22/23 History Sennosides/Docusate Sodium [Senna 3 tab PO HS 02/27/23 10/22/23 History Plus 8.6-50 mg Tablet] Atorvastatin [Lipitor] 20 mg PO HS 07/16/23 10/22/23 History Empagliflozin [Jardiance] 10 mg PO DAILY 07/16/23 10/22/23 History Folic Acid 0.8 mg PO DAILY 07/16/23 10/22/23 History Meclizine [Antivert] 12.5 mg PO TID PRN 07/16/23 10/22/23 History Metoprolol Tartrate [Lopressor] 200 mg PO BID 07/16/23 10/22/23 History Venlafaxine HCl [Effexor XR] 300 mg PO HS 07/16/23 10/22/23 History calcitrioL 0.5 mcg PO DAILY 07/16/23 10/22/23 History Amiodarone [Cordarone] 200 mg PO DAILY 09/12/23 10/22/23 History Budesonide/Formoterol Fumarate 2 puff INHALATION RT-BID 09/12/23 10/22/23 History [Breyna 160-4.5 Mcg Inhaler] Levothyroxine Sodium [Synthroid] 250 mcg PO DAILY 09/12/23 10/22/23 History Primidone [Mysoline] 50 mg PO DAILY 09/12/23 10/22/23 History Furosemide [Lasix] 20 mg PO DAILY@1600 10/22/23 10/22/23 History Furosemide [Lasix] 40 mg PO DAILY@0900 10/22/23 10/22/23 History Allergies Allergy/AdvReac Type Severity Reaction Status Date / Time nitrofurantoin Allergy Unknown Verified 10/22/23 12:13 [From Macrobid] Sulfa (Sulfonamide Allergy Papo Verified 10/22/23 12:13 Antibiotics) syndrome Physical Examination - Vital Signs Vital Signs: Vital Signs Temp Pulse Resp BP Pulse Ox 10/23/23 14:58 115 H 18 134/97 95 10/23/23 13:14 113 H 18 141/94 96 10/23/23 12:00 114 H 18 94 L 10/23/23 10:47 115 H 18 139/90 97 10/23/23 09:27 116 H 18 142/98 98 10/23/23 06:53 108 H 18 128/98 100 10/23/23 04:47 104 H 16 108/80 95 10/23/23 04:00 105/82 10/23/23 03:00 113/101 10/23/23 02:49 112 H 10/23/23 02:44 110 H 10/23/23 01:00 116 H 22 140/112 97 10/23/23 00:00 97.8 F 112 H 18 145/109 10/22/23 19:40 98.2 F 112 H 18 136/108 98 Patient is an elderly female, very pleasant, in mild respiratory distress, difficulty with breathing, using oxygen. She has difficulty speaking full sentences because of shortness of breath. With any exertion, it gets worse. Patient is alert awake oriented to time place and person. Patient knows it is October 2023 and that she is in [facility] imported on [place] and name of the current president. Speech and language functions are normal. Patient can name and repeat very well. No aphasia or dysarthria. Attention, concentration and fund of knowledge is adequate. On cranial nerve examination, pupils are equal, round and reacting to light, vi sual mckeon are full on confrontation, with no neglect on double simultaneous stimulation. Extraocular muscles are intact with no nystagmus. Face is symmetric, tongue protrudes to the midline. Palatal elevation and sensation normal, hearing is decreased, uses hearing aids and shoulder shrug normal, facial sensation normal. On muscle strength testing, there is no pronator drift and the strength is normal in arms and legs distally and proximally, except bilateral deltoid which are about 5-from shoulder issues, and hip flexion about 4-bilaterally as well from previous polio. Deep tendon reflexes are symmetric 1 all over in the arms and legs and plantars are flat. Sensory to touch is equal with no neglect on double simultaneous stimulation. Cerebellar function showed no ataxia for [id number] testing. No dysdiadochokinesia. Tone and bulk of muscles normal. Gait deferred.. On general examination, there is no carotid bruit or murmur, S1-S2 audible. Chest has some Rales on auscultation. Abdomen is soft nontender. No organomegaly, bowel sounds present. Peripheral pulses are present. Mild peripheral edema. Some bruises were present. Results - Laboratory Findings CBC and BMP: 10/23/23 11:32 10/22/23 10:55 Abnormal Lab Findings: Abnormal Labs 10/22/23 10/22/23 10/22/23 10:55 10:55 10:55 RBC 3.14 L Hgb 10.8 L Hct 33.8 L MCV 107.5 H MCH MCHC RDW NRBC/100 WBC Diff Macrocytosis Marked A PT 12.7 H INR 1.2 H Sodium 133 L Anion Gap BUN 33 H Creatinine 1.56 H Est GFR (CKD-EPI) AST 106 H ALT 132 H Total Protein 6.1 L Albumin 3.3 L Urine Appearance Urine Protein Urine Glucose (UA) Urine Blood Ur Leukocyte Esterase Urine RBC Urine WBC Urine WBC Clumps Urine Bacteria Urine Mucus Urine Opiates Screen Ur Barbiturates Screen 10/22/23 10/23/23 10/23/23 11:13 11:32 15:03 RBC 3.21 L Hgb 10.7 L Hct 34.8 L MCV 108.4 H MCH 33.3 H MCHC 30.7 L RDW 15.5 H NRBC/100 WBC Diff 0.03 H Macrocytosis PT INR Sodium Anion Gap 13 H BUN Creatinine Est GFR (CKD-EPI) 35 L AST ALT Total Protein Albumin Urine Appearance Cloudy H Urine Protein 1+ H Urine Glucose (UA) 2+ H Urine Blood Small H Ur Leukocyte Esterase Large H Urine RBC 7 H Urine WBC >182 H Urine WBC Clumps Many H Urine Bacteria Many H Urine Mucus Rare H Urine Opiates Screen Detected H Ur Barbiturates Screen Detected H Assessment and Plan Assessment: * Altered mental status, likely due to metabolic encephalopathy. * Acute UTI * Recurrent falls due to myoclonic jerks from metabolic encephalopathy. * Atrial fibrillation, on anticoagulation with Eliquis. * History of recurrent UTI in the past with similar presentations * Elevated hepatic enzymes * Chronic renal insufficiency, stage IV * CHF * COPD on claire oxygen all time * Macrocytic anemia * Post Polio syndrome. Plan: * Patient's symptoms are likely related to metabolic encephalopathy. * Family was concerned about some speech difficulty, which I suspect is from breathing difficulty and encephalopathy. Doubt TIA. However we will check carotid Doppler rule out stenosis. * Patient currently on ceftriaxone 2 g every 24 hours for acute UTI. * Patient has macrocytosis, currently on folate and B12 replacement. * Continue Eliquis 2.5 mg twice daily and Lipitor 20 mg for stroke prevention related to atrial fibrillation. * Dr. Boland covering neurology service over the weekend. Dr. Blanchard starting from Thursday. * Thank you for the consultation.
[2023-10-23 19:10] LABS: Potassium 4.6 mmol/L (3.5-5.1)
--- NOTE | 2023-10-23 21:37 | P.CONS ---
History of Present Illness - Reason for Consult Consult date: 10/23/23 - History of Present Illness Patient is 83-year-old female with a past medical his significant for atrial fibrillation CVA TIA COPD hypertension hyperlipidemia history of recurrent UTIs the patient was brought into the hospital for evaluation of mental status changes and the patient was getting weaker unable to stand up today with the patient could have normally done and patient. The patient was recently treated for UTI patient was complaining of some headache but no photophobia or URI symptoms no chest pain or shortness with occasional cough some nausea no vomiting no abdominal pain or diarrhea did have some urinary symptoms no hematuria on presentation to the hospital the patient was afebrile mildly tachycardic but not hypotensive or hypoxic patient did have a white count of 8.4 BUN and creatinine mildly elevated liver enzymes mildly elevated urine has been positive urine toxin positive for opiates and barbiturates influenza RSV COVID testing was negative blood urine culture hematology currently pending patient did have a chest x-ray chronic changes without acute pulmonary process patient was started on ceftriaxone infectious he was consulted for further management of antibiotic therapy Past Medical History Past Medical History: Atrial Fibrillation, Heart Failure, COPD, CVA/TIA, Deep Vein Thrombosis (DVT), GERD/Reflux, Hyperlipidemia, Hypertension, Musculoskeletal Disorder, Pneumonia, Sleep Apnea/CPAP/BIPAP, Thyroid Disorder Additional Past Medical History / Comment(s): difficulty swallowing, choking, "feels like things get stuck in throat" was on "life support 11/2013-12/2013, past hx.a-fib, had Lopez-Onel syndrome, post polio syndrome, 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 left wrist, hx of UTI's, hx of glaucoma, had several laser tx, states frequent headaches, uses walker, vertigo, hx of gout, History of Any Multi-Drug Resistant Organisms: None Reported Past Surgical History: Cholecystectomy, Heart Catheterization With Stent, Hysterectomy Additional Past Surgical History / Comment(s): kidney surg. for malrotation, chest tube, 2 stents Past Anesthesia/Blood Transfusion Reactions: No Reported Reaction Date of Last Stent Placement:: 2010 Past Psychological History: Anxiety, Depression Smoking Status: Former smoker Past Alcohol Use History: None Reported Past Drug Use History: None Reported - Past Family History Mother Sister(s) Family Medical History: Cancer Medications and Allergies Home Medications Medication Instructions Recorded Confirmed Type Gabapentin [Neurontin] 600 mg PO BID 07/27/15 10/22/23 History buPROPion HCL [Wellbutrin SR] 150 mg PO BID 05/03/18 10/22/23 History HYDROcodone/APAP 10-325MG [[place] 1 tab PO QID PRN 08/12/19 10/22/23 History 10-325] Albuterol Inhaler [Ventolin Hfa 2 puff INHALATION RT-QID PRN 02/27/23 10/22/23 History Inhaler] Apixaban [Eliquis] 2.5 mg PO BID 02/27/23 10/22/23 History Calcium Acetate [PhosLo] 667 mg PO DAILY 02/27/23 10/22/23 History Cyanocobalamin [Vitamin B-12] 1,000 mcg PO DAILY 02/27/23 10/22/23 History Magnesium Oxide [Mag-Ox] 400 mg PO BID 02/27/23 10/22/23 History Sennosides/Docusate Sodium [[place] 3 tab PO HS 02/27/23 10/22/23 History Plus 8.6-50 mg Tablet] Atorvastatin [Lipitor] 20 mg PO HS 07/16/23 10/22/23 History Empagliflozin [Jardiance] 10 mg PO DAILY 07/16/23 10/22/23 History Folic Acid 0.8 mg PO DAILY 07/16/23 10/22/23 History Meclizine [Antivert] 12.5 mg PO TID PRN 07/16/23 10/22/23 History Metoprolol Tartrate [Lopressor] 200 mg PO BID 07/16/23 10/22/23 History Venlafaxine HCl [Effexor XR] 300 mg PO HS 07/16/23 10/22/23 History calcitrioL 0.5 mcg PO DAILY 07/16/23 10/22/23 History Amiodarone [Cordarone] 200 mg PO DAILY 09/12/23 10/22/23 History Budesonide/Formoterol Fumarate 2 puff INHALATION RT-BID 09/12/23 10/22/23 History [Breyna 160-4.5 Mcg Inhaler] Levothyroxine Sodium [Synthroid] 250 mcg PO DAILY 09/12/23 10/22/23 History Primidone [Mysoline] 50 mg PO DAILY 09/12/23 10/22/23 History Furosemide [Lasix] 20 mg PO DAILY@1600 10/22/23 10/22/23 History Furosemide [Lasix] 40 mg PO DAILY@0900 10/22/23 10/22/23 History Allergies Allergy/AdvReac Type Severity Reaction Status Date / Time nitrofurantoin Allergy Unknown Verified 10/22/23 12:13 [From Macrobid] Sulfa (Sulfonamide Allergy Stevens[place] Verified 10/22/23 12:13 Antibiotics) syndrome Physical Exam Vitals: Vital Signs Temp Pulse Resp BP Pulse Ox 10/23/23 06:53 108 H 18 128/98 100 10/23/23 04:47 104 H 16 108/80 95 10/23/23 04:00 105/82 10/23/23 03:00 113/101 10/23/23 02:49 112 H 10/23/23 02:44 110 H 10/23/23 01:00 116 H 22 140/112 97 10/23/23 00:00 97.8 F 112 H 18 145/109 10/22/23 19:40 98.2 F 112 H 18 136/108 98 10/22/23 15:41 100 10/22/23 12:47 106 H 18 141/119 98 10/22/23 10:32 97.7 F 120 H 16 110/90 99 Results CBC & Chem 7: 10/23/23 11:32 10/23/23 15:03 Labs: Abnormal Lab Results - Last 24 Hours (Table) 10/22/23 10/22/23 10/22/23 Range/Units 10:55 10:55 10:55 RBC 3.14 L (3.80-5.40) m/uL Hgb 10.8 L (11.4-16.0) gm/dL Hct 33.8 L (34.0-46.0) % MCV 107.5 H (80.0-100.0) fL Macrocytosis Marked A PT 12.7 H (10.0-12.5) sec INR 1.2 H (<1.2) Sodium 133 L (137-145) mmol/L BUN 33 H (7-17) mg/dL Creatinine 1.56 H (0.52-1.04) mg/dL AST 106 H (14-36) U/L ALT 132 H (4-34) U/L Total Protein 6.1 L (6.3-8.2) g/dL Albumin 3.3 L (3.5-5.0) g/dL Urine Appearance (Clear) Urine Protein (Negative) Urine Glucose (UA) (Negative) Urine Blood (Negative) Ur Leukocyte Esterase (Negative) Urine RBC (0-5) /hpf Urine WBC (0-5) /hpf Urine WBC Clumps (None) /hpf Urine Bacteria (None) /hpf Urine Mucus (None) /hpf Urine Opiates Screen (NotDetected) Ur Barbiturates Screen (NotDetected) 10/22/23 Range/Units 11:13 RBC (3.80-5.40) m/uL Hgb (11.4-16.0) gm/dL Hct (34.0-46.0) % MCV (80.0-100.0) fL Macrocytosis PT (10.0-12.5) sec INR (<1.2) Sodium (137-145) mmol/L BUN (7-17) mg/dL Creatinine (0.52-1.04) mg/dL AST (14-36) U/L ALT (4-34) U/L Total Protein (6.3-8.2) g/dL Albumin (3.5-5.0) g/dL Urine Appearance Cloudy H (Clear) Urine Protein 1+ H (Negative) Urine Glucose (UA) 2+ H (Negative) Urine Blood Small H (Negative) Ur Leukocyte Esterase Large H (Negative) Urine RBC 7 H (0-5) /hpf Urine WBC >182 H (0-5) /hpf Urine WBC Clumps Many H (None) /hpf Urine Bacteria Many H (None) /hpf Urine Mucus Rare H (None) /hpf Urine Opiates Screen Detected H (NotDetected) Ur Barbiturates Screen Detected H (NotDetected) Assessment and Plan Plan: 1patient presented hospitalized weakness which is likely multifactorial in this patient who do have history of recurrent UTI some urinary symptoms positive UA likely component of urinary tract infection likely from UTI gram-negative pathogen possible component pneumonia tentatively excluded 2-we will check a CRP and procalcitonin wait for urine culture to finalize 3-Rocephin 2 g daily while waiting for the culture to finalize We will follow on clinical condition and cultures to further adjust medication if needed Thank you for this consultation we will follow the patient along with you Dictation was produced using [employer] dictation software. please excuse any grammatical, word or spelling errors. Time with Patient: Greater than 30
--- NOTE | 2023-10-24 02:35 | XR ---
EXAM: XR Chest, 1 View CLINICAL HISTORY: ITS.REASON XR Reason: aspirating TECHNIQUE: Frontal view of the chest. COMPARISON: No relevant prior studies available. IMPRESSION: Cardiomegaly. Mild vascular congestion. Left basilar opacity
[2023-10-24 03:17] LABS: Blood Urea Nitrogen 25.6 mg/dL (9.0-27.0); Calcium 9.2 mg/dL (8.7-10.3); Carbon Dioxide 24.3 mmol/L (21.6-31.8); Chloride 99 mmol/L (96-109); Glucose 79 mg/dL (70-110); Potassium 4.6 mmol/L (3.5-5.5); Sodium 136 mmol/L (135-145)
[2023-10-24 07:02] LABS: Basophils # (A) 0.1 k/uL (0-0.2); Basophils % (A) 1 %; Eosinophils # (A) 0.2 k/uL (0-0.7); Eosinophils % (A) 2 %; HCT 37.8 % (34.0-46.0); HGB 11.3 gm/dL (11.4-16.0); Hypochromasia Marked; Lymphocytes # (A) 1.1 k/uL (1.0-4.8); Lymphocytes % (A) 13 %; Macrocytosis Marked; Mean Platelet Volume 9.2; Monocytes % (A) 12 %; Neutrophils # (A) 5.8 k/uL (1.3-7.7); Neutrophils % (A) 68 %; Platelet Count 194 k/uL (150-450); RBC 3.34 m/uL (3.80-5.40); RDW 15.3 % (11.5-15.5); WBC 8.4 k/uL (3.8-10.6)
[2023-10-24 07:12] LABS: African American GFR (CKD) 44 (>60 ml/min/1.73 sqM); Anion Gap 6 mmol/L; Blood Urea Nitrogen 29 mg/dL (7-17); Calcium 8.8 mg/dL (8.4-10.2); Carbon Dioxide 29 mmol/L (22-30); Chloride 101 mmol/L (98-107); Glucose 66 mg/dL (74-99); Non-African American GFR(CKD) 38 (>60 ml/min/1.73 sqM); Potassium 3.8 mmol/L (3.5-5.1); Sodium 136 mmol/L (137-145)
--- NOTE | 2023-10-24 07:32 | XR ---
EXAMINATION TYPE: XR chest 1V portable DATE OF EXAM: 10/24/2023 Comparison: 10/24/2023 Clinical History: 83-year-old female CHF Findings: Heart mildly enlarged. Mild perihilar density and mild patchy right lower lung density. Left base und erpenetrated and not well assessed. Impression: Mild cardiomegaly and relatively similar mild perihilar and patchy right basilar density. Left base i s underpenetrated and not well assessed.
[2023-10-24 07:40] LABS: MCV 113.3 fL (80.0-100.0)
--- NOTE | 2023-10-24 09:38 | US ---
EXAMINATION TYPE: US carotid duplex BILAT DATE OF EXAM: 10/23/2023 Exam done portable COMPARISON: NONE CLINICAL INDICATION: Female, 83 years old with history of Slurred speech; TECHNIQUE: Carotid duplex ultrasound examination. Indirect Doppler criteria was utilized. FINDINGS: EXAM MEASUREMENTS: RIGHT: Peak Systolic Velocity (PSV) cm/sec ----- Right CCA: 31.5 ----- Right ICA: 34.6 ----- Right ECA: 34.0 ICA/CCA ratio: 1.1 RIGHT: End Diastole cm/sec ----- Right CCA: 14.3 ----- Right ICA: 12.7 ----- Right ECA: 6.9 LEFT: Peak Systolic Velocity (PSV) cm/sec ----- Left CCA: 32.7 ----- Left ICA: 39.2 ----- Left ECA: 43.6 ICA/CCA ratio: 1.2 LEFT: End Diastole cm/sec ----- Left CCA: 8.8 ----- Left ICA: 14.0 ----- Left ECA: 8.5 VERTEBRALS (direction of flow): Right Vertebral: Antegrade Left Vertebral: Antegrade Rhythm: Normal Client Success Manager notes: Difficult study due patient heavy breathing and snoring during exam. No significant stenosis IMPRESSION: No hemodynamically significant internal carotid artery stenosis on either side. Criteria for Assigning % of Stenosis / Diameter reduction (Estimation based on the indirect measurements of the internal carotid artery velocities (ICA PSV). 1. Normal (no stenosis)=ICA PSV < 125 cm/s: ratio < 2.0: ICA EDV<40 cm/s. 2. Less than 50% stenosis=ICA PSV < 125 cm/s: ratio < 2.0: ICA EDV<40 cm/s. 3. 50 to 69% stenosis=ICA PSV of 125 to 230 cm/s: ration 2.0 ? 4.0: ICA EDV 40-100 cm/s. 4. Greater than 70% stenosis to near occlusion= ICA PSV > 230 cm/s: ratio > 4.0: ICA EDV > 100 cm/s. 5. Near occlusion= ICA PSV velocities may be low or undetectable: variable ratio and ICA EDV. 6. Total occlusion=unable to detect flow.
--- NOTE | 2023-10-24 11:03 | P.CRDCN ---
History of Present Illness Consult date: 10/24/23 Chief complaint: Shortness of breath History of present illness: The patient is a pleasant 83-year-old female patient who is known to our service from before with a past medical history significant for coronary artery disease with prior stenting with unknown details as well as history of cardiomyopathy as well as diabetes and hypertension and dyslipidemia and chronic kidney disease and permanent atrial fibrillation. We consulted to see the patient for further evaluation of heart failure. The patient somewhat is a poor historian. She was brought from home with generalized weakness and fatigue and frequent falling with no loss of consciousness and also mild increasing in the shortness of breath but no pain in the chest and no dizziness or lightheadedness and no feeling of heart racing or fluttering and no presyncope or syncope. She was diagnosed with heart failure. She underwent further investigation including an EKG showing atrial fibrillation with diffuse nonspecific ST and T wave abnormalities and she is known to have permanent atrial fibrillation maintaining on oral anticoagulation as well as amiodarone. Also she underwent an NT proBNP came in to be elevated at 8000. Chest x-ray showed pulmonary vascular congestions. The rest of the blood work came in to be unremarkable beside abnormal creatinine which is chronic. The patient was started on Lasix IV. She is still not feeling well. She is known to have also chronic hypoxic respiratory failure and she is on oxygen at 2 L. The examination revealed irregular rhythm with a distant heart sounds and a systolic murmur as well as bilateral rhonchi and mild bilateral lower extremities edema Assessment Generalized weakness and fatigue and frequent falls Heart failure exacerbation Atrial fibrillation which is permanent with controlled heart rate Chronic kidney disease which has been stable Multiple comorbid conditions including diabetes and hypertension and dyslipidemia Plan Continue the IV Lasix for additional 24 hours Obtain an echocardiogram to assess the current status of the ejection fraction Continue the current dose of amiodarone and consider tapering the dose down Continue monitor the kidney function and electrolytes and hemoglobin Follow-up with the patient Past Medical History Past Medical History: Atrial Fibrillation, Heart Failure, COPD, CVA/TIA, Deep Vein Thrombosis (DVT), GERD/Reflux, Hyperlipidemia, Hypertension, Musculoskeletal Disorder, Pneumonia, Sleep Apnea/CPAP/BIPAP, Thyroid Disorder Additional Past Medical History / Comment(s): difficulty swallowing, choking, "feels like things get stuck in throat" was on "life support 11/2013-12/2013, past hx.a-fib, had Lopez-Onel syndrome, post polio syndrome, 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 left wrist, hx of UTI's, hx of glaucoma, had several laser tx, states frequent headaches, uses walker, vertigo, hx of gout, History of Any Multi-Drug Resistant Organisms: None Reported Past Surgical History: Cholecystectomy, Heart Catheterization With Stent, Hysterectomy Additional Past Surgical History / Comment(s): kidney surg. for malrotation, ervin st tube, 2 stents Past Anesthesia/Blood Transfusion Reactions: No Reported Reaction Date of Last Stent Placement:: 2010 Past Psychological History: Anxiety, Depression Smoking Status: Former smoker Past Alcohol Use History: None Reported Past Drug Use History: None Reported - Past Family History Mother Sister(s) Family Medical History: Cancer Medications and Allergies Home Medications Medication Instructions Recorded Confirmed Type Gabapentin [Neurontin] 600 mg PO BID 07/27/15 10/22/23 History buPROPion HCL [Wellbutrin SR] 150 mg PO BID 05/03/18 10/22/23 History HYDROcodone/APAP 10-325MG [[place] 1 tab PO QID PRN 08/12/19 10/22/23 History 10-325] Albuterol Inhaler [Ventolin Hfa 2 puff INHALATION RT-QID PRN 02/27/23 10/22/23 History Inhaler] Apixaban [Eliquis] 2.5 mg PO BID 02/27/23 10/22/23 History Calcium Acetate [PhosLo] 667 mg PO DAILY 02/27/23 10/22/23 History Cyanocobalamin [Vitamin B-12] 1,000 mcg PO DAILY 02/27/23 10/22/23 History Magnesium Oxide [Mag-Ox] 400 mg PO BID 02/27/23 10/22/23 History Sennosides/Docusate Sodium [Senna 3 tab PO HS 02/27/23 10/22/23 History Plus 8.6-50 mg Tablet] Atorvastatin [Lipitor] 20 mg PO HS 07/16/23 10/22/23 History Empagliflozin [Jardiance] 10 mg PO DAILY 07/16/23 10/22/23 History Folic Acid 0.8 mg PO DAILY 07/16/23 10/22/23 History Meclizine [Antivert] 12.5 mg PO TID PRN 07/16/23 10/22/23 History Metoprolol Tartrate [Lopressor] 200 mg PO BID 07/16/23 10/22/23 History Venlafaxine HCl [Effexor XR] 300 mg PO HS 07/16/23 10/22/23 History calcitrioL 0.5 mcg PO DAILY 07/16/23 10/22/23 History Amiodarone [Cordarone] 200 mg PO DAILY 09/12/23 10/22/23 History Budesonide/Formoterol Fumarate 2 puff INHALATION RT-BID 09/12/23 10/22/23 Hist ory [Breyna 160-4.5 Mcg Inhaler] Levothyroxine Sodium [Synthroid] 250 mcg PO DAILY 09/12/23 10/22/23 History Primidone [Mysoline] 50 mg PO DAILY 09/12/23 10/22/23 History Furosemide [Lasix] 20 mg PO DAILY@1600 10/22/23 10/22/23 History Furosemide [Lasix] 40 mg PO DAILY@0900 10/22/23 10/22/23 History Allergies Allergy/AdvReac Type Severity Reaction Status Date / Time nitrofurantoin Allergy Unknown Verified 10/22/23 12:13 [From Macrobid] Sulfa (Sulfonamide Allergy Papo Verified 10/22/23 12:13 Antibiotics) syndrome Physical Exam Vitals: Vital Signs Temp Pulse Pulse Resp BP BP Pulse Ox 10/24/23 09:46 72 16 122/90 94 L 10/24/23 09:41 98 10/24/23 04:00 105 H 16 140/90 97 10/24/23 02:07 104 H 10/24/23 01:59 100 10/24/23 00:00 97.8 F 87 16 132/85 98 10/23/23 20:00 118 H 20 144/90 92 L 10/23/23 14:58 115 H 18 134/97 95 10/23/23 13:14 113 H 18 141/94 96 10/23/23 12:00 114 H 18 94 L Intake and Output 10/23/23 10/24/23 10/24/23 22:59 06:59 14:59 Intake Total 118 Output Total 1000 100 Balance 118 -1000 -100 Intake: Oral 118 Output: Urine 1000 100 Other: Voiding Method Diaper Diaper Weight 81.5 kg Results 10/24/23 06:40 10/24/23 06:40 CBC 10/23/23 10/24/23 Range/Units 11:32 06:40 WBC 8.89 8.4 (4.50-10.00) X 10*3/uL RBC 3.21 L 3.34 L (4.10-5.20) X 10*6/uL Hgb 10.7 L 11.3 L (12.0-15.0) g/dL Hct 34.8 L 37.8 (37.2-46.3) % Plt Count 247 194 (140-440) X 10*3/uL Comprehensive Metabolic Panel 10/23/23 10/23/23 10/24/23 Range/Units 11:32 15:03 06:40 Sodium 136 133 L 136 L (135-145) mmol/L Potassium 4.6 4.6 3.8 (3.5-5.5) mmol/L Chloride 99 104 101 (96-109) mmol/L Carbon Dioxide 24.3 12 L 29 (21.6-31.8) mmol/L BUN 25.6 28 H 29 H (9.0-27.0) mg/dL Creatinine 1.5 1.36 H 1.31 H (0.6-1.5) mg/dL Glucose 79 116 H 66 L (70-110) mg/dL Calcium 9.2 9.4 8.8 (8.7-10.3) mg/dL Current Medications Generic Name Dose Route Start Last Admin Trade Name Freq PRN Reason Stop Dose Admin Hydrocodone Bitart/Acetaminophen 1 each 10/22/23 15:12 10/23/23 21:35 Hydrocodone/Apap 10-325mg 1 Each Tab PO 1 each QID PRN Administration Pain Albuterol Sulfate 2.5 mg 10/22/23 15:12 10/24/23 01:56 Albuterol Nebulized 2.5 Mg/3 Ml INHALATION 2.5 mg RT-QID PRN Administration Shortness Of Breath Amiodarone HCl 200 mg 10/23/23 09:00 10/24/23 10:11 Amiodarone 200 Mg Tab PO 200 mg DAILY MIAN Administration Apixaban 2.5 mg 10/22/23 21:00 10/24/23 10:12 Apixaban 2.5 Mg Tablet PO 2.5 mg BID MIAN Administration Protocol Atorvastatin Calcium 20 mg 10/22/23 21:00 10/23/23 21:34 Atorvastatin 20 Mg Tab PO 20 mg HS MIAN Administration Budesonide/Formoterol Fumarate 2 puff 10/22/23 20:00 10/24/23 09:41 Symbicort 160-4.5 Mcg Inhaler INHALATION 2 puff RT-BID MIAN Administration Bupropion HCl 150 mg 10/22/23 21:00 10/24/23 10:12 Bupropion Sr 150 Mg Tablet.Er PO 150 mg BID MIAN Administration Calcitriol 0.5 mcg 10/23/23 09:00 10/24/23 10:12 Calcitriol 0.25 Mcg Cap PO 0.5 mcg DAILY MIAN Administration Calcium Acetate 667 mg 10/23/23 09:00 10/24/23 10:12 Calcium Acetate 667 Mg Tab PO 667 mg DAILY MIAN Administration Cyanocobalamin 1,000 mcg 10/23/23 09:00 10/24/23 10:12 Cyanocobalamin 500 Mcg Tab PO 1,000 mcg DAILY MIAN Administration Dapagliflozin 5 mg 10/23/23 09:00 10/24/23 10:12 Dapagliflozin Propanediol 5 Mg Tablet PO 5 mg DAILY MIAN Administration Folic Acid 1 mg 10/23/23 09:00 10/24/23 10:11 Folic Acid 1 Mg Tab PO 1 mg DAILY MIAN Administration Furosemide 40 mg 10/23/23 13:00 10/24/23 10:12 Furosemide 10 Mg/Ml 4 Ml Vial IV 40 mg Q12HR MIAN Administration Gabapentin 600 mg 10/22/23 21:00 10/24/23 10:12 Gabapentin 300 Mg Cap PO 600 mg BID MIAN Administration Ceftriaxone Sodium 2 gm/ 50 mls @ 100 mls/hr 10/23/23 16:00 10/23/23 17:50 Sodium Chloride IVPB 100 mls/hr Q24H MIAN Administration Protocol Levothyroxine Sodium 250 mcg 10/23/23 06:30 10/24/23 10:10 Levothyroxine 125 Mcg Tab PO 250 mcg DAILY@0630 MIAN Administration Magnesium Oxide 400 mg 10/22/23 21:00 10/24/23 10:11 Magnesium Oxide 400 Mg Tab PO 400 mg BID MIAN Administration Meclizine HCl 12.5 mg 10/22/23 15:12 10/23/23 00:04 Meclizine 12.5 Mg Tab PO 12.5 mg TID PRN Administration Vertigo Metoprolol Tartrate 200 mg 10/22/23 21:00 10/24/23 10:11 Metoprolol Tartrate 50 Mg Tab PO 200 mg BID MIAN Administration Primidone 50 mg 10/23/23 09:00 10/24/23 10:12 Primidone 50 Mg Tab PO 50 mg DAILY MIAN Administration Senna/Docusate Sodium 3 each 10/22/23 21:00 10/23/23 21:35 Sennosides-Docusate Sodium 1 Each Tab PO 3 each HS MIAN Administration Venlafaxine HCl 300 mg 10/22/23 21:00 10/23/23 21:48 Venlafaxine Hcl Er 150 Mg Cap PO 300 mg HS MIAN Administration Intake and Output 10/23/23 10/24/23 10/24/23 22:59 06:59 14:59 Intake Total 118 Output Total 1000 100 Balance 118 -1000 -100 Intake: Oral 118 Output: Urine 1000 100 Other: Voiding Method Diaper Diaper Weight 81.5 kg 10/24/23 06:40 10/24/23 06:40
--- NOTE | 2023-10-24 11:38 | XR ---
EXAMINATION TYPE: XR chest 1V portable DATE OF EXAM: 10/24/2023 Comparison: 10/24/2023 Clinical History: 83-year-old female CHF Findings: Heart mildly enlarged. Perihilar and interstitial densities persist without significant change. Left base remains underpenetrated and not well assessed. Impression: Stable exam suggesting CHF with pulmonary vascular congestion. Patchy right lower lung opacity also s imilar.
[2023-10-24] MEDS: AMPICILLIN-SULBACTAM 3 GM in SODIUM CHLORIDE 0.9% 100 ML IVPB SCH (13:24)
--- NOTE | 2023-10-24 14:49 | P.CNPUL ---
History of Present Illness Consult date: 10/24/23 Requesting physician: Skip Pittman Reason for consult: dyspnea Chief complaint: Generalized weakness History of present illness: This is an 83-year-old female patient with a known history of atrial f ibrillation, congestive heart failure, chronic obstructive pulmonary disease, DVT, hyperlipidemia, hypertension, hypothyroidism, CVA/TIA and resides at a local [facility]. She was brought in on 10/22/2023 with altered mental status and inability to stand. She was being treated for urinary tract infection. Chest x-ray revealed chronic changes without acute pulmonary process. CT scan of the brain revealed no acute intracranial process. CT scan of the chest revealed cardiomegaly, small bilateral pleural effusions and loculated pleural effusion in the right major fissure. Bibasilar infiltrates. Focal chronic interstitial changes of the right lower lobe. Carotid Doppler revealed no signi ficant stenosis bilaterally. White count 8.4. Hemoglobin 11.3. Platelets 194. Sodium 136. Potassium 3.8. Bicarb 29. BUN 29. Creatinine 1.31. Glucose 66. proBNP 8740. Procalcitonin 0.08. Urine culture positive for gram-negative bacilli. Blood culture pending. She is seen today in consultation on the selective care unit. She is currently sitting up in a chair at the bedside. Awake and alert in no acute distress. Maintaining good O2 saturations in the 90s on 2 L/min per nasal cannula. She is on albuterol and Symbicort. Initiated on IV Lasix. Anticoagulated with Eliquis. Review of Systems REVIEW OF SYSTEMS: CONSTITUTIONAL: Generalized weakness, altered mental status. Denies any recent significant weight loss or weight gain. EYES: Denies change in vision. EARS, NOSE, MOUTH, THROAT: Denies headaches, denies sore throat. CARDIOVASCULAR: Denies chest pain, palpitations or syncopal episodes. RESPIRATORY: Denies shortness of breath, cough, congestion or hemoptysis. GASTROINTESTINAL: Denies change in appetite, denies abdominal pain GENITOURINARY: Denies hematuria, denies infections. MUSKULOSKELETAL: Denies pain, denies swelling. INTEGUMENTARY: Denies rash, denies eczema. NEUROLOGICAL: Denies recent memory loss, no recent seizure activity. PSYCHIATRIC: Denies anxiety, denies depression. HEMATOLOGIC/LYMPHATIC: Denies anemia, denies enlarged lymph nodes. 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 left wrist, hx of UTI's, hx of glaucoma, had several laser tx, states frequent headaches, uses walker, vertigo, hx of gout, History of Any Multi-Drug Resistant Organisms: None Reported Past Surgical History: Cholecystectomy, Heart Catheterization With Stent, Hysterectomy Additional Past Surgical History / Comment(s): kidney surg. for malrotation, chest tube, 2 stents Past Anesthesia/Blood Transfusion Reactions: No Reported Reaction Date of Last Stent Placement:: 2010 Past Psychological History: Anxiety, Depression Smoking Status: Former smoker Past Alcohol Use History: None Reported Past Drug Use History: None Reported - Past Family History Mother Sister(s) Family Medical History: Cancer Medications and Allergies Home Medications Medication Instructions Recorded Confirmed Type Gabapentin [Neurontin] 600 mg PO BID 07/27/15 10/22/23 History buPROPion HCL [Wellbutrin SR] 150 mg PO BID 05/03/18 10/22/23 History HYDROcodone/APAP 10-325MG [[place] 1 tab PO QID PRN 08/12/19 10/22/23 History 10-325] Albuterol Inhaler [Ventolin Hfa 2 puff INHALATION RT-QID PRN 02/27/23 10/22/23 History Inhaler] Apixaban [Eliquis] 2.5 mg PO BID 02/27/23 10/22/23 History Calcium Acetate [PhosLo] 667 mg PO DAILY 02/27/23 10/22/23 History Cyanocobalamin [Vitamin B-12] 1,000 mcg PO DAILY 02/27/23 10/22/23 History Magnesium Oxide [Mag-Ox] 400 mg PO BID 02/27/23 10/22/23 History Sennosides/Docusate Sodium [Senna 3 tab PO HS 02/27/23 10/22/23 History Plus 8.6-50 mg Tablet] Atorvastatin [Lipitor] 20 mg PO HS 07/16/23 10/22/23 History Empagliflozin [Jardiance] 10 mg PO DAILY 07/16/23 10/22/23 History Folic Acid 0.8 mg PO DAILY 07/16/23 10/22/23 History Meclizine [Antivert] 12.5 mg PO TID PRN 07/16/23 10/22/23 History Metoprolol Tartrate [Lopressor] 200 mg PO BID 07/16/23 10/22/23 History Venlafaxine HCl [Effexor XR] 300 mg PO HS 07/16/23 10/22/23 History calcitrioL 0.5 mcg PO DAILY 07/16/23 10/22/23 History Amiodarone [Cordarone] 200 mg PO DAILY 09/12/23 10/22/23 History Budesonide/Formoterol Fumarate 2 puff INHALATION RT-BID 09/12/23 10/22/23 Histor y [Breyna 160-4.5 Mcg Inhaler] Levothyroxine Sodium [Synthroid] 250 mcg PO DAILY 09/12/23 10/22/23 History Primidone [Mysoline] 50 mg PO DAILY 09/12/23 10/22/23 History Furosemide [Lasix] 20 mg PO DAILY@1600 10/22/23 10/22/23 History Furosemide [Lasix] 40 mg PO DAILY@0900 10/22/23 10/22/23 History Allergies Allergy/AdvReac Type Severity Reaction Status Date / Time nitrofurantoin Allergy Unknown Verified 10/22/23 12:13 [From Macrobid] Sulfa (Sulfonamide Allergy CjensJoycehnson Verified 10/22/23 12:13 Antibiotics) syndrome Physical Exam Vitals: Vital Signs Temp Pulse Pulse Resp BP BP Pulse Ox 10/24/23 13:22 16 10/24/23 11:36 97.8 F 118 H 16 138/99 92 L 10/24/23 09:46 72 16 122/90 94 L 10/24/23 09:41 98 10/24/23 04:00 105 H 16 140/90 97 10/24/23 02:07 104 H 10/24/23 01:59 100 10/24/23 00:00 97.8 F 87 16 132/85 98 10/23/23 20:00 118 H 20 144/90 92 L 10/23/23 14:58 115 H 18 134/97 95 Intake and Output 10/23/23 10/24/23 10/24/23 22:59 06:59 14:59 Intake Total 118 Output Total 1000 775 Balance 118 -1000 -775 Intake: Oral 118 Output: Urine 1000 775 Other: Voiding Method Diaper Diaper Weight 81.5 kg GENERAL EXAM: Alert, pleasant 83-year-old female, on 2 L nasal cannula, comfortable in no apparent distress. HEAD: Normocephalic. EYES: Normal reaction of pupils, equal size. NOSE: Clear with pink turbinates. THROAT: No erythema or exudates. NECK: No masses, no JVD. CHEST: No chest wall deformity. LUNGS: Equal air entry with crackles in the bilateral bases. CVS: S1 and S2 normal with no audible murmur, regular rhythm. ABDOMEN: No hepatosplenomegaly, normal bowel sounds, no guarding or rigidity. SPINE: No scoliosis or deformity SKIN: No rashes CENTRAL NERVOUS SYSTEM: No focal deficits, tone is normal in all 4 extremities. EXTREMITIES: There is 1+ peripheral edema. No clubbing, no cyanosis. Peripheral pulses are intact. Results - Laboratory Findings CBC and BMP: 10/24/23 06:40 10/24/23 06:40 PT/INR, D-dimer PT 12.7 sec (10.0-12.5) H 10/22/23 10:55 INR 1.2 (<1.2) H 10/22/23 10:55 Abnormal lab findings: Abnormal Labs 10/22/23 10/22/23 10/22/23 10:55 10:55 10:55 RBC 3.14 L Hgb 10.8 L Hct 33.8 L MCV 107.5 H MCH MCHC RDW Monocytes # NRBC/100 WBC Diff Macrocytosis Marked A PT 12.7 H INR 1.2 H Sodium 133 L Carbon Dioxide BUN 33 H Creatinine 1.56 H Est GFR (CKD-EPI) Glucose AST 106 H ALT 132 H Total Protein 6.1 L Albumin 3.3 L Urine Appearance Urine Protein Urine Glucose (UA) Urine Blood Ur Leukocyte Esterase Urine RBC Urine WBC Urine WBC Clumps Urine Bacteria Urine Mucus Urine Opiates Screen Ur Barbiturates Screen 10/22/23 10/23/2324 11:13 11:32 11:32 RBC 3.21 L Hgb 10.7 L Hct 34.8 L MCV 108.4 H MCH 33.3 H MCHC 30.7 L RDW 15.5 H Monocytes # 1.11 H NRBC/100 WBC Diff 0.03 H Macrocytosis PT INR Sodium Carbon Dioxide BUN Creatinine Est GFR (CKD-EPI) 35 L Glucose AST ALT Total Protein Albumin Urine Appearance Cloudy H Urine Protein 1+ H Urine Glucose (UA) 2+ H Urine Blood Small H Ur Leukocyte Esterase Large H Urine RBC 7 H Urine WBC >182 H Urine WBC Clumps Many H Urine Bacteria Many H Urine Mucus Rare H Urine Opiates Screen Detected H Ur Barbiturates Screen Detected H 10/23/23 10/24/23 10/24/23 15:03 06:40 06:40 RBC 3.34 L Hgb 11.3 L Hct MCV 113.3 H D MCH MCHC 30.0 L RDW Monocytes # NRBC/100 WBC Diff Macrocytosis Marked A PT INR Sodium 133 L 136 L Carbon Dioxide 12 L BUN 28 H 29 H Creatinine 1.36 H 1.31 H Est GFR (CKD-EPI) Glucose 116 H 66 L AST ALT Total Protein Albumin Urine Appearance Urine Protein Urine Glucose (UA) Urine Blood Ur Leukocyte Esterase Urine RBC Urine WBC Urine WBC Clumps Urine Bacteria Urine Mucus Urine Opiates Screen Ur Barbiturates Screen - Diagnostic Findings Chest x-ray: image reviewed CT scan - chest: image reviewed Assessment and Plan Assessment: Generalized weakness and altered mental status suspect secondary to urinary tract infection can Darian to gram-negative bacilli Acute exacerbation of suspected systolic versus diastolic congestive heart failure Chronic atrial fibrillation anticoagulated with Eliquis Coronary artery disease with previous stent placement Former smoker Chronic obstructive pulmonary disease Chronic kidney disease Hypertension Hyperlipidemia Diabetes mellitus History of CVA/TIA Hypothyroidism Frequent urinary tract infections assisted resident Plan: The patient was seen and evaluated CAT scan of the chest, chest x-ray, labs and medications reviewed Continue IV diuretics Echocardiogram pending Continue bronchodilators Continue Unasyn ID service Titrate the FiO2 as tolerated We will continue to follow and make further recommendations based on her clinical status I have personally seen and examined the patient, performed the documentation and the assessment and plan as written. Number of minutes spent on the visit: 20.
--- NOTE | 2023-10-24 15:41 | CA ---
Transthoracic Echo Report Name: Denise Kumar Age: 83 Gender: F : 1940 Exam Date: 10/24/2023 11:50 Exam Location: [facility] Ht (in): 61 Wt (lb): 179 Ordering Physician: Mumtaz Haider MD ([id number]) Attending/Referring Phys: Training Specialist Rachel Mathews RDCS Procedure CPT: Indications: chf Cardiac Hx: Technical Quality: Technically difficult study Contrast 1: Definity Total Dose (mL): 2 Contrast 2: Total Dose (mL): MEASUREMENTS (Male / Female) Normal Values 2D ECHO LV Diastolic Diameter PLAX 4.2 cm 4.2 - 5.9 / 3.9 - 5.3 cm LV Systolic Diameter PLAX 3.9 cm IVS Diastolic Thickness 1.2 cm 0.6 - 1.0 / 0.6 - 0.9 cm LVPW Diastolic Thickness 1.2 cm 0.6 - 1.0 / 0.6 - 0.9 cm LV Relative Wall Thickness 0.6 RV Internal Dim ED PLAX 3.0 cm LVOT Diameter 2.0 cm LA Systolic Diameter LX 4.6 cm 3.0 - 4.0 / 2.7 - 3.8 cm LV Diastolic Volume MOD BP 26.8 cm??? 67 - 155 / 56 - 104 cm??? LV Systolic Volume MOD BP 13.3 cm??? - 58 / 19 - 49 cm??? LV Ejection Fraction MOD BP 50.2 % >= 55 % LV Cardiac Index MOD BP 847.9 cm???/min???m??? LV Diastolic Volume MOD 4C 20.9 cm??? LV Systolic Volume MOD 4C 9.9 cm??? LV Ejection Fraction MOD 4C 52.4 % LV Cardiac Index MOD 4C 689.3 cm???/min???m??? LV Diastolic Length 4C 6.2 cm LV Systolic Length 4C 6.2 cm LV Diastolic Volume MOD 2C 34.7 cm??? LV Systolic Volume MOD 2C 18.4 cm??? LV Ejection Fraction MOD 2C 46.9 % LV Cardiac Index MOD 2C 1025.2 cm???/min???m??? LV Diastolic Length 2C 6.3 cm LV Systolic Length 2C 6.0 cm LA Volume 81.2 cm??? 18 - 58 / 22 - 52 cm??? LA Volume Index 42.6 cm???/m??? 16 - 28 cm???/m??? M-MODE Aortic Root Diameter MM 2.9 cm DOPPLER AV Peak Velocity 91.1 cm/s AV Peak Gradient 3.3 mmHg MV Area PHT 4.2 cm??? MV Deceleration Time 143.7 ms TR Peak Velocity 356.3 cm/s TR Peak Gradient 50.8 mmHg Right Ventricular Systolic Press 65.8 mmHg FINDINGS Left Ventricle Left ventricular ejection fraction is estimated at 45-50 %. Left ventricular cavity size normal. Mildly increased septal wall thickness. Mildly increased posterior wall thickness. Mildly decreased left ventricular ejection fraction. Right Ventricle Normal right ventricular size. Severe pulmonary hypertension. Right ventricular systolic pressure estimated at 68 mm hg. Right Atrium Normal right atrial size. Left Atrium Moderately increased left atrial diameter. Severely increased left atrial volume. Mildly increased left atrial area. Mitral Valve Mitral valve thickened. Mild mitral regurgitation. Aortic Valve Trileaflet aortic valve. Aortic valve sclerosis. Tricuspid Valve Structurally normal tricuspid valve. Moderate to severe tricuspid regurgitation. Pulmonic Valve Structurally normal pulmonic valve. Trace to mild pulmonic regurgitation. Pericardium No pericardial effusion. Aorta Normal size aortic root and proximal ascending aorta. CONCLUSIONS Mildly impaired LV function with EF between 45-50% Mitral annular calcifications and thickened mitral valve leaflets Aortic sclerosis Severe pulmonary hypertension with RVSP of 68 mmHg Dilated right ventricle Moderate to severe tricuspid regurgitation Previewed by: Dr. Mumtaz Haider MD (Electronically Signed) Final Date: 24 October 2023 15:40
--- NOTE | 2023-10-24 20:03 | P.PN ---
Subjective Progress Note Date: 10/24/23 Principal diagnosis: Reason for follow-up is UTI and concern for possible aspiration pneumonitis Patient is 83-year-old female with a past medical his significant for atrial fibrillation CVA TIA COPD hypertension hyperlipidemia history of recurrent UTIs the patient was brought into the hospital for evaluation of mental status changes and the patient was getting weaker unable to stand up the day of presentation to the hospital noticed to have positive UA for initial consult for possible UTI subsequently did have some vomiting and concern for aspiration. On today's evaluation that is 10/24/2023,the patient is afebrile today, patient is on 2 L nasal cannula supplemental oxygen however denies any shortness of breath no chest pain did have occasional dry cough.Patient denies having any nausea or vomiting, no abdominal pain and no diarrhea has been reported by the nursing staff. Patient white count is 8.4 creatinine is 1.31 urine is growing gram-negative bacilli chest x-ray with the patchy right lower lung opacity Objective - Vital Signs Vital signs: Vital Signs Temp 97.8 F 10/24/23 00:00 Pulse 72 10/24/23 09:46 Resp 16 10/24/23 09:46 BP 122/90 10/24/23 09:46 Pulse Ox 94 L 10/24/23 09:46 FiO2 Intake & Output 10/23/23 10/24/23 10/24/23 18:59 06:59 18:59 Intake Total 118 Output Total 1000 100 Balance 118 -1000 -100 Weight 81.5 kg Intake: Oral 118 Output: Urine 1000 100 Other: Voiding Method Diaper Diaper - Exam GENERAL DESCRIPTION: An elderly female lying in bed in no distress RESPIRATORY SYSTEM: Unlabored breathing , decreased breath sounds at bases HEART: S1 S2 regular rate and rhythm , ABDOMEN: Soft , no tenderness EXTREMITIES: Swelling to the leg but no redness Exam completed with the help of [facility] [facility]ORTER - Labs CBC & Chem 7: 10/24/23 06:40 10/24/23 06:40 Labs: Abnormal Lab Results - Last 24 Hours (Table) 10/23/23 10/23/23 10/23/23 Range/Units 11:32 11:32 15:03 RBC 3.21 L (4.10-5.20) X 10*6/uL Hgb 10.7 L (12.0-15.0) g/dL Hct 34.8 L (37.2-46.3) % MCV 108.4 H (80.0-97.0) FL MCH 33.3 H (27.0-32.0) pg MCHC 30.7 L (32.0-37.0) g/dL RDW 15.5 H (11.5-14.5) % Monocytes # 1.11 H (0.20-1.00) X 10*3/uL NRBC/100 WBC Diff 0.03 H (0.00-0.01) X 10*3/uL Macrocytosis Sodium 133 L (137-145) mmol/L Carbon Dioxide 12 L (22-30) mmol/L BUN 28 H (7-17) mg/dL Creatinine 1.36 H (0.52-1.04) mg/dL Est GFR (CKD-EPI) 35 L (>=60) Glucose 116 H (74-99) mg/dL 10/24/23 10/24/23 Range/Units 06:40 06:40 RBC 3.34 L (4.10-5.20) X 10*6/uL Hgb 11.3 L (12.0-15.0) g/dL Hct (37.2-46.3) % MCV 113.3 H D (80.0-97.0) FL MCH (27.0-32.0) pg MCHC 30.0 L (32.0-37.0) g/dL RDW (11.5-14.5) % Monocytes # (0.20-1.00) X 10*3/uL NRBC/100 WBC Diff (0.00-0.01) X 10*3/uL Macrocytosis Marked A Sodium 136 L (137-145) mmol/L Carbon Dioxide (22-30) mmol/L BUN 29 H (7-17) mg/dL Creatinine 1.31 H (0.52-1.04) mg/dL Est GFR (CKD-EPI) (>=60) Glucose 66 L (74-99) mg/dL Microbiology - Last 24 Hours (Table) 10/22/23 11:13 Urine Culture - Preliminary Urine,Voided Gram Neg Bacilli 10/22/23 15:00 Blood Culture - Preliminary Blood Assessment and Plan (1) Aspiration pneumonitis Current Visit: Yes Status: Acute Code(s): J69.0 - PNEUMONITIS DUE TO INHALATION OF FOOD AND VOMIT SNOMED Code(s): 377700973 (2) Urinary tract infection Current Visit: Yes Status: Acute Code(s): N39.0 - URINARY TRACT INFECTION, SITE NOT SPECIFIED SNOMED Code(s): 59046439 Plan: 1patient presented hospitalized weakness which is likely multifactorial in this patient who do have history of recurrent UTI some urinary symptoms positive UA likely component of urinary tract infection likely from UTI gram-negative pathogen patient subsequently did have an episode of vomiting and concern for possible aspiration 2-we are currently waiting for CRP and procalcitonin urine is growing gram- negative bacilli 3-I will discontinue Rocephin and start the patient on Unasyn while awaiting further workup to be completed Dictation was produced using [employer] dictation software. please excuse any grammatical, word or spelling errors. Time with Patient: Less than 30
--- NOTE | 2023-10-25 08:30 | PN ---
PROGRESS NOTE DATE OF SERVICE: 10/24/2023 SUBJECTIVE: This is an 83-year-old woman who was admitted with acute UTI, also had a CHF and multiple medical problems. The patient is also suspected to have right-sided pneumonia also. Chest x-ray reviewed, today had significant abnormalities on the right side. A chest CT was also done which confirmed acute bilateral lesions with small bilateral pleural effusion also. Multiple consultants are following the patient closely. PAST MEDICAL HISTORY: Reviewed. REVIEW OF SYSTEMS: A 14-point review of systems is negative except as mentioned earlier. CURRENT MEDICATIONS: Reviewed include Cordarone, doses and rest of medications noted. PHYSICAL EXAMINATION: VITAL SIGNS: Pulse is 118, blood pressure 130/89, respirations 16. CHEST: Few scattered rhonchi, no crackles. ABDOMEN: Soft. NERVOUS SYSTEM: Nonfocal. LABORATORY DATA: Hemoglobin 11.3, other labs are noted. ASSESSMENT: 1. Acute UTI, present on admission. 2. CHF acute exacerbation, acute on chronic systolic dysfunction, ejection fraction about 35%. 3. Rule out right-sided pneumonia. 4. Chronic obstructive pulmonary disease. 5. Weakness and change in mental status. 6. Possible atelectasis on the right side. 7. Acute metabolic encephalopathy. 8. History of CHF. 9. Atrial fibrillation. 10.DVT. 11.Hypertension. 12.Hyperlipidemia. 13.Multiple complex medical issues. RECOMMENDATIONS: Recommended to continue symptomatic treatment, otherwise I would recommend continue with the Unasyn. The patient is already on Eliquis. I would also recommend consultation with Dr. [place] for hypoxia and possible pneumonitis process and abnormal CAT scan. Overall prognosis is extremely guarded because of multiple complex medical issues. testing was also negative. Repeat labs and as mentioned, the urine culture showed gram-negative vastly. We will continue to monitor. Further recommendations to follow. MMODL / IJN: [id number] / MTDD
--- NOTE | 2023-10-25 11:45 | P.PN ---
Subjective Progress Note Date: 10/25/23 Principal diagnosis: Heart failure The patient is a pleasant 83-year-old female patient who is known to our service from before with a past medical history significant for coronary artery disease with prior stenting with unknown details as well as history of cardiomyopathy as well as diabetes and hypertension and dyslipidemia and chronic kidney disease and permanent atrial fibrillation. We consulted to see the patient for further evaluation of heart failure. The patient somewhat is a poor historian. She was brought from home with generalized weakness and fatigue and frequent falling with no loss of consciousness and also mild increasing in the shortness of breath but no pain in the chest and no dizziness or lightheadedness and no feeling of heart racing or fluttering and no presyncope or syncope. She was diagnosed with heart failure. She underwent further investigation including an EKG showing atrial fibrillation with diffuse nonspecific ST and T wave abnorma lities and she is known to have permanent atrial fibrillation maintaining on oral anticoagulation as well as amiodarone. Also she underwent an NT proBNP came in to be elevated at 8000. Chest x-ray showed pulmonary vascular congestions. The rest of the blood work came in to be unremarkable beside abnormal creatinine which is chronic. The patient was started on Lasix IV. She is still not feeling well. She is known to have also chronic hypoxic respiratory failure and she is on oxygen at 2 L. The examination revealed irregular rhythm with a distant heart sounds and a systolic murmur as well as bilateral rhonchi and mild bilateral lower extremities edema October 25, 2023 The patient was seen and evaluated this morning which she is feeling better. The shortness of breath has improved as well as the lower extremities edema. No pain in the chest at this point. She continues to be in atrial fibrillation with controlled heart rate. She is on oral anticoagulation which she underwent an echo which revealed mildly impaired LV function with EF around 45% with severe pulmonary hypertension and dilated right ventricle and tricuspid regurgitation. The examination revealed irregular rhythm with diminished breathing sounds bilaterally and mild bilateral lower extremities edema. Assessment Generalized weakness and fatigue and frequent falls Heart failure exacerbation secondary to heart failure with a preserved ejection fraction Atrial fibrillation which is permanent with controlled heart rate Chronic kidney disease which has been stable Multiple comorbid conditions including diabetes and hypertension and dyslipidemia Plan Continue the IV Lasix for additional 24 hours Continue the current dose of amiodarone and consider tapering the dose down Continue monitor the kidney function and electrolytes and hemoglobin Follow-up with the patient Objective - Vital Signs Vital signs: Vital Signs Temp 98.3 F 10/25/23 07:54 Pulse 93 10/25/23 11:29 Resp 16 10/25/23 11:29 BP 123/76 10/25/23 11:29 Pulse Ox 93 L 10/25/23 11:29 FiO2 Intake & Output 10/24/23 10/25/23 10/25/23 18:59 06:59 18:59 Output Total 775 800 Balance -775 -800 Weight 79 kg Output: Urine 775 800 Other: Voiding Method Diaper Diaper Diaper # Voids 3 - Labs CBC & Chem 7: 10/24/23 06:40 10/24/23 06:40 Labs: Microbiology - Last 24 Hours (Table) 10/22/23 11:13 Urine Culture - Final Urine,Voided Escherichia coli 10/22/23 15:00 Blood Culture - Preliminary Blood
[2023-10-25 12:23] LABS: Basophils % (A) 0 %; Eosinophils # (A) 0.1 k/uL (0-0.7); Eosinophils % (A) 2 %; HCT 35.2 % (34.0-46.0); HGB 10.9 gm/dL (11.4-16.0); Hypochromasia Slight; Lymphocytes # (A) 0.6 k/uL (1.0-4.8); Lymphocytes % (A) 8 %; MCV 109.4 fL (80.0-100.0); Macrocytosis Marked; Mean Platelet Volume 9.2; Monocytes # (A) 0.6 k/uL (0-1.0); Monocytes % (A) 8 %; Neutrophils # (A) 5.9 k/uL (1.3-7.7); Neutrophils % (A) 80 %; Platelet Count 191 k/uL (150-450); RBC 3.22 m/uL (3.80-5.40); RDW 15.4 % (11.5-15.5); WBC 7.4 k/uL (3.8-10.6)
[2023-10-25 12:35] LABS: ALT 509 U/L (4-34); AST 503 U/L (14-36); African American GFR (CKD) 49 (>60 ml/min/1.73 sqM); Alkaline Phosphatase 123 U/L (38-126); Anion Gap 4 mmol/L; Blood Urea Nitrogen 24 mg/dL (7-17); Calcium 8.9 mg/dL (8.4-10.2); Carbon Dioxide 32 mmol/L (22-30); Chloride 101 mmol/L (98-107); Glucose 126 mg/dL (74-99); Non-African American GFR(CKD) 43 (>60 ml/min/1.73 sqM); Potassium 3.2 mmol/L (3.5-5.1); Sodium 137 mmol/L (137-145); Total Bilirubin 0.7 mg/dL (0.2-1.3); Total Protein 5.8 g/dL (6.3-8.2)
[2023-10-25 12:37] LABS: Glucose,Whole Blood 138 mg/dL (70-110)
[2023-10-25 13:18] LABS: Glucose,Whole Blood 121 mg/dL (70-110)
[2023-10-25] MEDS ORDERED: Potassium Replacement Protocol 1 EACH MISC MISCELLANE PRN (14:03)
[2023-10-25] MEDS: POTASSIUM CHLORIDE ER 20 MEQ TAB.ER PO SCH (14:36)
--- NOTE | 2023-10-25 16:13 | P.PN ---
Subjective Progress Note Date: 10/25/23 Principal diagnosis: Acute exacerbation of congestive heart failure, acute urinary tract infection This is an 83-year-old female patient with a known history of atrial fibrillati on, congestive heart failure, chronic obstructive pulmonary disease, DVT, hyperlipidemia, hypertension, hypothyroidism, CVA/TIA and resides at a local shelter. She was brought in on 10/22/2023 with altered mental status and inability to stand. She was being treated for urinary tract infection. Chest x-ray revealed chronic changes without acute pulmonary process. CT scan of the brain revealed no acute intracranial process. CT scan of the chest revealed cardiomegaly, small bilateral pleural effusions and loculated pleural effusion in the right major fissure. Bibasilar infiltrates. Focal chronic interstitial changes of the right lower lobe. Carotid Doppler revealed no significant st enosis bilaterally. White count 8.4. Hemoglobin 11.3. Platelets 194. Sodium 136. Potassium 3.8. Bicarb 29. BUN 29. Creatinine 1.31. Glucose 66. proBNP 8740. Procalcitonin 0.08. Urine culture positive for gram-negative bacilli. Blood culture pending. She is seen today in consultation on the selective care unit. She is currently sitting up in a chair at the bedside. Awake and alert i n no acute distress. Maintaining good O2 saturations in the 90s on 2 L/min per nasal cannula. She is on albuterol and Symbicort. Initiated on IV Lasix. Anticoagulated with Eliquis. Patient was evaluated today on 10/25/2023, patient is doing well, asymptomatic, no cough no wheezing no shortness of breath, remains in atrial fibrillation with controlled heart rate. Her echocardiogram showed LV dysfunction with ejection fraction of 45% and she had severe pulmonary hypertension with tricuspid re gurgitation. Patient is responding well to diuretics, remains on antibiotics for her UTI, being followed by infectious disease on the case. CBC is relatively normal WC count 7.4 hemoglobin 10.9 basic metabolic profile is normal renal profile is improving creatinine down to 1.20 from 1.46 on admission Objective - Vital Signs Vital signs: Vital Signs Temp 97.9 F 10/25/23 13:19 Pulse 93 10/25/23 13:19 Resp 20 10/25/23 13:19 BP 108/70 10/25/23 13:19 Pulse Ox 92 L 10/25/23 13:19 FiO2 Intake & Output 04/20/24 04/21/24 04/21/24 18:59 06:59 18:59 Output Total 775 800 Balance -775 -800 Weight 79 kg Output: Urine 775 800 Other: Voiding Method Diaper Diaper Diaper # Voids 3 - Exam GENERAL EXAM: Alert, pleasant 83-year-old female, in no distress, pleasant HEAD: Normocephalic. EYES: Normal reaction of pupils, equal size. NOSE: Clear with pink turbinates. THROAT: No erythema or exudates. NECK: No masses, no JVD. CHEST: No chest wall deformity. LUNGS: Minimal crackles, no rhonchi no wheezes significantly improved compared to yesterday. CVS: Irregular irregular rhythm S1 and S2 normal over 6 systolic murmur throughout the precordium ABDOMEN: Obese soft nontender no megaly no rebound no guarding. SKIN: No rashes CENTRAL NERVOUS SYSTEM: No focal deficits, tone is normal in all 4 extremities. EXTREMITIES: Trace of bipedal edema no clubbing, no cyanosis. Peripheral pulses are intact. - Labs CBC & Chem 7: 10/25/23 11:55 10/25/23 11:55 Labs: Abnormal Lab Results - Last 24 Hours (Table) 10/25/23 10/25/23 10/25/23 Range/Units 11:55 11:55 12:36 RBC 3.22 L (3.80-5.40) m/uL Hgb 10.9 L (11.4-16.0) gm/dL MCV 109.4 H (80.0-100.0) fL Lymphocytes # 0.6 L (1.0-4.8) k/uL Macrocytosis Marked A Potassium 3.2 L (3.5-5.1) mmol/L Carbon Dioxide 32 H (22-30) mmol/L BUN 24 H (7-17) mg/dL Creatinine 1.20 H (0.52-1.04) mg/dL Glucose 126 H (74-99) mg/dL POC Glucose (mg/dL) 138 H (70-110) mg/dL AST 503 H (14-36) U/L ALT 509 H (4-34) U/L Total Protein 5.8 L (6.3-8.2) g/dL Albumin 3.0 L (3.5-5.0) g/dL 10/25/23 Range/Units 13:15 RBC (3.80-5.40) m/uL Hgb (11.4-16.0) gm/dL MCV (80.0-100.0) fL Lymphocytes # (1.0-4.8) k/uL Macrocytosis Potassium (3.5-5.1) mmol/L Carbon Dioxide (22-30) mmol/L BUN (7-17) mg/dL Creatinine (0.52-1.04) mg/dL Glucose (74-99) mg/dL POC Glucose (mg/dL) 121 H (70-110) mg/dL AST (14-36) U/L ALT (4-34) U/L Total Protein (6.3-8.2) g/dL Albumin (3.5-5.0) g/dL Microbiology - Last 24 Hours (Table) 10/22/23 11:13 Urine Culture - Final Urine,Voided Escherichia coli 10/22/23 15:00 Blood Culture - Preliminary Blood Assessment and Plan Assessment: Impression: Acute systolic congestive heart failure Acute urinary tract infection Chronic atrial fibrillation History of underlying coronary artery disease Chronic kidney disease Dyslipidemia Benign essential hypertension Type 2 diabetes Hypothyroidism [facility] resident Recommendation: Continue diuretics Continue bronchodilators Continue antibiotics as per ID on the case, cultures are pending Titrate FiO2 accordingly Will continue to follow with other consultants including cardiology and infecti ous disease. Time with Patient: Less than 30
[2023-10-25 17:09] LABS: Glucose,Whole Blood 103 mg/dL (70-110)
[2023-10-25 20:10] LABS: Glucose,Whole Blood 138 mg/dL (70-110)
[2023-10-25] MEDS: AMPICILLIN-SULBACTAM 3 GM in SODIUM CHLORIDE 0.9% 100 ML IVPB SCH (20:52)
--- NOTE | 2023-10-25 23:06 | PN ---
PROGRESS NOTE DATE OF SERVICE: 10/25/2023 SUBJECTIVE: This 83-year-old woman was admitted with UTI, also had CHF and hypokalemia at this time. The patient is also mildly confused. The patient is started on IV diuretics. The chest x-ray showed some improvement. PAST MEDICAL HISTORY: Reviewed. REVIEW OF SYSTEMS: A 14-point review is negative except as mentioned. CURRENT MEDICATIONS: Reviewed include Unasyn, rest of medications also noted. The patient is on Lasix. PHYSICAL EXAMINATION: VITAL SIGNS: Pulse is 93, blood pressure 190/70, respirations 20. HEENT: Conjunctivae normal. NECK: No jugular venous distention. CARDIOVASCULAR: S1, S2. RESPIRATIONS: Diminished at the bases, few scattered rhonchi and crackles. ABDOMEN: Soft, nontender. LABORATORY DATA: Potassium 3.2. AST, ALT noted. ASSESSMENT: 1. Acute UTI present on admission. 2. CHF acute exacerbation, acute on chronic systolic dysfunction, ejection fraction about 35%. 3. Rule out right-sided pneumonia. 4. Chronic obstructive pulmonary disease. 5. Weakness and change in mental status. 6. Hypokalemia. 7. Possible atelectasis on the right side. 8. Acute metabolic encephalopathy. 9. History of CHF. 10.History of atrial fibrillation. 11.DVT. 12.Hypertension. 13.Hyperlipidemia. 14.Multiple complex medical issues. RECOMMENDATIONS: Recommended to continue current management, continue symptomatic treatment, continue diuretics. Monitor creatinine closely which is stable but replace potassium. Repeat labs. The patient is on IV Unasyn. Closely follow with multiple consultants. Prognosis guarded. Further recommendations to follow. MMODL / IJN: [id number] /
[2023-10-26 07:06] LABS: Glucose,Whole Blood 112 mg/dL (70-110)
[2023-10-26 11:16] LABS: Basophils # (A) 0.03 X 10*3/uL (0.00-0.10); Basophils % (A) 0.4 %; Eosinophils # (A) 0.13 X 10*3/uL (0.04-0.35); Eosinophils % (A) 1.6 %; HCT 39.8 % (37.2-46.3); HGB 12.1 g/dL (12.0-15.0); Lymphocytes # (A) 0.73 X 10*3/uL (0.90-5.00); Lymphocytes % (A) 9.2 %; MCH 33.9 pg (27.0-32.0); MCHC 30.4 g/dL (32.0-37.0); MCV 111.5 FL (80.0-97.0); Mean Platelet Volume 11.1 FL (9.5-12.2); Monocytes # (A) 1.15 X 10*3/uL (0.20-1.00); Monocytes % (A) 14.5 %; NRBC Per 100 WBC 0 X 10*3/uL (0.00-0.01); Neutrophils # (A) 5.83 X 10*3/uL (1.80-7.70); Neutrophils % (A) 73.8 %; Platelet Count 206 X 10*3/uL (140-440); RBC 3.57 X 10*6/uL (4.10-5.20); RDW 16.5 % (11.5-14.5); WBC 7.91 X 10*3/uL (4.50-10.00)
--- NOTE | 2023-10-26 11:18 | P.PN ---
Subjective HISTORY OF PRESENT ILLNESS: The patient is a pleasant 83-year-old female patient who is known to our service from before with a past medical history significant for coronary artery disease with prior stenting with unknown details as well as history of cardiomyopathy as well as diabetes and hypertension and dyslipidemia and chronic kidney disease and permanent atrial fibrillation. We consulted to see the patient for further evaluation of heart failure. The patient somewhat is a poor historian. She was brought from home with generalized weakness and fatigue and frequent falling with no loss of consciousness and also mild increasing in the shortness of breath but no pain in the chest and no dizziness or lightheadedness and no feeling of heart racing or fluttering and no presyncope or syncope. She was diagnosed with heart failure. She underwent further investigation including an EKG showing atrial fibrillation with diffuse nonspecific ST and T wave abnormalities and she is known to have permanent atrial fibrillation maintaining on oral anticoagulation as well as amiodarone. Also she underwent an NT proBNP came in to be elevated at 8000. Chest x-ray showed pulmonary vascular congestions. The rest of the blood work came in to be unremarkable beside abnormal creatinine which is chronic. The patient was started on Lasix IV. She is still not feeling well. She is known to have also chronic hypoxic respiratory failure and she is on oxygen at 2 L. The examination revealed irregular rhythm with a distant heart sounds and a systolic murmur as well as bilateral rhonchi and mild bilateral lower extremities edema October 25, 2023 The patient was seen and evaluated this morning which she is feeling better. The shortness of breath has improved as well as the lower extremities edema. No pain in the chest at this point. She continues to be in atrial fibrillation with controlled heart rate. She is on oral anticoagulation which she underwent an echo which revealed mildly impaired LV function with EF around 45% with se panda pulmonary hypertension and dilated right ventricle and tricuspid regurgitation. The examination revealed irregular rhythm with diminished breathing sounds bilaterally and mild bilateral lower extremities edema. October 26, 2023 Patient examined this morning at the bedside. Patient denies chest pain or pressure. She denies shortness of breath. Vital signs are stable. PHYSICAL EXAM: VITAL SIGNS: Reviewed. GENERAL: Well-developed in no acute distress. NECK: Supple. No JVD or thyromegaly LUNGS: Respirations even and unlabored. Lungs essentially clear to auscultation bilaterally. HEART: Irregular rate and rhythm. S1 and S2 heard. EXTREMITIES: Normal range of motion. No clubbing or cyanosis. Peripheral pulses intact. No lower extremity edema ASSESSMENT: Generalized weakness and fatigue and frequent falls Heart failure exacerbation secondary to heart failure with a preserved ejection fraction Atrial fibrillation which is permanent with controlled heart rate Chronic kidney disease which has been stable Multiple comorbid conditions including diabetes and hypertension and dysl ipidemia PLAN: Decrease amiodarone to 100 mg daily Discontinue IV Lasix. Begin oral Lasix 40 mg twice a day Continue additional cardiac medications Patient is stable for discharge from a cardiac standpoint We will sign off. Please reconsult if needed. Nurse practitioner note has been reviewed by physician. Signing provider agrees with the documented findings, assessment, and plan of care documented by PROCESS EQUIPMENT OPERATOR as a scribe. Objective - Vital Signs Vital signs: Vital Signs Temp 98.7 F 10/26/23 07:00 Pulse 111 H 10/26/23 07:00 Resp 16 10/26/23 07:00 BP 120/84 10/26/23 07:00 Pulse Ox 97 10/26/23 08:13 FiO2 Intake & Output 10/25/23 10/26/23 10/26/23 18:59 06:59 18:59 Output Total 1000 Balance -1000 Weight 77.5 kg Output: Urine 1000 Other: Voiding Method Diaper Diaper Diaper External Catheter External Catheter # Bowel Movements 1 - Labs CBC & Chem 7: 10/26/23 07:01 10/25/23 18:10 Labs: Abnormal Lab Results - Last 24 Hours (Table) 10/25/23 10/25/23 10/25/23 Range/Units 11:55 11:55 12:36 RBC 3.22 L (3.80-5.40) m/uL Hgb 10.9 L (11.4-16.0) gm/dL MCV 109.4 H (80.0-100.0) fL MCH (27.0-32.0) pg MCHC (32.0-37.0) g/dL RDW (11.5-14.5) % Lymphocytes # 0.6 L (1.0-4.8) k/uL Monocytes # (0.20-1.00) X 10*3/uL Macrocytosis Marked A Potassium 3.2 L (3.5-5.1) mmol/L Carbon Dioxide 32 H (22-30) mmol/L BUN 24 H (7-17) mg/dL Creatinine 1.20 H (0.52-1.04) mg/dL Glucose 126 H (74-99) mg/dL POC Glucose (mg/dL) 138 H (70-110) mg/dL AST 503 H (14-36) U/L ALT 509 H (4-34) U/L Total Protein 5.8 L (6.3-8.2) g/dL Albumin 3.0 L (3.5-5.0) g/dL 10/25/23 10/25/23 10/26/23 Range/Units 13:15 20:07 07:01 RBC 3.57 L (3.80-5.40) m/uL Hgb (11.4-16.0) gm/dL MCV 111.5 H (80.0-100.0) fL MCH 33.9 H (27.0-32.0) pg MCHC 30.4 L (32.0-37.0) g/dL RDW 16.5 H (11.5-14.5) % Lymphocytes # 0.73 L (1.0-4.8) k/uL Monocytes # 1.15 H (0.20-1.00) X 10*3/uL Macrocytosis Potassium (3.5-5.1) mmol/L Carbon Dioxide (22-30) mmol/L BUN (7-17) mg/dL Creatinine (0.52-1.04) mg/dL Glucose (74-99) mg/dL POC Glucose (mg/dL) 121 H 138 H (70-110) mg/dL AST (14-36) U/L ALT (4-34) U/L Total Protein (6.3-8.2) g/dL Albumin (3.5-5.0) g/dL 10/26/23 Range/Units 07:05 RBC (3.80-5.40) m/uL Hgb (11.4-16.0) gm/dL MCV (80.0-100.0) fL MCH (27.0-32.0) pg MCHC (32.0-37.0) g/dL RDW (11.5-14.5) % Lymphocytes # (1.0-4.8) k/uL Monocytes # (0.20-1.00) X 10*3/uL Macrocytosis Potassium (3.5-5.1) mmol/L Carbon Dioxide (22-30) mmol/L BUN (7-17) mg/dL Creatinine (0.52-1.04) mg/dL Glucose (74-99) mg/dL POC Glucose (mg/dL) 112 H (70-110) mg/dL AST (14-36) U/L ALT (4-34) U/L Total Protein (6.3-8.2) g/dL Albumin (3.5-5.0) g/dL Microbiology - Last 24 Hours (Table) 10/22/23 15:00 Blood Culture - Preliminary Blood
[2023-10-26 11:54] LABS: ALT 479 U/L (8-44); AST 332 U/L (13-35); Albumin 3.4 g/dL (3.8-4.9); Albumin/Globulin Ratio 1.26 Ratio (1.60-3.17); Alkaline Phosphatase 143 U/L (41-126); BUN/Creat Ratio 13.93 Ratio (12.00-20.00); Blood Urea Nitrogen 20.9 mg/dL (9.0-27.0); Calcium 9.3 mg/dL (8.7-10.3); Chloride 99 mmol/L (96-109); Globulin 2.7 g/dL (1.6-3.3); Glucose 107 mg/dL (70-110); Potassium 4.1 mmol/L (3.5-5.5); Sodium 143 mmol/L (135-145); Total Bilirubin 0.5 mg/dL (0.3-1.2); Total Protein 6.1 g/dL (6.2-8.2)
[2023-10-26 12:17] LABS: Glucose,Whole Blood 184 mg/dL (70-110)
--- NOTE | 2023-10-26 13:00 | FL ---
EXAMINATION TYPE: FL barium swallow w video DATE OF EXAM: 10/26/2023 CLINICAL HISTORY: 83-year-old female rule out aspiration, Dysphagia. TECHNIQUE: Deglutition study is performed utilizing thin liquid barium, honey and nectar thick liqui d barium, barium thick applesauce, and barium coated cracker. COMPARISON: None. Total fluoroscopy time 57 seconds. Total images: None. Real-time fluoroscopy support was provided to speech pathology. Total DAP: 10 mGycm2. FINDINGS: The oral and pharyngeal phases show satisfactory initiation and propagation with all modalities teste d. 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 However, no significant residuals remaining. The patient is edentulous. No penetration or aspiration seen. IMPRESSION: 1. Prominent CP bar narrowing the cervical esophagus. 2. Otherwise, no penetration or aspiration. Please refer to speech therapist notes for further details if necessary.
--- NOTE | 2023-10-26 14:14 | P.PN ---
Subjective Progress Note Date: 10/26/23 This is a pleasant 83-year-old female who was recently admitted with acute confusion altered mental status with concerns of urinary tract infection, present on admission. Patient also noted to have CHF acute exacerbation with electrolyte abnormalities. Patient had a brief episode of choking while taking sips of water and was made n.p.o. to be evaluated by speech today. Patient undergo modified barium swallow study and will await recommendations per speech. Patient chronically wears oxygen outpatient and is currently maintained on 2 L. Patient has been progressively becoming more weak with reports of falling and family is concerned of taking care of her. Recommend rehab and awaiting PT/OT t herapy notes and at the bedside is agreeable. Patient was on IV Lasix and will transition to oral Lasix per cardiology and recommend to continue with current medications with no further recommendations at this time. Patient will follow-up with cardiology outpatient. Awaiting PT/OT therapy notes and discussing with case management regarding discharge planning as patient will likely need ECF. Review of systems: Constitutional: No reports of fatigue, fever, or chills Cardiovascular: No reports of chest pain or palpitations Respiratory: No reports of worsening shortness of breath or cough GI: No reports of nausea, no reports of vomiting, no reports of abdominal pain or difficulty with food. : No reports of dysuria or retention Neurovascular: reports of generalized weakness All medications have been reviewed PHYSICAL EXAMINATION: GENERAL: The patient is alert and oriented x2-3, Well developed, well nourished. Elderly appearing, obese HEENT: Pupils are round and equally reacting to light. EOMI. no scleral icterus. No conjunctival pallor. Normocephalic, atraumatic. No pharyngeal erythema. No thyromegaly. CARDIOVASCULAR: S1 and S2 muffled PULMONARY: diminished breath sounds bilaterally with no wheezing or rhonchi noted. ABDOMEN: soft. Nontender on exam. obese. non-distended, normoactive bowel sounds. No palpable organomegaly. MUSCULOSKELETAL: No joint swelling or deformity. EXTREMITIES: No cyanosis, clubbing, or pedal edema. NEUROLOGICAL: Gross neurological examination did not reveal any focal deficits. Diffuse weakness SKIN: No rashes. Assessment: Acute urinary tract infection, present on admission with cultures growing E. coli Acute on chronic congestive heart failure exacerbation with systolic dysfunction, EF is 35% Acute on chronic hypoxic respiratory failure secondary to above Weakness and change in mental status, possibly secondary to acute urinary tract infection, improving Hypokalemia, replaced Atelectasis on the right side on imaging Acute metabolic encephalopathy, likely secondary to urinary tract infection, improved History of atrial fibrillation Diabetes mellitus, type II Chronic kidney disease DVT history Hypertension Hyperlipidemia Obesity with a BMI of 32.3 GI prophylaxis DVT prophylaxis Full code Plan: Recommend to continue with current medications and management with multiple medical consultations following. Cardiology has evaluated the patient and was maintained on IV Lasix and is transitioning to oral Lasix Infectious disease following and urine culture finalized showing E. coli with blood cultures negative will continue antibiotics for now and discussed with infectious disease regarding discharge planning Awaiting speech evaluation as patient had an episode of choking while taking sips of water, continue with aspiration precautions and head of the bed elevated 30 to 45 degrees at all times and await speech recommendations regarding diet Awaiting PT/OT therapy evaluation. Patient is significantly weak and has been progressively becoming more weak at home per family and following would benefit from ECF for continued strength and mobility. Case management following working with family regarding discharge planning Continue breathing inhalational treatments and pulmonary following Due to multiple complex medical issues, prognosis is guarded The impression and plan of care has been dictated by Hannah Hyman, nurse practitioner as directed. Dr. Prateek MD I have performed a history and examination and MDM of this patient, discussed the same with the dictator, and agree with the dictator's assessment and plan as written ,documented as a scribe. Based on total visit time, I have performed more than 50% of the visit. Any additional findings or plans will be noted. Objective - Vital Signs Vital signs: Vital Signs Temp 98.7 F 10/26/23 07:00 Pulse 111 H 10/26/23 07:00 Resp 16 10/26/23 07:00 BP 120/84 10/26/23 07:00 Pulse Ox 97 10/26/23 08:13 FiO2 Intake & Output 10/25/23 10/26/23 10/26/23 18:59 06:59 18:59 Output Total 1000 Balance -1000 Output: Urine 1000 Other: Voiding Method Diaper Diaper External Catheter - Labs CBC & Chem 7: 10/26/23 07:01 10/26/23 07:01 Labs: Abnormal Lab Results - Last 24 Hours (Table) 10/25/23 10/25/2324 Range/Units 11:55 11:55 12:36 RBC 3.22 L (3.80-5.40) m/uL Hgb 10.9 L (11.4-16.0) gm/dL MCV 109.4 H (80.0-100.0) fL Lymphocytes # 0.6 L (1.0-4.8) k/uL Macrocytosis Marked A Potassium 3.2 L (3.5-5.1) mmol/L Carbon Dioxide 32 H (22-30) mmol/L BUN 24 H (7-17) mg/dL Creatinine 1.20 H (0.52-1.04) mg/dL Glucose 126 H (74-99) mg/dL POC Glucose (mg/dL) 138 H (70-110) mg/dL AST 503 H (14-36) U/L ALT 509 H (4-34) U/L Total Protein 5.8 L (6.3-8.2) g/dL Albumin 3.0 L (3.5-5.0) g/dL 10/25/23 10/25/23 10/26/23 Range/Units 13:15 20:07 07:05 RBC (3.80-5.40) m/uL Hgb (11.4-16.0) gm/dL MCV (80.0-100.0) fL Lymphocytes # (1.0-4.8) k/uL Macrocytosis Potassium (3.5-5.1) mmol/L Carbon Dioxide (22-30) mmol/L BUN (7-17) mg/dL Creatinine (0.52-1.04) mg/dL Glucose (74-99) mg/dL POC Glucose (mg/dL) 121 H 138 H 112 H (70-110) mg/dL AST (14-36) U/L ALT (4-34) U/L Total Protein (6.3-8.2) g/dL Albumin (3.5-5.0) g/dL Microbiology - Last 24 Hours (Table) 10/22/23 15:00 Blood Culture - Preliminary Blood 10/22/23 11:13 Urine Culture - Final Urine,Voided Escherichia coli
[2023-10-26] MEDS: FUROSEMIDE 40 MG TAB PO SCH (15:52)
[2023-10-27 07:01] LABS: Glucose,Whole Blood 111 mg/dL (70-110)
[2023-10-27] MEDS: AMIODARONE 100 MG TAB PO SCH (08:39)
--- NOTE | 2023-10-27 10:52 | CDI ---
Documentation Clarification Form Date: 10/27/2023 09:56:47 AM From: Toma Tobin RN, CCDS Phone: [phone] Admit Date: 10/23/2023 01:46:00 PM Patient Name: Denise Kumar Visit Number: [id number] Discharge Date: ATTENTION: The Clinical Documentation Specialists (CDI) and [facility] Coding Staff appreciate your assistance in clarifying documentation. Please respond to the clarification below the line at the bottom and electronically sign. The CDI & [facility] Coding staff will review the response and follow-up if needed. Please note: Queries are made part of the Legal Health Record. If you have any questions, please contact the author of this message via ITS. Dr. Teresita Martinez Conflicting documentation has been found in the medical record. As attending physician, please provide clarification. 10/25 Attending progress notes: Acute on chronic congestive heart failure exacerbation with systolic dysfunction, EF is 35% 10/24 Cardiology progress note: Heart failure exacerbation secondary to heart failure with a preserved ejection fraction 10/23 ECHO: Left ventricular ejection fraction is estimated at 45-50%. Mildly increased septal wall thickness. Mildly increased posterior wall thickness. Severe pulmonary hypertension with RVSP of 68 mmHg Dilated right ventricle Moderate to severe tricuspid regurgitation History/Risk Factors: Atrial Fibrillation, Heart Failure, COPD, CVA/TIA, Deep Vein Thrombosis (DVT), GERD/Reflux, Hyperlipidemia, Hypertension, Former smoker Clinical Indicators: 83-year-old female presents with UTI, altered mental status. She was ruled in for CHF. 10/22 139/90 115 18 97 % 3/l NC 10/22 Labs: BNP 8740 Treatment: Admissions Assistant/Telemetry Lopressor 200MG PO BID 10/21-10/26 Lasix 40MG IV Q 12 10/22-10/25 Lasix 40 MG PO BID @ 0900, 1600 10/25-10/26 Please clarify which diagnosis is most appropriate: [x ] Heart failure exacerbation secondary to heart failure with a preserved ejection fraction [ ] Acute on chronic congestive heart failure exacerbation with systolic dysfunction, EF is 35% [ ] Other (please specify) [ ] Unable to determine (Template Last Revised: September 2020) MTDD
[2023-10-27 12:21] LABS: Glucose,Whole Blood 115 mg/dL (70-110)
--- NOTE | 2023-10-27 13:08 | XR ---
EXAMINATION TYPE: XR chest 1V portable DATE OF EXAM: 10/27/2023 Comparison: 10/24/2023 Clinical History: 83-year-old female shortness of breath Findings: Heart mildly enlarged. Diffuse interstitial density. Some patchy right lower lung opacity. Left basil ar underpenetrated and not well assessed. Impression: 1. Mild cardiomegaly and interstitial opacities persist. Consider CHF with pulmonary vascular congest ion. 2. Additional patchy right lower lung opacity persists. Either patchy pulmonary edema versus infiltra te.
[2023-10-27] MEDS: guaiFENesin SYRUP 100MG/5ML 200 MG/10 ML CUP PO PRN (13:09)
--- NOTE | 2023-10-27 13:28 | P.PN ---
Subjective Progress Note Date: 10/25/23 Principal diagnosis: Reason for follow-up is UTI and concern for possible aspiration pneumonitis Patient is 83-year-old female with a past medical history significant for atrial fibrillation CVA TIA COPD hypertension hyperlipidemia history of recurrent UTIs the patient was brought into the hospital for evaluation of mental status changes and the patient was getting weaker unable to stand up the day of presentation to the hospital noticed to have positive UA for initial consult for possible UTI subsequently did have some vomiting and concern for aspiration. On today's evaluation that is 10/25/2023, the patient continues to be afebrile, the patient is on 2 L nasal cannula oxygen and breathing comfortably, the Pt denies having any chest pain patient did have a cough but not bring up any sputum, the patient denies having any abdominal pain no vomiting or any diarrhea has been reported by the nursing staff. Patient white count is 7.4, creatinine 1.20 urine is growing gram-negative blood cultures pending Objective - Vital Signs Vital signs: Vital Signs Temp 98.3 F 10/25/23 07:54 Pulse 105 H 10/25/23 07:54 Resp 16 10/25/23 07:55 BP 146/95 10/25/23 07:54 Pulse Ox 96 10/25/23 07:54 FiO2 Intake & Output 10/24/23 10/25/23 10/25/23 18:59 06:59 18:59 Output Total 775 800 Balance -775 -800 Weight 79 kg Output: Urine 775 800 Other: Voiding Method Diaper Diaper Diaper # Voids 3 - Exam GENERAL DESCRIPTION: An elderly female lying in bed in no distress RESPIRATORY SYSTEM: Unlabored breathing , decreased breath sounds at bases HEART: S1 S2 regular rate and rhythm , ABDOMEN: Soft , no tenderness EXTREMITIES: Swelling to the leg but no redness Exam completed with the help of SYBASE DEVELOPER - Labs CBC & Chem 7: 10/26/23 07:01 10/26/23 07:01 Labs: Microbiology - Last 24 Hours (Table) 10/22/23 11:13 Urine Culture - Final Urine,Voided Escherichia coli 10/22/23 15:00 Blood Culture - Preliminary Blood Assessment and Plan (1) Aspiration pneumonitis Current Visit: Yes Status: Acute Code(s): J69.0 - PNEUMONITIS DUE TO INHALATION OF FOOD AND VOMIT SNOMED Code(s): 914475069 (2) Urinary tract infection Current Visit: Yes Status: Acute Code(s): N39.0 - URINARY TRACT INFECTION, S ITE NOT SPECIFIED SNOMED Code(s): 87226802 Plan: 1patient presented hospitalized weakness which is likely multifactorial in this patient who do have history of recurrent UTI some urinary symptoms positive UA likely component of urinary tract infection likely from UTI gram-negative pathogen patient subsequently did have an episode of vomiting and concern for possible aspiration 2-patient urine is growing gram-negative bacilli 3-patient to continue with Unasyn await culture and swallow evaluation Dictation was produced using [employer] dictation software. please excuse any grammatical, word or spelling errors. Time with Patient: Less than 30
--- NOTE | 2023-10-27 13:29 | P.PN ---
Subjective Progress Note Date: 10/26/23 Principal diagnosis: Reason for follow-up is UTI and concern for possible aspiration pneumonitis Patient is 83-year-old female with a past medical history significant for atrial fibrillation CVA TIA COPD hypertension hyperlipidemia history of recurrent UTIs the patient was brought into the hospital for evaluation of mental status changes and the patient was getting weaker unable to stand up the day of presentation to the hospital noticed to have positive UA for initial consult for possible UTI subsequently did have some vomiting and concern for aspiration. On today's evaluation that is 10/26/2023, Patient is afebrile patient is currently on 2 L nasal cannula oxygen and denies having any shortness of breath, the patient denies any chest pain patient denies any worsening cough, the patient denies any nausea vomiting did not have any abdominal pain and no diar juanis. Patient white count is 7.91, creatinine is 1.5 urine grew E. coli sensitive pathogen blood cultures pending, patient did have a swallow test no penetration or aspiration Objective - Vital Signs Vital signs: Vital Signs Temp 98.9 F 10/26/23 19:23 Pulse 111 H 10/26/23 19:49 Resp 18 10/26/23 19:49 BP 134/95 10/26/23 19:23 Pulse Ox 94 L 10/26/23 19:23 FiO2 Intake & Output 10/26/23 10/26/23 10/27/23 06:59 18:59 06:59 Intake Total 100 120 Output Total 1000 400 Balance -1000 -300 120 Weight 77.5 kg Intake: Intake, IV Titration 100 Amount Ampicillin-Sulbactam 3 gm 100 In Sodium Chloride 0.9% 100 ml @ 200 mls/hr IVPB Q12HR [facility] Rx#:[id number] Oral 120 Output: Urine 1000 400 Other: Voiding Method Diaper Diaper Diaper External Catheter External Catheter External Catheter # Bowel Movements 1 - Exam GENERAL DESCRIPTION: An elderly female lying in bed in no distress RESPIRATORY SYSTEM: Unlabored breathing , decreased breath sounds at bases HEART: S1 S2 regular rate and rhythm , ABDOMEN: Soft , no tenderness EXTREMITIES: Swelling to the leg but no redness - Labs CBC & Chem 7: 10/26/23 07:01 10/26/23 07:01 Labs: Abnormal Lab Results - Last 24 Hours (Table) 10/26/23 10/26/23 10/26/23 Range/Units 07:01 07:01 07:05 RBC 3.57 L (4.10-5.20) X 10*6/uL MCV 111.5 H (80.0-97.0) FL MCH 33.9 H (27.0-32.0) pg MCHC 30.4 L (32.0-37.0) g/dL RDW 16.5 H (11.5-14.5) % Lymphocytes # 0.73 L (0.90-5.00) X 10*3/uL Monocytes # 1.15 H (0.20-1.00) X 10*3/uL Anion Gap 15.00 H (4.00-12.00) mmol/L Est GFR (CKD-EPI) 35 L (>=60) POC Glucose (mg/dL) 112 H (70-110) mg/dL AST 332 H (13-35) U/L ALT 479 H (8-44) U/L Alkaline Phosphatase 143 H (41-126) U/L Total Protein 6.1 L (6.2-8.2) g/dL Albumin 3.4 L (3.8-4.9) g/dL Albumin/Globulin Ratio 1.26 L (1.60-3.17) Ratio 10/26/23 Range/Units 11:56 RBC (4.10-5.20) X 10*6/uL MCV (80.0-97.0) FL MCH (27.0-32.0) pg MCHC (32.0-37.0) g/dL RDW (11.5-14.5) % Lymphocytes # (0.90-5.00) X 10*3/uL Monocytes # (0.20-1.00) X 10*3/uL Anion Gap (4.00-12.00) mmol/L Est GFR (CKD-EPI) (>=60) POC Glucose (mg/dL) 184 H (70-110) mg/dL AST (13-35) U/L ALT (8-44) U/L Alkaline Phosphatase (41-126) U/L Total Protein (6.2-8.2) g/dL Albumin (3.8-4.9) g/dL Albumin/Globulin Ratio (1.60-3.17) Ratio Microbiology - Last 24 Hours (Table) 10/22/23 15:00 Blood Culture - Preliminary Blood Assessment and Plan (1) Aspiration pneumonitis Current Visit: Yes Status: Acute Code(s): J69.0 - PNEUMONITIS DUE TO INHALATION OF FOOD AND VOMIT SNOMED Code(s): 644878834 (2) Urinary tract infection Current Visit: Yes Status: Acute Code(s): N39.0 - URINARY TRACT INFECTION, SITE NOT SPECIFIED SNOMED Code(s): 09361778 Plan: 1patient presented hospitalized weakness which is likely multifactorial in this patient who do have history of recurrent UTI some urinary symptoms positive UA likely component of urinary tract infection likely from UTI gram-negative pat светлана patient subsequently did have an episode of vomiting and concern for possible aspiration 2-patient urine is growing E. coli that is a sensitive pathogen swallow evaluation did not show any evidence of aspiration 3-patient to continue with Unasyn await culture monitor clinical course closely Dictation was produced using [employer] dictation software. please excuse any grammatical, word or spelling errors. Time with Patient: Less than 30
--- NOTE | 2023-10-27 13:30 | P.PN ---
Subjective Progress Note Date: 10/27/23 Principal diagnosis: Reason for follow-up is UTI and concern for possible aspiration pneumonitis Patient is 83-year-old female with a past medical history significant for atrial fibrillation CVA TIA COPD hypertension hyperlipidemia history of recurrent UTIs the patient was brought into the hospital for evaluation of mental status changes and the patient was getting weaker unable to stand up the day of presentation to the hospital noticed to have positive UA for initial consult for possible UTI subsequently did have some vomiting and concern for aspiration. On today's evaluation that is 10/27/2023, patient has been afebrile, patient is breathing comfortably and is currently on 2 L nasal cannula oxygen, patient mention did have a deep cough but unable to bring up any sputum no chest pain shortness of breath, patient denies nausea vomiting or diarrhea and no abdominal pain. No new labs were obtained today chest x-ray CHF pulmonary vascular congestion right lower lung opacity persist Objective - Vital Signs Vital signs: Vital Signs Temp 98.6 F 10/27/23 12:21 Pulse 121 H 10/27/23 12:21 Resp 17 10/27/23 12:21 BP 136/89 10/27/23 12:21 Pulse Ox 92 L 10/27/23 12:21 FiO2 Intake & Output 10/26/23 10/27/23 10/27/23 18:59 06:59 18:59 Intake Total 100 120 Output Total 400 400 Balance -300 -280 Weight 77.5 kg 80.5 kg Intake: Intake, IV Titration 100 Amount Ampicillin-Sulbactam 3 gm 100 In Sodium Chloride 0.9% 100 ml @ 200 mls/hr IVPB Q12HR [facility] Rx#:[id number] Oral 120 Output: Urine 400 400 Other: Voiding Method Diaper Diaper External Catheter External Catheter # Bowel Movements 1 2 - Exam GENERAL DESCRIPTION: An elderly female lying in bed in no distress RESPIRATORY SYSTEM: Unlabored breathing , decreased breath sounds at bases HEART: S1 S2 regular rate and rhythm , ABDOMEN: Soft , no tenderness EXTREMITIES: Swelling to the leg but no redness - Labs CBC & Chem 7: 10/26/23 07:01 10/26/23 07:01 Labs: Abnormal Lab Results - Last 24 Hours (Table) 10/27/23 10/27/23 Range/Units 07:00 12:19 POC Glucose (mg/dL) 111 H 115 H (70-110) mg/dL Assessment and Plan (1) Aspiration pneumonitis Current Visit: Yes Status: Acute Code(s): J69.0 - PNEUMONITIS DUE TO INHALATION OF FOOD AND VOMIT SNOMED Code(s): 793092072 (2) Urinary tract infection Current Visit: Yes Status: Acute Code(s): N39.0 - URINARY TRACT INFECTION, SITE NOT SPECIFIED SNOMED Code(s): 73824161 Plan: 1patient presented hospitalized weakness which is likely multifactorial in this patient who do have history of recurrent UTI some urinary symptoms positive UA likely component of urinary tract infection likely from UTI gram-negative pathogen patient subsequently did have an episode of vomiting and concern for possible aspiration 2-patient urine is growing E. coli that is a sensitive pathogen swallow evaluation did not show any evidence of aspiration 3-patient has shown clinical improvement with the Unasyn to continue while inpatient finishing therapy with oral Augmentin x 7 days on discharge question concern answered Dictation was produced using [employer] dictation software. please excuse any grammatical, word or spelling errors. Time with Patient: Less than 30
[2023-10-27] MEDS: FUROSEMIDE 10 MG/ML 2 ML VIAL IV ONE (14:04)
[2023-10-27 16:26] LABS: Glucose,Whole Blood 120 mg/dL (70-110)
--- NOTE | 2023-10-27 16:47 | P.PN ---
Subjective Progress Note Date: 10/27/23 I am seeing the patient for the first time during this admission. Please refer to Dr. Sanchez's note for further details. The son is at bedside and he stated the patient presented because of UTI. 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 She was working with therapy today and per nurse was awake but currently per nurse is unresponsive. Per the son she is sleeping. Per the son, she has hx of TIA but no hx of seizures. Objective - Vital Signs Vital signs: Vital Signs Temp 98.6 F 10/27/23 12:21 Pulse 117 H 10/27/23 16:20 Resp 18 10/27/23 16:20 BP 128/83 10/27/23 16:20 Pulse Ox 97 10/27/23 16:20 FiO2 Intake & Output 10/26/23 10/27/23 10/27/23 18:59 06:59 18:59 Intake Total 100 120 Output Total 400 400 Balance -300 -280 Weight 77.5 kg 80.5 kg Intake: Intake, IV Titration 100 Amount Ampicillin-Sulbactam 3 gm 100 In Sodium Chloride 0.9% 100 ml @ 200 mls/hr IVPB Q12HR [facility] Rx#:[id number] Oral 120 Output: Urine 400 400 Other: Voiding Method Diaper Diaper Diaper External Catheter External Catheter External Catheter # Bowel Movements 1 2 - Exam General: Lying in bed and does not appear in acute distress. Neuro: Very Limited. She is severely drowsy. She localizes to pain of bilateral uppers. I had to manually open her eyes and primary gaze is midline. Pupils are 2mm. No facial weakness. No jerking of extremities. Decrease tone throughout. - Labs CBC & Chem 7: 10/26/23 07:01 10/26/23 07:01 Labs: Abnormal Lab Results - Last 24 Hours (Table) 10/27/23 10/27/23 10/27/23 Range/Units 07:00 12:19 16:25 POC Glucose (mg/dL) 111 H 115 H 120 H (70-110) mg/dL Assessment and Plan Assessment: * Altered mental status, likely due to metabolic and hepatic encephalopathy. * Acute UTI * Transamnitis--trending up * Recurrent falls due to myoclonic jerks from metabolic encephalopathy. * Atrial fibrillation, on anticoagulation with Eliquis. * History of recurrent UTI in the past with similar presentations * Chronic renal insufficiency, stage IV * CHF * COPD on claire oxygen all time * Macrocytic anemia * Post Polio syndrome. Plan: * I will get a repeat STAT CT head. * Ordered routine EEG, vitamin B12 level, folate level, ammonia level. If ammonia is elevated will defer management to Primary team. * Will defer management of her trending LFT's to primary team. * Carotid duplex: Is reported as no hemodynamically significant internal carotid artery stenosis on either side. * Patient currently on ceftriaxone 2 g every 24 hours for acute UTI. * Patient has macrocytosis, currently on folate and B12 replacement. * Continue Eliquis 2.5 mg twice daily and Lipitor 20 mg for stroke prevention related to atrial fibrillation. The plan is discussed with her son who is at bedside and her nurse. Time with Patient: Less than 30
--- NOTE | 2023-10-27 16:50 | P.PN ---
Subjective Progress Note Date: 10/27/23 This is a pleasant 83-year-old female who was recently admitted with acute confusion altered mental status with concerns of urinary tract infection, present on admission. Patient also noted to have CHF acute exacerbation with electrolyte abnormalities. Patient had a brief episode of choking while taking sips of water and was made n.p.o. to be evaluated by speech today. Patient undergo modified barium swallow study and will await recommendations per speech. Patient chronically wears oxygen outpatient and is currently maintained on 2 L. Patient has been progressively becoming more weak with reports of falling and family is concerned of taking care of her. Recommend rehab and awaiting PT/OT t herapy notes and at the bedside is agreeable. Patient was on IV Lasix and will transition to oral Lasix per cardiology and recommend to continue with current medications with no further recommendations at this time. Patient will follow-up with cardiology outpatient. Awaiting PT/OT therapy notes and discussing with case management regarding discharge planning as patient will likely need ECF. 10/27/2023 Patient is seen and evaluated in follow-up this morning currently laying flat maintained on 2 L via nasal cannula with continued persistent cough per family as well as nursing staff. Patient is pleasantly confused although appears more alert. Patient with significant weakness being evaluated by physical therapy and family is contemplating possible ECF versus taking home she is mostly wheelchair-bound and requires two-person assist for commode's and transferring that reports he and son help patient with. Strongly recommend ECF as patient has multiple issues going on and significant weakness. Chest x-ray obtained showing mild cardiomegaly and interstitial opacities persist consider CHF with pulmonary vascular congestion as well as a patchy right lower lung opacity that persists. Patient has been transition to oral Lasix per cardiology although will give a dose of IV Lasix and monitor closely. Cardiology has signed off of the case recommending to continue with current medication regimen. Patient is tachy on telemetry with heart rates in the 120s and will obtain an EKG. cardiology will be consulted again. neurology following as well and patient's mentation has changed and patient is currently unresponsive and stat CT ordered. Will hold all TELEGRAPHIC INSTRUMENT SUPERVISOR and narcotic agents and recommend n.p.o. for now. Patient was recently reevaluated by speech yesterday and underwent a modified barium swallow study with no signs of aspiration. Patient is maintained on antibiotics with infectious disease following as patient did have a UTI on admission. Review of systems: Constitutional: No reports of fatigue, fever, or chills Cardiovascular: No reports of chest pain or palpitations Respiratory: No reports of worsening shortness of breath reports continued cough GI: No reports of nausea, no reports of vomiting, no reports of abdominal pain or difficulty with food. : No reports of dysuria or retention Neurovascular: reports of generalized weakness All medications have been reviewed PHYSICAL EXAMINATION: GENERAL: The patient is alert and oriented x2, Well developed, well nourished. Elderly appearing, obese HEENT: Pupils are round and equally reacting to light. EOMI. no scleral icterus. No conjunctival pallor. Normocephalic, atraumatic. No pharyngeal erythema. No thyromegaly. CARDIOVASCULAR: S1 and S2 muffled PULMONARY: diminished breath sounds bilaterally with some scattered rhonchi and faint crackles noted at the bases. Cough noted on exam ABDOMEN: soft. Nontender on exam. obese. non-distended, normoactive bowel sounds. No palpable organomegaly. MUSCULOSKELETAL: No joint swelling or deformity. EXTREMITIES: No cyanosis, clubbing, or pedal edema. NEUROLOGICAL: Gross neurological examination did not reveal any focal deficits. Diffuse weakness SKIN: No rashes. Assessment: Acute urinary tract infection, present on admission with cultures growing E. coli Acute on chronic congestive heart failure exacerbation with systolic dysfunction, EF is 35% Acute on chronic hypoxic respiratory failure secondary to above Weakness and change in mental status, possibly secondary to acute urinary tract infection, improving Hypokalemia, replaced Atelectasis on the right side on imaging Acute metabolic encephalopathy, likely secondary to urinary tract infection, improved History of atrial fibrillation Diabetes mellitus, type II Chronic kidney disease DVT history Hypertension Hyperlipidemia Obesity with a BMI of 32.3 GI prophylaxis DVT prophylaxis Full code Plan: Recommend to continue with current medications and management with multiple medical consultations following. Cardiology has evaluated the patient and transition to oral Lasix and has signed off of the case. Patient continues to be tachycardic with atrial fibrillation and will reconsult and appreciate input and recommendations Infectious disease following and urine culture finalized showing E. coli with blood cultures negative will continue antibiotics for now and discussed with infectious disease regarding discharge planning Patient evaluated by speech and underwent modified barium swallow study showing no signs of aspiration and has been advanced on diet. Per nursing staff patient continues to have coughing and highly concern for continued aspiration risk. Recommend head of the bed elevated 30 to 45 degrees at all times. Patient was noted to be found lying flat on exam. Awaiting PT/OT therapy evaluation. Patient is significantly weak and has been progressively becoming more weak at home per family and following would benefit from ECF for continued strength and mobility. Case management following working with family regarding discharge planning. Family is considering possibly taking the patient home. Highly recommend ECF Neurology following as later this afternoon patient is unresponsive and CT scan of the brain ordered stat and pending at this time. Recommend holding all TELEGRAPHIC INSTRUMENT SUPERVISOR and narcotic agents and n.p.o. for now. Continue breathing inhalational treatments and pulmonary following Due to multiple complex medical issues, prognosis is extremely guarded The impression and plan of care has been dictated by Hannah Hyman, nurse practitioner as directed. Dr. Prateek MD I have performed a history and examination and MDM of this patient, discussed the same with the dictator, and agree with the dictator's assessment and plan as written ,documented as a scribe. Based on total visit time, I have performed more than 50% of the visit. Any additional findings or plans will be noted. Objective - Vital Signs Vital signs: Vital Signs Temp 98.6 F 10/27/23 12:21 Pulse 121 H 10/27/23 12:21 Resp 17 10/27/23 12:21 BP 136/89 10/27/23 12:21 Pulse Ox 92 L 10/27/23 12:21 FiO2 Intake & Output 10/26/23 10/27/23 10/27/23 18:59 06:59 18:59 Intake Total 100 120 Output Total 400 400 Balance -300 -280 Weight 77.5 kg 80.5 kg Intake: Intake, IV Titration 100 Amount Ampicillin-Sulbactam 3 gm 100 In Sodium Chloride 0.9% 100 ml @ 200 mls/hr IVPB Q12HR [facility] Rx#:[id number] Oral 120 Output: Urine 400 400 Other: Voiding Method Diaper Diaper External Catheter External Catheter # Bowel Movements 1 2 - Labs CBC & Chem 7: 10/26/23 07:01 10/26/23 07:01 Labs: Abnormal Lab Results - Last 24 Hours (Table) 10/27/23 10/27/23 Range/Units 07:00 12:19 POC Glucose (mg/dL) 111 H 115 H (70-110) mg/dL
[2023-10-27 17:18] LABS: ABG Base Excess 15.9 mmol/L; ABG HCO3 39 mmol/L (21-25); ABG Oxygen Saturation 95.4 % (94-97); ABG PCO2 47 mmHg (35-45); ABG PH 7.52 (7.35-7.45); ABG PO2 66 mmHg (83-108); ABG TCO2 40 mmol/L (19-24)
--- NOTE | 2023-10-27 17:20 | CT ---
EXAMINATION TYPE: CT brain wo con DATE OF EXAM: 10/27/2023 COMPARISON: INDICATION: ams, unresponsive DLP: 1167.7 mGycm, Automated exposure control for dose reduction was used. CONTRAST: None CT of the brain is performed utilizing 3 mm thick sections through the posterior fossa and 3 mm thick sections through the remaining calvarium. Study is performed within 24 hours of arrival to the hosp [facility]. No abnormal hyperdensity is present to suggest an acute intracranial hemorrhage. No mass lesion is evident. No acute infarcts are evident. Periventricular and deep white matter hypodensity is present. Findings appear stable. Ventricles and sulci are prominent for the patient age. Air-fluid levels are within the right frontal sinus scattered ethmoid air cells and bilateral maxilla ry sinuses. Correlate for pansinusitis. IMPRESSION: 1. No acute intracranial process. Follow-up MRI can be performed as clinically indicated. 2. Interval development of pansinusitis. 3. Atrophy
[2023-10-27 17:26] LABS: Allen Test Performed? no
[2023-10-27 20:48] LABS: Glucose,Whole Blood 187 mg/dL (70-110)
[2023-10-28] MEDS: ACETAMINOPHEN IV (For NPO) 1,000 MG in EMPTY BAG 1 BAG IVPB PRN (03:09)
[2023-10-28 03:40] LABS: Vitamin B12 >3600.0 pg/mL (200.0-944.0)
[2023-10-28 07:47] LABS: Glucose,Whole Blood 93 mg/dL (70-110)
[2023-10-28] MEDS: DILTIAZEM ORAL 30 MG TAB PO SCH (10:16)
--- NOTE | 2023-10-28 11:20 | P.PN ---
Subjective HISTORY OF PRESENT ILLNESS: The patient is a pleasant 83-year-old female patient who is known to our service from before with a past medical history significant for coronary artery disease with prior stenting with unknown details as well as history of cardiomyopathy as well as diabetes and hypertension and dyslipidemia and chronic kidney disease and permanent atrial fibrillation. We consulted to see the patient for further evaluation of heart failure. The patient somewhat is a poor historian. She was brought from home with generalized weakness and fatigue and frequent falling with no loss of consciousness and also mild increasing in the shortness of breath but no pain in the chest and no dizziness or lightheadedness and no feeling of heart racing or fluttering and no presyncope or syncope. She was diagnosed with heart failure. She underwent further investigation including an EKG showing atrial fibrillation with diffuse nonspecific ST and T wave abnormalities and she is known to have permanent atrial fibrillation maintaining on oral anticoagulation as well as amiodarone. Also she underwent an NT proBNP came in to be elevated at 8000. Chest x-ray showed pulmonary vascular congestions. The rest of the blood work came in to be unremarkable beside abnormal creatinine which is chronic. The patient was started on Lasix IV. She is still not feeling well. She is known to have also chronic hypoxic respiratory failure and she is on oxygen at 2 L. The examination revealed irregular rhythm with a distant heart sounds and a systolic murmur as well as bilateral rhonchi and mild bilateral lower extremities edema October 25, 2023 The patient was seen and evaluated this morning which she is feeling better. The shortness of breath has improved as well as the lower extremities edema. No pain in the chest at this point. She continues to be in atrial fibrillation with controlled heart rate. She is on oral anticoagulation which she underwent an echo which revealed mildly impaired LV function with EF around 45% with se panda pulmonary hypertension and dilated right ventricle and tricuspid regurgitation. The examination revealed irregular rhythm with diminished breathing sounds bilaterally and mild bilateral lower extremities edema. October 26, 2023 Patient examined this morning at the bedside. Patient denies chest pain or pressure. She denies shortness of breath. Vital signs are stable. October 28, 2023 Cardiology was reconsulted due to atrial fibrillation with uncontrolled ventricular rate. Patient examined this morning the bedside. Patient denies chest pain or pressure. She denies shortness of breath. She is somewhat lethargic at the time of examination. Telemetry reveals atrial fibrillation with heart rates in the low 100s. PHYSICAL EXAM: VITAL SIGNS: Reviewed. GENERAL: Well-developed in no acute distress. NECK: Supple. No JVD or thyromegaly LUNGS: Respirations even and unlabored. Lungs essentially clear to auscultation bilaterally. HEART: Irregular rate and rhythm. S1 and S2 heard. EXTREMITIES: Normal range of motion. No clubbing or cyanosis. Peripheral pulses intact. No lower extremity edema ASSESSMENT: Generalized weakness and fatigue and frequent falls Acute on chronic heart failure with mildly reduced EF, 45%, currently euvolemic Severe pulm hypertension Permanent atrial fibrillation Chronic kidney disease Hypertension Hyperlipidemia Diabetes PLAN: Discontinue amiodarone Continue current dose of metoprolol 200 mg twice a day Add low-dose Cardizem 30 mg 3 times daily Continue telemetry monitoring Further recommendations pending patient course Nurse practitioner note has been reviewed by physician. Signing provider agrees with the documented findings, assessment, and plan of care documented by STATIONARY EQUIPMENT MECHANIC as a scribe. Objective - Vital Signs Vital signs: Vital Signs Temp 97.5 F L 10/28/23 07:49 Pulse 71 10/28/23 07:49 Resp 18 10/28/23 07:49 BP 140/90 10/28/23 07:49 Pulse Ox 97 10/28/23 07:49 FiO2 Intake & Output 10/27/23 10/28/23 10/28/23 18:59 06:59 18:59 Intake Total 120 Output Total 650 Balance -650 120 Weight 75.5 kg Intake: Oral 120 Output: Urine 650 Other: Voiding Method Diaper Diaper External Catheter External Catheter External Catheter # Voids 300 # Bowel Movements 2 2 - Labs CBC & Chem 7: 10/26/23 07:01 10/26/23 07:01 Labs: Abnormal Lab Results - Last 24 Hours (Table) 10/27/23 10/27/23 10/27/23 Range/Units 12:19 16:25 16:57 ABG pH (7.35-7.45) ABG pCO2 (35-45) mmHg ABG pO2 (83-108) mmHg ABG HCO3 (21-25) mmol/L ABG Total CO2 (19-24) mmol/L POC Glucose (mg/dL) 115 H 120 H (70-110) mg/dL Vitamin B12 (200.0-944.0) pg/mL Folate 36.50 H (4.40-31.00) ng/mL 10/27/23 10/27/23 10/27/23 Range/Units 17:12 17:59 20:45 ABG pH 7.52 H (7.35-7.45) ABG pCO2 47 H (35-45) mmHg ABG pO2 66 L (83-108) mmHg ABG HCO3 39 H (21-25) mmol/L ABG Total CO2 40 H (19-24) mmol/L POC Glucose (mg/dL) 187 H (70-110) mg/dL Vitamin B12 >3600.0 H (200.0-944.0) pg/mL Folate (4.40-31.00) ng/mL Microbiology - Last 24 Hours (Table) 10/22/23 15:00 Blood Culture - Final Blood
--- NOTE | 2023-10-28 17:51 | P.PN ---
Subjective Progress Note Date: 10/28/23 I am following-up with patient and she is drastically better today compared to yesterday. She feels she is doing better today. Per nurse she would have episode of confusion that waxes and wanes. No jerking of extremities. Objective - Vital Signs Vital signs: Vital Signs Temp 97.3 F L 10/28/23 16:00 Pulse 93 10/28/23 16:00 Resp 14 10/28/23 16:00 BP 151/91 10/28/23 16:00 Pulse Ox 99 10/28/23 16:00 FiO2 Intake & Output 10/27/23 10/28/23 10/28/23 18:59 06:59 18:59 Intake Total 120 Output Total 650 Balance -650 120 Weight 75.5 kg Intake: Oral 120 Output: Urine 650 Other: Voiding Method Diaper Diaper External Catheter External Catheter External Catheter # Voids 300 # Bowel Movements 2 2 - Exam General: Lying in bed and not in acute distress. Neuro: Is awake, alert, oriented to self, place and time. Is following simple commands. No aphasia or neglect. Pupils are round, equal and reactive to light. Pupils are 4mm bilaterally. Visual mckeon are full to confrontation. EOM intact and no nystagmus. No facial weakness. No dysarthria. Motor: Strength is lifting all extremities above gravity equally. - Labs CBC & Chem 7: 10/26/23 07:01 10/26/23 07:01 Labs: Abnormal Lab Results - Last 24 Hours (Table) 10/27/23 10/27/23 10/27/23 Range/Units 16:57 17:59 20:45 POC Glucose (mg/dL) 187 H (70-110) mg/dL Vitamin B12 >3600.0 H (200.0-944.0) pg/mL Folate 36.50 H (4.40-31.00) ng/mL Microbiology - Last 24 Hours (Table) 10/22/23 15:00 Blood Culture - Final Blood Assessment and Plan Assessment: * Altered mental status, likely due to metabolic and hepatic encephalopathy- drastically better today compared to yesterday and no focal deficits. * Acute UTI * Transamnitis--trending up * Recurrent falls due to myoclonic jerks from metabolic encephalopathy. * Atrial fibrillation, on anticoagulation with Eliquis. * History of recurrent UTI in the past with similar presentations * Chronic renal insufficiency, stage IV * CHF * COPD on claire oxygen all time * Macrocytic anemia * Post Polio syndrome. Plan: * Repeat CT head. Is negative for acute intracranial process. Interval development of pansinusitis. * Ordered routine EEG: Completed and pending to be read. * Vitamin B12 level >3600, folate 36.50 level, ammonia level <9. * TSH: 26.30 * Will defer management of her trending LFT's to primary team. * Carotid duplex: Is reported as no hemodynamically significant internal carotid artery stenosis on either side. * Patient currently on ceftriaxone 2 g every 24 hours for acute UTI. * Patient has macrocytosis, currently on folate and B12 replacement. * Continue Eliquis 2.5 mg twice daily and Lipitor 20 mg for stroke prevention related to atrial fibrillation. The plan is discussed with her nurse. Time with Patient: Less than 30
[2023-10-28] MEDS: KETOROLAC 15 MG/ML 1 ML VIAL IVP STA (23:32)
[2023-10-28] MEDS: ACETAMINOPHEN TAB 325 MG TAB PO PRN (23:34)
--- NOTE | 2023-10-29 00:26 | EEG ---
ELECTROENCEPHALOGRAM REPORT CLINICAL HISTORY: This is an 83-year-old woman with altered mental status. The video EEG is obtained to evaluate for seizure epileptiform activity. RELEVANT MEDICATIONS: The patient is not on any antiepileptic drugs. EEG TYPE: A routine 21-channel EEG with video using the 10/20 electrode placement system. DESCRIPTION: Wakefulness and drowsiness is obtained. During awake state, the background consists of [id number] voltage of 8 to 8.5 hertz activity and at times intermixed with delta activity. There is no physiological stage 2 sleep architecture. There is no focal slowing. Interictal and ictal is none. ACTIVATION PROCEDURE: Photic stimulation did not evoke a posterior driving response. There is no abnormality during the photic stimulation. Hyperventilation is not performed. CLINICAL INTERPRETATION: This is an abnormal routine EEG. The background slowing is suggestive of mild encephalopathy. There is no focal slowing, epileptiform discharge, or seizure on the EEG. Clinical correlation is recommended. MADELEINE / TORIE: [id number] / [id number]
--- NOTE | 2023-10-29 04:41 | P.PN ---
Subjective Progress Note Date: 10/28/23 This is a pleasant 83-year-old female who was recently admitted with acute confusion altered mental status with concerns of urinary tract infection, present on admission. Patient also noted to have CHF acute exacerbation with electrolyte abnormalities. Patient had a brief episode of choking while taking sips of water and was made n.p.o. to be evaluated by speech today. Patient undergo modified barium swallow study and will await recommendations per speech. Patient chronically wears oxygen outpatient and is currently maintained on 2 L. Patient has been progressively becoming more weak with reports of falling and family is concerned of taking care of her. Recommend rehab and awaiting PT/OT t herapy notes and at the bedside is agreeable. Patient was on IV Lasix and will transition to oral Lasix per cardiology and recommend to continue with current medications with no further recommendations at this time. Patient will follow-up with cardiology outpatient. Awaiting PT/OT therapy notes and discussing with case management regarding discharge planning as patient will likely need ECF. 10/27/2023 Patient is seen and evaluated in follow-up this morning currently laying flat maintained on 2 L via nasal cannula with continued persistent cough per family as well as nursing staff. Patient is pleasantly confused although appears more alert. Patient with significant weakness being evaluated by physical therapy and family is contemplating possible ECF versus taking home she is mostly wheelchair-bound and requires two-person assist for commode's and transferring that reports he and son help patient with. Strongly recommend ECF as patient has multiple issues going on and significant weakness. Chest x-ray obtained showing mild cardiomegaly and interstitial opacities persist consider CHF with pulmonary vascular congestion as well as a patchy right lower lung opacity that persists. Patient has been transition to oral Lasix per cardiology although will give a dose of IV Lasix and monitor closely. Cardiology has signed off of the case recommending to continue with current medication regimen. Patient is tachy on telemetry with heart rates in the 120s and will obtain an EKG. cardiology will be consulted again. neurology following as well and patient's mentation has changed and patient is currently unresponsive and stat CT ordered. Will hold all [employer]END[employer] and narcotic agents and recommend n.p.o. for now. Patient was recently reevaluated by speech yesterday and underwent a modified barium swallow study with no signs of aspiration. Patient is maintained on antibiotics with infectious disease following as patient did have a UTI on admission. 10/28/2023 Patient is seen in follow-up status post EEG with no acute overnight issues noted. Neurology is following and mentation is much improved today. Cardiology reevaluated the patient and have adjusted medications and will continue with telemetry monitoring for now. Patient is afebrile with no reported chest pain or shortness of breath. Recommend aspiration precautions and head of the bed elevated 30 to 45 degrees at all times. Family is agreeable to attempting ECF for continued PT/OT therapy. Updated PT notes pending at this time. Patient continues on antibiotics for urinary tract infection and will continue. Review of systems: Constitutional: No reports of fatigue, fever, or chills Cardiovascular: No reports of chest pain or palpitations Respiratory: No reports of worsening shortness of breath reports continued cough GI: No reports of nausea, no reports of vomiting, no reports of abdominal pain or difficulty with food. : No reports of dysuria or retention Neurovascular: reports of generalized weakness All medications have been reviewed PHYSICAL EXAMINATION: GENERAL: The patient is alert and oriented x2, baseline well developed, well nourished. Elderly appearing, obese HEENT: Pupils are round and equally reacting to light. EOMI. no scleral icterus. No conjunctival pallor. Normocephalic, atraumatic. No pharyngeal erythema. No thyromegaly. CARDIOVASCULAR: S1 and S2 muffled PULMONARY: diminished breath sounds bilaterally with some scattered rhonchi and faint crackles noted at the bases. Faint cough noted on exam ABDOMEN: soft. Nontender on exam. obese. non-distended, normoactive bowel sounds. No palpable organomegaly. MUSCULOSKELETAL: No joint swelling or deformity. EXTREMITIES: No cyanosis, clubbing, or pedal edema. NEUROLOGICAL: Gross neurological examination did not reveal any focal deficits. Diffuse weakness SKIN: No rashes. Assessment: Acute urinary tract infection, present on admission with cultures growing E. coli Acute on chronic congestive heart failure exacerbation with systolic dysfunction, EF is 35% Acute on chronic hypoxic respiratory failure secondary to above Weakness and change in mental status, possibly secondary to acute urinary tract infection, waxing and waning with a period of unresponsiveness, undergoing neurological workup, CT brain was negative. EEG pending Hypokalemia, replaced Atelectasis on the right side on imaging Acute metabolic encephalopathy, likely secondary to urinary tract infection, improved History of atrial fibrillation Diabetes mellitus, type II Chronic kidney disease DVT history Hypertension Hyperlipidemia Obesity with a BMI of 32.3 GI prophylaxis DVT prophylaxis Full code Plan: Recommend to continue with current medications and management with multiple medical consultations following. Cardiology has re-evaluated the patient and transition to oral Lasix. Medication adjustments being made as patient's heart rate was uncontrolled. Continue telemetry monitoring Infectious disease following and urine culture finalized showing E. coli with blood cultures negative will continue antibiotics for now and discuss with infectious disease regarding discharge planning Patient evaluated by speech and underwent modified barium swallow study showing no signs of aspiration and has been advanced on diet. Per nursing staff patient continues to have coughing and highly concern for continued aspiration risk. Recommend head of the bed elevated 30 to 45 degrees at all times. Patient was noted to be found lying flat on exam. Awaiting updated PT/OT therapy notes. Patient is significantly weak and has been progressively becoming more weak at home per family and following would benefit from ECF for continued strength and mobility. Case management following working with family regarding discharge planning. Family is considering possibly taking the patient home although will attempt 1 week at ECF per at bedside. Neurology following and undergoing further workup. CT of the brain was negative as patient had an episode of unresponsiveness per nursing staff and altered me ntation. Narcotics and [employer] agents have been on hold and will continue for now. EEG pending and was performed this morning Continue breathing inhalational treatments and pulmonary following Due to multiple complex medical issues, prognosis is extremely guarded Possible discharge planning in the next 24 to 48 hours to ECF The impression and plan of care has been dictated by Hannah Hyman, nurse practitioner as directed. Dr. Prateek MD I have performed a history and examination and MDM of this patient, discussed the same with the dictator, and agree with the dictator's assessment and plan as written ,documented as a scribe. Based on total visit time, I have performed more than 50% of the visit. Any additional findings or plans will be noted. Objective - Vital Signs Vital signs: Vital Signs Temp 97.5 F L 10/28/23 07:49 Pulse 71 10/28/23 07:49 Resp 18 10/28/23 07:49 BP 140/90 10/28/23 07:49 Pulse Ox 97 10/28/23 07:49 FiO2 Intake & Output 10/27/23 10/28/2310/27/24 18:59 06:59 18:59 Intake Total 120 Output Total 650 Balance -650 120 Weight 75.5 kg Intake: Oral 120 Output: Urine 650 Other: Voiding Method Diaper Diaper External Catheter External Catheter External Catheter # Voids 300 # Bowel Movements 2 - Labs CBC & Chem 7: 10/26/23 07:01 10/26/23 07:01 Labs: Abnormal Lab Results - Last 24 Hours (Table) 10/27/23 10/27/23 10/27/23 Range/Units 12:19 16:25 16:57 ABG pH (7.35-7.45) ABG pCO2 (35-45) mmHg ABG pO2 (83-108) mmHg ABG HCO3 (21-25) mmol/L ABG Total CO2 (19-24) mmol/L POC Glucose (mg/dL) 115 H 120 H (70-110) mg/dL Vitamin B12 (200.0-944.0) pg/mL Folate 36.50 H (4.40-31.00) ng/mL 10/27/23 10/27/23 10/27/23 Range/Units 17:12 17:59 20:45 ABG pH 7.52 H (7.35-7.45) ABG pCO2 47 H (35-45) mmHg ABG pO2 66 L (83-108) mmHg ABG HCO3 39 H (21-25) mmol/L ABG Total CO2 40 H (19-24) mmol/L POC Glucose (mg/dL) 187 H (70-110) mg/dL Vitamin B12 >3600.0 H (200.0-944.0) pg/mL Folate (4.40-31.00) ng/mL Microbiology - Last 24 Hours (Table) 10/22/23 15:00 Blood Culture - Final Blood
--- NOTE | 2023-10-29 09:56 | P.PN ---
Subjective HISTORY OF PRESENT ILLNESS: The patient is a pleasant 83-year-old female patient who is known to our service from before with a past medical history significant for coronary artery disease with prior stenting with unknown details as well as history of cardiomyopathy as well as diabetes and hypertension and dyslipidemia and chronic kidney disease and permanent atrial fibrillation. We consulted to see the patient for further evaluation of heart failure. The patient somewhat is a poor historian. She was brought from home with generalized weakness and fatigue and frequent falling with no loss of consciousness and also mild increasing in the shortness of breath but no pain in the chest and no dizziness or lightheadedness and no feeling of heart racing or fluttering and no presyncope or syncope. She was diagnosed with heart failure. She underwent further investigation including an EKG showing atrial fibrillation with diffuse nonspecific ST and T wave abnormalities and she is known to have permanent atrial fibrillation maintaining on oral anticoagulation as well as amiodarone. Also she underwent an NT proBNP came in to be elevated at 8000. Chest x-ray showed pulmonary vascular congestions. The rest of the blood work came in to be unremarkable beside abnormal creatinine which is chronic. The patient was started on Lasix IV. She is still not feeling well. She is known to have also chronic hypoxic respiratory failure and she is on oxygen at 2 L. The examination revealed irregular rhythm with a distant heart sounds and a systolic murmur as well as bilateral rhonchi and mild bilateral lower extremities edema October 25, 2023 The patient was seen and evaluated this morning which she is feeling better. The shortness of breath has improved as well as the lower extremities edema. No pain in the chest at this point. She continues to be in atrial fibrillation with controlled heart rate. She is on oral anticoagulation which she underwent an echo which revealed mildly impaired LV function with EF around 45% with se panda pulmonary hypertension and dilated right ventricle and tricuspid regurgitation. The examination revealed irregular rhythm with diminished breathing sounds bilaterally and mild bilateral lower extremities edema. October 26, 2023 Patient examined this morning at the bedside. Patient denies chest pain or pressure. She denies shortness of breath. Vital signs are stable. October 28, 2023 Cardiology was reconsulted due to atrial fibrillation with uncontrolled ventricular rate. Patient examined this morning the bedside. Patient denies chest pain or pressure. She denies shortness of breath. She is somewhat lethargic at the time of examination. Telemetry reveals atrial fibrillation with heart rates in the low 100s. 10/29/2023 Patient examined this morning at the bedside. Patient denies chest pain or pressure. She denies shortness of breath. She remains in atrial fibrillation with controlled ventricular rate. Blood pressure stable. PHYSICAL EXAM: VITAL SIGNS: Reviewed. GENERAL: Well-developed in no acute distress. NECK: Supple. No JVD or thyromegaly LUNGS: Respirations even and unlabored. Lungs essentially clear to auscultation bilaterally. HEART: Irregular rate and rhythm. S1 and S2 heard. EXTREMITIES: Normal range of motion. No clubbing or cyanosis. Peripheral pulse s intact. No lower extremity edema ASSESSMENT: Generalized weakness and fatigue and frequent falls Acute on chronic heart failure with mildly reduced EF, 45%, currently euvolemic Severe pulm hypertension Permanent atrial fibrillation Chronic kidney disease Hypertension Hyperlipidemia Diabetes PLAN: Amiodarone discontinued yesterday Continue current dose of metoprolol 200 mg twice a day Change Cardizem to Cardizem CD 120 mg daily Patient is stable for discharge today from a cardiac standpoint We will sign off. Please reconsult if needed. Nurse practitioner note has been reviewed by physician. Signing provider agrees with the documented findings, assessment, and plan of care documented by [employer] as a scribe. Objective - Vital Signs Vital signs: Vital Signs Temp 97.9 F 10/29/23 07:47 Pulse 66 10/29/23 07:56 Resp 16 10/29/23 07:47 BP 143/89 10/29/23 07:47 Pulse Ox 96 10/29/23 07:56 FiO2 Intake & Output 10/28/23 10/29/23 10/29/23 18:59 06:59 18:59 Intake Total 700 118 Output Total 1050 Balance 700 -932 Weight 74 kg Intake: Intake, IV Titration 100 Amount Ampicillin-Sulbactam 3 gm 100 In Sodium Chloride 0.9% 100 ml @ 200 mls/hr IVPB Q12HR [facility] Rx#:[id number] Oral 600 118 Output: Urine 1050 Other: Voiding Method External Catheter External Catheter # Voids 2 # Bowel Movements 2 1 - Labs CBC & Chem 7: 10/26/23 07:01 10/26/23 07:01
[2023-10-29 11:00] LABS: ALT 179 U/L (8-44); AST 61 U/L (13-35); Albumin 3.2 g/dL (3.8-4.9); Albumin/Globulin Ratio 1.23 Ratio (1.60-3.17); Alkaline Phosphatase 149 U/L (41-126); BUN/Creat Ratio 12.71 Ratio (12.00-20.00); Blood Urea Nitrogen 17.8 mg/dL (9.0-27.0); Calcium 9.6 mg/dL (8.7-10.3); Carbon Dioxide 34.1 mmol/L (21.6-31.8); Chloride 95 mmol/L (96-109); Globulin 2.6 g/dL (1.6-3.3); Glucose 84 mg/dL (70-110); Potassium 3.3 mmol/L (3.5-5.5); Sodium 142 mmol/L (135-145); Total Bilirubin 0.5 mg/dL (0.3-1.2); Total Protein 5.8 g/dL (6.2-8.2)
[2023-10-29 11:05] LABS: Basophils # (A) 0.03 X 10*3/uL (0.00-0.10); Basophils % (A) 0.5 %; Eosinophils % (A) 1.8 %; HGB 12.4 g/dL (12.0-15.0); Lymphocytes # (A) 1.05 X 10*3/uL (0.90-5.00); Lymphocytes % (A) 18.9 %; MCH 34.3 pg (27.0-32.0); MCV 110.5 FL (80.0-97.0); Mean Platelet Volume 11.3 FL (9.5-12.2); Monocytes # (A) 1.03 X 10*3/uL (0.20-1.00); Monocytes % (A) 18.5 %; NRBC Per 100 WBC 0 X 10*3/uL (0.00-0.01); Neutrophils # (A) 3.33 X 10*3/uL (1.80-7.70); Neutrophils % (A) 59.8 %; Platelet Count 192 X 10*3/uL (140-440); RBC 3.62 X 10*6/uL (4.10-5.20); RDW 16.1 % (11.5-14.5); WBC 5.57 X 10*3/uL (4.50-10.00)
[2023-10-29] MEDS: DILTIAZEM CD 120 MG CAP.ER.24H PO SCH (11:08)
[2023-10-29] MEDS ORDERED: Potassium Replacement Protocol 1 EACH MISC MISCELLANE PRN (11:57)
[2023-10-29] MEDS: POTASSIUM CHLORIDE ER 20 MEQ TAB.ER PO SCH (12:44)
[2023-10-29 14:43] VITALS: BMI 30.8
--- NOTE | 2023-10-29 14:43 | P.PN ---
Subjective Progress Note Date: 10/28/23 Principal diagnosis: Reason for follow-up is UTI and concern for possible aspiration pneumonitis Patient is 83-year-old female with a past medical history significant for atrial fibrillation CVA TIA COPD hypertension hyperlipidemia history of recurrent UTIs the patient was brought into the hospital for evaluation of mental status changes and the patient was getting weaker unable to stand up the day of presentation to the hospital noticed to have positive UA for initial consult for possible UTI subsequently did have some vomiting and concern for aspiration. On today's evaluation that is 10/28/2023,the patient denies any fever or any chills, patient is breathing comfortably on 2 L nasal cannula oxygen, the patient denies chest pain shortness of breath and did have a cough but not bring up any sputum, patient denies abdominal pain, no nausea vomiting or diarr hea. No lab draw today Objective - Vital Signs Vital signs: Vital Signs Temp 97.5 F L 10/28/23 07:49 Pulse 71 10/28/23 07:49 Resp 18 10/28/23 07:49 BP 140/90 10/28/23 07:49 Pulse Ox 97 10/28/23 07:49 FiO2 Intake & Output 10/27/23 10/28/23 10/28/23 18:59 06:59 18:59 Intake Total 120 Output Total 650 Balance -650 120 Weight 75.5 kg Intake: Oral 120 Output: Urine 650 Other: Voiding Method Diaper Diaper External Catheter External Catheter External Catheter # Voids 300 # Bowel Movements 2 2 - Exam GENERAL DESCRIPTION: An elderly female lying in bed in no distress RESPIRATORY SYSTEM: Unlabored breathing , decreased breath sounds at bases HEART: S1 S2 regular rate and rhythm , ABDOMEN: Soft , no tenderness EXTREMITIES: Swelling to the leg but no redness - Labs CBC & Chem 7: 10/29/23 06:30 10/29/23 06:30 Labs: Abnormal Lab Results - Last 24 Hours (Table) 10/27/23 10/27/23 10/27/23 Range/Units 12:19 16:25 16:57 ABG pH (7.35-7.45) ABG pCO2 (35-45) mmHg ABG pO2 (83-108) mmHg ABG HCO3 (21-25) mmol/L ABG Total CO2 (19-24) mmol/L POC Glucose (mg/dL) 115 H 120 H (70-110) mg/dL Vitamin B12 (200.0-944.0) pg/mL Folate 36.50 H (4.40-31.00) ng/mL 10/27/23 10/27/23 10/27/23 Range/Units 17:12 17:59 20:45 ABG pH 7.52 H (7.35-7.45) ABG pCO2 47 H (35-45) mmHg ABG pO2 66 L (83-108) mmHg ABG HCO3 39 H (21-25) mmol/L ABG Total CO2 40 H (19-24) mmol/L POC Glucose (mg/dL) 187 H (70-110) mg/dL Vitamin B12 >3600.0 H (200.0-944.0) pg/mL Folate (4.40-31.00) ng/mL Microbiology - Last 24 Hours (Table) 10/22/23 15:00 Blood Culture - Final Blood Assessment and Plan (1) Aspiration pneumonitis Current Visit: Yes Status: Acute Code(s): J69.0 - PNEUMONITIS DUE TO INHALATION OF FOOD AND VOMIT SNOMED Code(s): 181589778 (2) Urinary tract infection Current Visit: Yes Status: Acute Code(s): N39.0 - URINARY TRACT INFECTION, SITE NOT SPECIFIED SNOMED Code(s): 83745034 Plan: 1patient presented hospitalized weakness which is likely multifactorial in this patient who do have history of recurrent UTI some urinary symptoms positive UA likely component of urinary tract infection likely from UTI gram-negative pathogen patient subsequently did have an episode of vomiting and concern for possible aspiration 2-patient urine is growing E. coli that is a sensitive pathogen swallow ros luation did not show any evidence of aspiration 3-patient is slowly clinical improvement to continue with Unasyn while inpatient and monitor clinical course closely Dictation was produced using [employer] dictation software. please excuse any grammatical, word or spelling errors. Time with Patient: Less than 30
--- NOTE | 2023-10-29 14:44 | P.PN ---
Subjective Progress Note Date: 10/29/23 Principal diagnosis: Reason for follow-up is UTI and concern for possible aspiration pneumonitis Patient is 83-year-old female with a past medical history significant for atrial fibrillation CVA TIA COPD hypertension hyperlipidemia history of recurrent UTIs the patient was brought into the hospital for evaluation of mental status changes and the patient was getting weaker unable to stand up the day of presentation to the hospital noticed to have positive UA for initial consult for possible UTI subsequently did have some vomiting and concern for aspiration. On today's evaluation that is 10/29/2023,the patient remains to be afebrile, patient is on 2 L nasal cannula supplemental oxygen and denies any shortness of breath no chest pain did have a cough but no sputum production.Patient denies having any nausea or vomiting, no abdominal pain and no diarrhea has been reported. Patient white count is 5.57 creatinine is 1.4 Objective - Vital Signs Vital signs: Vital Signs Temp 98 F 10/29/23 14:00 Pulse 102 H 10/29/23 14:00 Resp 18 10/29/23 14:00 BP 146/76 10/29/23 14:00 Pulse Ox 95 10/29/23 14:00 FiO2 Intake & Output 10/28/23 10/29/23 10/29/23 18:59 06:59 18:59 Intake Total 700 118 Output Total 1050 Balance 700 -932 Weight 74 kg 74 kg Intake: Intake, IV Titration 100 Amount Ampicillin-Sulbactam 3 gm 100 In Sodium Chloride 0.9% 100 ml @ 200 mls/hr IVPB Q12HR [facility] Rx#:[id number] Oral 600 118 Output: Urine 1050 Other: Voiding Method External Catheter External Catheter External Catheter # Voids 2 # Bowel Movements 2 1 - Exam GENERAL DESCRIPTION: An elderly female lying in bed in no distress RESPIRATORY SYSTEM: Unlabored breathing , decreased breath sounds at bases HEART: S1 S2 regular rate and rhythm , ABDOMEN: Soft , no tenderness EXTREMITIES: Swelling to the leg but no redness - Labs CBC & Chem 7: 10/29/23 06:30 10/29/23 06:30 Labs: Abnormal Lab Results - Last 24 Hours (Table) 10/29/23 10/29/23 Range/Units 06:30 06:30 RBC 3.62 L (4.10-5.20) X 10*6/uL MCV 110.5 H (80.0-97.0) FL MCH 34.3 H (27.0-32.0) pg MCHC 31.0 L (32.0-37.0) g/dL RDW 16.1 H (11.5-14.5) % Monocytes # 1.03 H (0.20-1.00) X 10*3/uL Potassium 3.3 L (3.5-5.5) mmol/L Chloride 95 L (96-109) mmol/L Carbon Dioxide 34.1 H (21.6-31.8) mmol/L Anion Gap 12.90 H (4.00-12.00) mmol/L Est GFR (CKD-EPI) 38 L (>=60) AST 61 H (13-35) U/L ALT 179 H (8-44) U/L Alkaline Phosphatase 149 H (41-126) U/L Total Protein 5.8 L (6.2-8.2) g/dL Albumin 3.2 L (3.8-4.9) g/dL Albumin/Globulin Ratio 1.23 L (1.60-3.17) Ratio Assessment and Plan (1) Aspiration pneumonitis Current Visit: Yes Status: Acute Code(s): J69.0 - PNEUMONITIS DUE TO INHALATION OF FOOD AND VOMIT SNOMED Code(s): 616584350 (2) Urinary tract infection Current Visit: Yes Status: Acute Code(s): N39.0 - URINARY TRACT INFECTION, SITE NOT SPECIFIED SNOMED Code(s): 49040181 Plan: 1patient presented hospitalized weakness which is likely multifactorial in this patient who do have history of recurrent UTI some urinary symptoms positive UA likely component of urinary tract infection likely from UTI gram-negative pathogen patient subsequently did have an episode of vomiting and concern for possible aspiration 2-patient urine is growing E. coli that is a sensitive pathogen swallow evaluation did not show any evidence of aspiration 3-patient remains to be afebrile white count has been normal patient currently being treated with Unasyn finishing therapy short course of oral Augmentin on discharge Dictation was produced using [employer] software. please excuse any grammatical, word or spelling errors. Time with Patient: Less than 30
[2023-10-29] MEDS: HYDROcodone/APAP 5-325MG 1 EACH TAB PO PRN (16:42)
--- NOTE | 2023-10-30 05:33 | P.PN ---
Subjective Progress Note Date: 10/29/23 This is a pleasant 83-year-old female who was recently admitted with acute confusion altered mental status with concerns of urinary tract infection, present on admission. Patient also noted to have CHF acute exacerbation with electrolyte abnormalities. Patient had a brief episode of choking while taking sips of water and was made n.p.o. to be evaluated by speech today. Patient undergo modified barium swallow study and will await recommendations per speech. Patient chronically wears oxygen outpatient and is currently maintained on 2 L. Patient has been progressively becoming more weak with reports of falling and family is concerned of taking care of her. Recommend rehab and awaiting PT/OT t herapy notes and at the bedside is agreeable. Patient was on IV Lasix and will transition to oral Lasix per cardiology and recommend to continue with current medications with no further recommendations at this time. Patient will follow-up with cardiology outpatient. Awaiting PT/OT therapy notes and discussing with case management regarding discharge planning as patient will likely need ECF. 10/27/2023 Patient is seen and evaluated in follow-up this morning currently laying flat maintained on 2 L via nasal cannula with continued persistent cough per family as well as nursing staff. Patient is pleasantly confused although appears more alert. Patient with significant weakness being evaluated by physical therapy and family is contemplating possible ECF versus taking home she is mostly wheelchair-bound and requires two-person assist for commode's and transferring that reports he and son help patient with. Strongly recommend ECF as patient has multiple issues going on and significant weakness. Chest x-ray obtained showing mild cardiomegaly and interstitial opacities persist consider CHF with pulmonary vascular congestion as well as a patchy right lower lung opacity that persists. Patient has been transition to oral Lasix per cardiology although will give a dose of IV Lasix and monitor closely. Cardiology has signed off of the case recommending to continue with current medication regimen. Patient is tachy on telemetry with heart rates in the 120s and will obtain an EKG. cardiology will be consulted again. neurology following as well and patient's mentation has changed and patient is currently unresponsive and stat CT ordered. Will hold all [employer] and narcotic agents and recommend n.p.o. for now. Patient was recently reevaluated by speech yesterday and underwent a modified barium swallow study with no signs of aspiration. Patient is maintained on antibiotics with infectious disease following as patient did have a UTI on admission. 10/28/2023 Patient is seen in follow-up status post EEG with no acute overnight issues noted. Neurology is following and mentation is much improved today. Cardiology reevaluated the patient and have adjusted medications and will continue with telemetry monitoring for now. Patient is afebrile with no reported chest pain or shortness of breath. Recommend aspiration precautions and head of the bed elevated 30 to 45 degrees at all times. Family is agreeable to attempting ECF for continued PT/OT therapy. Updated PT notes pending at this time. Patient continues on antibiotics for urinary tract infection and will continue. 10/29/2023 Patient is seen and evaluated in follow-up this morning with multiple medical consultations following. Mentation is back to baseline and much improved and patient is reporting having pain. Patient was on a number of narcotic medications including high-dose Ragland will resume at a much lower dose as needed. Patient evaluated by physical therapy recommending rehab and family is agreeable. Patient reports she is going home although with severe extreme weakness and prolonged hospitalization, family would like for patient to go to ecf. Patient has been accepted by [facility] as [facility] has declined and pending insurance authorization. Patient continues on antibiotics and will transition to oral per ID recommendations. Cardiology has adjusted medications. Possible discharge planning in 24 hours. Continue aspiration precautions. Review of systems: Constitutional: No reports of fatigue, fever, or chills Cardiovascular: No reports of chest pain or palpitations Respiratory: No reports of worsening shortness of breath reports continued cough GI: No reports of nausea, no reports of vomiting, no reports of abdominal pain or difficulty with food. : No reports of dysuria or retention Neurovascular: reports of generalized weakness All medications have been reviewed PHYSICAL EXAMINATION: GENERAL: The patient is alert and oriented x2, baseline well developed, well nourished. Elderly appearing, obese HEENT: Pupils are round and equally reacting to light. EOMI. no scleral icterus. No conjunctival pallor. Normocephalic, atraumatic. No pharyngeal erythema. No thyromegaly. CARDIOVASCULAR: S1 and S2 muffled PULMONARY: diminished breath sounds bilaterally with some scattered rhonchi noted at the bases. Faint cough noted on exam ABDOMEN: soft. Nontender on exam. obese. non-distended, normoactive bowel sounds. No palpable organomegaly. MUSCULOSKELETAL: No joint swelling or deformity. EXTREMITIES: No cyanosis, clubbing, or pedal edema. NEUROLOGICAL: Gross neurological examination did not reveal any focal deficits. Diffuse weakness SKIN: No rashes. Assessment: Acute urinary tract infection, present on admission with cultures growing E. coli Acute on chronic congestive heart failure exacerbation with preserved ef, EF is 35% Acute on chronic hypoxic respiratory failure secondary to above Weakness and change in mental status, likely secondary to acute urinary tract infection, waxing and waning with a period of unresponsiveness, neurological workup was negative Hypokalemia, replaced Atelectasis on the right side on imaging Acute metabolic encephalopathy, likely secondary to urinary tract infection, improved History of atrial fibrillation Diabetes mellitus, type II Chronic kidney disease DVT history Hypertension Hyperlipidemia Obesity with a BMI of 32.3 GI prophylaxis DVT prophylaxis Full code Plan: Recommend to continue with current medications and management with multiple medical consultations following. Cardiology has re-evaluated the patient and transition to oral Lasix. Medication adjustments being made as patient's heart rate was uncontrolled. Continue telemetry monitoring Infectious disease following and urine culture finalized showing E. coli with blood cultures negative will continue IV antibiotics for now and will transition to oral abx on discharge. Patient evaluated by speech and underwent modified barium swallow study showing no signs of aspiration and has been advanced on diet. Per nursing staff patient continues to have coughing and highly concern for continued aspiration risk. Recommend head of the bed elevated 30 to 45 degrees at all times. Patient was noted to be found lying flat on exam. Awaiting updated PT/OT therapy notes. Patient is significantly weak and has been progressively becoming more weak at home per family and following would benefit from ECF for continued strength and mobility. Case management following working with family regarding discharge planning. Family was considering possibly taking the patient home although would like the patient to go to ecf. Patient has been accepted by [facility] and pending insurance authorization Neurology following and underwent further workup. CT of the brain was negative as patient had an episode of unresponsiveness per nursing staff and altered mentation. Narcotics and [employer] agents have been on hold and mentation is baseline. Will add low dose norco as needed. Patient was taking an extremely high dose of norco 10 Continue breathing inhalational treatments and pulmonary following Due to multiple complex medical issues, prognosis is extremely guarded Possible discharge planning in the next 24 to 48 hours to ECF once insurance authorization is obtained The impression and plan of care has been dictated by Hannah Hyman, nurse practitioner as directed. Dr. Prateek MD I have performed a history and examination and MDM of this patient, discussed the same with the dictator, and agree with the dictator's assessment and plan as written ,documented as a scribe. Based on total visit time, I have performed more than 50% of the visit. Any additional findings or plans will be noted. Objective - Vital Signs Vital signs: Vital Signs Temp 98 F 10/30/23 02:00 Pulse 110 H 10/30/23 02:00 Resp 16 10/30/23 02:00 BP 149/88 10/30/23 02:00 Pulse Ox 94 L 10/30/23 02:00 FiO2 Intake & Output 10/29/23 10/29/23 10/30/23 06:59 18:59 06:59 Intake Total 118 480 Output Total 1050 1400 Balance -932 -920 Weight 74 kg 74 kg Intake: Oral 118 480 Output: Urine 1050 1400 Other: Voiding Method External Catheter External Catheter External Catheter # Voids 0 # Bowel Movements 1 1 - Labs CBC & Chem 7: 10/29/23 06:30 10/29/23 06:30 Labs: Abnormal Lab Results - Last 24 Hours (Table) 10/29/23 10/29/23 Range/Units 06:30 06:30 RBC 3.62 L (4.10-5.20) X 10*6/uL MCV 110.5 H (80.0-97.0) FL MCH 34.3 H (27.0-32.0) pg MCHC 31.0 L (32.0-37.0) g/dL RDW 16.1 H (11.5-14.5) % Monocytes # 1.03 H (0.20-1.00) X 10*3/uL Potassium 3.3 L (3.5-5.5) mmol/L Chloride 95 L (96-109) mmol/L Carbon Dioxide 34.1 H (21.6-31.8) mmol/L Anion Gap 12.90 H (4.00-12.00) mmol/L Est GFR (CKD-EPI) 38 L (>=60) AST 61 H (13-35) U/L ALT 179 H (8-44) U/L Alkaline Phosphatase 149 H (41-126) U/L Total Protein 5.8 L (6.2-8.2) g/dL Albumin 3.2 L (3.8-4.9) g/dL Albumin/Globulin Ratio 1.23 L (1.60-3.17) Ratio
--- NOTE | 2023-10-30 09:44 | P.DS ---
Providers Date of admission: 10/23/23 13:46 Expected date of discharge: 10/30/23 Attending physician: Skip Pittman MD Consults: 10/22/23 15:19 Consult Physician Routine Consulting Provider: Verito Lowe Consult Reason/Comments: pneumonia Do you want consulting provider notified?: Yes 10/22/23 15:20 Consult Physician Routine Consulting Provider: Nicholas Sanchez Consult Reason/Comments: weakness Do you want consulting provider notified?: Yes 10/23/23 12:47 Consult Physician Routine Consulting Provider: Toya Montana Consult Reason/Comments: hypoxia, chf vs pbneumonia Do you want consulting provider notified?: Yes Primary care physician: Melecio Simon Hospital Course: Final diagnosis Acute urinary tract infection, present on admission with cultures growing E. coli Acute on chronic congestive heart failure exacerbation with preserved ef, EF is 35% Acute on chronic hypoxic respiratory failure secondary to above Weakness and change in mental status, likely secondary to acute urinary tract infection, waxing and waning with a period of unresponsiveness, neurological workup was negative Hypokalemia, replaced Atelectasis on the right side on imaging Acute metabolic encephalopathy, likely secondary to urinary tract infection, improved History of atrial fibrillation Diabetes mellitus, type II Chronic kidney disease DVT history Hypertension Hyperlipidemia Obesity with a BMI of 32.3 GI prophylaxis DVT prophylaxis Full code Discharge disposition Patient is being discharged in a stable condition with guarded prognosis to [facility]. Patient will follow-up with Dr. Simon in the outpatient setting upon discharge. Patient is to continue with current medications as prescribed and will continue on oral Augmentin twice daily for 1 week to complete the course. Patient to follow-up with cardiology as scheduled. Total time taken is greater than 35 minutes. Hospital course This is a 83-year-old female who was recently admitted with altered mental status with acute urinary tract infection, present on admission. Patient's family reported she had been altered, increasingly lethargic, weak and not eating and was brought here for further evaluation. Urine cultures did finalize showing E. coli with sensitivities and patient has been maintained on antibiotics. Strong suspicion for possible aspiration with infectious disease following and was transition to Ampicillin. Patient will continue on oral Augmentin Twice daily for the next 1 week. Strongly recommend aspiration precautions with head of the bed elevated 30 to 45 degrees at all times and supervision with meals and no straws. Patient was evaluated by speech recommending these. Patient is extremely high risk for aspirating. Patient is maintained on 2 L which she chronically wears outpatient and will continue on Current breathing treatments and inhalers. Patient had a few episodes of unresponsiveness per nursing staff and neurology was consulted underwent CT of the brain which was negative as well as EEG with no epileptiform discharges noted. Patient's mentation is baseline after taking narcotic agents away. Patient chronically takes these and will resume her [place] at a lower dose and as needed. Patient is a diabetic and recommend to continue with Accu-Cheks before meals and at bedtime. Blood sugars have been well-controlled without requiring sliding scale. Recommend repeat labs of CMP in the outpatient setting to monitor the downward trend of liver functions. Liver functions were mildly elevated and have been trending down during hospitalization. Patient was evaluated by physical therapy and recommending rehab and initially family wanted to take her home although they feel she is difficult to take care of and requiring more needs and is agreeable to going to rehab. Patient has been accepted by [facility] once insurance authorization is obtained. Please refer to other consultation notes for further HPI. Currently no reports of chest pain , no worsening shortness of breath, or palpitations. Patient is afebrile. No reports of nausea or vomiting and patient is tolerating diet. Patient will be going [facility] today. Due to significant comorbidities, overall prognosis is guarded. Physical exam: Gen: This is a 83-year-old female who is awake, alert and oriented x 2, baseline, well-developed, elderly appearing, obese HEENT: Head is atraumatic, normocephalic. Pupils equal, round. Sclerae is anicteric. NECK: Supple. No JVD. No lymphadenopathy. No thyromegaly. LUNGS: Diminished breath sounds bilaterally with coarse rhonchi. No intercostal retractions. HEART: S1, S2 are muffled, irregular, rate controlled ABDOMEN: Soft. Obese bowel sounds are present. No masses. No tenderness. EXTREMITIES: No pedal edema. No calf tenderness. NEUROLOGICAL: Patient is awake, alert and oriented x2. Baseline cranial nerves 2 through 12 are grossly intact. Diffusely weak, mostly bedbound Please refer to medication reconciliation sheet for a list of medications. The impression and plan of care has been dictated by Hannah Hyman, Nurse Practitioner as directed. Dr. Ryan MD I have performed a history and examination and MDM of this patient, discussed the same with the dictator, and agree with the dictator's assessment and plan as written ,documented as a scribe. Based on total visit time, I have performed more than 50% of the visit. Patient Condition at Discharge: Fair Plan - Discharge Summary Discharge Rx Participant: No New Discharge Prescriptions: New Amoxic-Pot Clav 875-125Mg [Augmentin 875-125] 1 tab PO Q12HR 7 Days #14 tab Diltiazem Cd [Cardizem CD] 120 mg PO DAILY cap Furosemide [Lasix] 40 mg PO BID@0900,1600 tab HYDROcodone/APAP 5-325MG [[place] 5-325] 1 each PO Q6HR PRN #4 tab PRN Reason: Pain guaiFENesin SYRUP 100MG/5ML [Robitussin] 200 mg PO Q6HR PRN ml PRN Reason: Cough Acetaminophen Tab [Tylenol] 650 mg PO Q6HR PRN tab PRN Reason: Fever And/ Or Pain Continue buPROPion HCL [Wellbutrin SR] 150 mg PO BID Albuterol Inhaler [Ventolin Hfa Inhaler] 2 puff INHALATION RT-QID PRN PRN Reason: Shortness Of Breath Empagliflozin [Jardiance] 10 mg PO DAILY Folic Acid 0.8 mg PO DAILY Meclizine [Antivert] 12.5 mg PO TID PRN PRN Reason: Vertigo Budesonide/Formoterol Fumarate [Breyna 160-4.5 Mcg Inhaler] 2 puff INHALATION RT-BID Levothyroxine Sodium [Synthroid] 250 mcg PO DAILY Cyanocobalamin [Vitamin B-12] 1,000 mcg PO DAILY Calcium Acetate [PhosLo] 667 mg PO DAILY Magnesium Oxide [Mag-Ox] 400 mg PO BID Sennosides/Docusate Sodium [Senna Plus 8.6-50 mg Tablet] 3 tab PO HS Apixaban [Eliquis] 2.5 mg PO BID Atorvastatin [Lipitor] 20 mg PO HS calcitrioL 0.5 mcg PO DAILY Metoprolol Tartrate [Lopressor] 200 mg PO BID Venlafaxine HCl [Effexor XR] 300 mg PO HS Primidone [Mysoline] 50 mg PO DAILY Discontinued Gabapentin [Neurontin] 600 mg PO BID HYDROcodone/APAP 10-325MG [[place] 10-325] 1 tab PO QID PRN PRN Reason: Pain Amiodarone [Cordarone] 200 mg PO DAILY Furosemide [Lasix] 20 mg PO DAILY@1600 Furosemide [Lasix] 40 mg PO DAILY@0900 Discharge Medication List buPROPion HCL [Wellbutrin SR] 150 mg PO BID 05/03/18 [History] Albuterol Inhaler [Ventolin Hfa Inhaler] 2 puff INHALATION RT-QID PRN 02/27/23 [History] Apixaban [Eliquis] 2.5 mg PO BID 02/27/23 [History] Calcium Acetate [PhosLo] 667 mg PO DAILY 02/27/23 [History] Cyanocobalamin [Vitamin B-12] 1,000 mcg PO DAILY 02/27/23 [History] Magnesium Oxide [Mag-Ox] 400 mg PO BID 02/27/23 [History] Sennosides/Docusate Sodium [Senna Plus 8.6-50 mg Tablet] 3 tab PO HS 02/27/23 [History] Atorvastatin [Lipitor] 20 mg PO HS 07/16/23 [History] Empagliflozin [Jardiance] 10 mg PO DAILY 07/16/23 [History] Folic Acid 0.8 mg PO DAILY 07/16/23 [History] Meclizine [Antivert] 12.5 mg PO TID PRN 07/16/23 [History] Metoprolol Tartrate [Lopressor] 200 mg PO BID 07/16/23 [History] Venlafaxine HCl [Effexor XR] 300 mg PO HS 07/16/23 [History] calcitrioL 0.5 mcg PO DAILY 07/16/23 [History] Budesonide/Formoterol Fumarate [Breyna 160-4.5 Mcg Inhaler] 2 puff INHALATION RT-BID 09/12/23 [History] Levothyroxine Sodium [Synthroid] 250 mcg PO DAILY 09/12/23 [History] Primidone [Mysoline] 50 mg PO DAILY 09/12/23 [History] Acetaminophen Tab [Tylenol] 650 mg PO Q6HR PRN tab 10/30/23 [Rx] Amoxic-Pot Clav 875-125Mg [Augmentin 875-125] 1 tab PO Q12HR 7 Days #14 tab [Rx] Diltiazem Cd [Cardizem CD] 120 mg PO DAILY cap 10/30/23 [Rx] Furosemide [Lasix] 40 mg PO BID@0900,1600 tab 10/30/23 [Rx] HYDROcodone/APAP 5-325MG [[place] 5-325] 1 each PO Q6HR PRN #4 tab 10/30/23 [Rx] guaiFENesin SYRUP 100MG/5ML [Robitussin] 200 mg PO Q6HR PRN ml 10/30/23 [Rx] Follow up Appointment(s)/Referral(s): [facility] Visiting Nurse, [NON-STAFF] - 1 Week Melecio Simon [Primary Care Provider] - 1 Week Activity/Diet/Wound Care/Special Instructions: Patient is going to [facility] Activity as tolerated Follow-up with cardiology outpatient Continue antibiotics in the form of Augmentin twice daily for the next 1 week Strongly recommend aspiration precautions and head of the bed elevated 30 to 45 degrees at all times and supervision with meals Patient to continue a regular diet and recommend no straws Continue Ensure supplements Discharge Disposition: TRANSFER TO SNF/ECF
[2023-10-30 13:29] VITALS: BP 155/87; PULSE 104; RESP 16; TEMP 97.9
--- NOTE | 2023-10-31 21:18 | P.PN ---
Subjective Progress Note Date: 10/30/23 Principal diagnosis: Reason for follow-up is UTI and concern for possible aspiration pneumonitis Patient is 83-year-old female with a past medical history significant for atrial fibrillation CVA TIA COPD hypertension hyperlipidemia history of recurrent UTIs the patient was brought into the hospital for evaluation of mental status changes and the patient was getting weaker unable to stand up the day of presentation to the hospital noticed to have positive UA for initial consult for possible UTI subsequently did have some vomiting and concern for aspiration. On today's evaluation that is 10/30/2023, the patient continues to be afebrile, the patient is on 2 L nasal cannula oxygen and breathing comfortably, the Pt denies having any chest pain or any worsening cough, the patient denies having any abdominal pain no vomiting or any diarrhea, no new symptoms No new labs today, blood culture negative urine with E. coli Objective - Vital Signs Vital signs: Vital Signs Temp 97.9 F 10/30/23 11:50 Pulse 104 H 10/30/23 11:50 Resp 16 10/30/23 11:50 BP 155/87 10/30/23 11:50 Pulse Ox 96 10/30/23 11:50 FiO2 Intake & Output 10/29/23 10/30/23 10/30/23 18:59 06:59 18:59 Intake Total 480 Output Total 1400 300 Balance -920 -300 Weight 74 kg 79 kg Intake: Oral 480 Output: Urine 1400 300 Other: Voiding Method External Catheter External Catheter External Catheter # Voids 0 # Bowel Movements 1 1 - Exam GENERAL DESCRIPTION: An elderly female lying in bed in no distress RESPIRATORY SYSTEM: Unlabored breathing , decreased breath sounds at bases HEART: S1 S2 regular rate and rhythm , ABDOMEN: Soft , no tenderness EXTREMITIES: Swelling to the leg but no redness - Labs CBC & Chem 7: 10/29/23 06:30 10/29/23 06:30 Assessment and Plan (1) Aspiration pneumonitis Status: Acute Code(s): J69.0 - PNEUMONITIS DUE TO INHALATION OF FOOD AND VOMIT SNOMED Code(s): 089193798 (2) Urinary tract infection Status: Acute Code(s): N39.0 - URINARY TRACT INFECTION, SITE NOT SPECIFIED SNOMED Code(s): 61634118 Plan: 1patient presented hospitalized weakness which is likely multifactorial in this patient who do have history of recurrent UTI some urinary symptoms positive UA likely component of urinary tract infection likely from UTI gram-negative pathogen patient subsequently did have an episode of vomiting and concern for possible aspiration 2-patient urine is growing E. coli that is a sensitive pathogen swallow evaluation did not show any evidence of aspiration 3-patient remains to be afebrile white count has been normal patient to finish therapy with oral Augmentin x 7 days on discharge Dictation was produced using [employer] dictation software. please excuse any grammatical, word or spelling errors. Time with Patient: Less than 30
== END 2023-10-30 17:03 | DRG 689 ==
LOC: EC 10:21 → 4SSUR 13:46 → 3SCARD 23:54 → OBSVTOIN 10-23 13:46 → 3SCARD 10-23 15:25 → 5NMEDONC 10-25 13:08
PROVIDERS: ADMIT Internal Medicine; ATTEND Internal Medicine
DX: N39.0 Urinary tract infection, site not specified (principal); G93.41 Metabolic encephalopathy; I50.33 Acute on chronic diastolic (congestive) heart failure; J69.0 Pneumonitis due to inhalation of food and vomit; J96.21 Acute and chronic respiratory failure with hypoxia; N18.4 Chronic kidney disease, stage 4 (severe); I48.21 Permanent atrial fibrillation; I13.0 Hypertensive heart and chronic kidney disease with heart failure and stage 1 through stage 4 chronic kidney disease, or unspecified chronic kidney disease; R29.6 Repeated falls; K76.82 Hepatic encephalopathy; J44.9 Chronic obstructive pulmonary disease, unspecified; I27.20 Pulmonary hypertension, unspecified; I25.10 Atherosclerotic heart disease of native coronary artery without angina pectoris; I07.1 Rheumatic tricuspid insufficiency; G25.3 Myoclonus; G14 Postpolio syndrome; E87.6 Hypokalemia; E78.5 Hyperlipidemia, unspecified; E66.9 Obesity, unspecified; D53.9 Nutritional anemia, unspecified; B96.20 Unspecified Escherichia coli [E. coli] as the cause of diseases classified elsewhere; Z68.32 Body mass index [BMI] 32.0-32.9, adult; Z79.01 Long term (current) use of anticoagulants; Z79.84 Long term (current) use of oral hypoglycemic drugs; Z79.890 Hormone replacement therapy; Z79.899 Other long term (current) drug therapy; Z86.718 Personal history of other venous thrombosis and embolism; Z86.73 Personal history of transient ischemic attack (TIA), and cerebral infarction without residual deficits; Z87.440 Personal history of urinary (tract) infections; Z90.710 Acquired absence of both cervix and uterus; Z95.5 Presence of coronary angioplasty implant and graft; Z87.891 Personal history of nicotine dependence
CPT/HCPCS: 36415; 36600; 70450; 71045; 71046; 71250; 74230; 80048; 80053; 80306; 81001; 82140; 82607; 82746; 82805; 83605; 83735; 83880; 84132; 84145; 84443; 84484; 85025; 85610; 85730; 87040; 87077; 87086; 87186; 87636; 93005; 93306; 93880; 94640; 94760; 95819; 96361; 96374; 99285

== ENCOUNTER 2023-10-31 09:52 | Emergency (ER) | payer MEDICARE, BC ==
--- NOTE | 2023-10-31 10:18 | ED ---
General Adult HPI - General Chief complaint: Recheck/Abnormal Lab/Rx Stated complaint: Hypertension Time Seen by Provider: 10/31/23 09:57 Source: patient, RN notes reviewed Mode of arrival: EMS Limitations: no limitations - History of Present Illness Initial comments: Patient is a pleasant 83-year-old female presenting to the emergency department with reported hypertension. Patient states she did have a mild headache earlier however has chronic headaches and that is not unusual for her or different from her normal ones. Patient otherwise has no complaints. Patient still feels fine at this time. Patient is unclear when blood pressure was taken. - Related Data Home Medications Medication Instructions Recorded Confirmed buPROPion HCL [Wellbutrin SR] 150 mg PO BID 05/03/18 10/22/23 Albuterol Inhaler [Ventolin Hfa 2 puff INHALATION RT-QID PRN 02/27/23 10/22/23 Inhaler] Apixaban [Eliquis] 2.5 mg PO BID 02/27/23 10/22/23 Calcium Acetate [PhosLo] 667 mg PO DAILY 02/27/23 10/22/23 Cyanocobalamin [Vitamin B-12] 1,000 mcg PO DAILY 02/27/23 10/22/23 Magnesium Oxide [Mag-Ox] 400 mg PO BID 02/27/23 10/22/23 Sennosides/Docusate Sodium [Senna 3 tab PO HS 02/27/23 10/22/23 Plus 8.6-50 mg Tablet] Atorvastatin [Lipitor] 20 mg PO HS 07/16/23 10/22/23 Empagliflozin [Jardiance] 10 mg PO DAILY 07/16/23 10/22/23 Folic Acid 0.8 mg PO DAILY 07/16/23 10/22/23 Meclizine [Antivert] 12.5 mg PO TID PRN 07/16/23 10/22/23 Metoprolol Tartrate [Lopressor] 200 mg PO BID 07/16/23 10/22/23 Venlafaxine HCl [Effexor XR] 300 mg PO HS 07/16/23 10/22/23 calcitrioL 0.5 mcg PO DAILY 07/16/23 10/22/23 Budesonide/Formoterol Fumarate 2 puff INHALATION RT-BID 09/12/23 10/22/23 [Breyna 160-4.5 Mcg Inhaler] Levothyroxine Sodium [Synthroid] 250 mcg PO DAILY 09/12/23 10/22/23 Primidone [Mysoline] 50 mg PO DAILY 09/12/23 10/22/23 Previous Rx's Medication Instructions Recorded Acetaminophen Tab [Tylenol] 650 mg PO Q6HR PRN tab 10/30/23 Amoxic-Pot Clav 875-125Mg 1 tab PO Q12HR 7 Days #14 tab 10/30/23 [Augmentin 875-125] Diltiazem Cd [Cardizem CD] 120 mg PO DAILY cap 10/30/23 Furosemide [Lasix] 40 mg PO BID@0900,1600 tab 10/30/23 HYDROcodone/APAP 5-325MG [[place] 1 tab PO TID #4 tab 10/30/23 5-325] guaiFENesin SYRUP 100MG/5ML 200 mg PO Q6HR PRN ml 10/30/23 [Robitussin] Allergies Allergy/AdvReac Type Severity Reaction Status Date / Time nitrofurantoin Allergy Unknown Verified 10/31/23 10:00 [From Macrobid] Sulfa (Sulfonamide Allergy StevensJohnson Verified 10/31/23 10:00 Antibiotics) syndrome Review of Systems ROS Statement: Those systems with pertinent positive or pertinent negative responses have been documented in the HPI. ROS Other: All systems not noted in ROS Statement are negative. Constitutional: Denies: fever Eyes: Denies: eye pain ENT: Denies: ear pain Respiratory: Denies: cough Cardiovascular: Denies: chest pain Endocrine: Denies: fatigue Gastrointestinal: Denies: abdominal pain Genitourinary: Denies: dysuria Musculoskeletal: Denies: back pain Skin: Denies: rash Neurological: Reports: as per HPI. 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 left wrist, hx of UTI's, hx of glaucoma, had several laser tx, states frequent headaches, uses walker, vertigo, hx of gout, History of Any Multi-Drug Resistant Organisms: None Reported Past Surgical History: Cholecystectomy, Heart Catheterization With Stent, Hysterectomy Additional Past Surgical History / Comment(s): kidney surg. for malrotation, chest tube, 2 stents Past Anesthesia/Blood Transfusion Reactions: No Reported Reaction Date of Last Stent Placement:: 2010 Past Psychological History: Anxiety, Depression Smoking Status: Former smoker Past Alcohol Use History: None Reported Past Drug Use History: None Reported - Past Family History Mother Sister(s) Family Medical History: Cancer General Exam Limitations: no limitations General appearance: alert, in no apparent distress Head exam: Present: normocephalic Eye exam: Present: normal appearance, PERRL, EOMI Neck exam: Present: normal inspection Respiratory exam: Present: normal lung sounds bilaterally Cardiovascular Exam: Present: regular rate, normal rhythm GI/Abdominal exam: Present: soft. Absent: tenderness Extremities exam: Present: normal inspection, full ROM. Absent: tenderness Neurological exam: Present: alert. Absent: motor sensory deficit Psychiatric exam: Present: normal affect, normal mood Skin exam: Present: normal color Course Vital Signs 10/31/23 10/31/23 10/31/23 09:55 10:14 10:45 Temperature 97.9 F Pulse Rate 80 94 96 Respiratory 16 18 16 Rate Blood Pressure 124/97 134/88 133/96 O2 Sat by Pulse 96 98 99 Oximetry EKG Findings - EKG Results: EKG: interpreted by ERMD (Atrial flutter. Left axis. Poor R wave progression. Nonspecific T waves) Medical Decision Making - Medical Decision Making Was pt. sent in by a medical professional or institution (, PA, EGG CASER, urgent care, hospital, or long-term...) When possible be specific @ -Patient was sent from nursing Did you speak to anyone other than the patient for history (EMS, parent, family, police, friend...)? What history was obtained from this source @ -No Did you review nursing and triage notes (agree or disagree)? Why? @ -I reviewed and agree with nursing and triage notes Were old charts reviewed (outside hosp., previous admission, EMS record, old EKG, old radiological studies, urgent care reports/EKG's, long-term records)? Report findings @ -Previous admission reviewed including labs Differential Diagnosis (chest pain, altered mental status, abdominal pain women, abdominal pain men, vaginal bleeding, weakness, fever, dyspnea, syncope, headache, dizziness, GI bleed, back pain, seizure, CVA, palpatations, mental health, musculoskeletal)? @ -Differential Weakness: Hypoglycemia, shock, sepsis, hyponatremia, anemia, infection, DE, ETOH, adverse medicine reaction, overdose, stroke, this is not meant to be an all-inclusive list. EKG interpreted by me (3pts min.). @ -As above X-rays interpreted by me (1pt min.). @ -None done CT interpreted by me (1pt min.). @ -None done U/S interpreted by me (1pt. min.). @ -None done What testing was considered but not performed or refused? (CT, X-rays, U/S, labs)? Why? @ -Did consider labs and imaging however patient is symptom-free and blood pressure has normalized. Patient was recently admitted and recent labs reviewed What meds were considered but not given or refused? Why? @ -None Did you discuss the management of the patient with other professionals (professionals i.e. , PA, EGG CASER, lab, RT, psych nurse, social welfare administrator, integration technician, teacher, policy officer, egg caser)? Give summary @ -No Was smoking cessation discussed for >3mins.? @ -No Was critical care preformed (if so, how long)? @ -No Were there social determinants of health that impacted care today? How? (Homelessness, low income, unemployed, alcoholism, drug addiction, transportation, low edu. Level, literacy, decrease access to med. care, penitentiary, rehab)? @ -No Was there de-escalation of care discussed even if they declined (Discuss DNR or withdrawal of care, Hospice)? DNR status @ -No What co-morbidities impacted this encounter? (DM, HTN, Smoking, COPD, CAD, Cancer, CVA, ARF, Chemo, Hep., AIDS, mental health diagnosis, sleep apnea, morbid obesity)? @ -None Was patient admitted / discharged? Hospital course, mention meds given and route, prescriptions, significant lab abnormalities, going to OR and other pertinent info. @ -Patient reevaluated and remains symptom-free. Blood pressure has been stable. Patient will be discharged back to long-term with recommended follow-up primary care physician Undiagnosed new problem with uncertain prognosis? @ -No Drug Therapy requiring intensive monitoring for toxicity (Heparin, Nitro, Insul in, Cardizem)? @ -No Were any procedures done? @ -No Diagnosis/symptom? @ -Hypertensive episode Acute, or Chronic, or Acute on Chronic? @ -Acute Uncomplicated (without systemic symptoms) or Complicated (systemic symptoms)? @ -Default Side effects of treatment? @ -No Exacerbation, Progression, or Severe Exacerbation? @ -No Poses a threat to life or bodily function? How? (Chest pain, [place], DE, pneumonia, PE, COPD, DKA, ARF, appy, cholecystitis, CVA, Diverticulitis, Homicidal, Suicidal, threat to staff... and all critical care pts) @ -No Disposition Clinical Impression: Episode of hypertension Disposition: HOME SELF-CARE Condition: Stable Instructions (If sedation given, give patient instructions): Hypertension (ED) Additional Instructions: Continue antihypertensive medications. Please do follow-up with primary care physician in the next 1 or 2 days for recheck. Return for uncontrolled blood pressure, chest pain or weakness, worsening symptoms or other concerns. Is patient prescribed a controlled substance at d/c from ED?: No Referrals: Melecio Simon [Primary Care Provider] - 1-2 days Time of Disposition: 11:03
[2023-10-31 10:27] VITALS: TEMP 97.9
[2023-10-31 11:07] VITALS: RESP 16
[2023-10-31 11:46] VITALS: BP 140/94; PULSE 110
== END 2023-10-31 11:50 | disposition home or self-care (01) ==
LOC: EC 09:52
DX: I11.0 Hypertensive heart disease with heart failure (principal); I50.9 Heart failure, unspecified; Z86.73 Personal history of transient ischemic attack (TIA), and cerebral infarction without residual deficits; Z87.891 Personal history of nicotine dependence; Z88.1 Allergy status to other antibiotic agents; Z88.2 Allergy status to sulfonamides; Z90.49 Acquired absence of other specified parts of digestive tract; Z79.899 Other long term (current) drug therapy
CPT/HCPCS: 93005; 99284

== ENCOUNTER 2023-12-07 14:22 | Emergency (ER) | payer MEDICARE, BC ==
[2023-12-07] MEDS: SODIUM CHLORIDE 0.9% 500 ML 500 ML IV STA (14:49)
--- NOTE | 2023-12-07 14:51 | ED ---
General Adult HPI - General Chief complaint: Arrhythmia/Palpitations Stated complaint: High Heart Rate Time Seen by Provider: 12/07/23 14:25 Source: patient, EMS, RN notes reviewed, old records reviewed Mode of arrival: EMS Limitations: no limitations - History of Present Illness Initial comments: This is an 83-year-old female who presents to the emergency department because her heart rate was racing. Patient states she has a history of atrial fibril lation. Patient states her visiting nurse told her to come to the emergency department. Patient states she feels short of breath but she denies any chest pain. Patient states about 2 weeks ago she fell and hit her head and she is on a blood thinner but she never got evaluated at that time she continues to have a headache. Patient also complains of diarrhea today with urinary frequency. Patient Nuys any dysuria. Patient has any hematuria. Patient denies any other pain from the fall 2 weeks ago. Patiently states she normally takes metoprolol at 8:00 and she did not take her metoprolol till after 1:00 today. - Related Data Home Medications Medication Instructions Recorded Confirmed buPROPion HCL [Wellbutrin SR] 150 mg PO BID 05/03/18 12/07/23 Albuterol Inhaler [Ventolin Hfa 2 puff INHALATION RT-QID PRN 02/27/23 12/07/23 Inhaler] Apixaban [Eliquis] 2.5 mg PO BID 02/27/23 12/07/23 Calcium Acetate [PhosLo] 667 mg PO DAILY 02/27/23 12/07/23 Cyanocobalamin [Vitamin B-12] 1,000 mcg PO DAILY 02/27/23 12/07/23 Magnesium Oxide [Mag-Ox] 400 mg PO BID 02/27/23 12/07/23 Sennosides/Docusate Sodium [Senna 3 tab PO HS 02/27/23 12/07/23 Plus 8.6-50 mg Tablet] Atorvastatin [Lipitor] 20 mg PO HS 07/16/23 12/07/23 Empagliflozin [Jardiance] 10 mg PO DAILY 07/16/23 12/07/23 Folic Acid 0.8 mg PO DAILY 07/16/23 12/07/23 Meclizine [Antivert] 12.5 mg PO TID PRN 07/16/23 12/07/23 Metoprolol Tartrate [Lopressor] 200 mg PO BID 07/16/23 12/07/23 Venlafaxine HCl [Effexor XR] 300 mg PO HS 07/16/23 12/07/23 calcitrioL 0.5 mcg PO DAILY 07/16/23 12/07/23 Levothyroxine Sodium [Synthroid] 250 mcg PO DAILY 09/12/23 12/07/23 Primidone [Mysoline] 50 mg PO DAILY 09/12/23 12/07/23 Albuterol Nebulized [Ventolin 2.5 mg INHALATION RT-TID PRN 12/07/23 12/07/23 Nebulized] Fluticasone Propion/Salmeterol 1 puff INHALATION RT-BID 12/07/23 12/07/23 [Advair 250-50 Diskus] HYDROcodone/APAP 10-325MG [[place]sea 1 tab PO Q6HR PRN 12/07/23 12/07/23 10-325] Previous Rx's Medication Instructions Recorded Acetaminophen Tab [Tylenol] 650 mg PO Q6HR PRN tab 10/30/23 Diltiazem Cd [Cardizem CD] 120 mg PO DAILY cap 10/30/23 Furosemide [Lasix] 40 mg PO BID@0900,1600 tab 10/30/23 guaiFENesin SYRUP 100MG/5ML 200 mg PO Q6HR PRN ml 10/30/23 [Robitussin] Allergies Allergy/AdvReac Type Severity Reaction Status Date / Time nitrofurantoin Allergy Unknown Verified 12/07/23 19:07 [From Macrobid] Sulfa (Sulfonamide Allergy StevensJohnson Verified 12/07/23 19:07 Antibiotics) syndrome Review of Systems ROS Statement: Those systems with pertinent positive or pertinent negative responses have been documented in the HPI. ROS Other: All systems not noted in ROS Statement are negative. 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 left wrist, hx of UTI's, hx of glaucoma, had several laser tx, states frequent headaches, uses walker, vertigo, hx of gout, History of Any Multi-Drug Resistant Organisms: None Reported Past Surgical History: Cholecystectomy, Heart Catheterization With Stent, Hysterectomy Additional Past Surgical History / Comment(s): kidney surg. for malrotation, chest tube, 2 stents Past Anesthesia/Blood Transfusion Reactions: No Reported Reaction Date of Last Stent Placement:: 2010 Past Psychological History: Anxiety, Depression Smoking Status: Former smoker Past Alcohol Use History: None Reported Past Drug Use History: None Reported - Past Family History Mother Sister(s) Family Medical History: Cancer General Exam - General Exam Comments Initial Comments: GENERAL: Patient is well-developed and well-nourished. Patient is nontoxic and well- hydrated and is in mild distress. ENT: Neck is soft and supple. No significant lymphadenopathy is noted. Oropharynx is clear. Moist mucous membranes. Neck has full range of motion without eliciting any pain. EYES: The sclera were anicteric and conjunctiva were pink and moist. Extraocular movements were intact and pupils were equal round and reactive to light. Eyelids were unremarkable. PULMONARY: Unlabored respirations. Good breath sounds bilaterally. No audible rales rhonchi or wheezing was noted. CARDIOVASCULAR: There is a regular rate and rhythm without any murmurs gallops or rubs. ABDOMEN: Soft and nontender with normal bowel sounds. SKIN: Patient has resolving bruises around the right forehead and periorbital area NEUROLOGIC: Patient is alert and oriented x3. Cranial nerves II through XII are grossly intact. Motor and sensory are also intact. Normal speech, volume and content. Symmetrical smile. MUSCULOSKELETAL: Normal extremities with adequate strength and full range of motion. No lower extremity swelling or edema. No calf tenderness. LYMPHATICS: No significant lymphadenopathy is noted PSYCHIATRIC: Normal psychiatric evaluation. Limitations: no limitations Course Vital Signs 12/07/23 12/07/23 12/07/23 14:23 15:38 18:34 Temperature 97.9 F 98.3 F Pulse Rate 112 H 95 84 Respiratory 20 18 16 Rate Blood Pressure 97/71 117/96 108/81 O2 Sat by Pulse 97 94 L 93 L Oximetry Medical Decision Making - Medical Decision Making EKG is interpreted by myself. EKG shows atrial fibrillation with rapid ventricular response at 110 bpm QRS is 98 QT interval 350 QTc is 415. Patient's EKG shows no ST segment ovation or depression Was pt. sent in by a medical professional or institution (NATALIA Ryan, STOCK FITTER, urgent care, hospital, or assisted...) When possible be specific @ -Patient was sent in by her home health care nurse Did you speak to anyone other than the patient for history (EMS, parent, family, police, friend...)? What history was obtained from this source @ -No Did you review nursing and triage notes (agree or disagree)? Why? @ -I reviewed and agree with nursing and triage notes Were old charts reviewed (outside hosp., previous admission, EMS record, old EKG, old radiological studies, urgent care reports/EKG's, assisted records)? Report findings @ -I compared today's EKG with previous EKG shows atrial fibrillation which has in the past Differential Diagnosis (chest pain, altered mental status, abdominal pain women, abdominal pain men, vaginal bleeding, weakness, fever, dyspnea, syncope, headache, dizziness, GI bleed, back pain, seizure, CVA, palpatations, mental health, musculoskeletal)? @ -Differential Palpitations Ventricular arrhythmias, atrial arrhythmias, myocardial infarction, anemia, thyrotoxicosis, electrolyte imbalance, hypokalemia, pulmonary embolism, pulmonary disease, drugs, alcohol, anxiety, stress.... This is not meant to be an all-inclusive list. EKG interpreted by me (3pts min.). @ -As above X-rays interpreted by me (1pt min.). @ -Chest x-ray shows no acute abnormality CT interpreted by me (1pt min.). @ -CT of the brain and C-spine showed no acute normality U/S interpreted by me (1pt. min.). @ -None done What testing was considered but not performed or refused? (CT, X-rays, U/S, labs)? Why? @ -None What meds were considered but not given or refused? Why? @ -None Did you discuss the management of the patient with other professionals (professionals i.e. NATALIA Ryan, STOCK FITTER, lab, RT, psych nurse, marriage and family social worker, gis coordinator, teacher, adult parole officer, pillowcase maker)? Give summary @ -No Was smoking cessation discussed for >3mins.? @ -No Was critical care preformed (if so, how long)? @ -No Were there social determinants of health that impacted care today? How? (Homelessness, low income, unemployed, alcoholism, drug addiction, transportation, low edu. Level, literacy, decrease access to med. care, fci, rehab)? @ -No Was there de-escalation of care discussed even if they declined (Discuss DNR or withdrawal of care, Hospice)? DNR status @ -No What co-morbidities impacted this encounter? (DM, HTN, Smoking, COPD, CAD, Cancer, CVA, ARF, Chemo, Hep., AIDS, mental health diagnosis, sleep apnea, morb id obesity)? @ -None Was patient admitted / discharged? Hospital course, mention meds given and rout e, prescriptions, significant lab abnormalities, going to OR and other pertinent info. @ -Patient had not taken her metoprolol to 130 normally she takes it at 8 AM. When the patient arrived her heart rate continued to go down slowly and it was in the 80s to 90s most of the time when she was lying in bed and occasionally would spike up in the low 100s. Patient had no other symptoms at this time and agreed that she needs to get up and take her medicine on time. Undiagnosed new problem with uncertain prognosis? @ -No Drug Therapy requiring intensive monitoring for toxicity (Heparin, Nitro, Insu jas, Cardizem)? @ -No Were any procedures done? @ -No Diagnosis/symptom? @ -A-fib with rapid ventricular response Acute, or Chronic, or Acute on Chronic? @ -Acute Uncomplicated (without systemic symptoms) or Complicated (systemic symptoms)? @ -Complicated Side effects of treatment? @ -No Exacerbation, Progression, or Severe Exacerbation? @ -No Poses a threat to life or bodily function? How? (Chest pain, [place], [place], pneumonia, PE, COPD, DKA, ARF, appy, cholecystitis, CVA, Diverticulitis, Homicidal, Suicidal, threat to staff... and all critical care pts) @ -No - Lab Data Result diagrams: 12/07/23 14:50 12/07/23 14:50 Lab Results 12/07/23 12/07/23 12/07/23 Range/Units 14:50 14:50 14:50 WBC 7.8 (3.8-10.6) k/uL RBC 3.21 L (3.80-5.40) m/uL Hgb 11.1 L (11.4-16.0) gm/dL Hct 35.6 (34.0-46.0) % MCV 111.0 H (80.0-100.0) fL MCH 34.6 (25.0-35.0) pg MCHC 31.2 (31.0-37.0) g/dL RDW 15.3 (11.5-15.5) % Plt Count 279 (150-450) k/uL MPV 8.9 Neutrophils % 70 % Lymphocytes % 12 % Monocytes % 10 % Eosinophils % 4 % Basophils % 1 % Neutrophils # 5.5 (1.3-7.7) k/uL Lymphocytes # 0.9 L (1.0-4.8) k/uL Monocytes # 0.8 (0-1.0) k/uL Eosinophils # 0.3 (0-0.7) k/uL Basophils # 0.0 (0-0.2) k/uL Manual Slide Review Performed Polychromasia Present Hypochromasia Slight Macrocytosis Marked A PT 13.1 H (10.0-12.5) sec INR 1.2 H (<1.2) APTT 24.2 (22.0-30.0) sec Sodium 134 L (137-145) mmol/L Potassium 3.8 (3.5-5.1) mmol/L Chloride 102 (98-107) mmol/L Carbon Dioxide 27 (22-30) mmol/L Anion Gap 5 mmol/L BUN 33 H (7-17) mg/dL Creatinine 1.52 H (0.52-1.04) mg/dL Est GFR (CKD-EPI)AfAm 37 (>60 ml/min/1.73 sqM) Est GFR (CKD-EPI)NonAf 32 (>60 ml/min/1.73 sqM) Glucose 127 H (74-99) mg/dL Calcium 9.1 (8.4-10.2) mg/dL Magnesium 2.1 (1.6-2.3) mg/dL Total Bilirubin 0.8 (0.2-1.3) mg/dL AST 47 H (14-36) U/L ALT 42 H (4-34) U/L Alkaline Phosphatase 99 (38-126) U/L Troponin I (0.000-0.034) ng/mL Total Protein 5.9 L (6.3-8.2) g/dL Albumin 3.4 L (3.5-5.0) g/dL TSH 5.150 H (0.465-4.680) mIU/L Urine Color Urine Appearance (Clear) Urine pH (5.0-8.0) Ur Specific [place] (1.001-1.035) Urine Protein (Negative) Urine Glucose (UA) (Negative) Urine Ketones (Negative) Urine Blood (Negative) Urine Nitrite (Negative) Urine Bilirubin (Negative) Urine Urobilinogen (<2.0) mg/dL Ur Leukocyte Esterase (Negative) Urine RBC (0-5) /hpf Urine WBC (0-5) /hpf Ur Squamous Epith Cells (0-4) /hpf Urine Mucus (None) /hpf Urine Yeast (Budding) (None) /hpf 12/07/23 12/07/23 Range/Units 14:50 18:32 WBC (3.8-10.6) k/uL RBC (3.80-5.40) m/uL Hgb (11.4-16.0) gm/dL Hct (34.0-46.0) % MCV (80.0-100.0) fL MCH (25.0-35.0) pg MCHC (31.0-37.0) g/dL RDW (11.5-15.5) % Plt Count (150-450) k/uL MPV Neutrophils % % Lymphocytes % % Monocytes % % Eosinophils % % Basophils % % Neutrophils # (1.3-7.7) k/uL Lymphocytes # (1.0-4.8) k/uL Monocytes # (0-1.0) k/uL Eosinophils # (0-0.7) k/uL Basophils # (0-0.2) k/uL Manual Slide Review Polychromasia Hypochromasia Macrocytosis PT (10.0-12.5) sec INR (<1.2) APTT (22.0-30.0) sec Sodium (137-145) mmol/L Potassium (3.5-5.1) mmol/L Chloride (98-107) mmol/L Carbon Dioxide (22-30) mmol/L Anion Gap mmol/L BUN (7-17) mg/dL Creatinine (0.52-1.04) mg/dL Est GFR (CKD-EPI)AfAm (>60 ml/min/1.73 sqM) Est GFR (CKD-EPI)NonAf (>60 ml/min/1.73 sqM) Glucose (74-99) mg/dL Calcium (8.4-10.2) mg/dL Magnesium (1.6-2.3) mg/dL Total Bilirubin (0.2-1.3) mg/dL AST (14-36) U/L ALT (4-34) U/L Alkaline Phosphatase (38-126) U/L Troponin I 0.023 (0.000-0.034) ng/mL Total Protein (6.3-8.2) g/dL Albumin (3.5-5.0) g/dL TSH (0.465-4.680) mIU/L Urine Color Colorless Urine Appearance Clear (Clear) Urine pH 6.5 (5.0-8.0) Ur Specific [place] 1.011 (1.001-1.035) Urine Protein Negative (Negative) Urine Glucose (UA) 2+ H (Negative) Urine Ketones Negative (Negative) Urine Blood Negative (Negative) Urine Nitrite Negative (Negative) Urine Bilirubin Negative (Negative) Urine Urobilinogen <2.0 (<2.0) mg/dL Ur Leukocyte Esterase Large H (Negative) Urine RBC 1 (0-5) /hpf Urine WBC 7 H (0-5) /hpf Ur Squamous Epith Cells <1 (0-4) /hpf Urine Mucus Rare H (None) /hpf Urine Yeast (Budding) Few H (None) /hpf Disposition Clinical Impression: Atrial fibrillation Disposition: HOME SELF-CARE Condition: Good Instructions (If sedation given, give patient instructions): A-fib (Atrial Fibrillation) (ED) Is patient prescribed a controlled substance at d/c from ED?: No Referrals: Melecio Simon [Primary Care Provider] - 1-2 days Time of Disposition: 19:56
[2023-12-07 15:02] LABS: Basophils % (A) 1 %; Eosinophils # (A) 0.3 k/uL (0-0.7); Eosinophils % (A) 4 %; HCT 35.6 % (34.0-46.0); HGB 11.1 gm/dL (11.4-16.0); Hypochromasia Slight; Lymphocytes # (A) 0.9 k/uL (1.0-4.8); Lymphocytes % (A) 12 %; MCH 34.6 pg (25.0-35.0); MCHC 31.2 g/dL (31.0-37.0); Macrocytosis Marked; Mean Platelet Volume 8.9; Monocytes # (A) 0.8 k/uL (0-1.0); Monocytes % (A) 10 %; Neutrophils # (A) 5.5 k/uL (1.3-7.7); Neutrophils % (A) 70 %; Platelet Count 279 k/uL (150-450); RBC 3.21 m/uL (3.80-5.40); RDW 15.3 % (11.5-15.5); WBC 7.8 k/uL (3.8-10.6)
[2023-12-07 15:14] LABS: ALT 42 U/L (4-34); AST 47 U/L (14-36); African American GFR (CKD) 37 (>60 ml/min/1.73 sqM); Albumin 3.4 g/dL (3.5-5.0); Alkaline Phosphatase 99 U/L (38-126); Anion Gap 5 mmol/L; Blood Urea Nitrogen 33 mg/dL (7-17); Calcium 9.1 mg/dL (8.4-10.2); Carbon Dioxide 27 mmol/L (22-30); Chloride 102 mmol/L (98-107); Glucose 127 mg/dL (74-99); Magnesium 2.1 mg/dL (1.6-2.3); Non-African American GFR(CKD) 32 (>60 ml/min/1.73 sqM); Potassium 3.8 mmol/L (3.5-5.1); Sodium 134 mmol/L (137-145); Total Bilirubin 0.8 mg/dL (0.2-1.3); Total Protein 5.9 g/dL (6.3-8.2)
[2023-12-07 15:21] LABS: INR 1.2 (<1.2); Partial Thromboplastin Time 24.2 sec (22.0-30.0); Prothrombin Time 13.1 sec (10.0-12.5)
--- NOTE | 2023-12-07 15:40 | XR ---
EXAMINATION TYPE: XR chest 2V DATE OF EXAM: 12/07/2023 COMPARISON: 10/27/2023 HISTORY: 83-year-old female dysrhythmia TECHNIQUE: AP and lateral views FINDINGS: Heart mildly enlarged. Mild patchy mid and lower lung densities and mild interstitial prominence. No pleural effusion. IMPRESSION: 1. Mild cardiomegaly and interstitial density, possible mild CHF with pulmonary vascular congestion. 2. Mild patchy lower lung atelectasis and/or mild infiltrates. Overall similar appearance to prior.
[2023-12-07 16:00] VITALS: TEMP 98.3
[2023-12-07 16:07] LABS: Polychromasia Present
--- NOTE | 2023-12-07 16:18 | CT ---
EXAMINATION TYPE: CT brain cspine wo con CT DLP: 1463.1 mGycm, Automated exposure control for dose reduction was used. DATE OF EXAM: 12/07/2023 3:51 PM COMPARISON: CT brain C-spine from 09/12/2023 CLINICAL INDICATION:Female, 83 years old with history of Trauma; pain after fall. Initial encounter. TECHNIQUE: Brain: Multiple axial CT images of the brain were obtained without IV contrast. Cspine: Axial CT images from the skull base to the inferior aspect of T2 we obtained without intraven ous contrast. Coronal and sagittal reformatted images were also reviewed. FINDINGS: Brain: Extra-axial spaces: No abnormal extra-axial fluid collections. Ventricular system: Within normal limits Cerebral parenchyma: No acute intraparenchymal hemorrhage or mass effect. The nation-white junction is well differentiated. Cerebellum: Unremarkable. Mass effect: No evidence of midline shift. Intracranial vasculature: unremarkable Soft tissues: Normal. Calvarium/osseous structures: No depressed skull fracture. Paranasal sinuses and mastoid air cells: Clear. Visualized orbits: Orbital contents are intact. Right supraorbital prefrontal scalp in the colon. Cervical spine: Fracture: None. Osseous structures: Unremarkable Vertebral alignment: Within normal limits. Spinal canal/Neural Foramina: No evidence of significant spinal canal narrowing. No evidence for sign ificant neural foraminal stenosis. Neck soft tissues: Prevertebral soft tissues are within normal limits. Other: The airway is patent. The lung apices are clear. IMPRESSION: No acute intracranial process. Right supraorbital frontal scalp hematoma is reidentified. No evidence of cervical spine fracture. Mild multilevel degenerative disc disease.
[2023-12-07 19:20] LABS: Appearance,Urine Clear (Clear); Bilirubin,Urine Negative (Negative); Blood,Urine Negative (Negative); Budding Yeast,Urine Few /hpf; Color,Urine Colorless; Glucose,Urine (UA) 2+ (Negative); Ketones,Urine Negative (Negative); Leukocyte Esterase,Urine Large (Negative); Mucus,Urine Rare /hpf; Nitrite,Urine Negative (Negative); PH, Urine 6.5 (5.0-8.0); Protein,Urine Negative (Negative); RBC,Urine 1 /hpf (0-5); Specific Gravity,Urine 1.011 (1.001-1.035); Squamous Epithelial Cell,Urine <1 /hpf (0-4); Urobilinogen,Urine <2.0 mg/dL (<2.0); WBC,Urine 7 /hpf (0-5)
[2023-12-07 20:55] VITALS: BP 118/72; PULSE 91; RESP 18
== END 2023-12-07 21:14 | disposition home or self-care (01) ==
LOC: EC 14:22
DX: I48.91 Unspecified atrial fibrillation (principal); Z79.01 Long term (current) use of anticoagulants; Z88.1 Allergy status to other antibiotic agents; Z88.2 Allergy status to sulfonamides; Z87.891 Personal history of nicotine dependence; Z86.73 Personal history of transient ischemic attack (TIA), and cerebral infarction without residual deficits
CPT/HCPCS: 36415; 70450; 71046; 72125; 80053; 81001; 83735; 84443; 84484; 85025; 85610; 85730; 93005; 99285

== ENCOUNTER 2024-09-06 21:48 | Emergency (ER) | payer MEDICARE, BC ==
[2024-09-06 22:43] LABS: Basophils % (A) 0 %; Eosinophils # (A) 0.2 k/uL (0-0.7); Eosinophils % (A) 3 %; HCT 41.3 % (34.0-46.0); HGB 12.5 gm/dL (11.4-16.0); Hypochromasia Moderate; Lymphocytes # (A) 1.3 k/uL (1.0-4.8); Lymphocytes % (A) 19 %; MCH 32.2 pg (25.0-35.0); MCHC 30.3 g/dL (31.0-37.0); MCV 106.4 fL (80.0-100.0); Macrocytosis Moderate; Mean Platelet Volume 8.4; Monocytes # (A) 0.9 k/uL (0-1.0); Monocytes % (A) 12 %; Neutrophils # (A) 4.3 k/uL (1.3-7.7); Neutrophils % (A) 62 %; Platelet Count 280 k/uL (150-450); RBC 3.89 m/uL (3.80-5.40); RDW 13.2 % (11.5-15.5); WBC 6.9 k/uL (3.8-10.6)
[2024-09-06 22:54] LABS: ALT 26 U/L (4-34); AST 37 U/L (14-36); African American GFR (CKD) 26 (>60 ml/min/1.73 sqM); Albumin 3.4 g/dL (3.5-5.0); Alkaline Phosphatase 105 U/L (38-126); Anion Gap 10 mmol/L; Blood Urea Nitrogen 35 mg/dL (7-17); Calcium 9.2 mg/dL (8.4-10.2); Carbon Dioxide 26 mmol/L (22-30); Chloride 96 mmol/L (98-107); Glucose 86 mg/dL (74-99); Non-African American GFR(CKD) 22 (>60 ml/min/1.73 sqM); Potassium 4.1 mmol/L (3.5-5.1); Sodium 132 mmol/L (137-145); Total Bilirubin 0.7 mg/dL (0.2-1.3); Total Protein 6.4 g/dL (6.3-8.2)
--- NOTE | 2024-09-06 23:34 | ED ---
Altered Mental Status HPI - General Chief Complaint: Altered Mental Status Stated Complaint: L Arm Swelling,AMS Time Seen by Provider: 09/06/24 22:43 Source: patient, family, RN notes reviewed, old records reviewed, Caregiver Limitations: no limitations - History of Present Illness Initial Comments: This is an 84-year-old female who presents with granddaughter for evaluation re gards to more somnolence more sleeping decreased activity level noted for going on greater than a day. Patient is family ember states when she has urinary tract infections this appears to be the case. Patient is on home O2 requiring increasing oxygen. Slow to speak, patient does have hearing issues with conversation is limited but her speech per family is slower than normal although accurate, responses are delayed. Patient herself has no complaints of pain MD Complaint: altered mental status, decreased responsiveness, weakness -: days(s) (1) Severity: moderate Consistency of Symptoms: getting worse Context: history of similar presentation Associated Symptoms: weakness Treatments Prior to Arrival: oxygen - Related Data Home Medications Medication Instructions Recorded Confirmed buPROPion HCL [Wellbutrin SR] 150 mg PO BID 05/03/18 09/08/24 Albuterol Inhaler [Ventolin Hfa 2 puff INHALATION RT-Q6H PRN 02/27/23 09/08/24 Inhaler] Apixaban [Eliquis] 2.5 mg PO BID 02/27/23 09/08/24 Cyanocobalamin [Vitamin B-12] 1,000 mcg PO DAILY 02/27/23 09/08/24 Magnesium Oxide [Mag-Ox] 400 mg PO BID 02/27/23 09/08/24 Sennosides/Docusate Sodium [Senna 1 tab PO DAILY PRN 02/27/23 09/08/24 Plus 8.6-50 mg Tablet] Atorvastatin [Lipitor] 20 mg PO DAILY 07/16/23 09/08/24 Empagliflozin [Jardiance] 10 mg PO DAILY 07/16/23 09/08/24 Meclizine [Antivert] 12.5 mg PO TID PRN 07/16/23 09/08/24 Venlafaxine HCl [Effexor XR] 300 mg PO DAILY 07/16/23 09/08/24 calcitrioL 0.5 mcg PO DAILY 07/16/23 09/08/24 Levothyroxine Sodium [Synthroid] 250 mcg PO DAILY 09/12/23 09/08/24 Primidone [Mysoline] 50 mg PO BID 09/12/23 09/08/24 Albuterol Nebulized [Ventolin 2.5 mg INHALATION RT-TID 12/07/23 09/08/24 Nebulized] HYDROcodone/APAP 10-325MG [[place] 1 tab PO Q6HR PRN 12/07/23 09/08/24 10-325] Budesonide/Formoterol Fumarate 2 puff INHALATION RT-BID 09/08/24 09/08/24 [Symbicort 160-4.5 Mcg Inhaler] Ergocalciferol (Vitamin D2) 1,250 mcg PO Q30D 09/08/24 09/08/24 [Drisdol (50,000 Iu)] Famotidine [Pepcid] 20 mg PO BID 09/08/24 09/08/24 Furosemide [Lasix] 40 mg PO BID 09/08/24 09/08/24 Latanoprost [Latanoprost 0.005%] 1 drop BOTH EYES HS 09/08/24 09/08/24 dilTIAZem HCL [Cardizem CD] 240 mg PO DAILY 09/08/24 09/08/24 Previous Rx's Medication Instructions Recorded Metoprolol Tartrate [Lopressor] 25 mg PO BID #60 tab 09/12/24 Allergies Allergy/AdvReac Type Severity Reaction Status Date / Time nitrofurantoin Allergy Unknown Verified 09/08/24 17:13 [From Macrobid] Sulfa (Sulfonamide Allergy StevensJohnson Verified 09/08/24 17:13 Antibiotics) syndrome Review of Systems ROS Statement: Those systems with pertinent positive or pertinent negative responses have been documented in the HPI. ROS Other: All systems not noted in ROS Statement are negative. 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 left wrist, hx of UTI's, hx of glaucoma, had several laser tx, states frequent headaches, uses walker, vertigo, hx of gout, History of Any Multi-Drug Resistant Organisms: None Reported Past Surgical History: Cholecystectomy, Heart Catheterization With Stent, Hysterectomy Additional Past Surgical History / Comment(s): kidney surg. for malrotation, chest tube, 2 stents Past Anesthesia/Blood Transfusion Reactions: No Reported Reaction Date of Last Stent Placement:: 2010 Past Psychological History: Anxiety, Depression Smoking Status: Former smoker Past Alcohol Use History: None Reported Past Drug Use History: None Reported - Past Family History Mother Sister(s) Family Medical History: Cancer General Exam Limitations: no limitations General appearance: alert, in no apparent distress Head exam: Present: atraumatic, normocephalic, normal inspection Eye exam: Present: normal appearance, PERRL, EOMI. Absent: scleral icterus, conjunctival injection, periorbital swelling ENT exam: Present: normal exam, mucous membranes moist Neck exam: Present: normal inspection. Absent: tenderness, meningismus, lymphadenopathy Respiratory exam: Present: normal lung sounds bilaterally. Absent: respiratory distress, wheezes, rales, rhonchi, stridor Cardiovascular Exam: Present: regular rate, normal rhythm, normal heart sounds. Absent: systolic murmur, diastolic murmur, rubs, gallop, clicks GI/Abdominal exam: Present: soft, normal bowel sounds. Absent: distended, tenderness, guarding, rebound, rigid Extremities exam: Present: normal inspection, full ROM, normal capillary refill. Absent: tenderness, pedal edema, joint swelling, calf tenderness Back exam: Present: normal inspection Neurological exam: Present: alert, oriented X3, CN II-XII intact Psychiatric exam: Present: normal affect, normal mood Skin exam: Present: warm, dry, intact, normal color. Absent: rash Course Vital Signs 09/06/24 09/06/24 09/07/24 21:51 23:30 00:22 Temperature 97.1 F L Pulse Rate 59 L 112 H 101 H Respiratory 16 20 18 Rate Blood Pressure 112/77 109/70 O2 Sat by Pulse 94 L 98 Oximetry 09/07/24 09/07/24 09/07/24 00:28 00:30 01:27 Temperature Pulse Rate 108 H 107 H 104 H Respiratory 18 16 Rate Blood Pressure 123/93 O2 Sat by Pulse 96 94 L Oximetry 09/07/24 09/07/24 09/07/24 01:47 01:52 03:00 Temperature 97.5 F L Pulse Rate 81 86 92 Respiratory Rate Blood Pressure 121/83 121/84 136/93 O2 Sat by Pulse 94 L 98 Oximetry 09/07/24 09/07/24 09/07/24 03:37 03:43 03:52 Temperature 97.4 F L Pulse Rate 97 99 92 Respiratory 18 18 16 Rate Blood Pressure 147/99 O2 Sat by Pulse 97 Oximetry - Reevaluation(s) Reevaluation #1: 09/07/24 00:00 Medical records reviewed Reevaluation #2: 09/07/24 03:21 Patient symptoms continue to improve here in the ER Patient given rate control for atrial fibrillation Patient given IV antibiotics for UTI IV resuscitation for dehydration Reevaluation #3: 09/07/24 03:21 Patient and family informed of results questions answered They do feel good taking patient home symptoms are dramatically improved Reevaluation #4: Was pt. sent in by a medical professional or institution (, PA, DYE JIG OPERATOR, urgent care, hospital, or [facility]...) When possible be specific @ -no Did you speak to anyone other than the patient for history (EMS, parent, family, police, friend...)? What history was obtained from this source @ -no Did you review nursing and triage notes (agree or disagree)? Why? @ -agree Are old charts reviewed (outside hosp., previous admission, EMS record, old EKG, old radiological studies, urgent care reports/EKG's, [facility] records)? Report findings @ -yes Differential Diagnosis (chest pain, altered mental status, abdominal pain women, abdominal pain men, vaginal bleeding, weakness, fever, dyspnea, syncope, headache, dizziness, GI bleed, back pain, seizure, CVA, palpatations, mental health, musculoskeletal)? @ -prior EKG interpreted by me (3pts min.). @ -yes X-rays interpreted by me (1pt min.). @ -yes negative for acute disease CT interpreted by me (1pt min.). @ -no U/S interpreted by me (1pt. min.). @ -no What testing was considered but not performed or refused? (CT, X-rays, U/S, labs)? Why? @ -none What meds were considered but not given or refused? Why? @ -none Did you discuss the management of the patient with other professionals (professionals i.e. , PA, DYE JIG OPERATOR, lab, RT, psych nurse, outreach and education social worker, merchandise adjustment clerk, teacher, access control officer, embedded case manager)? Give summary @ -no Was smoking cessation discussed for >3mins.? @ -no Was critical care preformed (if so, how long)? @ -no Were there social determinants of health that impacted care today? How? (Homelessness, low income, unemployed, alcoholism, drug addiction, transportation, low edu. Level, literacy, decrease access to med. care, retirement, rehab)? @ -none Was there de-escalation of care discussed even if they declined (Discuss DNR or withdrawal of care, Hospice)? DNR status @ -no What co-morbidities impacted this encounter? (DM, HTN, Smoking, COPD, CAD, Cancer, CVA, ARF, Chemo, Hep., AIDS, mental health diagnosis, sleep apnea, morbid obesity)? @ -none Was patient admitted / discharged? Hospital course, mention meds given and route, prescriptions, significant lab abnormalities, going to OR and other pertinent info. @ - 84 Female to ER for weakness dehydration UTI A-fib with RVR with symptoms dramatically improved throughout ER stay, A-fib with RVR is resolved, IV antibiotics here in the ER dehydration is treated patient feels well and can be discharged home Discharge Undiagnosed new problem with uncertain prognosis? @ -no Drug Therapy requiring intensive monitoring for toxicity (Heparin, Nitro, Insul in, Cardizem)? @ -no Were any procedures done? @ -no Diagnosis/symptom? @ -Weakness dehydration UTI and A-fib with RVR Acute, or Chronic, or Acute on Chronic? @ -Acute Uncomplicated (without systemic symptoms) or Complicated (systemic symptoms)? @ -Complicated Side effects of treatment? @ -no Exacerbation, Progression, or Severe Exacerbation? @ -exacerbation Poses a threat to life or bodily function? How? (Chest pain, USA, GA, pneumonia, PE, COPD, DKA, ARF, appy, cholecystitis, CVA, Diverticulitis, Homicidal, Suicidal, threat to staff... and all critical care pts) @ -yes extremes of age Reevaluation #5: Differential Altered Mental Status: Hypoglycemia, DKA, hypercapnia, ETOH, overdose, CO poisoning, trauma, myxedema coma, HTN encephalopathy, infection, encephalitis, psychosis, intercranial hemorrhage, hepatic encephalopathy, meningitis, CVA, this is not meant to be an all-inclusive list Differential Weakness: Hypoglycemia, shock, sepsis, hyponatremia, anemia, infection, GA, ETOH, adverse medicine reaction, overdose, stroke, this is not meant to be an all-inclusive list. Medical Decision Making - Medical Decision Making 84 Female to ER for weakness dehydration UTI A-fib with RVR with symptoms dramatically improved throughout ER stay, A-fib with RVR is resolved, IV antibiotics here in the ER dehydration is treated patient feels well and can be discharged home - Lab Data Result diagrams: 09/06/24 22:36 09/06/24 22:36 Lab Results 09/06/24 09/06/24 09/07/24 Range/Units 22:36 22:36 01:51 WBC 6.9 (3.8-10.6) k/uL RBC 3.89 (3.80-5.40) m/uL Hgb 12.5 (11.4-16.0) gm/dL Hct 41.3 (34.0-46.0) % MCV 106.4 H (80.0-100.0) fL MCH 32.2 (25.0-35.0) pg MCHC 30.3 L (31.0-37.0) g/dL RDW 13.2 (11.5-15.5) % Plt Count 280 (150-450) k/uL MPV 8.4 Neutrophils % 62 % Lymphocytes % 19 % Monocytes % 12 % Eosinophils % 3 % Basophils % 0 % Neutrophils # 4.3 (1.3-7.7) k/uL Lymphocytes # 1.3 (1.0-4.8) k/uL Monocytes # 0.9 (0-1.0) k/uL Eosinophils # 0.2 (0-0.7) k/uL Basophils # 0.0 (0-0.2) k/uL Hypochromasia Moderate Macrocytosis Moderate Sodium 132 L (137-145) mmol/L Potassium 4.1 (3.5-5.1) mmol/L Chloride 96 L (98-107) mmol/L Carbon Dioxide 26 (22-30) mmol/L Anion Gap 10 mmol/L BUN 35 H (7-17) mg/dL Creatinine 2.05 H (0.52-1.04) mg/dL Est GFR (CKD-EPI)AfAm 26 (>60 ml/min/1.73 sqM) Est GFR (CKD-EPI)NonAf 22 (>60 ml/min/1.73 sqM) Glucose 86 (74-99) mg/dL Calcium 9.2 (8.4-10.2) mg/dL Total Bilirubin 0.7 (0.2-1.3) mg/dL AST 37 H (14-36) U/L ALT 26 (4-34) U/L Alkaline Phosphatase 105 (38-126) U/L Total Protein 6.4 (6.3-8.2) g/dL Albumin 3.4 L (3.5-5.0) g/dL Urine Color Yellow Urine Appearance Clear (Clear) Urine pH 6.0 (5.0-8.0) Ur Specific [place] 1.018 (1.001-1.035) Urine Protein 1+ H (Negative) Urine Glucose (UA) Trace H (Negative) Urine Ketones Negative (Negative) Urine Blood Negative (Negative) Urine Nitrite Negative (Negative) Urine Bilirubin Negative (Negative) Urine Urobilinogen <2.0 (<2.0) mg/dL Ur Leukocyte Esterase Moderate H (Negative) Urine RBC 2 (0-5) /hpf Urine WBC 29 H (0-5) /hpf Ur Squamous Epith Cells 4 (0-4) /hpf Hyaline Casts 1 (0-2) /lpf Urine Mucus Rare H (None) /hpf - EKG Data -: EKG Interpreted by Me (EKG is A-fib RVR 115 QRS 91 QTc 387) - Radiology Data Radiology results: report reviewed (Chest x-ray is negative for acute disease), image reviewed Disposition Clinical Impression: Urinary tract infection, Altered mental status, Chronic renal disease, Dehydration, Atrial fibrillation with rapid ventricular response, Weakness Disposition: HOME SELF-CARE Condition: Fair Instructions (If sedation given, give patient instructions): Urinary Tract Infection in Women (ED), Altered Mental Status (ED) Is patient prescribed a controlled substance at d/c from ED?: No Referrals: Melecio Simon [Primary Care Provider] - 1-2 days Time of Disposition: 03:30
[2024-09-07] MEDS: IPRATROPIUM-ALBUTEROL 3 ML NEB INHALATION STA ×2 (00:21→03:36)
[2024-09-07] MEDS: SODIUM CHLORIDE 0.9% 1,000 ML IV STA (00:25)
[2024-09-07] MEDS: SODIUM CHLORIDE 0.9% 500 ML 500 ML IV STA ×3 (00:29→03:36)
[2024-09-07] MEDS: DILTIAZEM 5 MG/ML 5 ML VIAL IVP STA (01:35)
--- NOTE | 2024-09-07 01:52 | XR ---
EXAM: XR Chest, 2 Views CLINICAL HISTORY: ITS.REASON XR Reason: cough TECHNIQUE: Frontal and lateral views of the chest. COMPARISON: XR Chest dated 12/07/2023 FINDINGS: See Impression. IMPRESSION: 1. Low lung volumes. 2. Stable mild cardiomegaly. 3. Left basilar atelectasis or consolidation, increased. 4. Focal right mid lung peripheral scarring or atelectasis. Query small amount of fluid in the fissure. 5. Query small pleural effusions.
[2024-09-07] MEDS: DEXAMETHASONE SOD PHOSPHATE 10 MG/ML 1 ML VIAL IVP STA (02:55)
[2024-09-07 03:09] LABS: Appearance,Urine Clear (Clear); Bilirubin,Urine Negative (Negative); Blood,Urine Negative (Negative); Color,Urine Yellow; Glucose,Urine (UA) Trace (Negative); Hyaline Casts,Urine 1 /lpf (0-2); Ketones,Urine Negative (Negative); Leukocyte Esterase,Urine Moderate (Negative); Mucus,Urine Rare /hpf; Nitrite,Urine Negative (Negative); Protein,Urine 1+ (Negative); RBC,Urine 2 /hpf (0-5); Specific Gravity,Urine 1.018 (1.001-1.035); Squamous Epithelial Cell,Urine 4 /hpf (0-4); Urobilinogen,Urine <2.0 mg/dL (<2.0); WBC,Urine 29 /hpf (0-5)
[2024-09-07] MEDS: CEPHALEXIN 500MG STARTER PACK 4 CAP BTL PO STA (03:50)
[2024-09-07 04:04] VITALS: BP 147/99; PULSE 92; RESP 16; TEMP 97.4
== END 2024-09-07 04:18 | disposition home or self-care (01) ==
LOC: EC 21:48
DX: R41.82 Altered mental status, unspecified (principal); E86.0 Dehydration; I48.91 Unspecified atrial fibrillation; N39.0 Urinary tract infection, site not specified; I13.0 Hypertensive heart and chronic kidney disease with heart failure and stage 1 through stage 4 chronic kidney disease, or unspecified chronic kidney disease; I50.9 Heart failure, unspecified; N18.9 Chronic kidney disease, unspecified; Z86.73 Personal history of transient ischemic attack (TIA), and cerebral infarction without residual deficits; Z87.891 Personal history of nicotine dependence
CPT/HCPCS: 36415; 94640 ×2; 93005; 80053; 85025; 81001; 87086; 71046; 99285; 96365; 96375 ×2; J1100; J0696

== ENCOUNTER 2024-09-08 14:33 | Observation (INO) | payer MEDICARE, BC ==
--- NOTE | 2024-09-08 15:09 | ED ---
General Adult HPI - General Chief complaint: Chest Pain Stated complaint: chest pain, SOB Time Seen by Provider: 09/08/24 14:40 Source: EMS Mode of arrival: EMS - History of Present Illness Initial comments: Dictation was produced using [employer] dictation software. please excuse any g rammatical, word or spelling errors. Chief Complaint: 84-year-old female chest pain History of Present Illness: Patient is an 84-year-old female presents to the emergency department for chest pain history of present illness obtained from son at the bedside states that she had an episode of chest pain. He also noticed that her heart rate started to drop and she became cyanotic and had a pulse ox that was reading into the low 60s. States that that episode lasted for short while. Son was worried that she was having a heart attack. Patient states that at the bedside she feels almost back to normal except for a little bit of pressure in her chest. Denies any associated diaphoresis or nausea. The ROS documented in this emergency department record has been reviewed and confirmed by me. Those systems with pertinent positive or negative responses have been documented in the HPI. All other systems are other negative and/or noncontributory. - Related Data Home Medications Medication Instructions Recorded Confirmed buPROPion HCL [Wellbutrin SR] 150 mg PO BID 05/03/18 12/07/23 Albuterol Inhaler [Ventolin Hfa 2 puff INHALATION RT-QID PRN 02/27/23 12/07/23 Inhaler] Apixaban [Eliquis] 2.5 mg PO BID 02/27/23 12/07/23 Calcium Acetate [PhosLo] 667 mg PO DAILY 02/27/23 12/07/23 Cyanocobalamin [Vitamin B-12] 1,000 mcg PO DAILY 02/27/23 12/07/23 Magnesium Oxide [Mag-Ox] 400 mg PO BID 02/27/23 12/07/23 Sennosides/Docusate Sodium [Senna 3 tab PO HS 02/27/23 12/07/23 Plus 8.6-50 mg Tablet] Atorvastatin [Lipitor] 20 mg PO HS 07/16/23 12/07/23 Empagliflozin [Jardiance] 10 mg PO DAILY 07/16/23 12/07/23 Folic Acid 0.8 mg PO DAILY 07/16/23 12/07/23 Meclizine [Antivert] 12.5 mg PO TID PRN 07/16/23 12/07/23 Metoprolol Tartrate [Lopressor] 200 mg PO BID 07/16/23 12/07/23 Venlafaxine HCl [Effexor XR] 300 mg PO HS 07/16/23 12/07/23 calcitrioL 0.5 mcg PO DAILY 07/16/23 12/07/23 Levothyroxine Sodium [Synthroid] 250 mcg PO DAILY 09/12/23 12/07/23 Primidone [Mysoline] 50 mg PO DAILY 09/12/23 12/07/23 Albuterol Nebulized [Ventolin 2.5 mg INHALATION RT-TID PRN 12/07/23 12/07/23 Nebulized] Fluticasone Propion/Salmeterol 1 puff INHALATION RT-BID 12/07/23 12/07/23 [Advair 250-50 Diskus] HYDROcodone/APAP 10-325MG [[place] 1 tab PO Q6HR PRN 12/07/23 12/07/23 10-325] Previous Rx's Medication Instructions Recorded Acetaminophen Tab [Tylenol] 650 mg PO Q6HR PRN tab 10/30/23 Diltiazem Cd [Cardizem CD] 120 mg PO DAILY cap 10/30/23 Furosemide [Lasix] 40 mg PO BID@0900,1600 tab 10/30/23 guaiFENesin SYRUP 100MG/5ML 200 mg PO Q6HR PRN ml 10/30/23 [Robitussin] Cephalexin [Keflex] 500 mg PO Q6HR #28 cap 09/07/24 Allergies Allergy/AdvReac Type Severity Reaction Status Date / Time nitrofurantoin Allergy Unknown Verified 09/08/24 14:45 [From Macrobid] Sulfa (Sulfonamide Allergy [place] Verified 09/08/24 14:45 Antibiotics) syndrome Review of Systems ROS Statement: Those systems with pertinent positive or pertinent negative responses have been documented in the HPI. ROS Other: All systems not noted in ROS Statement are negative. 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 left wrist, hx of UTI's, hx of glaucoma, had several laser tx, states frequent headaches, uses walker, vertigo, hx of gout, History of Any Multi-Drug Resistant Organisms: None Reported Past Surgical History: Cholecystectomy, Heart Catheterization With Stent, Hysterectomy Additional Past Surgical History / Comment(s): kidney surg. for malrotation, chest tube, 2 stents Past Anesthesia/Blood Transfusion Reactions: No Reported Reaction Date of Last Stent Placement:: 2010 Past Psychological History: Anxiety, Depression Smoking Status: Former smoker Past Alcohol Use History: None Reported Past Drug Use History: None Reported - Past Family History Mother Sister(s) Family Medical History: Cancer General Exam - General Exam Comments Initial Comments: PHYSICAL EXAM: General Impression: Alert and oriented x3, not in acute distress HEENT: Normocephalic atraumatic, extra-ocular movements intact, pupils equal and reactive to light bilaterally, mucous membranes moist. Cardiovascular: Heart regular rate and rhythm Chest: Able to complete full sentences, no retractions, no tachypnea Abdomen: abdomen soft, non-tender, non-distended, no organomegaly Musculoskeletal: Pulses present and equal in all extremities, no peripheral edema Motor: no focal deficits noted Neurological: CN II-XII grossly intact, no focal motor or sensory deficits noted Skin: Intact with no visualized rashes Psych: Normal affect and mood Course Vital Signs 09/08/24 09/08/24 14:39 15:34 Temperature 97.6 F Pulse Rate 102 H 97 Respiratory 18 17 Rate Blood Pressure 111/80 96/83 O2 Sat by Pulse 90 L 98 Oximetry EKG Findings - EKG Comments: EKG Findings:: My EKG interpretation: Ventricular rate 93, A-fib, QRS 90, QTc 431. noQTC prolongation, no ST or T-wave changes noted. Overall, this EKG is unremarkable Medical Decision Making - Medical Decision Making Was pt. sent in by a medical professional or institution (, PA, MEDIA COORDINATOR, urgent care, hospital, or skilled nursing...) When possible be specific @ -No Did you speak to anyone other than the patient for history (EMS, parent, family, police, friend...)? What history was obtained from this source @ -See above Did you review nursing and triage notes (agree or disagree)? Why? @ -I reviewed and agree with nursing and triage notes Were old charts reviewed (outside hosp., previous admission, EMS record, old EKG, old radiological studies, urgent care reports/EKG's, skilled nursing records)? Report findings @ -No old charts were reviewed Differential Diagnosis (chest pain, altered mental status, abdominal pain women, abdominal pain men, vaginal bleeding, musculoskeletal, weakness, fever, dyspnea, syncope, headache, dizziness, GI bleed, back pain, seizure, CVA, palpatations, mental health)? @ -Differential Chest Pain: Stable Angina, Unstable Angina, STEMI, NSTEMI Aortic Dissection, Pneumothorax, Musculoskeletal, Esophageal Spasm GERD, Cholecystitis, Pancreatitis, Zoster, this is not meant to be an all-inclusive list. EKG interpreted by me (3pts min.). @ -Above X-rays interpreted by me (1pt min.). @ -Chest x-ray shows no acute processes CT interpreted by me (1pt min.). @ -None done U/S interpreted by me (1pt. min.). @ -None done What testing was considered but not performed or refused? (CT, X-rays, U/S, labs)? Why? @ -None What meds were considered but not given or refused? Why? @ -None Was smoking cessation discussed for >3mins.? @ -No Were there social determinants of health that impacted care today? How? (Homelessness, low income, unemployed, alcoholism, drug addiction, transportation, low edu. Level, literacy, decrease access to med. care, senior care, rehab)? @ -No Was there de-escalation of care discussed even if they declined (Discuss DNR or withdrawal of care, Hospice)? DNR status @ -No What co-morbidities impacted this encounter? (DM, HTN, Smoking, COPD, CAD, Cancer, CVA, ARF, Chemo, Hep., AIDS, mental health diagnosis, sleep apnea, morbid obesity)? @ -Heart failure, hypertension, dyslipidemia Was patient admitted / discharged? Hospital course, mention meds given and route, prescriptions, significant lab abnormalities, going to OR and other pertinent info. @ -84-year-old female presents emergency department with chest pain. She did have an episode were reportedly she was hypoxic according to patient's son at the bedside. Patient asymptomatic at the bedside she is well-appearing. EKG is unremarkable. Vital signs are stable. Laboratory evaluation is within acceptable limits. Patient received aspirin. Will be admitted consultation to cardiology. Patient admitted observation. Discussed with hospitalist for admission Did you discuss the management of the patient with other professionals ( professionals i.e. , PA, MEDIA COORDINATOR, lab, RT, psych nurse, social insurance analyst, house coordinator, teacher, ski patrol officer, foster care case manager)? Give summary @ -See above Was critical care preformed (if so, how long)? @ -No Undiagnosed new problem with uncertain prognosis? @ -No Drug Therapy requiring intensive monitoring for toxicity (Heparin, Nitro, Insulin, Cardizem)? @ -No Were any procedures done? @ -No Diagnosis/symptom? Acute, or Chronic, or Acute on Chronic? Uncomplicated (without systemic symptoms) or Complicated (systemic symptoms)? @ -Chest pain Side effects of treatment? @ -No Exacerbation, Progression, or Severe Exacerbation? @ -No Poses a threat to life or bodily function? How? (Chest pain, [place], [place], pneumonia, PE, COPD, DKA, ARF, appy, cholecystitis, CVA, Diverticulitis, Homicidal, Suicidal, threat to staff... and all critical care pts) @ -yes - Lab Data Result diagrams: 09/08/24 15:03 09/08/24 15:03 Lab Results 09/08/24 09/08/24 09/08/24 Range/Units 15:03 15:03 15:03 WBC 13.8 H (3.8-10.6) k/uL RBC 3.86 (3.80-5.40) m/uL Hgb 13.0 (11.4-16.0) gm/dL Hct 41.5 (34.0-46.0) % MCV 107.5 H (80.0-100.0) fL MCH 33.6 (25.0-35.0) pg MCHC 31.3 (31.0-37.0) g/dL RDW 13.6 (11.5-15.5) % Plt Count 350 (150-450) k/uL MPV 9.0 Neutrophils % 76 % Lymphocytes % 9 % Monocytes % 11 % Eosinophils % 1 % Basophils % 0 % Neutrophils # 10.5 H (1.3-7.7) k/uL Lymphocytes # 1.3 (1.0-4.8) k/uL Monocytes # 1.5 H (0-1.0) k/uL Eosinophils # 0.1 (0-0.7) k/uL Basophils # 0.1 (0-0.2) k/uL Hypochromasia Moderate Macrocytosis Moderate PT 17.1 H (10.0-12.5) sec INR 1.7 H (<1.2) APTT 26.2 (22.0-30.0) sec Sodium 132 L (137-145) mmol/L Potassium 4.5 (3.5-5.1) mmol/L Chloride 97 L (98-107) mmol/L Carbon Dioxide 27 (22-30) mmol/L Anion Gap 8 mmol/L BUN 42 H (7-17) mg/dL Creatinine 2.04 H (0.52-1.04) mg/dL Est GFR (CKD-EPI)AfAm 26 (>60 ml/min/1.73 sqM) Est GFR (CKD-EPI)NonAf 22 (>60 ml/min/1.73 sqM) Glucose 92 (74-99) mg/dL Calcium 9.2 (8.4-10.2) mg/dL Magnesium 2.6 H (1.6-2.3) mg/dL Total Bilirubin 0.6 (0.2-1.3) mg/dL AST 40 H (14-36) U/L ALT 31 (4-34) U/L Alkaline Phosphatase 99 (38-126) U/L Troponin I (0.000-0.034) ng/mL Total Protein 6.3 (6.3-8.2) g/dL Albumin 3.3 L (3.5-5.0) g/dL 09/08/24 Range/Units 15:03 WBC (3.8-10.6) k/uL RBC (3.80-5.40) m/uL Hgb (11.4-16.0) gm/dL Hct (34.0-46.0) % MCV (80.0-100.0) fL MCH (25.0-35.0) pg MCHC (31.0-37.0) g/dL RDW (11.5-15.5) % Plt Count (150-450) k/uL MPV Neutrophils % % Lymphocytes % % Monocytes % % Eosinophils % % Basophils % % Neutrophils # (1.3-7.7) k/uL Lymphocytes # (1.0-4.8) k/uL Monocytes # (0-1.0) k/uL Eosinophils # (0-0.7) k/uL Basophils # (0-0.2) k/uL Hypochromasia Macrocytosis PT (10.0-12.5) sec INR (<1.2) APTT (22.0-30.0) sec Sodium (137-145) mmol/L Potassium (3.5-5.1) mmol/L Chloride (98-107) mmol/L Carbon Dioxide (22-30) mmol/L Anion Gap mmol/L BUN (7-17) mg/dL Creatinine (0.52-1.04) mg/dL Est GFR (CKD-EPI)AfAm (>60 ml/min/1.73 sqM) Est GFR (CKD-EPI)NonAf (>60 ml/min/1.73 sqM) Glucose (74-99) mg/dL Calcium (8.4-10.2) mg/dL Magnesium (1.6-2.3) mg/dL Total Bilirubin (0.2-1.3) mg/dL AST (14-36) U/L ALT (4-34) U/L Alkaline Phosphatase (38-126) U/L Troponin I 0.030 (0.000-0.034) ng/mL Total Protein (6.3-8.2) g/dL Albumin (3.5-5.0) g/dL Disposition Clinical Impression: Chest pain Disposition: ADMITTED IP TO THIS HOSP Condition: Fair Referrals: Melecio Simon [Primary Care Provider] - 1-2 days Decision Time: 16:02
[2024-09-08 15:14] LABS: Basophils # (A) 0.1 k/uL (0-0.2); Basophils % (A) 0 %; Eosinophils # (A) 0.1 k/uL (0-0.7); Eosinophils % (A) 1 %; HCT 41.5 % (34.0-46.0); Hypochromasia Moderate; Lymphocytes # (A) 1.3 k/uL (1.0-4.8); Lymphocytes % (A) 9 %; MCH 33.6 pg (25.0-35.0); MCHC 31.3 g/dL (31.0-37.0); MCV 107.5 fL (80.0-100.0); Macrocytosis Moderate; Monocytes # (A) 1.5 k/uL (0-1.0); Monocytes % (A) 11 %; Neutrophils # (A) 10.5 k/uL (1.3-7.7); Neutrophils % (A) 76 %; Platelet Count 350 k/uL (150-450); RBC 3.86 m/uL (3.80-5.40); RDW 13.6 % (11.5-15.5); WBC 13.8 k/uL (3.8-10.6)
--- NOTE | 2024-09-08 15:24 | XR ---
EXAMINATION TYPE: XR chest 2V DATE OF EXAM: 09/08/2024 3:19 PM COMPARISON: 09/07/2024 CLINICAL INDICATION: Female, 84 years old with history of Chest Pain; TECHNIQUE: XR chest 2V Frontal and lateral views of the chest. FINDINGS: Lungs/Pleura: No evidence of focal consolidation or pneumothorax. Blunting of the costophrenic angles is present. Pulmonary vascularity: Pulmonary vascular congestion. Heart/mediastinum: Cardiomediastinal silhouette is enlarged and stable. Musculoskeletal: No acute osseous pathology. Other findings: None IMPRESSION: 1. Cardiomegaly, pulmonary vascular congestion and bilateral pleural effusions. Correlate with BNP f or congestive heart failure. 2. Similar right lower lobe hazy opacity. [facility], , 09/08/2024 3:22 PM
[2024-09-08 15:30] LABS: ALT 31 U/L (4-34); AST 40 U/L (14-36); African American GFR (CKD) 26 (>60 ml/min/1.73 sqM); Albumin 3.3 g/dL (3.5-5.0); Alkaline Phosphatase 99 U/L (38-126); Anion Gap 8 mmol/L; Blood Urea Nitrogen 42 mg/dL (7-17); Calcium 9.2 mg/dL (8.4-10.2); Carbon Dioxide 27 mmol/L (22-30); Chloride 97 mmol/L (98-107); Glucose 92 mg/dL (74-99); Magnesium 2.6 mg/dL (1.6-2.3); Non-African American GFR(CKD) 22 (>60 ml/min/1.73 sqM); Potassium 4.5 mmol/L (3.5-5.1); Sodium 132 mmol/L (137-145); Total Bilirubin 0.6 mg/dL (0.2-1.3); Total Protein 6.3 g/dL (6.3-8.2)
[2024-09-08] MEDS: ASPIRIN 81 MG PO STA (15:30)
[2024-09-08 15:45] LABS: INR 1.7 (<1.2); Partial Thromboplastin Time 26.2 sec (22.0-30.0); Prothrombin Time 17.1 sec (10.0-12.5)
[2024-09-08] MEDS ORDERED: NITROGLYCERIN SL TABS 0.4 MG TAB SUBLINGUAL PRN (15:59)
[2024-09-08] MEDS ORDERED: ALBUTEROL NEBULIZED 2.5 MG/3 ML INHALATION PRN (19:38)
[2024-09-08] MEDS ORDERED: MECLIZINE 12.5 MG TAB PO PRN (19:38)
[2024-09-08] MEDS: ALBUTEROL NEBULIZED 2.5 MG/3 ML INHALATION SCH (20:32)
[2024-09-08] MEDS: SYMBICORT 160-4.5 MCG INHALER INHALATION SCH (20:32)
[2024-09-08] MEDS: buPROPion SR 150 MG TABLET.ER PO SCH (21:09)
[2024-09-08] MEDS: APIXABAN 2.5 MG TABLET PO SCH (21:09)
[2024-09-08] MEDS: FAMOTIDINE 20 MG TAB PO SCH (21:09)
[2024-09-08] MEDS: LATANOPROST 0.005% OPHTH DROPS 2.5 ML BTL BOTH EYES SCH (21:10)
[2024-09-08] MEDS: MAGNESIUM OXIDE 400 MG TAB PO SCH (21:12)
[2024-09-09] MEDS: HYDROcodone/APAP 10-325MG 1 EACH TAB PO PRN (01:53)
[2024-09-09] MEDS: LEVOTHYROXINE 125 MCG TAB PO SCH (06:28)
[2024-09-09] MEDS: CYANOCOBALAMIN 500 MCG TAB PO SCH (08:50)
[2024-09-09] MEDS: ASPIRIN 325 MG TAB PO SCH (08:50)
[2024-09-09] MEDS: DAPAGLIFLOZIN PROPANEDIOL 5 MG TABLET PO SCH (08:50)
[2024-09-09] MEDS: ATORVASTATIN 20 MG TAB PO SCH (08:51)
[2024-09-09] MEDS: ERGOCALCIFEROL 1,250 MCG (50,000 IU) CAPSULE PO SCH (08:51)
[2024-09-09] MEDS: VENLAFAXINE HCL ER 150 MG CAP PO SCH (08:51)
[2024-09-09 09:10] LABS: Chol/HDL Ratio 3.38 Ratio; LDL Cholesterol,Calculated 51.3 mg/dL (0.0-131.0)
--- NOTE | 2024-09-09 10:06 | P.CRDCN ---
History of Present Illness Consult date: 09/09/24 Consult reason: chest pain History of present illness: This is an 84-year-old female patient of Dr. Che with past medical history of coronary artery disease status post PCI in 2010 and 2013, COPD, chronic hypoxic respiratory failure on home O2, persistent atrial fibrillation, previous polio with significant debility, diastolic heart failure, chronic kidney disease stage IV, hyperlipidemia. We have been asked to evaluate the patient for chest pain. Patient gives history that she has chest pain in the mid area going through to her back. She has had this before but this is the most severe. She states it comes and goes usually but now it is staying in place. She denies any fever, no cough no sputum production. She states she has been on antibiotics for urinary tract infection. Blood pressure 135/94, heart rate 110, pulse ox 9 4% on 3 L nasal cannula. -EKG: Atrial fibrillation 100 bpm. -Chest x-ray: Cardiomegaly, pulmonary vascular congestion bilateral pleural effusions correlate. Similar right lower lobe hazy opacity. -Laboratory studies: WBC 13.8, hemoglobin 13, INR 1.7. Sodium 132, potassium 4.5, BUN 42 creatinine 2.04. Troponin negative x 3. Triglycerides 152, cholesterol 116, LDL 51, HDL 34. -Home cardiac medications: Eliquis 2.5 mg twice daily, atorvastatin 20 mg daily, Cardizem CD 240 mg daily, Jardiance 10 mg daily, Lasix 40 mg twice daily, magnesium oxide 400 mg twice daily, Lopressor 200 mg twice daily. -Echocardiogram performed at [facility] 02/2024: EF 55%, severe bilateral dilatation, RVSP 60. -Cardiac catheterization 2010: LAD with no significant disease. Circumflex 30% stenosis, RCA had 85% stenosis. 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 Review Of Systems: At the time of my exam: CONSTITUTIONAL: Denies fever or chills. HEENT: Denies blurred vision, vision changes, or eye pain. Denies hemoptysis CARDIOVASCULAR: Denies chest pain. Denies orthopnea. Denies PND. Denies palpitations RESPIRATORY: Denies shortness of breath. GASTROINTESTINAL: Denies abdominal pain. Denies nausea or vomiting. HEMATOLOGIC: Denies bleeding disorders. GENITOURINARY: Denies any blood in urine. SKIN: Denies puritis. Denies rash. Physical examination: Gen: This is an 84-year-old female in no acute distress VS: reviewed HEENT: Head is atraumatic, normocephalic. Pupils equal, round. Sclerae is anicteric. NECK: Supple. No JVD. LUNGS: Clear to auscultation. No wheezes or rhonchi. No intercostal retractions. HEART: Irregular rate and rhythm. No murmur. ABDOMEN: Soft No tenderness. EXTREMITIES: No pedal edema. No calf tenderness. NEUROLOGICAL: Patient is awake, alert and oriented x3. Assessment: Atypical chest pain, acute coronary syndrome ruled out History of coronary artery disease with previous PCI Hypertension Hyperlipidemia Chronic kidney disease stage IV Carotid bruit Chronic diastolic heart failure Debility secondary to postpolio Persistent atrial fibrillation Hypothyroidism Pulmonary hypertension with RVSP 68 Plan: Resume patient's home cardiac medications Obtain 2-D echocardiogram and Doppler study to assess cardiac structure and function If no significant change from previous echocardiogram, patient is cleared for discharge and will follow-up with Dr. Che in 1 week. Thank you kindly for this consultation. Nurse practitioner note has been reviewed, I agree with documented findings and plan of care. Patient was seen and examined. 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 left wrist, hx of UTI's, hx of glaucoma, had several laser tx, states frequent headaches, uses walker, vertigo, hx of gout, History of Any Multi-Drug Resistant Organisms: None Reported Past Surgical History: Cholecystectomy, Heart Catheterization With Stent, Hyst erectomy Additional Past Surgical History / Comment(s): kidney surg. for malrotation, chest tube, 2 stents Past Anesthesia/Blood Transfusion Reactions: No Reported Reaction Date of Last Stent Placement:: 2010 Past Psychological History: Anxiety, Depression Smoking Status: Former smoker Past Alcohol Use History: None Reported Additional Past Alcohol Use History / Comment(s): quit smoking >20 yrs. ago, smoked on & off couldn't say how long Past Drug Use History: None Reported - Past Family History Mother Sister(s) Family Medical History: Cancer Medications and Allergies Home Medications Medication Instructions Recorded Confirmed Type buPROPion HCL [Wellbutrin SR] 150 mg PO BID 05/03/18 09/08/24 History Albuterol Inhaler [Ventolin Hfa 2 puff INHALATION RT-Q6H PRN 02/27/23 09/08/24 History Inhaler] Apixaban [Eliquis] 2.5 mg PO BID 02/27/23 09/08/24 History Cyanocobalamin [Vitamin B-12] 1,000 mcg PO DAILY 02/27/23 09/08/24 History Magnesium Oxide [Mag-Ox] 400 mg PO BID 02/27/23 09/08/24 History Sennosides/Docusate Sodium [Senna 1 tab PO DAILY PRN 02/27/23 09/08/24 History Plus 8.6-50 mg Tablet] Atorvastatin [Lipitor] 20 mg PO DAILY 07/16/23 09/08/24 History Empagliflozin [Jardiance] 10 mg PO DAILY 07/16/23 09/08/24 History Meclizine [Antivert] 12.5 mg PO TID PRN 07/16/23 09/08/24 History Metoprolol Tartrate [Lopressor] 200 mg PO BID 07/16/23 09/08/24 History Venlafaxine HCl [Effexor XR] 300 mg PO DAILY 07/16/23 09/08/24 History calcitrioL 0.5 mcg PO DAILY 07/16/23 09/08/24 History Levothyroxine Sodium [Synthroid] 250 mcg PO DAILY 09/12/23 09/08/24 History Primidone [Mysoline] 50 mg PO BID 09/12/23 09/08/24 History Albuterol Nebulized [Ventolin 2.5 mg INHALATION RT-TID 12/07/23 09/08/24 History Nebulized] HYDROcodone/APAP 10-325MG [[place] 1 tab PO Q6HR PRN 12/07/23 09/08/24 History 10-325] Cephalexin [Keflex] 500 mg PO Q6HR #28 cap 09/07/24 09/08/24 Rx Budesonide/Formoterol Fumarate 2 puff INHALATION RT-BID 09/08/24 09/08/24 History [Symbicort 160-4.5 Mcg Inhaler] Ergocalciferol (Vitamin D2) 1,250 mcg PO Q30D 09/08/24 09/08/24 History [Drisdol (50,000 Iu)] Famotidine [Pepcid] 20 mg PO BID 09/08/24 09/08/24 History Furosemide [Lasix] 40 mg PO BID 09/08/24 09/08/24 History Latanoprost [Latanoprost 0.005%] 1 drop BOTH EYES HS 09/08/24 09/08/24 History dilTIAZem HCL [Cardizem CD] 240 mg PO DAILY 09/08/24 09/08/24 History Allergies Allergy/AdvReac Type Severity Reaction Status Date / Time nitrofurantoin Allergy Unknown Verified 09/08/24 17:13 [From Macrobid] Sulfa (Sulfonamide Allergy [place] Verified 09/08/24 17:13 Antibiotics) syndrome Physical Exam Vitals: Vital Signs Temp Pulse Pulse Resp BP BP Pulse Ox 09/09/24 07:47 112 H 09/09/24 07:35 110 H 09/09/24 07:00 98.2 F 76 16 135/94 94 L 09/09/24 01:53 98.2 F 104 H 15 125/81 99 09/08/24 20:41 96 09/08/24 20:35 90 09/08/24 19:19 97.9 F 90 15 120/64 94 L 09/08/24 18:31 97.5 F L 92 16 136/88 91 L 09/08/24 17:26 85 18 105/79 99 09/08/24 15:34 97 17 96/83 98 09/08/24 14:39 97.6 F 102 H 18 111/80 90 L Intake and Output 09/08/24 09/09/24 09/09/24 22:59 06:59 14:59 Output Total 650 Balance -650 Output: Urine 650 Other: Voiding Method Diaper Diaper External Catheter External Catheter Weight 72.575 kg Results 09/08/24 15:03 09/08/24 15:03 Cardiac Enzymes 0309/08/24 09/08/24 Range/Units 15:03 15:03 18:05 AST 40 H (14-36) U/L Troponin I 0.030 0.025 (0.000-0.034) ng/mL 09/08/24 Range/Units 21:22 AST (14-36) U/L Troponin I 0.024 (0.000-0.034) ng/mL Coagulation 09/08/24 Range/Units 15:03 PT 17.1 H (10.0-12.5) sec APTT 26.2 (22.0-30.0) sec CBC 09/08/24 Range/Units 15:03 WBC 13.8 H (3.8-10.6) k/uL RBC 3.86 (3.80-5.40) m/uL Hgb 13.0 (11.4-16.0) gm/dL Hct 41.5 (34.0-46.0) % Plt Count 350 (150-450) k/uL Comprehensive Metabolic Panel 09/08/24 Range/Units 15:03 Sodium 132 L (137-145) mmol/L Potassium 4.5 (3.5-5.1) mmol/L Chloride 97 L (98-107) mmol/L Carbon Dioxide 27 (22-30) mmol/L BUN 42 H (7-17) mg/dL Creatinine 2.04 H (0.52-1.04) mg/dL Glucose 92 (74-99) mg/dL Calcium 9.2 (8.4-10.2) mg/dL AST 40 H (14-36) U/L ALT 31 (4-34) U/L Alkaline Phosphatase 99 (38-126) U/L Total Protein 6.3 (6.3-8.2) g/dL Albumin 3.3 L (3.5-5.0) g/dL Current Medications Generic Name Dose Route Start Last Admin Trade Name Freq PRN Reason Stop Dose Admin Hydrocodone Bitart/Acetaminophen 1 each 09/08/24 19:38 09/09/24 01:53 Hydrocodone/Apap 10-325mg 1 Each Tab PO 1 each Q6HR PRN Administration Pain Albuterol Sulfate 2 mg 09/08/24 19:38 Albuterol Nebulized 2.5 Mg/3 Ml INHALATION RT-Q6H PRN Wheezing Albuterol Sulfate 2.5 mg 09/08/24 20:00 09/09/24 07:32 Albuterol Nebulized 2.5 Mg/3 Ml INHALATION 2.5 mg RT-TID MIAN Administration Apixaban 2.5 mg 09/08/24 21:00 09/08/24 21:09 Apixaban 2.5 Mg Tablet PO 2.5 mg BID MIAN Administration Protocol Aspirin 325 mg 09/09/24 09:00 Aspirin 325 Mg Tab PO DAILY [facility] Atorvastatin Calcium 20 mg 09/09/24 09:00 Atorvastatin 20 Mg Tab PO DAILY [facility] Budesonide/Formoterol Fumarate 2 puff 09/08/24 20:00 09/09/24 07:35 Symbicort 160-4.5 Mcg Inhaler INHALATION 2 puff RT-BID MIAN Administration Bupropion HCl 150 mg 09/08/24 21:00 09/08/24 21:09 Bupropion Sr 150 Mg Tablet.Er PO 150 mg BID MIAN Administration Calcitriol 0.5 mcg 09/09/24 09:00 Calcitriol 0.25 Mcg Cap PO DAILY [facility] Cyanocobalamin 1,000 mcg 09/09/24 09:00 Cyanocobalamin 500 Mcg Tab PO DAILY [facility] Dapagliflozin 5 mg 09/09/24 09:00 Dapagliflozin Propanediol 5 Mg Tablet PO DAILY [facility] Ergocalciferol 1,250 mcg 09/09/24 09:00 Ergocalciferol 1,250 Mcg (50,000 Iu) Capsule PO Q30D [facility] Famotidine 20 mg 09/08/24 21:00 09/08/24 21:09 Famotidine 20 Mg Tab PO 20 mg BID [facility] Administration Latanoprost 1 drops 09/08/24 21:00 09/08/24 21:10 Latanoprost 0.005% Ophth Drops 2.5 Ml Btl BOTH EYES 1 drops HS [facility] Administration Levothyroxine Sodium 250 mcg 09/09/24 06:30 09/09/24 06:28 Levothyroxine 125 Mcg Tab PO 250 mcg DAILY@0630 [facility] Administration Magnesium Oxide 400 mg 09/08/24 21:00 09/08/24 21:12 Magnesium Oxide 400 Mg Tab PO Not Given BID MIAN Meclizine HCl 12.5 mg 09/08/24 19:38 Meclizine 12.5 Mg Tab PO TID PRN Vertigo Nitroglycerin 0.4 mg 09/08/24 15:59 Nitroglycerin Sl Tabs 0.4 Mg Tab SUBLINGUAL Q5M PRN Chest Pain Senna/Docusate Sodium 1 each 09/08/24 19:38 Sennosides-Docusate Sodium 1 Each Tab PO DAILY PRN Constipation Venlafaxine HCl 300 mg 09/09/24 09:00 Venlafaxine Hcl Er 150 Mg Cap PO DAILY MIAN Intake and Output 09/08/24 09/09/24 09/09/24 22:59 06:59 14:59 Output Total 650 Balance -650 Output: Urine 650 Other: Voiding Method Diaper Diaper External Catheter External Catheter Weight 72.575 kg 09/08/24 15:03 09/08/24 15:03
--- NOTE | 2024-09-09 10:54 | CA ---
Transthoracic Echo Report Name: Denise Kumar Age: 84 Gender: F : 1940 Exam Date: 09/09/2024 09:03 Exam Location: [facility] Ht (in): 67 Wt (lb): 160 Ordering Physician: Shayy Schwarz Attending/Referring Phys: [id number], Karishma Prior Authorization Nurse Telma Gorman, DAVE Procedure CPT: Indications: LVF, pericarditis Cardiac Hx: COPD, CAD, A-FIB Technical Quality: Fair Contrast 1: Definity Total Dose (mL): 2 Contrast 2: Total Dose (mL): MEASUREMENTS (Male / Female) Normal Values 2D ECHO LV Diastolic Diameter PLAX 3.3 cm 4.2 - 5.9 / 3.9 - 5.3 cm LV Systolic Diameter PLAX 2.5 cm IVS Diastolic Thickness 1.1 cm 0.6 - 1.0 / 0.6 - 0.9 cm LVPW Diastolic Thickness 1.1 cm 0.6 - 1.0 / 0.6 - 0.9 cm LV Relative Wall Thickness 0.7 RV Internal Dim ED PLAX 3.4 cm LVOT Diameter 1.5 cm Aortic Root Diameter 2.9 cm LA Systolic Diameter LX 4.0 cm 3.0 - 4.0 / 2.7 - 3.8 cm DOPPLER MV Area PHT 3.8 cm??? Mitral E Point Velocity 98.2 cm/s Mitral A Point Velocity 31.0 cm/s Mitral E to A Ratio 3.2 MV Deceleration Time 127.0 ms TR Peak Velocity 392.4 cm/s TR Peak Gradient 61.6 mmHg FINDINGS Left Ventricle Left ventricular ejection fraction is estimated at 45-50 %. Mildly increased septal wall thickness. Mildly increased posterior wall thickness. Right Ventricle Mild right ventricular dilatation. Severe pulmonary hypertension. Right ventricular systolic pressure estimated at 66 mm hg. Right Atrium Mild right atrial dilatation. Left Atrium Mildly increased left atrial diameter. Mitral Valve Structurally normal mitral valve. No mitral stenosis. Trace mitral regurgitation. Aortic Valve Trileaflet aortic valve. Diffuse thickening (sclerosis) of the aortic valve cusps without reduced excursion. No aortic stenosis. No aortic regurgitation. Tricuspid Valve Structurally normal tricuspid valve. No tricuspid stenosis. [id number] tricuspid regurgitation. Pulmonic Valve Structurally normal pulmonic valve. No pulmonic stenosis. Mild pulmonic regurgitation. Pericardium No pericardial effusion. Aorta Normal size aortic root and proximal ascending aorta. CONCLUSIONS Diagnosis chest pain Mildly reduced LV systolic function ejection fraction 45 to 50% Severe RV enlargement with severe pulmonary hypertension Previewed by: Dr. Ran Valverde MD (Electronically Signed) Final Date: 09 September 2024 10:53
--- NOTE | 2024-09-09 12:28 | P.HPIM ---
History of Present Illness 89-year-old female with known history of coronary artery disease and COPD uses 2 L of oxygen at home came in with complaints of chest pain radiating to the back actually with back pain radiating to the front and chest pain is reproducible. Chest pain changes with movement nonradiating no associated shortness of breath lightheadedness. Patient EKG showed atrial fibrillation patient has chronic A- fib chest x-ray showed mild pulmonary vascular congestion also bilateral pleural effusion there is a hazy hazy opacity in the right lower lung field these were present in the old x-rays as well patient does not have any fever. Echocar diogram that was done here showed EF of around 45 to 50% right ventricular systolic pressures is 66 consistent with severe pulmonary hypertension.Patient's baseline creatinine is around 1.5 present creatinine is 2.2 and do not have any BNP or a procalcitonin available at this time which were ordered. REVIEW OF SYSTEMS: All other systems are negative except those mentioned in the HPI PHYSICAL EXAMINATION: GENERAL: The patient is alert and oriented x3, not in any acute distress. Thin built female reproducible chest pain HEENT: Pupils are round and equally reacting to light. EOMI. No scleral icterus. No conjunctival pallor. Normocephalic, atraumatic. No pharyngeal erythema. No thyromegaly. CARDIOVASCULAR: S1 and S2 present. No murmurs, rubs, or gallops. PULMONARY: Chest is clear to auscultation, no wheezing or crackles. ABDOMEN: Soft, nontender, nondistended, normoactive bowel sounds. No palpable organomegaly. MUSCULOSKELETAL: No joint swelling or deformity. EXTREMITIES: No cyanosis, clubbing, or pedal edema. NEUROLOGICAL: Gross neurological examination did not reveal any focal deficits. SKIN: No rashes. Assessment and plan -Chest pain rule out acute coronary syndromes patient chest pain appears to be musculoskeletal clearly we cannot use NSAIDs at this time continue with [facility] PT and OT evaluated the patient patient will need placement -Congestive heart failure chronic systolic dysfunction with mild acute exacerbation patient will be given a dose of Lasix 20 mg patient x-ray is consistent with CHF will also obtain a proBNP -Acute renal failure on chronic kidney disease stage IV acute renal failure may be prerenal azotemia from heart failure will be given a dose of Lasix -Chronic respiratory failure is on 2 L of oxygen at home presently on 3 L -Generalized weakness and moderate protein calorie malnutrition PT and OT evaluation supportive care -Severe pulmonary hypertension possible right-sided heart failure aggressive diuresis can prevent renal failure will need close monitoring of kidney function -Coronary artery disease with cardiac catheterization in the past with significant coronary vascular disease -Persistent A-fib: Anticoagulation -Type 2 diabetes mellitus -Hyperlipidemia -Generalized weakness physical therapy Occupational Therapy evaluated patient and recommending placement in rehabilitation DVT prophylaxis: On anticoagulation with Eliquis Past Medical History Past Medical History: Atrial Fibrillation, Heart Failure, COPD, CVA/TIA, Deep Vein Thrombosis (DVT), GERD/Reflux, Hyperlipidemia, Hypertension, Musculoskeletal Disorder, Pneumonia, Sleep Apnea/CPAP/BIPAP, Thyroid Disorder Additional Past Medical History / Comment(s): difficulty swallowing, choking, "feels like things get stuck in throat" was on "life support 11/2013-12/2013, past hx.a-fib, had Lopez-Onel syndrome, post polio syndrome, 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 left wrist, hx of UTI's, hx of glaucoma, had several laser tx, states frequent headaches, uses walker, vertigo, hx of gout, History of Any Multi-Drug Resistant Organisms: None Reported Past Surgical History: Cholecystectomy, Heart Catheterization With Stent, Hysterectomy Additional Past Surgical History / Comment(s): kidney surg. for malrotation, c hest tube, 2 stents Past Anesthesia/Blood Transfusion Reactions: No Reported Reaction Date of Last Stent Placement:: 2010 Past Psychological History: Anxiety, Depression Smoking Status: Former smoker Past Alcohol Use History: None Reported Additional Past Alcohol Use History / Comment(s): quit smoking >20 yrs. ago, smoked on & off couldn't say how long Past Drug Use History: None Reported - Past Family History Mother Sister(s) Family Medical History: Cancer Medications and Allergies Home Medications Medication Instructions Recorded Confirmed Type buPROPion HCL [Wellbutrin SR] 150 mg PO BID 05/03/18 09/08/24 History Albuterol Inhaler [Ventolin Hfa 2 puff INHALATION RT-Q6H PRN 02/27/23 09/08/24 History Inhaler] Apixaban [Eliquis] 2.5 mg PO BID 02/27/23 09/08/24 History Cyanocobalamin [Vitamin B-12] 1,000 mcg PO DAILY 02/27/23 09/08/24 History Magnesium Oxide [Mag-Ox] 400 mg PO BID 02/27/23 09/08/24 History Sennosides/Docusate Sodium [Senna 1 tab PO DAILY PRN 02/27/23 09/08/24 History Plus 8.6-50 mg Tablet] Atorvastatin [Lipitor] 20 mg PO DAILY 07/16/23 09/08/24 History Empagliflozin [Jardiance] 10 mg PO DAILY 07/16/23 09/08/24 History Meclizine [Antivert] 12.5 mg PO TID PRN 07/16/23 09/08/24 History Metoprolol Tartrate [Lopressor] 200 mg PO BID 07/16/23 09/08/24 History Venlafaxine HCl [Effexor XR] 300 mg PO DAILY 07/16/23 09/08/24 History calcitrioL 0.5 mcg PO DAILY 07/16/23 09/08/24 History Levothyroxine Sodium [Synthroid] 250 mcg PO DAILY 09/12/23 09/08/24 History Primidone [Mysoline] 50 mg PO BID 09/12/23 09/08/24 History Albuterol Nebulized [Ventolin 2.5 mg INHALATION RT-TID 12/07/23 09/08/24 History Nebulized] HYDROcodone/APAP 10-325MG [[facility]ash 1 tab PO Q6HR PRN 12/07/23 09/08/24 History 10-325] Cephalexin [Keflex] 500 mg PO Q6HR #28 cap 09/07/24 09/08/24 Rx Budesonide/Formoterol Fumarate 2 puff INHALATION RT-BID 09/08/24 09/08/24 History [Symbicort 160-4.5 Mcg Inhaler] Ergocalciferol (Vitamin D2) 1,250 mcg PO Q30D 09/08/24 09/08/24 History [Drisdol (50,000 Iu)] Famotidine [Pepcid] 20 mg PO BID 09/08/24 09/08/24 History Furosemide [Lasix] 40 mg PO BID 09/08/24 09/08/24 History Latanoprost [Latanoprost 0.005%] 1 drop BOTH EYES HS 09/08/24 09/08/24 History dilTIAZem HCL [Cardizem CD] 240 mg PO DAILY 09/08/24 09/08/24 History Allergies Allergy/AdvReac Type Severity Reaction Status Date / Time nitrofurantoin Allergy Unknown Verified 09/08/24 17:13 [From Macrobid] Sulfa (Sulfonamide Allergy JohnOnel Verified 09/08/24 17:13 Antibiotics) syndrome Physical Exam Vitals: Vital Signs Temp Pulse Pulse Resp BP BP Pulse Ox 09/09/24 12:18 90 09/09/24 07:47 112 H 09/09/24 07:35 110 H 09/09/24 07:00 98.2 F 76 16 135/94 94 L 09/09/24 01:53 98.2 F 104 H 15 125/81 99 09/08/24 20:41 96 09/08/24 20:35 90 09/08/24 19:19 97.9 F 90 15 120/64 94 L 09/08/24 18:31 97.5 F L 92 16 136/88 91 L 09/08/24 17:26 85 18 105/79 99 09/08/24 15:34 97 17 96/83 98 09/08/24 14:39 97.6 F 102 H 18 111/80 90 L Intake and Output 09/08/24 09/09/24 09/09/24 22:59 06:59 14:59 Output Total 650 Balance -650 Output: Urine 650 Other: Voiding Method Diaper Diaper Diaper External Catheter External Catheter External Catheter Weight 72.575 kg Results CBC & Chem 7: 09/08/24 15:03 09/08/24 15:03 Labs: Abnormal Lab Results - Last 24 Hours (Table) 09/08/24 09/08/24 09/08/24 Range/Units 15:03 15:03 15:03 WBC 13.8 H (3.8-10.6) k/uL MCV 107.5 H (80.0-100.0) fL Neutrophils # 10.5 H (1.3-7.7) k/uL Monocytes # 1.5 H (0-1.0) k/uL PT 17.1 H (10.0-12.5) sec INR 1.7 H (<1.2) Sodium 132 L (137-145) mmol/L Chloride 97 L (98-107) mmol/L BUN 42 H (7-17) mg/dL Creatinine 2.04 H (0.52-1.04) mg/dL Magnesium 2.6 H (1.6-2.3) mg/dL AST 40 H (14-36) U/L Albumin 3.3 L (3.5-5.0) g/dL Triglycerides (0.00-149.00) mg/dL HDL Cholesterol (40.00-60.00) mg/dL 09/08/24 Range/Units 15:03 WBC (3.8-10.6) k/uL MCV (80.0-100.0) fL Neutrophils # (1.3-7.7) k/uL Monocytes # (0-1.0) k/uL PT (10.0-12.5) sec INR (<1.2) Sodium (137-145) mmol/L Chloride (98-107) mmol/L BUN (7-17) mg/dL Creatinine (0.52-1.04) mg/dL Magnesium (1.6-2.3) mg/dL AST (14-36) U/L Albumin (3.5-5.0) g/dL Triglycerides 152.00 H (0.00-149.00) mg/dL HDL Cholesterol 34.30 L (40.00-60.00) mg/dL
[2024-09-09] MEDS: FUROSEMIDE 10 MG/ML 2 ML VIAL IV SCH (12:58)
[2024-09-09] MEDS: DILTIAZEM ORAL 60 MG TAB PO SCH (18:43)
[2024-09-10] MEDS: METOPROLOL TARTRATE 50 MG TAB PO SCH (00:34)
[2024-09-10 01:23] LABS: Appearance,Urine Cloudy (Clear); Bacteria,Urine Rare /hpf; Bilirubin,Urine Negative (Negative); Blood,Urine Moderate (Negative); Budding Yeast,Urine Few /hpf; Calcium Oxalate Crystals,Urine Occasional /hpf; Color,Urine Yellow; Glucose,Urine (UA) 1+ (Negative); Ketones,Urine Negative (Negative); Leukocyte Esterase,Urine Large (Negative); Mucus,Urine Rare /hpf; Nitrite,Urine Negative (Negative); PH, Urine 5.5 (5.0-8.0); Protein,Urine 1+ (Negative); RBC,Urine 15 /hpf (0-5); Squamous Epithelial Cell,Urine 1 /hpf (0-4); Urobilinogen,Urine <2.0 mg/dL (<2.0); WBC,Urine 156 /hpf (0-5)
[2024-09-10 09:44] LABS: BUN/Creat Ratio 19.88 Ratio (12.00-20.00); Blood Urea Nitrogen 31.8 mg/dL (9.0-27.0); Calcium 8.8 mg/dL (8.7-10.3); Carbon Dioxide 26.3 mmol/L (21.6-31.8); Chloride 100 mmol/L (96-109); Glucose 103 mg/dL (70-110); Magnesium 2.1 mg/dL (1.5-2.4); Potassium 3.9 mmol/L (3.5-5.5); Sodium 136 mmol/L (135-145)
[2024-09-10] MEDS: METOPROLOL TARTRATE 25 MG TAB PO SCH (19:39)
--- NOTE | 2024-09-11 03:09 | PN ---
PROGRESS NOTE DATE OF SERVICE: 09/10/2024 HISTORY OF PRESENT ILLNESS: This is an 84-year-old woman with a past medical history of multiple medical problems including COPD, admitted with chest pain. The patient is also confused. The patient has a history of recurrent UTIs in the past, and the family reports confusion along with UTI. The patient is started on empiric antibiotics. PAST MEDICAL HISTORY: Reviewed. REVIEW OF SYSTEMS: A 14-point review of systems is negative. CURRENT MEDICATIONS: Reviewed. PHYSICAL EXAMINATION: VITAL SIGNS: Pulse is 52, blood pressure 82/56, respirations 18. HEENT: Conjunctivae normal. NECK: No JVD. CARDIOVASCULAR: S1, S2. RESPIRATIONS: Breath sounds diminished at the bases. A few scattered rhonchi. ABDOMEN: Soft. NERVOUS SYSTEM: Nonfocal. LABORATORY DATA: Reviewed. ASSESSMENT: 1. Acute renal failure with dehydration present on admission. 2. Chest pain. 3. Acute urinary tract infection, possibly. 4. Change in mental status, metabolic encephalopathy. 5. History atrial fibrillation. 6. Chronic obstructive pulmonary disease. 7. History of deep venous thrombosis. 8. Multiple complex medical issues. RECOMMENDATIONS AND DISCUSSION: In this 84-year-old woman who presented with multiple complex medical issues, we will monitor the patient closely. I would recommend IV Rocephin, cultures. Resume the home medications. Hold the antihypertensive medication because of the relative hypotension. Guarded prognosis because of multiple complex medical issues. Further recommendations to follow. See orders for further details. MMODL / IJN: [id number] /
[2024-09-11] MEDS: FAMOTIDINE 20 MG TAB PO SCH (08:35)
[2024-09-11] MEDS: SENNOSIDES-DOCUSATE SODIUM 1 EACH TAB PO PRN (12:21)
[2024-09-11] MEDS: DILTIAZEM CD 240 MG CAP.ER.24H PO SCH (12:21)
[2024-09-11] MEDS: ZINC OXIDE PASTE (Z-GUARD) 1 APPLIC TOPICAL PRN (12:21)
[2024-09-11] MEDS: DOCUSATE 100 MG CAP PO SCH (19:59)
--- NOTE | 2024-09-12 08:54 | PN ---
PROGRESS NOTE DATE OF SERVICE: 09/11/2024 SUBJECTIVE: This is an 84-year-old woman, who was admitted with acute renal failure and also had a UTI. No chest pain, no palpitation. PHYSICAL EXAMINATION: VITAL SIGNS: Pulse is 80, blood pressure 110/80, respirations 20. HEENT: Conjunctivae normal. NECK: No JVD. CARDIOVASCULAR: S1, S2. ABDOMEN: Soft. NERVOUS SYSTEM: Diffusely weak. The patient is confused. LABORATORY DATA: Reviewed. Cultures noted. ASSESSMENT: 1. Acute renal failure with dehydration, present on admission. 2. Chest pain. 3. Acute urinary tract infection, possibly. 4. Change in mental status. 5. Acute metabolic encephalopathy. 6. History of atrial fibrillation. 7. Chronic obstructive pulmonary disease. 8. History of deep venous thrombosis. 9. Multiple complex medical issues. RECOMMENDATIONS: Recommended to continue current management and continue with symptomatic treatment. Otherwise, closely monitor. Continue with the antibiotics. Prognosis is guarded. Further recommendations to follow. MMODL / IJN: [id number] /
[2024-09-12 08:55] LABS: HCT 35.1 % (37.2-46.3); HGB 11.1 g/dL (12.0-15.0); MCH 33.1 pg (27.0-32.0); MCHC 31.6 g/dL (32.0-37.0); MCV 104.8 FL (80.0-97.0); NRBC Per 100 WBC 0 X 10*3/uL (0.00-0.01); Platelet Count 256 X 10*3/uL (140-440); RBC 3.35 X 10*6/uL (4.10-5.20); RDW 14.6 % (11.5-14.5); WBC 9.23 X 10*3/uL (4.50-10.00)
[2024-09-12 09:16] LABS: BUN/Creat Ratio 18.58 Ratio (12.00-20.00); Blood Urea Nitrogen 22.3 mg/dL (9.0-27.0); Glucose 69 mg/dL (70-110)
[2024-09-12 09:17] LABS: Calcium 9.2 mg/dL (8.7-10.3); Carbon Dioxide 25.6 mmol/L (21.6-31.8); Chloride 98 mmol/L (96-109); Potassium 4.6 mmol/L (3.5-5.5); Sodium 134 mmol/L (135-145)
[2024-09-12 09:53] LABS: Basophils # (A) 0.03 X 10*3/uL (0.00-0.10); Basophils % (A) 0.3 %; Eosinophils # (A) 0.23 X 10*3/uL (0.04-0.35); Eosinophils % (A) 2.5 %; Lymphocytes # (A) 0.71 X 10*3/uL (0.90-5.00); Lymphocytes % (A) 7.7 %; Monocytes # (A) 1.55 X 10*3/uL (0.20-1.00); Monocytes % (A) 16.8 %; Neutrophils # (A) 6.69 X 10*3/uL (1.80-7.70); Neutrophils % (A) 72.5 %
[2024-09-12 15:01] VITALS: BP 107/66; RESP 16; TEMP 98.5
[2024-09-12 15:13] VITALS: PULSE 85
--- NOTE | 2024-09-13 13:25 | CDI ---
Documentation Clarification Form Date: 09/13/2024 01:10:33 PM From: Rhea Coates Phone: Admit Date: 09/08/2024 04:01:00 PM Patient Name: Denise Kumar Visit Number: [id number] Discharge Date: 09/12/2024 04:36:00 PM ATTENTION: The Clinical Documentation Specialists (CDI) and [facility] Coding Staff appreciate your assistance in clarifying documentation. Please respond to the clarification below the line at the bottom and electronically sign. The CDI & [facility] Coding staff will review the response and follow-up if needed. Please note: Queries are made part of the Legal Health Record. If you have any questions, please contact the author of this message via ITS. Doctor/Provider: Evaristo Davis Your patient has the documented diagnosis of unspecified CHF in H/P note on 09/09 Additional information regarding the [type, acuity] of CHF is requested. History/Risk Factors: pt is 89-year-old female with known history ofcoronary artery diseaseandCOPDuses 2L of oxygen at home came in with complaints ofchest painradiating to the back actually withback painradiating to the front andchest painis reproducible. Chest painchanges with movement no radiatingno associatedshortness of breath lightheadedness. He also noticed that her heart rate started to drop and she becamecyanoticand had a pulse ox that was reading into the low 60s. Clinical Indicators: BNP: [id number] on 09/09 Echocardiogram Results: EKGshowedatrial fibrillationpatient has chronic A- fib Chest X Ray: chest x-rayshowed mild pulmonary vascularcongestionalsobilateral pleural effusionthere is a hazy hazyopacityin the right lower lung field these were present in the oldx-raysas well patientdoes not have anyfever. Echo transthoracic on 09/09 -Left ventricular ejection fraction is estimated at 45-50 %.Mildly increased septal wall thickness. Mildly increased posterior wall thickness. Right Ventricle Mild right ventriculardilatation. Severepulmonary hypertension. Right ventricular systolicpressureestimated at 66 mm hg. h/p on 09/09 -Chest painrule outacute coronary syndromes patientchest painappears to be musculoskeletal clearly wecannotuse NSAIDs at this time continue with NorcoPT andOTevaluated the patient patient will needplacement -Congestive heart failure chronic systolicdysfunctionwith mild acute exacerbation patient will be given a dose of Lasix 20 mg patientx-alexandria Javier also obtain a proBNP Cardiac consult on 09/09 -Atypical chest pain,acute coronary syndromeruled out Resume patient's home cardiac medications Obtain 2-DechocardiogramandDopplerstudyto assess cardiac structure and fun ction If no significant change from previousechocardiogram, patient is cleared for discharge and willfollow-upwith Dr. Che in 1 week Treatment: given a dose of Lasix 20 mg In your professional opinion, can you please clarify the type of CHF if known? [ ] Acute Systolic Heart Failure (reduced EF) [ ] Chronic Systolic Heart Failure (reduced EF) [ x ] Acute on Chronic Systolic Heart Failure (reduced EF) [ ] Acute Diastolic Heart Failure (preserved EF) [ ] Chronic Diastolic Heart Failure (preserved EF) [ ] Acute on Chronic Diastolic Heart Failure (preserved EF) [ ] Acute Systolic & Diastolic Heart Failure [ ] Chronic Systolic & Diastolic Heart Failure [ ] Acute on Chronic Heart Failure Systolic & Diastolic Heart Failure [ ] Other, please specify [ ] Unable to determine (Template Last Revised: August 2020) MTDD
--- NOTE | 2024-09-15 21:46 | P.DS ---
Providers Date of admission: 09/08/24 16:01 Attending physician: Teresita Martinez Consults: 09/08/24 15:59 Consult Physician Urgent Consulting Provider: Stan Sims Consult Reason/Comments: chest pain Do you want consulting provider notified?: Yes Primary care physician: Melecio Simon Hospital Course: Final Diagnosis -Chest pain rule out acute coronary syndromes patient chest pain appears to be musculoskeletal -Congestive heart failure chronic systolic dysfunction with mild acute exacerbation -Acute renal failure on chronic kidney disease stage IV acute renal failure may be prerenal azotemia from heart failure -Chronic respiratory failure is on 2 L of oxygen at home presently on 3 L -Generalized weakness and moderate protein calorie malnutrition PT and OT evaluation supportive care -Severe pulmonary hypertension possible right-sided heart failure -Coronary artery disease with cardiac catheterization in the past with significant coronary vascular disease -Persistent A-fib: Anticoagulation -Type 2 diabetes mellitus -Hyperlipidemia -Coronary artery disease with stenting in the past -History of polio medical debility -Hypothyroidism Discharge Disposition Patient stable for discharge home. She will return home with home care services. Patient to follow-up with her fly winder Dr. Che in 1 week on discharge. No further antibiotics required. Hospital Course This is an 89-year-old female with medical history of coronary artery disease, COPD patient is chronically on 2 L of oxygen. Patient came into the hospital with complaints of chest pain rating to the back as well as the front and chest pain is reproducible. Patient does report some shortness of breath and lightheadedness. EKG EKG reveals atrial fibrillation the patient does have a history of chronic A-fib. Chest x-ray reveals mild pulmonary vascular congestion and bilateral pleural effusion with a hazy opacity in the right lower lung field. These were all present in the old x-rays. Patient has been afebrile. She was admitted to the hospital for the chest pain cardiology was consulted. Echocardiogram reveals an EF of 45 to 50% with right ventricular systolic pressure is 66 mmHg consistent with severe pulmonary hypertension. Patient's baseline creatinine is usually 1.5 her creatinine was significantly elevated at 2.2 on admission. Patient's proBNP was elevated at 15,400. Her procalcitonin level was negative at 0.08. Patient was treated with Lasix and clinically she improved. Patient's urine culture was found to be negative. Cardiology evaluated patient for the chest pain rule out acute coronary syndrome patient's chest pain is likely musculoskeletal as it is reproducible. She was cleared for discharge home and will not require any further antibiotics. Metoprolol was decreased to 25 mg twice daily. Please see medication reconciliation for a list of current medications. Thank you for allowing us to participate in the care of this patient. The impression and plan of care has been dictated by Malini Vang, Nurse Practitioner as directed. Dr. Ryan MD I have performed a history and physical examination and medical decision making of this patient, discussed the same with the dictator, and agree with the dictators assessment and plan as written, documented as a scribe. Based on total visit time, I have performed more than 50% of this visit. Patient Condition at Discharge: Fair Plan - Discharge Summary Discharge Rx Participant: No New Discharge Prescriptions: New Metoprolol Tartrate [Lopressor] 25 mg PO BID #60 tab Continue buPROPion HCL [Wellbutrin SR] 150 mg PO BID Albuterol Inhaler [Ventolin Hfa Inhaler] 2 puff INHALATION RT-Q6H PRN PRN Reason: Wheezing Empagliflozin [Jardiance] 10 mg PO DAILY Meclizine [Antivert] 12.5 mg PO TID PRN PRN Reason: Vertigo Levothyroxine Sodium [Synthroid] 250 mcg PO DAILY Albuterol Nebulized [Ventolin Nebulized] 2.5 mg INHALATION RT-TID Latanoprost [Latanoprost 0.005%] 1 drop BOTH EYES HS Cyanocobalamin [Vitamin B-12] 1,000 mcg PO DAILY Magnesium Oxide [Mag-Ox] 400 mg PO BID Sennosides/Docusate Sodium [Senna Plus 8.6-50 mg Tablet] 1 tab PO DAILY PRN PRN Reason: Constipation Apixaban [Eliquis] 2.5 mg PO BID Atorvastatin [Lipitor] 20 mg PO DAILY calcitrioL 0.5 mcg PO DAILY Venlafaxine HCl [Effexor XR] 300 mg PO DAILY Primidone [Mysoline] 50 mg PO BID HYDROcodone/APAP 10-325MG [[place] 10-325] 1 tab PO Q6HR PRN PRN Reason: Pain Famotidine [Pepcid] 20 mg PO BID Budesonide/Formoterol Fumarate [Symbicort 160-4.5 Mcg Inhaler] 2 puff INHALATION RT-BID Ergocalciferol (Vitamin D2) [Drisdol (50,000 Iu)] 1,250 mcg PO Q30D Furosemide [Lasix] 40 mg PO BID dilTIAZem HCL [Cardizem CD] 240 mg PO DAILY Discontinued Metoprolol Tartrate [Lopressor] 200 mg PO BID Cephalexin [Keflex] 500 mg PO Q6HR #28 cap Discharge Medication List buPROPion HCL [Wellbutrin SR] 150 mg PO BID 05/03/18 [History] Albuterol Inhaler [Ventolin Hfa Inhaler] 2 puff INHALATION RT-Q6H PRN 02/27/23 [History] Apixaban [Eliquis] 2.5 mg PO BID 02/27/23 [History] Cyanocobalamin [Vitamin B-12] 1,000 mcg PO DAILY 02/27/23 [History] Magnesium Oxide [Mag-Ox] 400 mg PO BID 02/27/23 [History] Sennosides/Docusate Sodium [Senna Plus 8.6-50 mg Tablet] 1 tab PO DAILY PRN 02/27/23 [History] Atorvastatin [Lipitor] 20 mg PO DAILY 07/16/23 [History] Empagliflozin [Jardiance] 10 mg PO DAILY 07/16/23 [History] Meclizine [Antivert] 12.5 mg PO TID PRN 07/16/23 [History] Venlafaxine HCl [Effexor XR] 300 mg PO DAILY 07/16/23 [History] calcitrioL 0.5 mcg PO DAILY 07/16/23 [History] Levothyroxine Sodium [Synthroid] 250 mcg PO DAILY 09/12/23 [History] Primidone [Mysoline] 50 mg PO BID 09/12/23 [History] Albuterol Nebulized [Ventolin Nebulized] 2.5 mg INHALATION RT-TID 12/07/23 [History] HYDROcodone/APAP 10-325MG [[place] 10-325] 1 tab PO Q6HR PRN 12/07/23 [History] Budesonide/Formoterol Fumarate [Symbicort 160-4.5 Mcg Inhaler] 2 puff INHALATION RT-BID 09/08/24 [History] Ergocalciferol (Vitamin D2) [Drisdol (50,000 Iu)] 1,250 mcg PO Q30D 09/08/24 [History] Famotidine [Pepcid] 20 mg PO BID 09/08/24 [History] Furosemide [Lasix] 40 mg PO BID 09/08/24 [History] Latanoprost [Latanoprost 0.005%] 1 drop BOTH EYES HS 09/08/24 [History] dilTIAZem HCL [Cardizem CD] 240 mg PO DAILY 09/08/24 [History] Metoprolol Tartrate [Lopressor] 25 mg PO BID #60 tab 09/12/24 [Rx] Follow up Appointment(s)/Referral(s): [facility] - As Needed Du Che DO [STAFF PHYSICIAN] - 1 Week Melecio Simon [Primary Care Provider] - 1-2 days Ambulatory/Diagnostic Orders: Basic Metabolic Panel [LAB.AMB] Location: None Selected Complete Blood Count w/diff [LAB.AMB] Time Frame: 3 Days, Location: None Selected Patient Instructions/Handouts: Chest Pain (DC) Discharge Disposition: HOME WITH HOME HEALTH SERVICES
== END 2024-09-12 16:36 | disposition home health service (06) ==
LOC: EC 14:33 → 6NMEDSUR 16:00 → OBSVTOIN 16:01 → INTOOBSV 16:01 → 6NMEDSUR 17:11
PROVIDERS: ADMIT Hospitalist; ATTEND Hospitalist
DX: R07.9 Chest pain, unspecified (principal); I13.0 Hypertensive heart and chronic kidney disease with heart failure and stage 1 through stage 4 chronic kidney disease, or unspecified chronic kidney disease; I50.23 Acute on chronic systolic (congestive) heart failure; E03.9 Hypothyroidism, unspecified; E11.22 Type 2 diabetes mellitus with diabetic chronic kidney disease; E44.0 Moderate protein-calorie malnutrition; E78.5 Hyperlipidemia, unspecified; E86.0 Dehydration; F32.A Depression, unspecified; F41.9 Anxiety disorder, unspecified; G93.41 Metabolic encephalopathy; I25.10 Atherosclerotic heart disease of native coronary artery without angina pectoris; I27.20 Pulmonary hypertension, unspecified; I48.19 Other persistent atrial fibrillation; J44.9 Chronic obstructive pulmonary disease, unspecified; J96.11 Chronic respiratory failure with hypoxia; N17.9 Acute kidney failure, unspecified; N18.4 Chronic kidney disease, stage 4 (severe); G47.30 Sleep apnea, unspecified; K21.9 Gastro-esophageal reflux disease without esophagitis; Z79.01 Long term (current) use of anticoagulants; Z79.51 Long term (current) use of inhaled steroids; Z79.84 Long term (current) use of oral hypoglycemic drugs; Z79.890 Hormone replacement therapy; Z79.899 Other long term (current) drug therapy; Z86.12 Personal history of poliomyelitis; Z86.718 Personal history of other venous thrombosis and embolism; Z87.440 Personal history of urinary (tract) infections; Z87.891 Personal history of nicotine dependence; Z99.81 Dependence on supplemental oxygen; Z95.5 Presence of coronary angioplasty implant and graft; Z88.2 Allergy status to sulfonamides; Z88.8 Allergy status to other drugs, medicaments and biological substances
CPT/HCPCS: 96376 ×3; 96365; 96375; 99285; 36415; 94640 ×9; 94760 ×2; 93005 ×2; 93306; 97530 ×2; 97162; 97166; 83880; 80061; 80053; 80048 ×2; 83735 ×2; 84484; 85025 ×2; 85610; 85730; 81001; 87040; 87086; 84145; 71046; G0378 ×5; J1940 ×4; S0106 ×5; J0696 ×3; Q9957

== ENCOUNTER 2024-10-14 12:09 | Emergency (ER) | payer MEDICARE, BC ==
[2024-10-14 12:26] VITALS: PULSE 110
--- NOTE | 2024-10-14 12:58 | CT ---
EXAMINATION TYPE: CT brain cspine wo con, CT facial bones wo con DATE OF EXAM: 10/14/2024 12:34 PM COMPARISON: 12/07/2023 CLINICAL INDICATION: Female, 84 years old with history of Trauma; Code coag, fall, rt facial injury ( accession [id number]), Code coag, rt facial injury (accession [id number]), pain TECHNIQUE: Brain: Multiple axial CT images of the brain were obtained without IV contrast. Cspine: Axial CT images from the skull base to the inferior aspect of T2 we obtained without intraven ous contrast. Coronal and sagittal reformatted images were also reviewed. Facial: Axial imaging of the facial structures with sagittal and coronal reformats. CT DLP: 1139.2 mGycm, Automated exposure control for dose reduction was used. FINDINGS: Brain: Extra-axial spaces: No abnormal extra-axial fluid collections. Ventricular system: Dilatation in proportion to cerebral atrophy. Cerebral parenchyma: Cerebral atrophy. No acute intraparenchymal hemorrhage or mass effect. The nation -white junction is well differentiated. Scattered hypoattenuating areas are seen within the white mat ter. Cerebellum: Unremarkable. Mass effect: No evidence of midline shift. Intracranial vasculature: Atherosclerotic calcifications of the intracranial vessels. Soft tissues: Normal. Calvarium/osseous structures: No depressed skull fracture. Paranasal sinuses and mastoid air cells: Clear. Visualized orbits: Orbital contents are intact. Cervical spine: Fracture: None. Osseous structures: Multilevel degenerative disc disease changes with endplate spurring and disc oste ophyte complex's. Vertebral alignment: Within normal limits. Spinal canal/Neural Foramina: No evidence of significant spinal canal narrowing. No evidence for sign ificant neural foraminal stenosis. Neck soft tissues: Prevertebral soft tissues are within normal limits. Other: The airway is patent. The lung apices are clear. Facial:There is no evidence of fracture, subluxation, dislocation, or significant soft tissue swellin g. The orbital contents are unremarkable.The temporal-mandibular joints appear symmetric. The visuali zed portion of the paranasal sinuses appear clear. There is a moderate to large left pleural effusion and layering fluid within the right minor fissure on the right. Centrilobular emphysema changes. IMPRESSION: 1. No acute intracranial process. 2. No evidence for facial bone fracture. 3. Nonspecific white matter changes, likely secondary to chronic small vessel ischemic disease. 4. No evidence of cervical spine fracture. 5. Moderate multilevel degenerative disc disease. 6. Moderate to large pleural effusion. 7. Trace right pleural effusion. 8. [id number] emphysema.. [facility], , 10/14/2024 12:55 PM
--- NOTE | 2024-10-14 13:07 | ED ---
General Adult HPI - General Chief complaint: Trauma Stated complaint: fall on thinners Time Seen by Provider: 10/14/24 12:11 Source: EMS Mode of arrival: EMS - History of Present Illness Initial comments: Patient is an 85-year-old female presenting today for mechanical trip and fall. Per EMS report, patient is on a blood thinner and is currently complaining of right shoulder pain. She is currently on hospice. Additionally history later provided by patient's son who was at home with patient at the time of her fall. Pt was given her afternoon norco and morphine and shortly after a thud was heard. Family went to find the patient on the floor near the bathroom and they suspect she attempted to get up on her own and was somewhat drowsy due to her pain medications, which caused her to fall. Her home health aid and hospice nurse were also present and evaluated pt after fall. They noted a bruise to patient's right eyebrow and due to being on eliquis, they thought pt should come to the ED to have imaging obtained to ensure no intracranial hemorrhage. Pt's son notes that her right shoulder pain is chronic and from an older injury. She is currently at her baseline mental status and if cleared after imaging, are hoping to get pt back home and she will be continued on hospice. - Related Data Home Medications Medication Instructions Recorded Confirmed buPROPion HCL [Wellbutrin SR] 150 mg PO BID 05/03/18 09/08/24 Albuterol Inhaler [Ventolin Hfa 2 puff INHALATION RT-Q6H PRN 02/27/23 09/08/24 Inhaler] Apixaban [Eliquis] 2.5 mg PO BID 02/27/23 09/08/24 Cyanocobalamin [Vitamin B-12] 1,000 mcg PO DAILY 02/27/23 09/08/24 Magnesium Oxide [Mag-Ox] 400 mg PO BID 02/27/23 09/08/24 Sennosides/Docusate Sodium [Senna 1 tab PO DAILY PRN 02/27/23 09/08/24 Plus 8.6-50 mg Tablet] Atorvastatin [Lipitor] 20 mg PO DAILY 07/16/23 09/08/24 Empagliflozin [Jardiance] 10 mg PO DAILY 07/16/23 09/08/24 Meclizine [Antivert] 12.5 mg PO TID PRN 07/16/23 09/08/24 Venlafaxine HCl [Effexor XR] 300 mg PO DAILY 07/16/23 09/08/24 calcitrioL 0.5 mcg PO DAILY 07/16/23 09/08/24 Levothyroxine Sodium [Synthroid] 250 mcg PO DAILY 09/12/23 09/08/24 Primidone [Mysoline] 50 mg PO BID 09/12/23 09/08/24 Albuterol Nebulized [Ventolin 2.5 mg INHALATION RT-TID 12/07/23 09/08/24 Nebulized] HYDROcodone/APAP 10-325MG [[place] 1 tab PO Q6HR PRN 12/07/23 09/08/24 10-325] Budesonide/Formoterol Fumarate 2 puff INHALATION RT-BID 09/08/24 09/08/24 [Symbicort 160-4.5 Mcg Inhaler] Ergocalciferol (Vitamin D2) 1,250 mcg PO Q30D 09/08/24 09/08/24 [Drisdol (50,000 Iu)] Famotidine [Pepcid] 20 mg PO BID 09/08/24 09/08/24 Furosemide [Lasix] 40 mg PO BID 09/08/24 09/08/24 Latanoprost [Latanoprost 0.005%] 1 drop BOTH EYES HS 09/08/24 09/08/24 dilTIAZem HCL [Cardizem CD] 240 mg PO DAILY 09/08/24 09/08/24 Previous Rx's Medication Instructions Recorded Metoprolol Tartrate [Lopressor] 25 mg PO BID #60 tab 09/12/24 Allergies Allergy/AdvReac Type Severity Reaction Status Date / Time nitrofurantoin Allergy Unknown Verified 10/14/24 12:27 [From Macrobid] Sulfa (Sulfonamide Allergy StevensJohnson Verified 10/14/24 12:27 Antibiotics) syndrome Review of Systems ROS Statement: Those systems with pertinent positive or pertinent negative responses have been documented in the HPI. ROS Other: All systems not noted in ROS Statement are negative. 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 left wrist, hx of UTI's, hx of glaucoma, had several laser tx, states frequent headaches, uses walker, vertigo, hx of gout, History of Any Multi-Drug Resistant Organisms: None Reported Past Surgical History: Cholecystectomy, Heart Catheterization With Stent, Hysterectomy Additional Past Surgical History / Comment(s): kidney surg. for malrotation, chest tube, 2 stents Past Anesthesia/Blood Transfusion Reactions: No Reported Reaction Date of Last Stent Placement:: 2010 Past Psychological History: Anxiety, Depression Smoking Status: Former smoker Past Alcohol Use History: None Reported Past Drug Use History: None Reported - Past Family History Mother Sister(s) Family Medical History: Cancer General Exam - General Exam Comments Initial Comments: PE: CONSTITUTIONAL: No apparent distress, chronically ill appearing, nontoxic SKIN: Warm, dry, no jaundice, hives or petechiae. Small contusion to lateral right eyebrow EYES: Pupils are equally round, extraocular movements intact without nystagmus, clear conjunctiva, non-icteric sclera HENT: Normocephalic, contusion as noted above, moist mucus membranes, o ropharynx clear without exudates NECK: , Full range of motion, normal appearance, no midline spinal TTP PULMONARY: Clear to auscultation without wheezes, rhonchi, or rales, normal excursion, no accessory muscle use and no stridor CARDIOVASCULAR: Regular rate, rhythm, normal S1 and S2. No appreciated murmurs, rubs or gallops. Strong radial pulses with intact distal perfusion. No lower extremity edema GASTROINTESTINAL: Soft, active bowel sounds throughout, non-tender, non- distended, no palpable masses, no rebound or guarding. No hepatosplenomegaly MUSCULOSKELETAL: Right shoulder appears prominent compared to left and difficulty with abduction, held in adduction, though no swelling, no bony TTP, no bruising or other signs of trauma, remaining E=extremities have no gross deformity, no edema, redness, or swelling. Back and trunk are atraumatic without midline spinal TTP NEUROLOGIC:_a/o x 1-2, GCS 15, patient is somewhat drowsy though awakens immediately to voice no focal neurologic deficits PSYCHIATRIC:_calm and cooperative Course Vital Signs 10/14/24 10/14/24 12:24 14:04 Temperature 98.3 F Pulse Rate 110 H Respiratory 20 16 Rate Blood Pressure 130/94 Blood Pressure 124/83 [Right Arm Supine] O2 Sat by Pulse 94 L 96 Oximetry Medical Decision Making - Medical Decision Making Was pt. sent in by a medical professional or institution (, PA, [employer], urgent care, hospital, or assisted...) When possible be specific @ -pt sent in by her hospice nurse and family Did you speak to anyone other than the patient for history (EMS, parent, family, police, friend...)? What history was obtained from this source Obtained further history from pt's son, as noted in HPI above, pt fell, hit head on eliquis, is at baseline mental status, has chronic right shoulder injury Did you review nursing and triage notes (agree or disagree)? Why? @ -I reviewed nursing and triage notes Were old charts reviewed (outside hosp., previous admission, EMS record, old EKG, old radiological studies, urgent care reports/EKG's, assisted records)? Report findings @ -Medical records were not reviewed Differential Diagnosis (chest pain, altered mental status, abdominal pain women, abdominal pain men, vaginal bleeding, weakness, fever, dyspnea, syncope, headache, dizziness, GI bleed, back pain, seizure, CVA, palpatations, mental health, musculoskeletal)? @Differential Musculoskeletal skull fracture, traumatic intracranial hemorrhage, Muscular strain, contusion, ligament sprain, fracture, arthritis, septic arthritis, bursitis, cellulitis, muscle spasm, nerve compression, DVT, arterial occlusion, herpes zoster, electrolyte abnormality, tumor.... This is not meant to be in all inclusive list EKG interpreted by me (3pts min.). @ -As above X-rays interpreted by me (1pt min.). @ I personally reviewed XR right shoulder, no fracture, noted by radiologist to have chronic rotator cuff injury, agree with radiologist interpretation CT interpreted by me (1pt min.). @Personally reviewed CT brain and C spine- I see no evidence of hemorrhage, fracture or malalignment, I agree with radiologist interpretation U/S interpreted by me (1pt. min.). @ -None done What testing was considered but not performed or refused? (CT, X-rays, U/S, labs)? Why? @ -None What meds were considered but not given or refused? Why? @ -None Did you discuss the management of the patient with other professionals (professionals i.e. , PA, DO[employer]ER, lab, RT, psych nurse, administrator social welfare, pets salesperson, t eacher, hospital security officer, caser shoe parts)? Give summary @ -No Was smoking cessation discussed for >3mins.? @ -No Was critical care preformed (if so, how long)? @ -No Were there social determinants of health that impacted care today? How? (Homelessness, low income, unemployed, alcoholism, drug addiction, transportation, low edu. Level, literacy, decrease access to med. care, [facility], rehab)? @ -No Was there de-escalation of care discussed even if they declined (Discuss DNR or withdrawal of care, Hospice)? @ -No What co-morbidities impacted this encounter? (DM, HTN, Smoking, COPD, CAD, Cancer, CVA, ARF, Chemo, Hep., AIDS, mental health diagnosis, sleep apnea, morbid obesity)? @Atrial fibrillation on Eliquis Was patient admitted / discharged? Hospital course, mention meds given and route, prescriptions, significant lab abnormalities, going to OR and other pertinent info. @Discharged- Patient is a pleasant 84 y/o female presenting via EMS after mechanical trip and fall at home, on hospice, sent in for evaluation of head injury on thinners. Pt was activated as a "code coag" due to fall on thinners. Evaluated by myself immediately on arrival. Had small contusion to lateral right eyebrow, appeared to have injury to right shoulder as well, as patient was positioned guarding her right shoulder and had complained of pain to EMS. Hx was initially limited as pt is poor historian. CT brain, Cspine and XR right shoulder ordered. On reassessment pt's son at bedside, provided further hx as noted in HPI above. Right shoulder injury is actually old and XR was negative for acute process. CT brain/Cspine negative for acute process. Updated pt's son to findings. He states pt is currently at her baseline mental status. He would like to get his mother home so that she can be continued on hospice and is comfortable with discharge at this time. Patient discharged in stable condition. In my medical judgment there is currently no evidence of an immediate life- threatening or surgical condition. Discharge is therefore indicated at this time. Discharge treatment instructions, follow up instructions, and appropriate emergency department return precautions were discussed with the patient and/or medical decision maker. Patient and/or medical decision maker expressed understanding of and agreed with the treatment plan, follow up instructions, and emergency department return precaution. All patient's and/or medical decision maker's questions were answered. Undiagnosed new problem with uncertain prognosis? @ -No Drug Therapy requiring intensive monitoring for toxicity (Heparin, Nitro, In sulin, Cardizem)? @ -No Were any procedures done? @ -No Diagnosis/symptom? Fall, head contusion Acute, or Chronic, or Acute on Chronic? @Acute Uncomplicated (without systemic symptoms) or Complicated (systemic symptoms)? @ -Uncomplicated Side effects of treatment? @ -No Exacerbation, Progression, or Severe Exacerbation? @ -No Poses a threat to life or bodily function? How? (Chest pain, [place], [place], pneumonia, PE, COPD, DKA, ARF, appy, cholecystitis, CVA, Diverticulitis, Homicidal, Suicidal, threat to staff... and all critical care pts) @ -No Disposition Clinical Impression: Fall, Contusion Disposition: HOME SELF-CARE Condition: Stable Instructions (If sedation given, give patient instructions): Fall Prevention for Older Adults (ED) Additional Instructions: Every disease is a spectrum and a small chance still exists that a serious condition could develop, for this reason, please monitor your family member closely for new, changing or worsening symptoms, changes in mental status, new onset confusion, uncontrollable pain or headaches nausea and vomiting,, fever, inability to tolerate/keep down fluids or her medications, inability to follow up with outpatient providers as instructed and should your family member experience these symptoms or should you have any further concerns for j luis wellbeing please return to the ED or call 911 immediately. PLEASE call your primary care physician as soon as possible to arrange / discuss plan for followup appointment. Appointment in the next 1-3 days is strongly encouraged if possible. PLEASE let us know here before you leave if there is anything further we can do to be of any assistance. Take care and feel Better! Is patient prescribed a controlled substance at d/c from ED?: No Referrals: Melecio Simon [Primary Care Provider] - 1-2 days
--- NOTE | 2024-10-14 13:44 | XR ---
EXAMINATION TYPE: XR shoulder complete RT DATE OF EXAM: 10/14/2024 1:12 PM COMPARISON: None. CLINICAL INDICATION: Female, 84 years old with history of right shoulder injury, Pain TECHNIQUE: XR shoulder complete RT view(s) obtained. FINDINGS: The humeral head is elevated in relation to the glenoid. There is loss of the acromiohumeral joint sp maria teresa. Findings are compatible with chronic rotator cuff tear. This could be confirmed with MRI. The acromio-clavicular junction is normal. No acute fractures or dislocations are evident. A follow up study can be performed 7-10 days from acute trauma for continued pain. MRI can be perfor med if soft tissue evaluation would be of benefit. IMPRESSION: 1. No acute osseous shoulder abnormality. 2. Chronic appearing rotator cuff tear.. [facility], , 10/14/2024 1:42 PM
--- NOTE | 2024-10-14 13:48 | XR ---
EXAMINATION TYPE: XR humerus RT DATE OF EXAM: 10/14/2024 1:12 PM COMPARISON: None. CLINICAL INDICATION: Female, 84 years old with history of right shoulder injury, pain TECHNIQUE: 2 view(s) obtained. FINDINGS: Humerus appears intact. No acute fractures are evident. Chronic rotator cuff tear at the shoulder is likely present. Elbow joint space appears preserved. Follow up exams can be performed 7-10 days from acute trauma for continued pain IMPRESSION: 1. No acute osseous abnormality. 2. Chronic rotator cuff tear [facility], , 10/14/2024 1:46 PM
[2024-10-14 14:05] VITALS: BP 124/83; RESP 16; TEMP 98.3
== END 2024-10-14 15:18 | disposition home or self-care (01) ==
LOC: EC 12:09
DX: S00.11XA Contusion of right eyelid and periocular area, initial encounter (principal); Z86.73 Personal history of transient ischemic attack (TIA), and cerebral infarction without residual deficits; Z87.891 Personal history of nicotine dependence; Z88.2 Allergy status to sulfonamides; Z88.1 Allergy status to other antibiotic agents; W01.0XXA Fall on same level from slipping, tripping and stumbling without subsequent striking against object, initial encounter
CPT/HCPCS: 70450; 70486; 72125; 99285